=== PATIENT | male | born 1940 | race Caucasian/White ===

== ENCOUNTER 2018-07-20 23:03 | Inpatient (IN) | payer MEDICARE ==
[~2018-07-20] VITALS: Ht 182.9 cm; Wt 75.8 kg
[2018-07-20] MEDS ORDERED: MAG HYDROX/AL HYDROX/SIMETH 30 ML ORAL.SUSP PO PRN (23:15)
[2018-07-20] MEDS ORDERED: MAGNESIUM HYDROXIDE 2,400 MG/30 ML ORAL.SUSP. PO PRN (23:15)
[2018-07-20] MEDS ORDERED: ACETAMINOPHEN 325 MG TABLET PO PRN (23:15)
[2018-07-20] MEDS ORDERED: METHYL SALICYLATE/MENTHOL TOPICAL OINTMENT 29GM TUBE. TP PRN (23:15)
[2018-07-20 23:32] VITALS: BP 165/71
[2018-07-20] MEDS ORDERED: LACO50TA PO (23:50)
[2018-07-20] MEDS ORDERED: ASPI-630 PO (23:50)
[2018-07-20] MEDS ORDERED: SIMV80TA17 PO (23:50)
[2018-07-20] MEDS ORDERED: UBIQ75CA PO (23:51)
[2018-07-20] MEDS ORDERED: LISI10TA2 PO (23:51)
[2018-07-21 05:46] VITALS: BP 131/76
--- NOTE | 2018-07-21 06:02 | EKG ---
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
[2018-07-21 07:15] LABS: BASO # 0.1 x10^3/uL (0.0-0.2); BASO % 1 % (0-3); EOS # 0.1 x10^3/uL (0.0-0.7); EOS % 1 % (0-3); HEMOGLOBIN 11.5 g/dL (13.0-17.5); LYMPH # 1.2 x10^3/uL (1.0-4.8); LYMPH % 20 % (24-48); MEAN CORPUSCULAR HEMOGLOBIN 33 pg (25-35); MEAN CORPUSCULAR HGB CONC 35 g/dL (31-37); MEAN CORPUSCULAR VOLUME 96 fL (79-100); MONO # 0.7 x10^3/uL (0.0-1.1); MONO % 13 % (0-9); NEUT # 3.8 x10^3uL (1.8-7.7); NEUT % 65 % (31-73); PLATELET COUNT 411 x10^3/uL (140-400); RED BLOOD COUNT 3.46 x10^6/uL (4.30-5.70); RED CELL DISTRIBUTION WIDTH 13.8 % (11.5-14.5); WHITE BLOOD COUNT 5.8 x10^3/uL (4.0-11.0)
[2018-07-21 07:41] LABS: ALBUMIN 3.2 g/dL (3.4-5.0); CALCIUM 8.8 mg/dL (8.5-10.1); CREATININE 0.8 mg/dL (0.7-1.3); GFR 93.3; POTASSIUM 4.5 mmol/L (3.5-5.1); TOTAL BILIRUBIN 0.2 mg/dL (0.2-1.0); TOTAL PROTEIN 6.3 g/dL (6.4-8.2)
[2018-07-21] MEDS: ASPIRIN 81 MG TAB.CHEW PO SCH ×2 (08:03→20:12)
[2018-07-21] MEDS: LISINOPRIL 10 MG TABLET PO SCH (08:04)
[2018-07-21] MEDS: LACOSAMIDE 50 MG TABLET PO SCH ×2 (08:04→20:12)
[2018-07-21 10:24] LABS: THYROID STIM HORMONE (TSH) 4.514 uIU/mL (0.358-3.740)
[2018-07-21 15:09] LABS: THYROXINE 4.8 ug/dL (4.5-12.0)
[2018-07-21 15:39] VITALS: BP 149/83
[2018-07-21] MEDS ORDERED: PHEN100C PO (18:37)
[2018-07-21] MEDS: UBIDECARENONE 50 MG CAPSULE. PO SCH ×2 (19:00→20:16)
[2018-07-21] MEDS: traZODone 50 MG TABLET. PO SCH (20:15)
[2018-07-21] MEDS: PHENYTOIN SODIUM EXTENDED 100 MG CAPSULE PO SCH (20:16)
[2018-07-21] MEDS: SIMVASTATIN 40 MG TABLET. PO SCH (20:17)
[2018-07-21 22:14] LABS: HEMOGLOBIN A1C 5.1 % (4.8-5.6)
[2018-07-22] MEDS: traZODone 50 MG TABLET. PO PRN (00:16)
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
[2018-07-22 06:19] VITALS: BP 129/67
[2018-07-22] MEDS: ASPIRIN 81 MG TAB.CHEW PO SCH ×2 (07:34→20:42)
[2018-07-22] MEDS: LISINOPRIL 10 MG TABLET PO SCH (07:34)
[2018-07-22] MEDS: UBIDECARENONE 50 MG CAPSULE. PO SCH (07:36)
[2018-07-22] MEDS: LACOSAMIDE 50 MG TABLET PO SCH ×2 (07:37→20:42)
[2018-07-22 15:11] LABS: BACTERIA,URINE 0 /HPF (0-FEW); BILIRUBIN,URINE NEG (NEG); CLARITY,URINE CLEAR; COLOR,URINE YELLOW; GLUCOSE,URINE NEG (NEG); HYALINE CASTS, URINE FEW /HPF; NITRITE,URINE NEG (NEG); RBC,URINE 0 /HPF (0-2); SQUAMOUS EPITHELIAL CELL,UR OCC /LPF; UROBILINOGEN,URINE 0.2 mg/dL (0.2 mg/dL); WBC,URINE 0 /HPF (0-4)
[2018-07-22 15:16] VITALS: BP 104/64
--- NOTE | 2018-07-22 20:04 | PDOC ---
Exam Note: Quintin Note: Late entry for date of service July. Please also refer to the separate dictated note~for this date of service dictated separately.~Patient seen individually. Discussed the patient with Nursing staff reviewed the chart.~ Reviewed interim history and current functioning. Reviewed vital signs,~Labs/ Radiology~and current medications noted below. Continue current treatment with the changes noted in the dictated addendum note Assessment: Vital Signs: VS - Last 72 Hours, by Label Date Time Temp Pulse Resp B/P (MAP) Pulse Ox O2 Delivery O2 Flow Rate FiO2 07/22/18 15:16 97.8 86 20 104/64 (77) 99 07/22/18 07:34 79 129/67 07/22/18 06:19 97.6 79 16 129/67 (87) 97 07/21/18 15:39 98.0 89 18 149/83 (105) 96 07/21/18 08:04 83 131/76 07/21/18 05:46 98.5 83 16 131/76 (94) 96 07/20/18 23:32 98.3 86 18 165/71 (102) 100 Vital Signs Date Time Temp Pulse Resp B/P (MAP) Pulse Ox O2 Delivery O2 Flow Rate FiO2 07/22/18 15:16 97.8 86 20 104/64 (77) 99 I&O Intake and Output 07/22/18 06:59 Intake Total 958 ml Balance 958 ml Intake Oral 958 ml # Voids 1 Labs: Laboratory Tests Test 07/22/18 13:10 Urine Collection Type Unknown Urine Color Yellow Urine Clarity Clear Urine pH 5.5 Urine Specific [place] 1.010 Urine Protein 30 mg/dl (NEG-TRACE) Urine Glucose (UA) Neg mg/dL (NEG) Urine Ketones (Stick) Neg mg/dL (NEG) Urine Blood Neg (NEG) Urine Nitrite Neg (NEG) Urine Bilirubin Neg (NEG) Urine Urobilinogen Dipstick 0.2 mg/dL (0.2 mg/dL) Urine Leukocyte Esterase Neg (NEG) Urine RBC 0 /HPF (0-2) Urine WBC 0 /HPF (0-4) Urine Squamous Epithelial Cells Occ /LPF Urine Bacteria 0 /HPF (0-FEW) Urine Hyaline Casts Few /HPF Urine Mucus Slight /LPF Current Medications: Meds: Current Medications Acetaminophen (Tylenol) 650 mg PRN Q6HRS PRN PO PAIN / TEMP; Start 07/20/18 at 23:15 Multi-Ingredient Ointment (Analgesic [place]) 1 erik PRN QID PRN TP MUSCLE PAIN; Start 07/20/18 at 23:15 Al Hydroxide/Mg Hydroxide (Mylanta Plus Xs) 15 ml PRN AFTMEALHC PRN PO DYSPEPSIA; Start 07/20/18 at 23:15 Magnesium Hydroxide (Milk Of Magnesia) 2,400 mg PRN QHS PRN PO CONSTIPATION; Start 07/20/18 at 23:15 Lacosamide (Vimpat) 50 mg BID PO Last administered on 07/22/18at 07:37; Start 07/21/18 at 09:00 Lisinopril (Prinivil) 10 mg DAILY PO Last administered on 07/22/18at 07:34; Start 07/21/18 at 09:00 Aspirin (Children'S Aspirin) 81 mg BID PO Last administered on 07/22/18at 07:34 ; Start 07/21/18 at 09:00 Simvastatin (Zocor) 80 mg QHS PO Last administered on 07/21/18at 20:17; Start 07/21/18 at 21:00 Coenzyme Q10 (Coenzyme Q10) 200 mg DAILY PO Last administered on 07/22/18at 07: 36; Start 07/21/18 at 19:00 Phenytoin Sodium (Dilantin) 400 mg Q96H PO Last administered on 07/21/18at 20:16 ; Start 07/21/18 at 21:00 Phenytoin Sodium (Dilantin) 400 mg Q96H PO ; Start 07/22/18 at 21:00 Phenytoin Sodium (Dilantin) 400 mg Q96H PO ; Start 07/23/18 at 21:00 Phenytoin Sodium (Dilantin) 300 mg Q96H PO ; Start 07/24/18 at 21:00 Trazodone HCl (Desyrel) 50 mg QHS PO Last administered on 07/21/18at 20:15; Start 07/21/18 at 21:00 Trazodone HCl (Desyrel) 50 mg PRN QHS PRN PO insomnia Last administered on 07/22at 00:16; Start 07/21/18 at 20:00 Active Scripts Active Reported Dilantin (Phenytoin Sodium Extended) 100 Mg Capsule 400 Mg PO HS Ultra Coq10 (Ubiquinone) 75 Mg Capsule 200 Mg PO DAILY Lisinopril 10 Mg Tablet 10 Mg PO DAILY Vimpat (Lacosamide) 50 Mg Tablet 50 Mg PO BID Aspirin 81 Mg Tab.chew 81 Mg PO BID Simvastatin 80 Mg Tablet 80 Mg PO HS I have reviewed the current psychotropics carefully including drug interactions. Risk benefit ratio favors no change other than as noted in my dictated progress note. Diagnosis: Problems: (1) Anxiety disorder (2) Dementia in Alzheimer's disease with delusions (3) Dementia in Alzheimer's disease with depression (4) Dementia, vascular, with delusions (5) Dementia, vascular, with depression (6) Impulse control disorder LISHA KIRKPATRICK MD Jul 22, 2018 20:04
--- NOTE | 2018-07-22 20:04 | PDOC ---
Exam Note: Quintin Note: Please also refer to the separate dictated note~for this date of service dictated separately.~Patient seen individually. Discussed the patient with Nursing staff reviewed the chart.~Reviewed interim history and current functioning. Reviewed vital signs,~Labs/ Radiology~and current medications noted below. Continue current treatment with the changes noted in the dictated addendum note Assessment: Vital Signs: Vital Signs Date Time Temp Pulse Resp B/P (MAP) Pulse Ox O2 Delivery O2 Flow Rate FiO2 07/22/18 15:16 97.8 86 20 104/64 (77) 99 I&O Intake and Output 07/22/18 06:59 Intake Total 958 ml Balance 958 ml Intake Oral 958 ml # Voids 1 Labs: Laboratory Tests Test 07/22/18 13:10 Urine Collection Type Unknown Urine Color Yellow Urine Clarity Clear Urine pH 5.5 Urine Specific [place] 1.010 Urine Protein 30 mg/dl (NEG-TRACE) Urine Glucose (UA) Neg mg/dL (NEG) Urine Ketones (Stick) Neg mg/dL (NEG) Urine Blood Neg (NEG) Urine Nitrite Neg (NEG) Urine Bilirubin Neg (NEG) Urine Urobilinogen Dipstick 0.2 mg/dL (0.2 mg/dL) Urine Leukocyte Esterase Neg (NEG) Urine RBC 0 /HPF (0-2) Urine WBC 0 /HPF (0-4) Urine Squamous Epithelial Cells Occ /LPF Urine Bacteria 0 /HPF (0-FEW) Urine Hyaline Casts Few /HPF Urine Mucus Slight /LPF Current Medications: Meds: Current Medications Acetaminophen (Tylenol) 650 mg PRN Q6HRS PRN PO PAIN / TEMP; Start 07/20/18 at 23:15 Multi-Ingredient Ointment (Analgesic [place]) 1 erik PRN QID PRN TP MUSCLE PAIN; Start 07/20/18 at 23:15 Al Hydroxide/Mg Hydroxide (Mylanta Plus Xs) 15 ml PRN AFTMEALHC PRN PO DYSPEPSIA; Start 07/20/18 at 23:15 Magnesium Hydroxide (Milk Of Magnesia) 2,400 mg PRN QHS PRN PO CONSTIPATION; Start 07/20/18 at 23:15 Lacosamide (Vimpat) 50 mg BID PO Last administered on 07/22/18at 07:37; Start 07/21/18 at 09:00 Lisinopril (Prinivil) 10 mg DAILY PO Last administered on 07/22/18 07:34; Start 07/21/18 at 09:00 Aspirin (Children'S Aspirin) 81 mg BID PO Last administered on 07/22/18at 07:34 ; Start 07/21/18 at 09:00 Simvastatin (Zocor) 80 mg QHS PO Last administered on 07/21/18at 20:17; Start 07/21/18 at 21:00 Coenzyme Q10 (Coenzyme Q10) 200 mg DAILY PO Last administered on 07/22/18at 07: 36; Start 07/21/18 at 19:00 Phenytoin Sodium (Dilantin) 400 mg Q96H PO Last administered on 07/21/18 20:16 ; Start 07/21/18 at 21:00 Phenytoin Sodium (Dilantin) 400 mg Q96H PO ; Start 07/22/18 at 21:00 Phenytoin Sodium (Dilantin) 400 mg Q96H PO ; Start 07/23/18 at 21:00 Phenytoin Sodium (Dilantin) 300 mg Q96H PO ; Start 07/24/18 at 21:00 Trazodone HCl (Desyrel) 50 mg QHS PO Last administered on 07/21/18at 20:15; Start 07/21/18 at 21:00 Trazodone HCl (Desyrel) 50 mg PRN QHS PRN PO insomnia Last administered on 07/22at 00:16; Start 07/21/18 at 20:00 Active Scripts Active Reported Dilantin (Phenytoin Sodium Extended) 100 Mg Capsule 400 Mg PO HS Ultra Coq10 (Ubiquinone) 75 Mg Capsule 200 Mg PO DAILY Lisinopril 10 Mg Tablet 10 Mg PO DAILY Vimpat (Lacosamide) 50 Mg Tablet 50 Mg PO BID Aspirin 81 Mg Tab.chew 81 Mg PO BID Simvastatin 80 Mg Tablet 80 Mg PO HS I have reviewed the current psychotropics carefully including drug interactions. Risk benefit ratio favors no change other than as noted in my dictated progress note. Diagnosis: Problems: (1) Anxiety disorder (2) Dementia in Alzheimer's disease with delusions (3) Dementia in Alzheimer's disease with depression (4) Dementia, vascular, with delusions (5) Dementia, vascular, with depression (6) Impulse control disorder LISHA KIRKPATRICK MD Jul 22, 2018 20:04
[2018-07-22] MEDS: SIMVASTATIN 40 MG TABLET. PO SCH (20:42)
[2018-07-22] MEDS: traZODone 50 MG TABLET. PO SCH (20:42)
[2018-07-22] MEDS: PHENYTOIN SODIUM EXTENDED 100 MG CAPSULE PO SCH (20:43)
--- NOTE | 2018-07-23 02:02 | PN ---
DATE: 07/22/2018 This note covers elements not covered in my initial note of 07/22/2018. SUBJECTIVE: The patient slept just one hour previous evening, had a good day, medication compliant. REVIEW OF SYSTEMS: No CV, , pulmonary, eye, ENT system symptoms on review. Reliability poor. MENTAL STATUS EXAM: Oriented to himself. Insight, judgment, recent and remote memory, attention, concentration, fund of knowledge poor, consistent with his diagnosis. IMPRESSION: Major neurocognitive disorder, Alzheimer, vascular with delusion, depression, behavioral disturbance. Rest unchanged. PLAN: No change from initial note. MAN RubyHailee KIRKPATRICK MD DR: ODNATO/marya JOB#: [id number] / [id number]
[2018-07-23 05:42] VITALS: BP 128/80
[2018-07-23] MEDS: LISINOPRIL 10 MG TABLET PO SCH (09:57)
[2018-07-23] MEDS: ASPIRIN 81 MG TAB.CHEW PO SCH ×2 (09:58→19:56)
[2018-07-23] MEDS: UBIDECARENONE 50 MG CAPSULE. PO SCH (09:58)
[2018-07-23] MEDS: LACOSAMIDE 50 MG TABLET PO SCH ×2 (09:58→20:00)
[2018-07-23 15:42] VITALS: BP 118/71
[2018-07-23] MEDS: traZODone 50 MG TABLET. PO SCH (19:56)
[2018-07-23] MEDS: SIMVASTATIN 40 MG TABLET. PO SCH (19:56)
[2018-07-23] MEDS: PHENYTOIN SODIUM EXTENDED 100 MG CAPSULE PO SCH (20:00)
[2018-07-23] MEDS: MIRTAZAPINE 7.5 MG TABLET. PO SCH (20:00)
--- NOTE | 2018-07-23 20:46 | PDOC ---
Exam Note: Quintin Note: Please also refer to the separate dictated note~for this date of service dictated separately.~Patient seen individually. Discussed the patient with Nursing staff reviewed the chart.~Reviewed interim history and current functioning. Reviewed vital signs,~Labs/ Radiology~and current medications noted below. Continue current treatment with the changes noted in the dictated addendum note Assessment: Vital Signs: Vital Signs Date Time Temp Pulse Resp B/P (MAP) Pulse Ox O2 Delivery O2 Flow Rate FiO2 07/23/18 15:42 98.2 83 20 118/71 (87) 99 07/23/18 05:42 Room Air I&O Intake and Output 07/23/18 06:59 Intake Total 960 ml Balance 960 ml Intake Oral 960 ml Current Medications: Meds: Current Medications Acetaminophen (Tylenol) 650 mg PRN Q6HRS PRN PO PAIN / TEMP; Start 07/20/18 at 23:15 Multi-Ingredient Ointment (Analgesic [place]) 1 erik PRN QID PRN TP MUSCLE PAIN; Start 07/20/18 at 23:15 Al Hydroxide/Mg Hydroxide (Mylanta Plus Xs) 15 ml PRN AFTMEALHC PRN PO DYSPEPSIA; Start 07/20/18 at 23:15 Magnesium Hydroxide (Milk Of Magnesia) 2,400 mg PRN QHS PRN PO CONSTIPATION; Start 07/20/18 at 23:15 Lacosamide (Vimpat) 50 mg BID PO Last administered on 07/23/18at 20:00; Start 07/21/18 at 09:00 Lisinopril (Prinivil) 10 mg DAILY PO Last administered on 07/23/18at 09:57; Start 07/21/18 at 09:00 Aspirin (Children'S Aspirin) 81 mg BID PO Last administered on 07/23/18 19:56 ; Start 07/21/18 at 09:00 Simvastatin (Zocor) 80 mg QHS PO Last administered on 07/23/18 19:56; Start 07/21/18 at 21:00 Coenzyme Q10 (Coenzyme Q10) 200 mg DAILY PO Last administered on 07/23/18at 09: 58; Start 07/21/18 at 19:00 Phenytoin Sodium (Dilantin) 400 mg Q96H PO Last administered on 07/21/18at 20:16 ; Start 07/21/18 at 21:00 Phenytoin Sodium (Dilantin) 400 mg Q96H PO Last administered on 07/22/18at 20:43 ; Start 07/22/18 at 21:00 Phenytoin Sodium (Dilantin) 400 mg Q96H PO Last administered on 07/23/18at 20:00 ; Start 07/23/18 at 21:00 Phenytoin Sodium (Dilantin) 300 mg Q96H PO ; Start 07/24/18 at 21:00 Trazodone HCl (Desyrel) 50 mg QHS PO Last administered on 07/23/18at 19:56; Start 07/21/18 at 21:00 Trazodone HCl (Desyrel) 50 mg PRN QHS PRN PO insomnia Last administered on 07/22at 00:16; Start 07/21/18 at 20:00 Mirtazapine (Remeron) 7.5 mg QHS PO Last administered on 07/23/18at 20:00; Start 07/23/18 at 21:00 Active Scripts Active Reported Dilantin (Phenytoin Sodium Extended) 100 Mg Capsule 400 Mg PO HS Ultra Coq10 (Ubiquinone) 75 Mg Capsule 200 Mg PO DAILY Lisinopril 10 Mg Tablet 10 Mg PO DAILY Vimpat (Lacosamide) 50 Mg Tablet 50 Mg PO BID Aspirin 81 Mg Tab.chew 81 Mg PO BID Simvastatin 80 Mg Tablet 80 Mg PO HS I have reviewed the current psychotropics carefully including drug interactions. Risk benefit ratio favors no change other than as noted in my dictated progress note. Diagnosis: Problems: (1) Anxiety disorder (2) Dementia in Alzheimer's disease with delusions (3) Dementia in Alzheimer's disease with depression (4) Dementia, vascular, with delusions (5) Dementia, vascular, with depression (6) Impulse control disorder LISHA KIRKPATRICK MD Jul 23, 2018 20:46
[2018-07-24 05:53] VITALS: BP 147/85
[2018-07-24] MEDS: UBIDECARENONE 50 MG CAPSULE. PO SCH (07:55)
[2018-07-24] MEDS: ASPIRIN 81 MG TAB.CHEW PO SCH ×2 (07:55→19:26)
[2018-07-24] MEDS: LISINOPRIL 10 MG TABLET PO SCH (07:56)
[2018-07-24] MEDS: LACOSAMIDE 50 MG TABLET PO SCH ×2 (07:59→19:29)
[2018-07-24 16:33] VITALS: BP 110/61
[2018-07-24] MEDS: MIRTAZAPINE 7.5 MG TABLET. PO SCH (19:26)
[2018-07-24] MEDS: traZODone 50 MG TABLET. PO SCH (19:26)
[2018-07-24] MEDS: SIMVASTATIN 40 MG TABLET. PO SCH (19:27)
[2018-07-24] MEDS: PHENYTOIN SODIUM EXTENDED 100 MG CAPSULE PO SCH (19:29)
--- NOTE | 2018-07-24 21:00 | PDOC ---
Exam Note: Quintin Note: Please also refer to the separate dictated note~for this date of service dictated separately.~Patient seen individually. Discussed the patient with Nursing staff reviewed the chart.~Reviewed interim history and current functioning. Reviewed vital signs,~Labs/ Radiology~and current medications noted below. Continue current treatment with the changes noted in the dictated addendum note Assessment: Vital Signs: Vital Signs Date Time Temp Pulse Resp B/P (MAP) Pulse Ox O2 Delivery O2 Flow Rate FiO2 07/24/18 16:33 98.1 67 18 110/61 (77) 98 07/23/18 05:42 Room Air I&O Intake and Output 07/24/18 07:00 Intake Total 480 ml Balance 480 ml Intake Oral 480 ml # Voids 1 # Bowel Movements 1 Current Medications: Meds: Current Medications Acetaminophen (Tylenol) 650 mg PRN Q6HRS PRN PO PAIN / TEMP; Start 07/20/18 at 23:15 Multi-Ingredient Ointment (Analgesic [place]) 1 erik PRN QID PRN TP MUSCLE PAIN; Start 07/20/18 at 23:15 Al Hydroxide/Mg Hydroxide (Mylanta Plus Xs) 15 ml PRN AFTMEALHC PRN PO DYSPEPSIA; Start 07/20/18 at 23:15 Magnesium Hydroxide (Milk Of Magnesia) 2,400 mg PRN QHS PRN PO CONSTIPATION; Start 07/20/18 at 23:15 Lacosamide (Vimpat) 50 mg BID PO Last administered on 07/24/18at 19:29; Start 07/21/18 at 09:00 Lisinopril (Prinivil) 10 mg DAILY PO Last administered on 07/24/18at 07:56; Start 07/21/18 at 09:00 Aspirin (Children'S Aspirin) 81 mg BID PO Last administered on 07/24/18 19:26 ; Start 07/21/18 at 09:00 Simvastatin (Zocor) 80 mg QHS PO Last administered on 07/24/18at 19:27; Start 07/21/18 at 21:00 Coenzyme Q10 (Coenzyme Q10) 200 mg DAILY PO Last administered on 07/24/18at 07: 55; Start 07/21/18 at 19:00 Phenytoin Sodium (Dilantin) 400 mg Q96H PO Last administered on 07/21/18at 20:16 ; Start 07/21/18 at 21:00 Phenytoin Sodium (Dilantin) 400 mg Q96H PO Last administered on 07/22/18 20:43 ; Start 07/22/18 at 21:00 Phenytoin Sodium (Dilantin) 400 mg Q96H PO Last administered on 07/23/18 20:00 ; Start 07/23/18 at 21:00 Phenytoin Sodium (Dilantin) 300 mg Q96H PO Last administered on 07/24/18 19:29 ; Start 07/24/18 at 21:00 Trazodone HCl (Desyrel) 50 mg QHS PO Last administered on 07/24/18 19:26; Start 07/21/18 at 21:00 Trazodone HCl (Desyrel) 50 mg PRN QHS PRN PO insomnia Last administered on 07/22 00:16; Start 07/21/18 at 20:00 Mirtazapine (Remeron) 7.5 mg QHS PO Last administered on 07/24/18 19:26; Start 07/23/18 at 21:00 Sertraline HCl (Zoloft) 50 mg DAILY PO ; Start 07/25/18 at 09:00 Active Scripts Active Reported Dilantin (Phenytoin Sodium Extended) 100 Mg Capsule 400 Mg PO HS Ultra Coq10 (Ubiquinone) 75 Mg Capsule 200 Mg PO DAILY Lisinopril 10 Mg Tablet 10 Mg PO DAILY Vimpat (Lacosamide) 50 Mg Tablet 50 Mg PO BID Aspirin 81 Mg Tab.chew 81 Mg PO BID Simvastatin 80 Mg Tablet 80 Mg PO HS I have reviewed the current psychotropics carefully including drug interactions. Risk benefit ratio favors no change other than as noted in my dictated progress note. Diagnosis: Problems: (1) Anxiety disorder (2) Dementia in Alzheimer's disease with delusions (3) Dementia in Alzheimer's disease with depression (4) Dementia, vascular, with delusions (5) Dementia, vascular, with depression (6) Impulse control disorder LISHA KIRKPATRICK MD Jul 24, 2018 21:00
[2018-07-25 06:00] VITALS: BP 147/73
[2018-07-25] MEDS: UBIDECARENONE 50 MG CAPSULE. PO SCH (08:40)
[2018-07-25] MEDS: LISINOPRIL 10 MG TABLET PO SCH (08:40)
[2018-07-25] MEDS: ASPIRIN 81 MG TAB.CHEW PO SCH ×2 (08:40→19:39)
[2018-07-25] MEDS: LACOSAMIDE 50 MG TABLET PO SCH ×2 (08:42→19:43)
[2018-07-25] MEDS: SERTRALINE 50 MG TABLET. PO SCH (08:42)
[2018-07-25 16:09] VITALS: BP 118/69
[2018-07-25] MEDS: traZODone 50 MG TABLET. PO SCH (19:40)
[2018-07-25] MEDS: MIRTAZAPINE 7.5 MG TABLET. PO SCH (19:40)
[2018-07-25] MEDS: PHENYTOIN SODIUM EXTENDED 100 MG CAPSULE PO SCH (19:43)
[2018-07-25] MEDS: SIMVASTATIN 40 MG TABLET. PO SCH (19:44)
--- NOTE | 2018-07-25 20:51 | PDOC ---
Exam Note: Quintin Note: Please also refer to the separate dictated note~for this date of service dictated separately.~Patient seen individually. Discussed the patient with Nursing staff reviewed the chart.~Reviewed interim history and current functioning. Reviewed vital signs,~Labs/ Radiology~and current medications noted below. Continue current treatment with the changes noted in the dictated addendum note Assessment: Vital Signs: Vital Signs Date Time Temp Pulse Resp B/P (MAP) Pulse Ox O2 Delivery O2 Flow Rate FiO2 07/25/18 16:09 98.4 78 16 118/69 (85) 96 07/23/18 05:42 Room Air I&O Intake and Output 07/25/18 07:00 Intake Total 1080 ml Balance 1080 ml Intake Oral 1080 ml Current Medications: Meds: Current Medications Acetaminophen (Tylenol) 650 mg PRN Q6HRS PRN PO PAIN / TEMP; Start 07/20/18 at 23:15 Multi-Ingredient Ointment (Analgesic [place]) 1 erik PRN QID PRN TP MUSCLE PAIN; Start 07/20/18 at 23:15 Al Hydroxide/Mg Hydroxide (Mylanta Plus Xs) 15 ml PRN AFTMEALHC PRN PO DYSPEPSIA; Start 07/20/18 at 23:15 Magnesium Hydroxide (Milk Of Magnesia) 2,400 mg PRN QHS PRN PO CONSTIPATION; Start 07/20/18 at 23:15 Lacosamide (Vimpat) 50 mg BID PO Last administered on 07/25/18at 19:43; Start 07/21/18 at 09:00 Lisinopril (Prinivil) 10 mg DAILY PO Last administered on 07/25/18 08:40; Start 07/21/18 at 09:00 Aspirin (Children'S Aspirin) 81 mg BID PO Last administered on 07/25/18 19:39 ; Start 07/21/18 at 09:00 Simvastatin (Zocor) 80 mg QHS PO Last administered on 07/25/18 19:44; Start 07/21/18 at 21:00 Coenzyme Q10 (Coenzyme Q10) 200 mg DAILY PO Last administered on 07/25/18 08: 40; Start 07/21/18 at 19:00 Phenytoin Sodium (Dilantin) 400 mg Q96H PO Last administered on 07/25/18 19: 43; Start 07/21/18 at 21:00 Phenytoin Sodium (Dilantin) 400 mg Q96H PO Last administered on 07/22/18at 20:43 ; Start 07/22/18 at 21:00 Phenytoin Sodium (Dilantin) 400 mg Q96H PO Last administered on 07/23/18at 20:00 ; Start 07/23/18 at 21:00 Phenytoin Sodium (Dilantin) 300 mg Q96H PO Last administered on 07/24/18at 19:29 ; Start 07/24/18 at 21:00 Trazodone HCl (Desyrel) 50 mg QHS PO Last administered on 07/25/18 19:40; Start 07/21/18 at 21:00 Trazodone HCl (Desyrel) 50 mg PRN QHS PRN PO insomnia Last administered on 07/22at 00:16; Start 07/21/18 at 20:00 Mirtazapine (Remeron) 7.5 mg QHS PO Last administered on 07/25/18 19:40; Start 07/23/18 at 21:00 Sertraline HCl (Zoloft) 50 mg DAILY PO Last administered on 07/25/18 08:42; Start 07/25/18 at 09:00 Active Scripts Active Reported Dilantin (Phenytoin Sodium Extended) 100 Mg Capsule 400 Mg PO HS Ultra Coq10 (Ubiquinone) 75 Mg Capsule 200 Mg PO DAILY Lisinopril 10 Mg Tablet 10 Mg PO DAILY Vimpat (Lacosamide) 50 Mg Tablet 50 Mg PO BID Aspirin 81 Mg Tab.chew 81 Mg PO BID Simvastatin 80 Mg Tablet 80 Mg PO HS I have reviewed the current psychotropics carefully including drug interactions. Risk benefit ratio favors no change other than as noted in my dictated progress note. Diagnosis: Problems: (1) Anxiety disorder (2) Dementia in Alzheimer's disease with delusions (3) Dementia in Alzheimer's disease with depression (4) Dementia, vascular, with delusions (5) Dementia, vascular, with depression (6) Impulse control disorder LISHA KIRKPATRICK MD Jul 25, 2018 20:51
--- NOTE | 2018-07-25 23:57 | PN ---
DATE: 07/24/2018 PSYCHIATRIC PROGRESS NOTE This late entry 07/24/2018 covers elements not covered in my initial note. SUBJECTIVE: I met with the patient in the evening. The patient slept 4 hours previous evening. He remains confused, compliant with medications, cooperative. REVIEW OF SYSTEMS: No CV, , pulmonary, eye, ENT system symptoms on review. Reliability poor. Gait unsteady with walker. I met with him in his room. He was being isolative and then I walked with him to the day room where they were having activities and he was cooperative with this. MENTAL STATUS EXAM: Oriented to himself. Insight, judgment, recent and remote memory, attention, concentration, fund of knowledge poor, consistent with his diagnosis mentioned in my initial note. PLAN: No change from initial note and we will go ahead and start Zoloft 50 mg a day for his mood and anxiety symptoms. MAN Franklin KIRKPATRICK MD DR: DONATO/marya JOB#: [id number] / [id number]
[2018-07-26 06:03] VITALS: BP 116/71
[2018-07-26] MEDS: ASPIRIN 81 MG TAB.CHEW PO SCH ×2 (09:57→20:38)
[2018-07-26] MEDS: LISINOPRIL 10 MG TABLET PO SCH (09:57)
[2018-07-26] MEDS: UBIDECARENONE 50 MG CAPSULE. PO SCH (09:57)
[2018-07-26] MEDS: SERTRALINE 50 MG TABLET. PO SCH (09:58)
[2018-07-26] MEDS: LACOSAMIDE 50 MG TABLET PO SCH ×2 (09:59→20:38)
[2018-07-26 16:33] VITALS: BP 152/77
[2018-07-26] MEDS: traZODone 50 MG TABLET. PO SCH (20:38)
[2018-07-26] MEDS: SIMVASTATIN 40 MG TABLET. PO SCH (20:38)
--- NOTE | 2018-07-26 20:40 | PDOC ---
Exam Note: Quintin Note: Please also refer to the separate dictated note~for this date of service dictated separately.~Patient seen individually. Discussed the patient with Nursing staff reviewed the chart.~Reviewed interim history and current functioning. Reviewed vital signs,~Labs/ Radiology~and current medications noted below. Continue current treatment with the changes noted in the dictated addendum note Assessment: Vital Signs: Vital Signs Date Time Temp Pulse Resp B/P (MAP) Pulse Ox O2 Delivery O2 Flow Rate FiO2 07/26/18 16:33 98.0 74 18 152/77 (102) 97 Room Air I&O Intake and Output 07/26/18 07:00 Intake Total 840 ml Balance 840 ml Intake Oral 840 ml # Voids 1 Current Medications: Meds: Current Medications Acetaminophen (Tylenol) 650 mg PRN Q6HRS PRN PO PAIN / TEMP; Start 07/20/18 at 23:15 Multi-Ingredient Ointment (Analgesic [place]) 1 erik PRN QID PRN TP MUSCLE PAIN; Start 07/20/18 at 23:15 Al Hydroxide/Mg Hydroxide (Mylanta Plus Xs) 15 ml PRN AFTMEALHC PRN PO DYSPEPSIA; Start 07/20/18 at 23:15 Magnesium Hydroxide (Milk Of Magnesia) 2,400 mg PRN QHS PRN PO CONSTIPATION; Start 07/20/18 at 23:15 Lacosamide (Vimpat) 50 mg BID PO Last administered on 07/26/18at 09:59; Start 07/21/18 at 09:00 Lisinopril (Prinivil) 10 mg DAILY PO Last administered on 07/26/18at 09:57; Start 07/21/18 at 09:00 Aspirin (Children'S Aspirin) 81 mg BID PO Last administered on 07/26/18 09:57 ; Start 07/21/18 at 09:00 Simvastatin (Zocor) 80 mg QHS PO Last administered on 07/25/18at 19:44; Start 07/21/18 at 21:00 Coenzyme Q10 (Coenzyme Q10) 200 mg DAILY PO Last administered on 07/26/18at 09: 57; Start 07/21/18 at 19:00 Phenytoin Sodium (Dilantin) 400 mg Q96H PO Last administered on 07/25/18at 19: 43; Start 07/21/18 at 21:00 Phenytoin Sodium (Dilantin) 400 mg Q96H PO Last administered on 07/22/18at 20:43 ; Start 07/22/18 at 21:00 Phenytoin Sodium (Dilantin) 400 mg Q96H PO Last administered on 07/23/18at 20:00 ; Start 07/23/18 at 21:00 Phenytoin Sodium (Dilantin) 300 mg Q96H PO Last administered on 07/24/18at 19:29 ; Start 07/24/18 at 21:00 Trazodone HCl (Desyrel) 50 mg QHS PO Last administered on 07/25/18 19:40; Start 07/21/18 at 21:00 Trazodone HCl (Desyrel) 50 mg PRN QHS PRN PO insomnia Last administered on 07/22at 00:16; Start 07/21/18 at 20:00 Mirtazapine (Remeron) 7.5 mg QHS PO Last administered on 07/25/18 19:40; Start 07/23/18 at 21:00; Stop 07/26/18 at 12:42; Status DC Sertraline HCl (Zoloft) 50 mg DAILY PO Last administered on 07/26/18at 09:58; Start 07/25/18 at 09:00 Mirtazapine (Remeron) 15 mg QHS PO ; Start 07/26/18 at 21:00 Active Scripts Active Reported Dilantin (Phenytoin Sodium Extended) 100 Mg Capsule 400 Mg PO HS Ultra Coq10 (Ubiquinone) 75 Mg Capsule 200 Mg PO DAILY Lisinopril 10 Mg Tablet 10 Mg PO DAILY Vimpat (Lacosamide) 50 Mg Tablet 50 Mg PO BID Aspirin 81 Mg Tab.chew 81 Mg PO BID Simvastatin 80 Mg Tablet 80 Mg PO HS I have reviewed the current psychotropics carefully including drug interactions. Risk benefit ratio favors no change other than as noted in my dictated progress note. Diagnosis: Problems: (1) Anxiety disorder (2) Dementia in Alzheimer's disease with delusions (3) Dementia in Alzheimer's disease with depression (4) Dementia, vascular, with delusions (5) Dementia, vascular, with depression (6) Impulse control disorder LISHA KIRKPATRICK MD Jul 26, 2018 20:40
[2018-07-26] MEDS: MIRTAZAPINE 15 MG TABLET PO SCH (20:45)
[2018-07-26] MEDS: PHENYTOIN SODIUM EXTENDED 100 MG CAPSULE PO SCH (20:46)
[2018-07-27 06:02] VITALS: BP 150/66
[2018-07-27] MEDS: ASPIRIN 81 MG TAB.CHEW PO SCH ×2 (09:31→20:11)
[2018-07-27] MEDS: UBIDECARENONE 50 MG CAPSULE. PO SCH (09:32)
[2018-07-27] MEDS: LACOSAMIDE 50 MG TABLET PO SCH ×2 (09:32→20:11)
[2018-07-27] MEDS: SERTRALINE 50 MG TABLET. PO SCH (09:32)
[2018-07-27] MEDS: LISINOPRIL 10 MG TABLET PO SCH (09:32)
[2018-07-27 15:41] VITALS: BP 118/72
--- NOTE | 2018-07-27 19:32 | PN ---
DATE: 07/27/2018 PSYCHIATRIC PROGRESS NOTE This late entry 07/25/2018 covers elements not covered in my initial note. SUBJECTIVE: I met with the patient in the evening. The patient slept 4-1/4 hours previous night. He has been pleasant, alert. He takes things that do not sadly belong to him, fairly oblivious of this. He walks into other patient's rooms again consequent to his memory deficits and confusion, but is redirectable. He was found to have the jacket of yet another patient in his room that he brought in and I addressed this with him, but he is fairly oblivious to this. REVIEW OF SYSTEMS: Ambulation impaired with walker. No CV, , pulmonary, eye, ENT system symptoms on review. MENTAL STATUS EXAM: Oriented to himself. Insight, judgment, recent and remote memory, attention, concentration, fund of knowledge poor, consistent with his diagnosis. IMPRESSION: Major neurocognitive disorder, Alzheimer, vascular with delusion, depression, behavioral disturbance; anxiety disorder, unspecified; impulse control disorder, unspecified. Rest unchanged. PLAN: No change from a psychiatric standpoint. He remains on phenytoin for his seizures, Zoloft, Remeron along with trazodone, the latter for insomnia. LISHA KIRKPATRICK MD DR: DONATO/maray JOB#: [id number] / [id number]
[2018-07-27] MEDS: SIMVASTATIN 40 MG TABLET. PO SCH (20:11)
[2018-07-27] MEDS: MIRTAZAPINE 15 MG TABLET PO SCH (20:11)
[2018-07-27] MEDS: traZODone 50 MG TABLET. PO SCH (20:11)
[2018-07-27] MEDS: PHENYTOIN SODIUM EXTENDED 100 MG CAPSULE PO SCH (20:15)
--- NOTE | 2018-07-27 20:43 | PDOC ---
Exam Note: Quintin Note: Please also refer to the separate dictated note~for this date of service dictated separately.~Patient seen individually. Discussed the patient with Nursing staff reviewed the chart.~Reviewed interim history and current functioning. Reviewed vital signs,~Labs/ Radiology~and current medications noted below. Continue current treatment with the changes noted in the dictated addendum note Assessment: Vital Signs: Vital Signs Date Time Temp Pulse Resp B/P (MAP) Pulse Ox O2 Delivery O2 Flow Rate FiO2 07/27/18 15:41 98.0 70 17 118/72 (87) 100 Room Air I&O Intake and Output 07/27/18 07:00 Intake Total 1080 ml Balance 1080 ml Intake Oral 1080 ml Current Medications: Meds: Current Medications Acetaminophen (Tylenol) 650 mg PRN Q6HRS PRN PO PAIN / TEMP; Start 07/20/18 at 23:15 Multi-Ingredient Ointment (Analgesic [place]) 1 erik PRN QID PRN TP MUSCLE PAIN; Start 07/20/18 at 23:15 Al Hydroxide/Mg Hydroxide (Mylanta Plus Xs) 15 ml PRN AFTMEALHC PRN PO DYSPEPSIA; Start 07/20/18 at 23:15 Magnesium Hydroxide (Milk Of Magnesia) 2,400 mg PRN QHS PRN PO CONSTIPATION; Start 07/20/18 at 23:15 Lacosamide (Vimpat) 50 mg BID PO Last administered on 07/27/18at 20:11; Start 07/21/18 at 09:00 Lisinopril (Prinivil) 10 mg DAILY PO Last administered on 07/27/18at 09:32; Start 07/21/18 at 09:00 Aspirin (Children'S Aspirin) 81 mg BID PO Last administered on 07/27/18at 20:11 ; Start 07/21/18 at 09:00 Simvastatin (Zocor) 80 mg QHS PO Last administered on 07/27/18at 20:11; Start 07/21/18 at 21:00 Coenzyme Q10 (Coenzyme Q10) 200 mg DAILY PO Last administered on 07/27/18at 09: 32; Start 07/21/18 at 19:00 Phenytoin Sodium (Dilantin) 400 mg Q96H PO Last administered on 07/25/18at 19: 43; Start 07/21/18 at 21:00 Phenytoin Sodium (Dilantin) 400 mg Q96H PO Last administered on 07/26/18at 20: 46; Start 07/22/18 at 21:00 Phenytoin Sodium (Dilantin) 400 mg Q96H PO Last administered on 07/27/18at 20: 15; Start 07/23/18 at 21:00 Phenytoin Sodium (Dilantin) 300 mg Q96H PO Last administered on 07/24/18 19:29 ; Start 07/24/18 at 21:00 Trazodone HCl (Desyrel) 50 mg QHS PO Last administered on 07/27/18 20:11; Start 07/21/18 at 21:00 Trazodone HCl (Desyrel) 50 mg PRN QHS PRN PO insomnia Last administered on 07/22 00:16; Start 07/21/18 at 20:00 Mirtazapine (Remeron) 7.5 mg QHS PO Last administered on 07/25/18 19:40; Start 07/23/18 at 21:00; Stop 07/26/18 at 12:42; Status DC Sertraline HCl (Zoloft) 50 mg DAILY PO Last administered on 07/27/18 09:32; Start 07/25/18 at 09:00 Mirtazapine (Remeron) 15 mg QHS PO Last administered on 07/27/18 20:11; Start 07/26/18 at 21:00 Active Scripts Active Reported Dilantin (Phenytoin Sodium Extended) 100 Mg Capsule 400 Mg PO HS Ultra Coq10 (Ubiquinone) 75 Mg Capsule 200 Mg PO DAILY Lisinopril 10 Mg Tablet 10 Mg PO DAILY Vimpat (Lacosamide) 50 Mg Tablet 50 Mg PO BID Aspirin 81 Mg Tab.chew 81 Mg PO BID Simvastatin 80 Mg Tablet 80 Mg PO HS I have reviewed the current psychotropics carefully including drug interactions. Risk benefit ratio favors no change other than as noted in my dictated progress note. Diagnosis: Problems: (1) Anxiety disorder (2) Dementia in Alzheimer's disease with delusions (3) Dementia in Alzheimer's disease with depression (4) Dementia, vascular, with delusions (5) Dementia, vascular, with depression (6) Impulse control disorder LISHA KIRKPATRICK MD Jul 27, 2018 20:43
--- NOTE | 2018-07-27 22:04 | PN ---
DATE: 07/26/2018 PSYCHIATRIC PROGRESS NOTE This late entry 07/26/2018 covers elements not covered in my initial note. SUBJECTIVE: I met with the patient in the evening, staffed at a treatment team meeting with the entire team in the morning. Reviewed the patient's history of progressive memory deficits. His is meeting with the supervisor prepress to get the patient on Medicaid for placement. She drives the school bus and is limited in her time she can spend with him where he to come home. He has slept about 2 hours previous evening, wanders the unit, picks up things belonging to others, oblivious of what he is doing. REVIEW OF SYSTEMS: Ambulation impaired with walker. No CV, , pulmonary, eye, ENT system symptoms on review. Reliability poor. MENTAL STATUS EXAM: I met with him in his room. Insight, judgment, recent and remote memory, attention, concentration, fund of knowledge poor, consistent with his diagnosis mentioned in my initial note. PLAN: Increase Remeron to 15 mg at bedtime to help with insomnia and anxiety. Maintain Zoloft. Remains on Dilantin for his seizures, trazodone for insomnia. MAN Franklin KIRKPATRICK MD DR: DONATO/marya JOB#: [id number] / [id number]
[2018-07-28 05:32] VITALS: BP 133/64
[2018-07-28] MEDS: LISINOPRIL 10 MG TABLET PO SCH (09:00)
[2018-07-28] MEDS: UBIDECARENONE 50 MG CAPSULE. PO SCH (09:12)
[2018-07-28] MEDS: ASPIRIN 81 MG TAB.CHEW PO SCH ×2 (09:12→20:45)
[2018-07-28] MEDS: SERTRALINE 50 MG TABLET. PO SCH (09:15)
[2018-07-28] MEDS: LACOSAMIDE 50 MG TABLET PO SCH ×2 (09:15→20:45)
[2018-07-28 16:22] VITALS: BP 137/71
[2018-07-28] MEDS: traZODone 50 MG TABLET. PO SCH (20:45)
[2018-07-28] MEDS: SIMVASTATIN 40 MG TABLET. PO SCH (20:45)
[2018-07-28] MEDS: MIRTAZAPINE 15 MG TABLET PO SCH (20:45)
[2018-07-28] MEDS: PHENYTOIN SODIUM EXTENDED 100 MG CAPSULE PO SCH (20:46)
--- NOTE | 2018-07-28 22:37 | PDOC ---
Exam Note: Quintin Note: Please also refer to the separate dictated note~for this date of service dictated separately.~Patient seen individually. Discussed the patient with Nursing staff reviewed the chart.~Reviewed interim history and current functioning. Reviewed vital signs,~Labs/ Radiology~and current medications noted below. Continue current treatment with the changes noted in the dictated addendum note Assessment: Vital Signs: Vital Signs Date Time Temp Pulse Resp B/P (MAP) Pulse Ox O2 Delivery O2 Flow Rate FiO2 07/28/18 16:22 97.5 78 18 137/71 (93) 99 07/27/18 15:41 Room Air I&O Intake and Output 07/28/18 07:00 Intake Total 1080 ml Balance 1080 ml Intake Oral 1080 ml Current Medications: Meds: Current Medications Acetaminophen (Tylenol) 650 mg PRN Q6HRS PRN PO PAIN / TEMP; Start 07/20/18 at 23:15 Multi-Ingredient Ointment (Analgesic [place]) 1 erik PRN QID PRN TP MUSCLE PAIN; Start 07/20/18 at 23:15 Al Hydroxide/Mg Hydroxide (Mylanta Plus Xs) 15 ml PRN AFTMEALHC PRN PO DYSPEPSIA; Start 07/20/18 at 23:15 Magnesium Hydroxide (Milk Of Magnesia) 2,400 mg PRN QHS PRN PO CONSTIPATION; Start 07/20/18 at 23:15 Lacosamide (Vimpat) 50 mg BID PO Last administered on 07/28/18at 20:45; Start 07/21/18 at 09:00 Lisinopril (Prinivil) 10 mg DAILY PO Last administered on 07/27/18at 09:32; Start 07/21/18 at 09:00 Aspirin (Children'S Aspirin) 81 mg BID PO Last administered on 07/28/18at 20:45 ; Start 07/21/18 at 09:00 Simvastatin (Zocor) 80 mg QHS PO Last administered on 07/28/18 20:45; Start 07/21/18 at 21:00 Coenzyme Q10 (Coenzyme Q10) 200 mg DAILY PO Last administered on 07/28/18at 09: 12; Start 07/21/18 at 19:00 Phenytoin Sodium (Dilantin) 400 mg Q96H PO Last administered on 07/25/18at 19: 43; Start 07/21/18 at 21:00 Phenytoin Sodium (Dilantin) 400 mg Q96H PO Last administered on 07/26/18 20: 46; Start 07/22/18 at 21:00 Phenytoin Sodium (Dilantin) 400 mg Q96H PO Last administered on 07/27/18at 20: 15; Start 07/23/18 at 21:00 Phenytoin Sodium (Dilantin) 300 mg Q96H PO Last administered on 07/28/18 20: 46; Start 07/24/18 at 21:00 Trazodone HCl (Desyrel) 50 mg QHS PO Last administered on 07/28/18 20:45; Start 07/21/18 at 21:00 Trazodone HCl (Desyrel) 50 mg PRN QHS PRN PO insomnia Last administered on 07/22at 00:16; Start 07/21/18 at 20:00 Mirtazapine (Remeron) 7.5 mg QHS PO Last administered on 07/25/18 19:40; Start 07/23/18 at 21:00; Stop 07/26/18 at 12:42; Status DC Sertraline HCl (Zoloft) 50 mg DAILY PO Last administered on 07/28/18 09:15; Start 07/25/18 at 09:00 Mirtazapine (Remeron) 15 mg QHS PO Last administered on 07/28/18at 20:45; Start 07/26/18 at 21:00 Active Scripts Active Reported Dilantin (Phenytoin Sodium Extended) 100 Mg Capsule 400 Mg PO HS Ultra Coq10 (Ubiquinone) 75 Mg Capsule 200 Mg PO DAILY Lisinopril 10 Mg Tablet 10 Mg PO DAILY Vimpat (Lacosamide) 50 Mg Tablet 50 Mg PO BID Aspirin 81 Mg Tab.chew 81 Mg PO BID Simvastatin 80 Mg Tablet 80 Mg PO HS I have reviewed the current psychotropics carefully including drug interactions. Risk benefit ratio favors no change other than as noted in my dictated progress note. Diagnosis: Problems: (1) Anxiety disorder (2) Dementia in Alzheimer's disease with delusions (3) Dementia in Alzheimer's disease with depression (4) Dementia, vascular, with delusions (5) Dementia, vascular, with depression (6) Impulse control disorder LISHA KIRKPATRICK MD Jul 28, 2018 22:37
[2018-07-29 06:18] VITALS: BP 147/63
[2018-07-29] MEDS: ASPIRIN 81 MG TAB.CHEW PO SCH ×2 (07:46→19:48)
[2018-07-29] MEDS: LISINOPRIL 10 MG TABLET PO SCH (07:46)
[2018-07-29] MEDS: SERTRALINE 50 MG TABLET. PO SCH (07:46)
[2018-07-29] MEDS: UBIDECARENONE 50 MG CAPSULE. PO SCH (07:46)
[2018-07-29] MEDS: LACOSAMIDE 50 MG TABLET PO SCH ×2 (07:49→19:48)
[2018-07-29 08:35] LABS: BASO # 0.1 x10^3/uL (0.0-0.2); BASO % 2 % (0-3); EOS # 0.2 x10^3/uL (0.0-0.7); EOS % 4 % (0-3); HEMATOCRIT 31.8 % (39.0-53.0); LYMPH # 1.1 x10^3/uL (1.0-4.8); LYMPH % 26 % (24-48); MEAN CORPUSCULAR HEMOGLOBIN 33 pg (25-35); MEAN CORPUSCULAR HGB CONC 35 g/dL (31-37); MEAN CORPUSCULAR VOLUME 95 fL (79-100); MONO # 0.5 x10^3/uL (0.0-1.1); MONO % 12 % (0-9); NEUT # 2.5 x10^3uL (1.8-7.7); NEUT % 57 % (31-73); PLATELET COUNT 404 x10^3/uL (140-400); RED BLOOD COUNT 3.33 x10^6/uL (4.30-5.70); RED CELL DISTRIBUTION WIDTH 14.2 % (11.5-14.5); WHITE BLOOD COUNT 4.4 x10^3/uL (4.0-11.0)
[2018-07-29 08:37] LABS: ALBUMIN 3.3 g/dL (3.4-5.0); ALBUMIN/GLOBULIN RATIO 1.1 (1.0-1.7); CALCIUM 8.7 mg/dL (8.5-10.1); GFR 72.3; POTASSIUM 4.2 mmol/L (3.5-5.1); TOTAL BILIRUBIN 0.3 mg/dL (0.2-1.0); TOTAL PROTEIN 6.2 g/dL (6.4-8.2)
[2018-07-29 16:04] VITALS: BP 95/59
[2018-07-29] MEDS: SIMVASTATIN 40 MG TABLET. PO SCH (19:47)
[2018-07-29] MEDS: MIRTAZAPINE 15 MG TABLET PO SCH (19:48)
[2018-07-29] MEDS: traZODone 50 MG TABLET. PO SCH (19:48)
--- NOTE | 2018-07-29 20:44 | PDOC ---
Exam Note: Quintni Note: Please also refer to the separate dictated note~for this date of service dictated separately.~Patient seen individually. Discussed the patient with Nursing staff reviewed the chart.~Reviewed interim history and current functioning. Reviewed vital signs,~Labs/ Radiology~and current medications noted below. Continue current treatment with the changes noted in the dictated addendum note Assessment: Vital Signs: Vital Signs Date Time Temp Pulse Resp B/P (MAP) Pulse Ox O2 Delivery O2 Flow Rate FiO2 07/29/18 16:04 97.4 80 20 95/59 (71) 95 07/27/18 15:41 Room Air I&O Intake and Output 07/29/18 07:00 Intake Total 1678 ml Balance 1678 ml Intake Oral 1678 ml Labs: Laboratory Tests Test 07/29/18 07:54 White Blood Count 4.4 x10^3/uL (4.0-11.0) Red Blood Count 3.33 x10^6/uL (4.30-5.70) L Hemoglobin 11.0 g/dL (13.0-17.5) L Hematocrit 31.8 % (39.0-53.0) L Mean Corpuscular Volume 95 fL (79-100) Mean Corpuscular Hemoglobin 33 pg (25-35) Mean Corpuscular Hemoglobin Concent 35 g/dL (31-37) Red Cell Distribution Width 14.2 % (11.5-14.5) Platelet Count 404 x10^3/uL (140-400) H Neutrophils (%) (Auto) 57 % (31-73) Lymphocytes (%) (Auto) 26 % (24-48) Monocytes (%) (Auto) 12 % (0-9) H Eosinophils (%) (Auto) 4 % (0-3) H Basophils (%) (Auto) 2 % (0-3) Neutrophils # (Auto) 2.5 x10^3uL (1.8-7.7) Lymphocytes # (Auto) 1.1 x10^3/uL (1.0-4.8) Monocytes # (Auto) 0.5 x10^3/uL (0.0-1.1) Eosinophils # (Auto) 0.2 x10^3/uL (0.0-0.7) Basophils # (Auto) 0.1 x10^3/uL (0.0-0.2) Sodium Level 143 mmol/L (136-145) Potassium Level 4.2 mmol/L (3.5-5.1) Chloride Level 107 mmol/L (98-107) Carbon Dioxide Level 28 mmol/L (21-32) Anion Gap 8 (6-14) Blood Urea Nitrogen 22 mg/dL (8-26) Creatinine 1.0 mg/dL (0.7-1.3) Estimated GFR (Cockcroft-Gault) 72.3 BUN/Creatinine Ratio 22 (6-20) H Glucose Level 97 mg/dL (70-99) Calcium Level 8.7 mg/dL (8.5-10.1) Total Bilirubin 0.3 mg/dL (0.2-1.0) Aspartate Amino Transferase (AST) 17 U/L (15-37) Alanine Aminotransferase (ALT) 31 U/L (16-63) Alkaline Phosphatase 112 U/L (46-116) Total Protein 6.2 g/dL (6.4-8.2) L Albumin 3.3 g/dL (3.4-5.0) L Albumin/Globulin Ratio 1.1 (1.0-1.7) Current Medications: Meds: Current Medications Acetaminophen (Tylenol) 650 mg PRN Q6HRS PRN PO PAIN / TEMP; Start 07/20/18 at 23:15 Multi-Ingredient Ointment (Analgesic [place]) 1 erik PRN QID PRN TP MUSCLE PAIN; Start 07/20/18 at 23:15 Al Hydroxide/Mg Hydroxide (Mylanta Plus Xs) 15 ml PRN AFTMEALHC PRN PO DYSPEPSIA; Start 07/20/18 at 23:15 Magnesium Hydroxide (Milk Of Magnesia) 2,400 mg PRN QHS PRN PO CONSTIPATION; Start 07/20/18 at 23:15 Lacosamide (Vimpat) 50 mg BID PO Last administered on 07/29/18at 19:48; Start 07/21/18 at 09:00 Lisinopril (Prinivil) 10 mg DAILY PO Last administered on 07/29/18at 07:46; Start 07/21/18 at 09:00 Aspirin (Children'S Aspirin) 81 mg BID PO Last administered on 07/29/18at 19:48 ; Start 07/21/18 at 09:00 Simvastatin (Zocor) 80 mg QHS PO Last administered on 07/29/18 19:47; Start 07/21/18 at 21:00 Coenzyme Q10 (Coenzyme Q10) 200 mg DAILY PO Last administered on 07/29/18at 07: 46; Start 07/21/18 at 19:00 Phenytoin Sodium (Dilantin) 400 mg Q96H PO Last administered on 07/25/18 19: 43; Start 07/21/18 at 21:00 Phenytoin Sodium (Dilantin) 400 mg Q96H PO Last administered on 07/26/18 20: 46; Start 07/22/18 at 21:00 Phenytoin Sodium (Dilantin) 400 mg Q96H PO Last administered on 07/27/18 20: 15; Start 07/23/18 at 21:00 Phenytoin Sodium (Dilantin) 300 mg Q96H PO Last administered on 07/28/18 20: 46; Start 07/24/18 at 21:00 Trazodone HCl (Desyrel) 50 mg QHS PO Last administered on 07/29/18 19:48; Start 07/21/18 at 21:00 Trazodone HCl (Desyrel) 50 mg PRN QHS PRN PO insomnia Last administered on 07/22at 00:16; Start 07/21/18 at 20:00 Mirtazapine (Remeron) 7.5 mg QHS PO Last administered on 07/25/18 19:40; Start 07/23/18 at 21:00; Stop 07/26/18 at 12:42; Status DC Sertraline HCl (Zoloft) 50 mg DAILY PO Last administered on 07/29/18at 07:46; Start 07/25/18 at 09:00 Mirtazapine (Remeron) 15 mg QHS PO Last administered on 07/29/18 19:48; Start 07/26/18 at 21:00 Active Scripts Active Reported Dilantin (Phenytoin Sodium Extended) 100 Mg Capsule 400 Mg PO HS Ultra Coq10 (Ubiquinone) 75 Mg Capsule 200 Mg PO DAILY Lisinopril 10 Mg Tablet 10 Mg PO DAILY Vimpat (Lacosamide) 50 Mg Tablet 50 Mg PO BID Aspirin 81 Mg Tab.chew 81 Mg PO BID Simvastatin 80 Mg Tablet 80 Mg PO HS I have reviewed the current psychotropics carefully including drug interactions. Risk benefit ratio favors no change other than as noted in my dictated progress note. Diagnosis: Problems: (1) Anxiety disorder (2) Dementia in Alzheimer's disease with delusions (3) Dementia in Alzheimer's disease with depression (4) Dementia, vascular, with delusions (5) Dementia, vascular, with depression (6) Impulse control disorder LISHA KIRKPATRICK MD Jul 29, 2018 20:44
[2018-07-29] MEDS: PHENYTOIN SODIUM EXTENDED 100 MG CAPSULE PO SCH (21:14)
[2018-07-30 06:28] VITALS: BP 137/71
[2018-07-30] MEDS: ASPIRIN 81 MG TAB.CHEW PO SCH ×2 (07:38→20:07)
[2018-07-30] MEDS: SERTRALINE 50 MG TABLET. PO SCH (07:38)
[2018-07-30] MEDS: LISINOPRIL 10 MG TABLET PO SCH (07:39)
[2018-07-30] MEDS: UBIDECARENONE 50 MG CAPSULE. PO SCH (07:39)
[2018-07-30] MEDS: LACOSAMIDE 50 MG TABLET PO SCH ×2 (07:40→20:11)
[2018-07-30 16:11] VITALS: BP 148/79
[2018-07-30] MEDS: traZODone 50 MG TABLET. PO SCH (20:06)
[2018-07-30] MEDS: MIRTAZAPINE 15 MG TABLET PO SCH (20:07)
[2018-07-30] MEDS: SIMVASTATIN 40 MG TABLET. PO SCH (20:07)
[2018-07-30] MEDS: PHENYTOIN SODIUM EXTENDED 100 MG CAPSULE PO SCH (20:11)
--- NOTE | 2018-07-30 22:29 | PN ---
DATE: 07/29/2018 PSYCHIATRIC PROGRESS NOTE This late entry 07/29/2018 covers elements not covered in my initial note. SUBJECTIVE: I met with the patient in the evening. The patient slept 7 hours previous night. Remains confused; somewhat anxious; carries around a notebook, writing things, trying to remember them. Otherwise, pleasant, cooperative, met with him in his room. REVIEW OF SYSTEMS: Ambulation impaired with walker. No CV, , pulmonary, eye, ENT system symptoms on review. Reliability poor. MENTAL STATUS EXAM: Oriented to himself and situation. Speech has some latency, coherent. Abstraction fair, computation impaired, language function intact, attention span short. Mood and affect remain somewhat withdrawn. LABORATORY DATA: Reviewed. IMPRESSION: Unchanged from initial note. PLAN: No change from initial note. MAN Franklin KIRKPATRICK MD DR: DONATO/marya JOB#: [id number] / [id number]
--- NOTE | 2018-07-30 22:46 | PDOC ---
Exam Note: Quintin Note: Please also refer to the separate dictated note~for this date of service dictated separately.~Patient seen individually. Discussed the patient with Nursing staff reviewed the chart.~Reviewed interim history and current functioning. Reviewed vital signs,~Labs/ Radiology~and current medications noted below. Continue current treatment with the changes noted in the dictated addendum note Assessment: Vital Signs: Vital Signs Date Time Temp Pulse Resp B/P (MAP) Pulse Ox O2 Delivery O2 Flow Rate FiO2 07/30/18 16:11 98.4 69 20 148/79 (102) 99 07/27/18 15:41 Room Air I&O Intake and Output 07/30/18 07:00 Intake Total 1045 ml Balance 1045 ml Intake Oral 1045 ml Current Medications: Meds: Current Medications Acetaminophen (Tylenol) 650 mg PRN Q6HRS PRN PO PAIN / TEMP; Start 07/20/18 at 23:15 Multi-Ingredient Ointment (Analgesic [place]) 1 erik PRN QID PRN TP MUSCLE PAIN; Start 07/20/18 at 23:15 Al Hydroxide/Mg Hydroxide (Mylanta Plus Xs) 15 ml PRN AFTMEALHC PRN PO DYSPEPSIA; Start 07/20/18 at 23:15 Magnesium Hydroxide (Milk Of Magnesia) 2,400 mg PRN QHS PRN PO CONSTIPATION; Start 07/20/18 at 23:15 Lacosamide (Vimpat) 50 mg BID PO Last administered on 07/30/18at 20:11; Start 07/21/18 at 09:00 Lisinopril (Prinivil) 10 mg DAILY PO Last administered on 07/30/18at 07:39; Start 07/21/18 at 09:00 Aspirin (Children'S Aspirin) 81 mg BID PO Last administered on 07/30/18at 20:07 ; Start 07/21/18 at 09:00 Simvastatin (Zocor) 80 mg QHS PO Last administered on 07/30/18at 20:07; Start 07/21/18 at 21:00 Coenzyme Q10 (Coenzyme Q10) 200 mg DAILY PO Last administered on 07/30/18at 07: 39; Start 07/21/18 at 19:00 Phenytoin Sodium (Dilantin) 400 mg Q96H PO Last administered on 07/29/18at 21: 14; Start 07/21/18 at 21:00 Phenytoin Sodium (Dilantin) 400 mg Q96H PO Last administered on 07/30/18at 20: 11; Start 07/22/18 at 21:00 Phenytoin Sodium (Dilantin) 400 mg Q96H PO Last administered on 07/27/18at 20: 15; Start 07/23/18 at 21:00 Phenytoin Sodium (Dilantin) 300 mg Q96H PO Last administered on 07/28/18at 20: 46; Start 07/24/18 at 21:00 Trazodone HCl (Desyrel) 50 mg QHS PO Last administered on 07/30/18 20:06; Start 07/21/18 at 21:00 Trazodone HCl (Desyrel) 50 mg PRN QHS PRN PO insomnia Last administered on 07/22at 00:16; Start 07/21/18 at 20:00 Mirtazapine (Remeron) 7.5 mg QHS PO Last administered on 07/25/18at 19:40; Start 07/23/18 at 21:00; Stop 07/26/18 at 12:42; Status DC Sertraline HCl (Zoloft) 50 mg DAILY PO Last administered on 07/30/18 07:38; Start 07/25/18 at 09:00 Mirtazapine (Remeron) 15 mg QHS PO Last administered on 07/30/18 20:07; Start 07/26/18 at 21:00 Active Scripts Active Reported Dilantin (Phenytoin Sodium Extended) 100 Mg Capsule 400 Mg PO HS Ultra Coq10 (Ubiquinone) 75 Mg Capsule 200 Mg PO DAILY Lisinopril 10 Mg Tablet 10 Mg PO DAILY Vimpat (Lacosamide) 50 Mg Tablet 50 Mg PO BID Aspirin 81 Mg Tab.chew 81 Mg PO BID Simvastatin 80 Mg Tablet 80 Mg PO HS I have reviewed the current psychotropics carefully including drug interactions. Risk benefit ratio favors no change other than as noted in my dictated progress note. Diagnosis: Problems: (1) Anxiety disorder (2) Dementia in Alzheimer's disease with delusions (3) Dementia in Alzheimer's disease with depression (4) Dementia, vascular, with delusions (5) Dementia, vascular, with depression (6) Impulse control disorder LISHA KIRKPATRICK MD Jul 30, 2018 22:46
[2018-07-31 06:23] VITALS: BP 136/91
[2018-07-31] MEDS: LACOSAMIDE 50 MG TABLET PO SCH ×2 (07:39→19:54)
[2018-07-31] MEDS: ASPIRIN 81 MG TAB.CHEW PO SCH ×2 (07:39→19:54)
[2018-07-31] MEDS: UBIDECARENONE 50 MG CAPSULE. PO SCH (07:39)
[2018-07-31] MEDS: LISINOPRIL 10 MG TABLET PO SCH (07:40)
[2018-07-31] MEDS: SERTRALINE 50 MG TABLET. PO SCH (07:40)
[2018-07-31 16:24] VITALS: BP 117/74
[2018-07-31] MEDS: SIMVASTATIN 40 MG TABLET. PO SCH (19:53)
[2018-07-31] MEDS: MIRTAZAPINE 15 MG TABLET PO SCH (19:54)
[2018-07-31] MEDS: traZODone 50 MG TABLET. PO SCH (19:54)
[2018-07-31] MEDS: PHENYTOIN SODIUM EXTENDED 100 MG CAPSULE PO SCH (19:56)
--- NOTE | 2018-07-31 23:11 | PDOC ---
Exam Note: Quintin Note: Please also refer to the separate dictated note~for this date of service dictated separately.~Patient seen individually. Discussed the patient with Nursing staff reviewed the chart.~Reviewed interim history and current functioning. Reviewed vital signs,~Labs/ Radiology~and current medications noted below. Continue current treatment with the changes noted in the dictated addendum note Assessment: Vital Signs: Vital Signs Date Time Temp Pulse Resp B/P (MAP) Pulse Ox O2 Delivery O2 Flow Rate FiO2 07/31/18 16:24 98.3 70 17 117/74 (88) 98 07/27/18 15:41 Room Air I&O Intake and Output 07/31/18 07:00 Intake Total 1080 ml Balance 1080 ml Intake Oral 1080 ml Current Medications: Meds: Current Medications Acetaminophen (Tylenol) 650 mg PRN Q6HRS PRN PO PAIN / TEMP; Start 07/20/18 at 23:15 Multi-Ingredient Ointment (Analgesic [place]) 1 erik PRN QID PRN TP MUSCLE PAIN; Start 07/20/18 at 23:15 Al Hydroxide/Mg Hydroxide (Mylanta Plus Xs) 15 ml PRN AFTMEALHC PRN PO DYSPEPSIA; Start 07/20/18 at 23:15 Magnesium Hydroxide (Milk Of Magnesia) 2,400 mg PRN QHS PRN PO CONSTIPATION; Start 07/20/18 at 23:15 Lacosamide (Vimpat) 50 mg BID PO Last administered on 07/31/18at 19:54; Start 07/21/18 at 09:00 Lisinopril (Prinivil) 10 mg DAILY PO Last administered on 07/31/18at 07:40; Start 07/21/18 at 09:00 Aspirin (Children'S Aspirin) 81 mg BID PO Last administered on 07/31/18at 19:54 ; Start 07/21/18 at 09:00 Simvastatin (Zocor) 80 mg QHS PO Last administered on 07/31/18 19:53; Start 07/21/18 at 21:00 Coenzyme Q10 (Coenzyme Q10) 200 mg DAILY PO Last administered on 07/31/18at 07: 39; Start 07/21/18 at 19:00 Phenytoin Sodium (Dilantin) 400 mg Q96H PO Last administered on 07/29/18at 21: 14; Start 07/21/18 at 21:00 Phenytoin Sodium (Dilantin) 400 mg Q96H PO Last administered on 07/30/18at 20: 11; Start 07/22/18 at 21:00 Phenytoin Sodium (Dilantin) 400 mg Q96H PO Last administered on 07/31/18at 19: 56; Start 07/23/18 at 21:00 Phenytoin Sodium (Dilantin) 300 mg Q96H PO Last administered on 07/28/18at 20: 46; Start 07/24/18 at 21:00 Trazodone HCl (Desyrel) 50 mg QHS PO Last administered on 07/31/18 19:54; Start 07/21/18 at 21:00 Trazodone HCl (Desyrel) 50 mg PRN QHS PRN PO insomnia Last administered on 07/22at 00:16; Start 07/21/18 at 20:00 Mirtazapine (Remeron) 7.5 mg QHS PO Last administered on 07/25/18 19:40; Start 07/23/18 at 21:00; Stop 07/26/18 at 12:42; Status DC Sertraline HCl (Zoloft) 50 mg DAILY PO Last administered on 07/31/18 07:40; Start 07/25/18 at 09:00 Mirtazapine (Remeron) 15 mg QHS PO Last administered on 07/31/18 19:54; Start 07/26/18 at 21:00 Active Scripts Active Reported Dilantin (Phenytoin Sodium Extended) 100 Mg Capsule 400 Mg PO HS Ultra Coq10 (Ubiquinone) 75 Mg Capsule 200 Mg PO DAILY Lisinopril 10 Mg Tablet 10 Mg PO DAILY Vimpat (Lacosamide) 50 Mg Tablet 50 Mg PO BID Aspirin 81 Mg Tab.chew 81 Mg PO BID Simvastatin 80 Mg Tablet 80 Mg PO HS I have reviewed the current psychotropics carefully including drug interactions. Risk benefit ratio favors no change other than as noted in my dictated progress note. Diagnosis: Problems: (1) Anxiety disorder (2) Dementia in Alzheimer's disease with delusions (3) Dementia in Alzheimer's disease with depression (4) Dementia, vascular, with delusions (5) Dementia, vascular, with depression (6) Impulse control disorder LISHA KIRKPATRICK MD Jul 31, 2018 23:11
[2018-08-01 05:57] VITALS: BP 139/75
[2018-08-01] MEDS: LACOSAMIDE 50 MG TABLET PO SCH ×2 (08:40→19:55)
[2018-08-01] MEDS: ASPIRIN 81 MG TAB.CHEW PO SCH ×2 (08:40→19:46)
[2018-08-01] MEDS: SERTRALINE 50 MG TABLET. PO SCH (08:40)
[2018-08-01] MEDS: LISINOPRIL 10 MG TABLET PO SCH (08:40)
[2018-08-01] MEDS: UBIDECARENONE 50 MG CAPSULE. PO SCH (08:40)
[2018-08-01 16:24] VITALS: BP 121/73
[2018-08-01] MEDS: MIRTAZAPINE 15 MG TABLET PO SCH (19:46)
[2018-08-01] MEDS: SIMVASTATIN 40 MG TABLET. PO SCH (19:46)
[2018-08-01] MEDS: traZODone 50 MG TABLET. PO SCH (19:47)
[2018-08-01] MEDS: PHENYTOIN SODIUM EXTENDED 100 MG CAPSULE PO SCH (19:53)
--- NOTE | 2018-08-01 21:58 | PN ---
DATE: 07/31/2018 PSYCHIATRIC PROGRESS NOTE This late entry 07/31/2018 covers elements not covered in my initial note. SUBJECTIVE: I met with the patient in the evening. Per nursing report, the patient slept 7-1/2 hours previous evening. He is constantly wanting to make telephone calls to his family and forgets that he had made the previous telephone calls. Otherwise, compliant and redirects from this event intervene by nursing staff. I sat with him on the evening of 07/31/2018. He had a paper pad in his hand and was making notes about things he tried to remember for himself. He recognizes some of his memory deficits insightful in this respect. REVIEW OF SYSTEMS: No CV, , pulmonary, eye, ENT system symptoms on review. Alluded to by the patient. Reliability somewhat poor due to his memory deficits. MENTAL STATUS EXAM: Oriented to himself. Insight, judgment, recent and remote memory, attention, concentration, fund of knowledge poor, consistent with his diagnosis mentioned in my initial note. IMPRESSION: Unchanged from initial note. PLAN: No change from initial note. The patient is on Dilantin, level is subtherapeutic, then referred to Dr. Godoy. He remains on Remeron 15 mg at bedtime, Zoloft 50 mg a day, trazodone 50 mg at bedtime for insomnia. Social service staff are arranging for placement in [place]. We will transition as soon as arranged. LISHA KIRKPATRICK MD DR: DONATO/marya JOB#: [id number] / [id number]
--- NOTE | 2018-08-01 23:16 | PDOC ---
Exam Note: Quintin Note: Please also refer to the separate dictated note~for this date of service dictated separately.~Patient seen individually. Discussed the patient with Nursing staff reviewed the chart.~Reviewed interim history and current functioning. Reviewed vital signs,~Labs/ Radiology~and current medications noted below. Continue current treatment with the changes noted in the dictated addendum note Assessment: Vital Signs: Vital Signs Date Time Temp Pulse Resp B/P (MAP) Pulse Ox O2 Delivery O2 Flow Rate FiO2 08/01/18 16:24 98.2 69 18 121/73 (89) 97 07/27/18 15:41 Room Air I&O Intake and Output 08/01/18 07:00 Intake Total 1680 ml Balance 1680 ml Intake Oral 1680 ml Current Medications: Meds: Current Medications Acetaminophen (Tylenol) 650 mg PRN Q6HRS PRN PO PAIN / TEMP; Start 07/20/18 at 23:15 Multi-Ingredient Ointment (Analgesic [place]) 1 erik PRN QID PRN TP MUSCLE PAIN; Start 07/20/18 at 23:15 Al Hydroxide/Mg Hydroxide (Mylanta Plus Xs) 15 ml PRN AFTMEALHC PRN PO DYSPEPSIA; Start 07/20/18 at 23:15 Magnesium Hydroxide (Milk Of Magnesia) 2,400 mg PRN QHS PRN PO CONSTIPATION; Start 07/20/18 at 23:15 Lacosamide (Vimpat) 50 mg BID PO Last administered on 08/01/18at 19:55; Start 07/21/18 at 09:00 Lisinopril (Prinivil) 10 mg DAILY PO Last administered on 08/01/18at 08:40; Start 07/21/18 at 09:00 Aspirin (Children'S Aspirin) 81 mg BID PO Last administered on 08/01/18at 19:46 ; Start 07/21/18 at 09:00 Simvastatin (Zocor) 80 mg QHS PO Last administered on 08/01/18at 19:46; Start 07/21/18 at 21:00 Coenzyme Q10 (Coenzyme Q10) 200 mg DAILY PO Last administered on 08/01/18at 08: 40; Start 07/21/18 at 19:00 Phenytoin Sodium (Dilantin) 400 mg Q96H PO Last administered on 07/29/18at 21: 14; Start 07/21/18 at 21:00 Phenytoin Sodium (Dilantin) 400 mg Q96H PO Last administered on 07/30/18at 20: 11; Start 07/22/18 at 21:00 Phenytoin Sodium (Dilantin) 400 mg Q96H PO Last administered on 07/31/18at 19: 56; Start 07/23/18 at 21:00 Phenytoin Sodium (Dilantin) 300 mg Q96H PO Last administered on 08/01/18at 19: 53; Start 07/24/18 at 21:00 Trazodone HCl (Desyrel) 50 mg QHS PO Last administered on 08/01/18at 19:47; Start 07/21/18 at 21:00 Trazodone HCl (Desyrel) 50 mg PRN QHS PRN PO insomnia Last administered on 07/22at 00:16; Start 07/21/18 at 20:00 Mirtazapine (Remeron) 7.5 mg QHS PO Last administered on 07/25/18at 19:40; Start 07/23/18 at 21:00; Stop 07/26/18 at 12:42; Status DC Sertraline HCl (Zoloft) 50 mg DAILY PO Last administered on 08/01/18at 08:40; Start 07/25/18 at 09:00; Stop 08/01/18 at 18:07; Status DC Mirtazapine (Remeron) 15 mg QHS PO Last administered on 08/01/18at 19:46; Start 07/26/18 at 21:00 Sertraline HCl (Zoloft) 75 mg DAILY PO ; Start 08/02/18 at 09:00 Active Scripts Active Reported Dilantin (Phenytoin Sodium Extended) 100 Mg Capsule 400 Mg PO HS Ultra Coq10 (Ubiquinone) 75 Mg Capsule 200 Mg PO DAILY Lisinopril 10 Mg Tablet 10 Mg PO DAILY Vimpat (Lacosamide) 50 Mg Tablet 50 Mg PO BID Aspirin 81 Mg Tab.chew 81 Mg PO BID Simvastatin 80 Mg Tablet 80 Mg PO HS I have reviewed the current psychotropics carefully including drug interactions. Risk benefit ratio favors no change other than as noted in my dictated progress note. Diagnosis: Problems: (1) Anxiety disorder (2) Dementia in Alzheimer's disease with delusions (3) Dementia in Alzheimer's disease with depression (4) Dementia, vascular, with delusions (5) Dementia, vascular, with depression (6) Impulse control disorder LISHA KIRKPATRICK MD Aug 01, 2018 23:16
[2018-08-02 06:14] VITALS: BP 152/76
[2018-08-02 07:29] LABS: PHENY 13.4 mcg/mL (10.0-20.0)
[2018-08-02] MEDS: LACOSAMIDE 50 MG TABLET PO SCH ×2 (08:31→19:15)
[2018-08-02] MEDS: LISINOPRIL 10 MG TABLET PO SCH (08:31)
[2018-08-02] MEDS: ASPIRIN 81 MG TAB.CHEW PO SCH ×2 (08:31→19:15)
[2018-08-02] MEDS: UBIDECARENONE 50 MG CAPSULE. PO SCH (08:31)
[2018-08-02] MEDS: SERTRALINE 50 MG TABLET. PO SCH (08:33)
[2018-08-02 16:05] VITALS: BP 108/68
[2018-08-02] MEDS: QUEtiapine 25 MG TABLET. PO SCH (17:06)
[2018-08-02] MEDS: traZODone 50 MG TABLET. PO SCH (19:15)
[2018-08-02] MEDS: MIRTAZAPINE 15 MG TABLET PO SCH (19:15)
[2018-08-02] MEDS: PHENYTOIN SODIUM EXTENDED 100 MG CAPSULE PO SCH (19:17)
[2018-08-02] MEDS: SIMVASTATIN 40 MG TABLET. PO SCH (19:17)
--- NOTE | 2018-08-02 22:30 | PN ---
DATE: 08/01/2018 PSYCHIATRIC PROGRESS NOTE This late entry 08/01/2018 covers elements not covered in my initial note. SUBJECTIVE: I met with the patient in the evening. The patient slept 7-1/4 hours previous night. He has been extremely obsessive, anxious, repeatedly wanting the telephone to call his mother, so that he can leave. He gets angry regarding limitations on his telephone as per the family. Phenobarbital level was done, level is awaited. We will defer to Dr. Godoy. REVIEW OF SYSTEMS: No CV, , eye, ENT or pulmonary system symptoms on review. Reliability poor. MENTAL STATUS EXAM: Oriented to himself. Insight, judgment, recent and remote memory, attention, concentration, fund of knowledge poor, consistent with his diagnosis mentioned in my initial note. IMPRESSION: Major neurocognitive disorder, Alzheimer, vascular with delusion, depression, behavioral disturbance. PLAN: Increase Zoloft to 75 mg a day. Maintain rest of the psychotropics unchanged, trazodone, and Remeron. Consider adding Seroquel as a mood stabilizer. MAN Franklin KIRKPATRICK MD DR: DOANTO/marya JOB#: [id number] / [id number]
--- NOTE | 2018-08-02 23:34 | PDOC ---
Exam Note: Quintin Note: Please also refer to the separate dictated note~for this date of service dictated separately.~Patient seen individually. Discussed the patient with Nursing staff reviewed the chart.~Reviewed interim history and current functioning. Reviewed vital signs,~Labs/ Radiology~and current medications noted below. Continue current treatment with the changes noted in the dictated addendum note Assessment: Vital Signs: Vital Signs Date Time Temp Pulse Resp B/P (MAP) Pulse Ox O2 Delivery O2 Flow Rate FiO2 08/02/18 16:05 98.5 76 16 108/68 (81) 95 07/27/18 15:41 Room Air I&O Intake and Output 08/02/18 07:00 Intake Total 1080 ml Balance 1080 ml Intake Oral 1080 ml Labs: Laboratory Tests Test 08/02/18 06:16 Phenytoin (Dilantin) Level 13.4 mcg/mL (10.0-20.0) Phenytoin Last Dose Date 08/01/18 Phenytoin Last Dose Time 2100 Current Medications: Meds: Current Medications Acetaminophen (Tylenol) 650 mg PRN Q6HRS PRN PO PAIN / TEMP; Start 07/20/18 at 23:15 Multi-Ingredient Ointment (Analgesic [place]) 1 erik PRN QID PRN TP MUSCLE PAIN; Start 07/20/18 at 23:15 Al Hydroxide/Mg Hydroxide (Mylanta Plus Xs) 15 ml PRN AFTMEALHC PRN PO DYSPEPSIA; Start 07/20/18 at 23:15 Magnesium Hydroxide (Milk Of Magnesia) 2,400 mg PRN QHS PRN PO CONSTIPATION; Start 07/20/18 at 23:15 Lacosamide (Vimpat) 50 mg BID PO Last administered on 08/02/18at 19:15; Start 07/21/18 at 09:00 Lisinopril (Prinivil) 10 mg DAILY PO Last administered on 08/02/18at 08:31; Start 07/21/18 at 09:00 Aspirin (Children'S Aspirin) 81 mg BID PO Last administered on 08/02/18at 19:15 ; Start 07/21/18 at 09:00 Simvastatin (Zocor) 80 mg QHS PO Last administered on 08/02/18at 19:17; Start 07/21/18 at 21:00 Coenzyme Q10 (Coenzyme Q10) 200 mg DAILY PO Last administered on 08/02/18 08: 31; Start 07/21/18 at 19:00 Phenytoin Sodium (Dilantin) 400 mg Q96H PO Last administered on 08/02/18 19: 17; Start 07/21/18 at 21:00 Phenytoin Sodium (Dilantin) 400 mg Q96H PO Last administered on 07/30/18 20: 11; Start 07/22/18 at 21:00 Phenytoin Sodium (Dilantin) 400 mg Q96H PO Last administered on 07/31/18at 19: 56; Start 07/23/18 at 21:00 Phenytoin Sodium (Dilantin) 300 mg Q96H PO Last administered on 08/01/18 19: 53; Start 07/24/18 at 21:00 Trazodone HCl (Desyrel) 50 mg QHS PO Last administered on 08/02/18 19:15; Start 07/21/18 at 21:00 Trazodone HCl (Desyrel) 50 mg PRN QHS PRN PO insomnia Last administered on 07/22at 00:16; Start 07/21/18 at 20:00 Mirtazapine (Remeron) 7.5 mg QHS PO Last administered on 07/25/18 19:40; Start 07/23/18 at 21:00; Stop 07/26/18 at 12:42; Status DC Sertraline HCl (Zoloft) 50 mg DAILY PO Last administered on 08/01/18at 08:40; Start 07/25/18 at 09:00; Stop 08/01/18 at 18:07; Status DC Mirtazapine (Remeron) 15 mg QHS PO Last administered on 08/02/18 19:15; Start 07/26/18 at 21:00 Sertraline HCl (Zoloft) 75 mg DAILY PO Last administered on 08/02/18at 08:33; Start 08/02/18 at 09:00 Quetiapine Fumarate (SEROquel) 12.5 mg BIDWMEALS PO Last administered on at 17:06; Start 08/02/18 at 17:00 Active Scripts Active Reported Dilantin (Phenytoin Sodium Extended) 100 Mg Capsule 400 Mg PO HS Ultra Coq10 (Ubiquinone) 75 Mg Capsule 200 Mg PO DAILY Lisinopril 10 Mg Tablet 10 Mg PO DAILY Vimpat (Lacosamide) 50 Mg Tablet 50 Mg PO BID Aspirin 81 Mg Tab.chew 81 Mg PO BID Simvastatin 80 Mg Tablet 80 Mg PO HS I have reviewed the current psychotropics carefully including drug interactions. Risk benefit ratio favors no change other than as noted in my dictated progress note. Diagnosis: Problems: (1) Anxiety disorder (2) Dementia in Alzheimer's disease with delusions (3) Dementia in Alzheimer's disease with depression (4) Dementia, vascular, with delusions (5) Dementia, vascular, with depression (6) Impulse control disorder LISHA KIRKPATRICK MD Aug 02, 2018 23:34
[2018-08-03 06:16] VITALS: BP 142/75
[2018-08-03] MEDS: UBIDECARENONE 50 MG CAPSULE. PO SCH (08:38)
[2018-08-03] MEDS: LISINOPRIL 10 MG TABLET PO SCH (08:38)
[2018-08-03] MEDS: QUEtiapine 25 MG TABLET. PO SCH ×3 (08:39→17:29)
[2018-08-03] MEDS: ASPIRIN 81 MG TAB.CHEW PO SCH ×2 (08:39→19:19)
[2018-08-03] MEDS: SERTRALINE 50 MG TABLET. PO SCH (08:40)
[2018-08-03] MEDS: LACOSAMIDE 50 MG TABLET PO SCH ×2 (08:43→19:19)
[2018-08-03 15:51] VITALS: BP 129/71
[2018-08-03] MEDS: traZODone 50 MG TABLET. PO SCH (19:19)
[2018-08-03] MEDS: MIRTAZAPINE 15 MG TABLET PO SCH (19:19)
[2018-08-03] MEDS: SIMVASTATIN 40 MG TABLET. PO SCH (19:19)
[2018-08-03] MEDS: PHENYTOIN SODIUM EXTENDED 100 MG CAPSULE PO SCH (19:21)
--- NOTE | 2018-08-03 22:33 | PN ---
DATE: 08/02/2018 PSYCHIATRIC PROGRESS NOTE This late entry 08/02/2018 covers elements not covered in my initial note 08/02/2018. SUBJECTIVE: The patient was seen individually in the evening, staffed at a treatment team meeting with the entire team in the morning. The patient slept 5-3/4 hours previous night. He remains confused, anxious, restless, carries around a register with telephone numbers written on it and frequently at the nursing station wanting to make telephone calls. Phenobarbital level is 13.4. REVIEW OF SYSTEMS: No CV, , pulmonary, eye, ENT system symptoms on review. Reliability poor. MENTAL STATUS EXAM: Oriented to himself. Insight, judgment, recent and remote memory, attention, concentration, fund of knowledge poor consistent with his diagnosis mentioned in my initial note. PLAN: Continue psychotropics from initial note. Start Seroquel 12.5 mg 9 a.m., 5:00 p.m. to help with mood lability. Rest unchanged from initial note. MAN Franklin KIRKPATRICK MD DR: DONATO/marya JOB#: [id number] / [id number]
--- NOTE | 2018-08-03 23:15 | PDOC ---
Exam Note: Quintin Note: Please also refer to the separate dictated note~for this date of service dictated separately.~Patient seen individually. Discussed the patient with Nursing staff reviewed the chart.~Reviewed interim history and current functioning. Reviewed vital signs,~Labs/ Radiology~and current medications noted below. Continue current treatment with the changes noted in the dictated addendum note Assessment: Vital Signs: Vital Signs Date Time Temp Pulse Resp B/P (MAP) Pulse Ox O2 Delivery O2 Flow Rate FiO2 08/03/18 15:51 97.6 64 19 129/71 (90) 61 Room Air I&O Intake and Output 08/03/18 07:00 Intake Total 1080 ml Balance 1080 ml Intake Oral 1080 ml # Voids 1 Current Medications: Meds: Current Medications Acetaminophen (Tylenol) 650 mg PRN Q6HRS PRN PO PAIN / TEMP; Start 07/20/18 at 23:15 Multi-Ingredient Ointment (Analgesic [place]) 1 erik PRN QID PRN TP MUSCLE PAIN; Start 07/20/18 at 23:15 Al Hydroxide/Mg Hydroxide (Mylanta Plus Xs) 15 ml PRN AFTMEALHC PRN PO DYSPEPSIA; Start 07/20/18 at 23:15 Magnesium Hydroxide (Milk Of Magnesia) 2,400 mg PRN QHS PRN PO CONSTIPATION; Start 07/20/18 at 23:15 Lacosamide (Vimpat) 50 mg BID PO Last administered on 08/03/18at 19:19; Start 07/21/18 at 09:00 Lisinopril (Prinivil) 10 mg DAILY PO Last administered on 08/03/18at 08:38; Start 07/21/18 at 09:00 Aspirin (Children'S Aspirin) 81 mg BID PO Last administered on 08/03/18at 19:19 ; Start 07/21/18 at 09:00 Simvastatin (Zocor) 80 mg QHS PO Last administered on 08/03/18at 19:19; Start 07/21/18 at 21:00 Coenzyme Q10 (Coenzyme Q10) 200 mg DAILY PO Last administered on 08/03/18at 08: 38; Start 07/21/18 at 19:00 Phenytoin Sodium (Dilantin) 400 mg Q96H PO Last administered on 08/02/18at 19: 17; Start 07/21/18 at 21:00 Phenytoin Sodium (Dilantin) 400 mg Q96H PO Last administered on 08/03/18at 19: 21; Start 07/22/18 at 21:00 Phenytoin Sodium (Dilantin) 400 mg Q96H PO Last administered on 07/31/18at 19: 56; Start 07/23/18 at 21:00 Phenytoin Sodium (Dilantin) 300 mg Q96H PO Last administered on 08/01/18at 19: 53; Start 07/24/18 at 21:00 Trazodone HCl (Desyrel) 50 mg QHS PO Last administered on 08/03/18 19:19; Start 07/21/18 at 21:00 Trazodone HCl (Desyrel) 50 mg PRN QHS PRN PO insomnia Last administered on 07/22at 00:16; Start 07/21/18 at 20:00 Mirtazapine (Remeron) 7.5 mg QHS PO Last administered on 07/25/18at 19:40; Start 07/23/18 at 21:00; Stop 07/26/18 at 12:42; Status DC Sertraline HCl (Zoloft) 50 mg DAILY PO Last administered on 08/01/18at 08:40; Start 07/25/18 at 09:00; Stop 08/01/18 at 18:07; Status DC Mirtazapine (Remeron) 15 mg QHS PO Last administered on 08/03/18at 19:19; Start 07/26/18 at 21:00 Sertraline HCl (Zoloft) 75 mg DAILY PO Last administered on 08/03/18at 08:40; Start 08/02/18 at 09:00 Quetiapine Fumarate (SEROquel) 12.5 mg BIDWMEALS PO Last administered on at 08:39; Start 08/02/18 at 17:00; Stop 08/03/18 at 11:45; Status DC Quetiapine Fumarate (SEROquel) 12.5 mg TID@0900,1300,1700 PO Last administered on 08/03/18at 17:29; Start 08/03/18 at 13:00 Active Scripts Active Reported Dilantin (Phenytoin Sodium Extended) 100 Mg Capsule 400 Mg PO HS Ultra Coq10 (Ubiquinone) 75 Mg Capsule 200 Mg PO DAILY Lisinopril 10 Mg Tablet 10 Mg PO DAILY Vimpat (Lacosamide) 50 Mg Tablet 50 Mg PO BID Aspirin 81 Mg Tab.chew 81 Mg PO BID Simvastatin 80 Mg Tablet 80 Mg PO HS I have reviewed the current psychotropics carefully including drug interactions. Risk benefit ratio favors no change other than as noted in my dictated progress note. Diagnosis: Problems: (1) Anxiety disorder (2) Dementia in Alzheimer's disease with delusions (3) Dementia in Alzheimer's disease with depression (4) Dementia, vascular, with delusions (5) Dementia, vascular, with depression (6) Impulse control disorder LISHA KIRKPATRICK MD Aug 03, 2018 23:15
[2018-08-04 06:27] VITALS: BP 122/71
[2018-08-04] MEDS: ASPIRIN 81 MG TAB.CHEW PO SCH ×2 (08:00→19:21)
[2018-08-04] MEDS: UBIDECARENONE 50 MG CAPSULE. PO SCH (08:01)
[2018-08-04] MEDS: SERTRALINE 50 MG TABLET. PO SCH (08:02)
[2018-08-04] MEDS: LISINOPRIL 10 MG TABLET PO SCH (08:02)
[2018-08-04] MEDS: QUEtiapine 25 MG TABLET. PO SCH ×3 (08:04→17:00)
[2018-08-04] MEDS: LACOSAMIDE 50 MG TABLET PO SCH ×2 (08:06→19:26)
[2018-08-04 15:57] VITALS: BP 130/59
[2018-08-04] MEDS: traZODone 50 MG TABLET. PO SCH (19:21)
[2018-08-04] MEDS: MIRTAZAPINE 15 MG TABLET PO SCH (19:22)
[2018-08-04] MEDS: SIMVASTATIN 40 MG TABLET. PO SCH (19:22)
[2018-08-04] MEDS: PHENYTOIN SODIUM EXTENDED 100 MG CAPSULE PO SCH (19:26)
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
[2018-08-05 06:16] VITALS: BP 126/54
[2018-08-05] MEDS: UBIDECARENONE 50 MG CAPSULE. PO SCH (07:21)
[2018-08-05] MEDS: ASPIRIN 81 MG TAB.CHEW PO SCH ×2 (07:21→20:08)
[2018-08-05] MEDS: QUEtiapine 25 MG TABLET. PO SCH ×3 (07:22→16:49)
[2018-08-05] MEDS: SERTRALINE 50 MG TABLET. PO SCH (07:23)
[2018-08-05] MEDS: LISINOPRIL 10 MG TABLET PO SCH (07:24)
[2018-08-05] MEDS: LACOSAMIDE 50 MG TABLET PO SCH ×2 (07:25→20:08)
[2018-08-05 16:21] VITALS: BP 155/76
[2018-08-05] MEDS: traZODone 50 MG TABLET. PO SCH (20:08)
[2018-08-05] MEDS: MIRTAZAPINE 15 MG TABLET PO SCH (20:08)
[2018-08-05] MEDS: SIMVASTATIN 40 MG TABLET. PO SCH (20:08)
[2018-08-05] MEDS: PHENYTOIN SODIUM EXTENDED 100 MG CAPSULE PO SCH (20:10)
[2018-08-06 06:11] VITALS: BP 116/58
[2018-08-06] MEDS: UBIDECARENONE 50 MG CAPSULE. PO SCH (07:20)
[2018-08-06] MEDS: LISINOPRIL 10 MG TABLET PO SCH (07:20)
[2018-08-06] MEDS: ASPIRIN 81 MG TAB.CHEW PO SCH ×2 (07:21→19:56)
[2018-08-06] MEDS: QUEtiapine 25 MG TABLET. PO SCH ×3 (07:21→17:00)
[2018-08-06] MEDS: LACOSAMIDE 50 MG TABLET PO SCH ×2 (07:22→19:56)
[2018-08-06] MEDS: SERTRALINE 50 MG TABLET. PO SCH (07:22)
[2018-08-06 08:19] LABS: BASO # 0.1 x10^3/uL (0.0-0.2); BASO % 3 % (0-3); EOS # 0.6 x10^3/uL (0.0-0.7); EOS % 12 % (0-3); HEMATOCRIT 33.3 % (39.0-53.0); HEMOGLOBIN 11.7 g/dL (13.0-17.5); LYMPH # 1.3 x10^3/uL (1.0-4.8); LYMPH % 26 % (24-48); MEAN CORPUSCULAR HEMOGLOBIN 33 pg (25-35); MEAN CORPUSCULAR HGB CONC 35 g/dL (31-37); MEAN CORPUSCULAR VOLUME 95 fL (79-100); MONO # 0.5 x10^3/uL (0.0-1.1); MONO % 10 % (0-9); NEUT # 2.4 x10^3uL (1.8-7.7); NEUT % 49 % (31-73); PLATELET COUNT 326 x10^3/uL (140-400); RED CELL DISTRIBUTION WIDTH 14.1 % (11.5-14.5); WHITE BLOOD COUNT 4.8 x10^3/uL (4.0-11.0)
[2018-08-06 08:25] LABS: ALBUMIN 3.6 g/dL (3.4-5.0); ALBUMIN/GLOBULIN RATIO 1.2 (1.0-1.7); CALCIUM 8.8 mg/dL (8.5-10.1); GFR 72.3; POTASSIUM 4.6 mmol/L (3.5-5.1); TOTAL BILIRUBIN 0.3 mg/dL (0.2-1.0); TOTAL PROTEIN 6.7 g/dL (6.4-8.2)
[2018-08-06 16:24] VITALS: BP 137/70
[2018-08-06] MEDS: SIMVASTATIN 40 MG TABLET. PO SCH (19:56)
[2018-08-06] MEDS: traZODone 50 MG TABLET. PO SCH (19:56)
[2018-08-06] MEDS: MIRTAZAPINE 15 MG TABLET PO SCH (19:56)
[2018-08-06] MEDS: PHENYTOIN SODIUM EXTENDED 100 MG CAPSULE PO SCH (19:58)
--- NOTE | 2018-08-06 23:16 | PDOC ---
Exam Note: Quintin Note: Please also refer to the separate dictated note~for this date of service dictated separately.~Patient seen individually. Discussed the patient with Nursing staff reviewed the chart.~Reviewed interim history and current functioning. Reviewed vital signs,~Labs/ Radiology~and current medications noted below. Continue current treatment with the changes noted in the dictated addendum note Assessment: Vital Signs: Vital Signs Date Time Temp Pulse Resp B/P (MAP) Pulse Ox O2 Delivery O2 Flow Rate FiO2 08/06/18 16:24 98.0 68 18 137/70 (92) 100 Room Air I&O Intake and Output 08/06/18 07:00 Intake Total 1080 ml Balance 1080 ml Intake Oral 1080 ml # Voids 1 Labs: Laboratory Tests Test 08/06/18 07:50 White Blood Count 4.8 x10^3/uL (4.0-11.0) Red Blood Count 3.50 x10^6/uL (4.30-5.70) L Hemoglobin 11.7 g/dL (13.0-17.5) L Hematocrit 33.3 % (39.0-53.0) L Mean Corpuscular Volume 95 fL (79-100) Mean Corpuscular Hemoglobin 33 pg (25-35) Mean Corpuscular Hemoglobin Concent 35 g/dL (31-37) Red Cell Distribution Width 14.1 % (11.5-14.5) Platelet Count 326 x10^3/uL (140-400) Neutrophils (%) (Auto) 49 % (31-73) Lymphocytes (%) (Auto) 26 % (24-48) Monocytes (%) (Auto) 10 % (0-9) H Eosinophils (%) (Auto) 12 % (0-3) H Basophils (%) (Auto) 3 % (0-3) Neutrophils # (Auto) 2.4 x10^3uL (1.8-7.7) Lymphocytes # (Auto) 1.3 x10^3/uL (1.0-4.8) Monocytes # (Auto) 0.5 x10^3/uL (0.0-1.1) Eosinophils # (Auto) 0.6 x10^3/uL (0.0-0.7) Basophils # (Auto) 0.1 x10^3/uL (0.0-0.2) Sodium Level 139 mmol/L (136-145) Potassium Level 4.6 mmol/L (3.5-5.1) Chloride Level 107 mmol/L (98-107) Carbon Dioxide Level 28 mmol/L (21-32) Anion Gap 4 (6-14) L Blood Urea Nitrogen 19 mg/dL (8-26) Creatinine 1.0 mg/dL (0.7-1.3) Estimated GFR (Cockcroft-Gault) 72.3 BUN/Creatinine Ratio 19 (6-20) Glucose Level 97 mg/dL (70-99) Calcium Level 8.8 mg/dL (8.5-10.1) Total Bilirubin 0.3 mg/dL (0.2-1.0) Aspartate Amino Transferase (AST) 18 U/L (15-37) Alanine Aminotransferase (ALT) 31 U/L (16-63) Alkaline Phosphatase 118 U/L (46-116) H Total Protein 6.7 g/dL (6.4-8.2) Albumin 3.6 g/dL (3.4-5.0) Albumin/Globulin Ratio 1.2 (1.0-1.7) Current Medications: Meds: Current Medications Acetaminophen (Tylenol) 650 mg PRN Q6HRS PRN PO PAIN / TEMP; Start 07/20/18 at 23:15 Multi-Ingredient Ointment (Analgesic [place]) 1 erik PRN QID PRN TP MUSCLE PAIN; Start 07/20/18 at 23:15 Al Hydroxide/Mg Hydroxide (Mylanta Plus Xs) 15 ml PRN AFTMEALHC PRN PO DYSPEPSIA; Start 07/20/18 at 23:15 Magnesium Hydroxide (Milk Of Magnesia) 2,400 mg PRN QHS PRN PO CONSTIPATION; Start 07/20/18 at 23:15 Lacosamide (Vimpat) 50 mg BID PO Last administered on 08/06/18at 19:56; Start 07/21/18 at 09:00 Lisinopril (Prinivil) 10 mg DAILY PO Last administered on 08/06/18at 07:20; Start 07/21/18 at 09:00 Aspirin (Children'S Aspirin) 81 mg BID PO Last administered on 08/06/18at 19:56 ; Start 07/21/18 at 09:00 Simvastatin (Zocor) 80 mg QHS PO Last administered on 08/06/18 19:56; Start 07/21/18 at 21:00 Coenzyme Q10 (Coenzyme Q10) 200 mg DAILY PO Last administered on 08/06/18at 07: 20; Start 07/21/18 at 19:00 Phenytoin Sodium (Dilantin) 400 mg Q96H PO Last administered on 08/06/18at 19: 58; Start 07/21/18 at 21:00 Phenytoin Sodium (Dilantin) 400 mg Q96H PO Last administered on 08/03/18at 19: 21; Start 07/22/18 at 21:00 Phenytoin Sodium (Dilantin) 400 mg Q96H PO Last administered on 08/04/18 19: 26; Start 07/23/18 at 21:00 Phenytoin Sodium (Dilantin) 300 mg Q96H PO Last administered on 08/05/18at 20: 10; Start 07/24/18 at 21:00 Trazodone HCl (Desyrel) 50 mg QHS PO Last administered on 08/06/18 19:56; Start 07/21/18 at 21:00 Trazodone HCl (Desyrel) 50 mg PRN QHS PRN PO insomnia Last administered on 07/22at 00:16; Start 07/21/18 at 20:00 Mirtazapine (Remeron) 7.5 mg QHS PO Last administered on 07/25/18 19:40; Start 07/23/18 at 21:00; Stop 07/26/18 at 12:42; Status DC Sertraline HCl (Zoloft) 50 mg DAILY PO Last administered on 08/01/18at 08:40; Start 07/25/18 at 09:00; Stop 08/01/18 at 18:07; Status DC Mirtazapine (Remeron) 15 mg QHS PO Last administered on 08/06/18 19:56; Start 07/26/18 at 21:00 Sertraline HCl (Zoloft) 75 mg DAILY PO Last administered on 08/06/18 07:22; Start 08/02/18 at 09:00; Stop 08/06/18 at 17:52; Status DC Quetiapine Fumarate (SEROquel) 12.5 mg BIDWMEALS PO Last administered on at 08:39; Start 08/02/18 at 17:00; Stop 08/03/18 at 11:45; Status DC Quetiapine Fumarate (SEROquel) 12.5 mg TID@0900,1300,1700 PO Last administered on 08/06/18at 17:00; Start 08/03/18 at 13:00 Sertraline HCl (Zoloft) 100 mg DAILY PO ; Start 08/07/18 at 09:00 Active Scripts Active Reported Dilantin (Phenytoin Sodium Extended) 100 Mg Capsule 400 Mg PO HS Ultra Coq10 (Ubiquinone) 75 Mg Capsule 200 Mg PO DAILY Lisinopril 10 Mg Tablet 10 Mg PO DAILY Vimpat (Lacosamide) 50 Mg Tablet 50 Mg PO BID Aspirin 81 Mg Tab.chew 81 Mg PO BID Simvastatin 80 Mg Tablet 80 Mg PO HS I have reviewed the current psychotropics carefully including drug interactions. Risk benefit ratio favors no change other than as noted in my dictated progress note. Diagnosis: Problems: (1) Anxiety disorder (2) Dementia in Alzheimer's disease with delusions (3) Dementia in Alzheimer's disease with depression (4) Dementia, vascular, with delusions (5) Dementia, vascular, with depression (6) Impulse control disorder LISHA KIRKPATRICK MD Aug 06, 2018 23:16
[2018-08-07 05:32] VITALS: BP 131/73
[2018-08-07] MEDS: UBIDECARENONE 50 MG CAPSULE. PO SCH (08:04)
[2018-08-07] MEDS: ASPIRIN 81 MG TAB.CHEW PO SCH ×2 (08:04→19:21)
[2018-08-07] MEDS: LISINOPRIL 10 MG TABLET PO SCH (08:06)
[2018-08-07] MEDS: QUEtiapine 25 MG TABLET. PO SCH ×3 (08:07→17:29)
[2018-08-07] MEDS: LACOSAMIDE 50 MG TABLET PO SCH ×2 (08:07→19:21)
[2018-08-07] MEDS: SERTRALINE 100 MG TABLET. PO SCH (08:08)
--- NOTE | 2018-08-07 10:05 | RAD ---
CT of the head without contrast, 08/07/2018: HISTORY: Fall, head trauma There is moderate cerebral atrophy. There is encephalomalacia in the inferomedial right frontal lobe and in the right frontal parietal region compatible with old infarcts. The ventricles are mildly enlarged on a compensatory basis. There is no shift of the midline structures. There is no evidence of acute intracranial hemorrhage or mass effect. IMPRESSION: 1. Moderate cerebral atrophy. 2. 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 3. No acute intracranial abnormality is detected. PQRS Compliance Statement: One or more of the following individualized dose reduction techniques were utilized for this examination: 1. Automated exposure control 2. Adjustment of the mA and/or kV according to patient size 3. Use of iterative reconstruction technique Electronically signed by: Silvino Culp MD (08/07/2018 10:01 AM) [facility]
[2018-08-07 16:01] VITALS: BP 145/81
[2018-08-07] MEDS: MIRTAZAPINE 15 MG TABLET PO SCH (19:21)
[2018-08-07] MEDS: traZODone 50 MG TABLET. PO SCH (19:21)
[2018-08-07] MEDS: SIMVASTATIN 40 MG TABLET. PO SCH (19:22)
[2018-08-07] MEDS: PHENYTOIN SODIUM EXTENDED 100 MG CAPSULE PO SCH (19:23)
[2018-08-08 06:00] VITALS: BP 124/65
[2018-08-08] MEDS: ASPIRIN 81 MG TAB.CHEW PO SCH ×2 (07:26→20:04)
[2018-08-08] MEDS: UBIDECARENONE 50 MG CAPSULE. PO SCH (07:27)
[2018-08-08] MEDS: SERTRALINE 100 MG TABLET. PO SCH (07:28)
[2018-08-08] MEDS: LISINOPRIL 10 MG TABLET PO SCH (07:28)
[2018-08-08] MEDS: QUEtiapine 25 MG TABLET. PO SCH ×2 (07:29→11:57)
[2018-08-08] MEDS: LACOSAMIDE 50 MG TABLET PO SCH ×2 (07:31→20:06)
[2018-08-08 16:03] VITALS: BP 151/67
[2018-08-08] MEDS: traZODone 50 MG TABLET. PO SCH (20:04)
[2018-08-08] MEDS: SIMVASTATIN 40 MG TABLET. PO SCH (20:04)
[2018-08-08] MEDS: MIRTAZAPINE 15 MG TABLET PO SCH (20:05)
[2018-08-08] MEDS: PHENYTOIN SODIUM EXTENDED 100 MG CAPSULE PO SCH (20:06)
--- NOTE | 2018-08-08 21:07 | PDOC ---
Exam Note: Quintin Note: Late entry for DOS 08/07/2018.Please also refer to the separate dictated note~ for this date of service dictated separately.~Patient seen individually. Discussed the patient with Nursing staff reviewed the chart.~Reviewed interim history and current functioning. Reviewed vital signs,~Labs/ Radiology~and current medications noted below. Continue current treatment with the changes noted in the dictated addendum note Assessment: Vital Signs: VS - Last 72 Hours, by Label Date Time Temp Pulse Resp B/P (MAP) Pulse Ox O2 Delivery O2 Flow Rate FiO2 08/08/18 16:03 98.6 61 18 151/67 (95) 95 08/08/18 07:28 82 124/65 08/08/18 06:00 98.2 82 18 124/65 (84) 98 08/07/18 16:01 97.8 99 19 145/81 (102) 96 Room Air 08/07/18 08:06 68 131/73 08/07/18 05:32 100.1 68 20 131/73 (92) 97 08/06/18 16:24 98.0 68 18 137/70 (92) 100 Room Air 08/06/18 07:20 78 116/58 08/06/18 06:11 98.8 78 16 116/58 (77) 99 Room Air Vital Signs Date Time Temp Pulse Resp B/P (MAP) Pulse Ox O2 Delivery O2 Flow Rate FiO2 08/08/18 16:03 98.6 61 18 151/67 (95) 95 08/07/18 16:01 Room Air I&O Intake and Output 08/08/18 07:00 Intake Total 960 ml Balance 960 ml Intake Oral 960 ml Current Medications: Meds: Current Medications Acetaminophen (Tylenol) 650 mg PRN Q6HRS PRN PO PAIN / TEMP; Start 07/20/18 at 23:15 Multi-Ingredient Ointment (Analgesic [place]) 1 erik PRN QID PRN TP MUSCLE PAIN; Start 07/20/18 at 23:15 Al Hydroxide/Mg Hydroxide (Mylanta Plus Xs) 15 ml PRN AFTMEALHC PRN PO DYSPEPSIA; Start 07/20/18 at 23:15 Magnesium Hydroxide (Milk Of Magnesia) 2,400 mg PRN QHS PRN PO CONSTIPATION; Start 07/20/18 at 23:15 Lacosamide (Vimpat) 50 mg BID PO Last administered on 08/08/18 20:06; Start 07/21/18 at 09:00 Lisinopril (Prinivil) 10 mg DAILY PO Last administered on 08/08/18 07:28; Start 07/21/18 at 09:00 Aspirin (Children'S Aspirin) 81 mg BID PO Last administered on 08/08/18 20:04 ; Start 07/21/18 at 09:00 Simvastatin (Zocor) 80 mg QHS PO Last administered on 08/08/18 20:04; Start 07/21/18 at 21:00 Coenzyme Q10 (Coenzyme Q10) 200 mg DAILY PO Last administered on 08/08/18 07: 27; Start 07/21/18 at 19:00 Phenytoin Sodium (Dilantin) 400 mg Q96H PO Last administered on 08/06/18 19: 58; Start 07/21/18 at 21:00 Phenytoin Sodium (Dilantin) 400 mg Q96H PO Last administered on 08/07/18 19: 23; Start 07/22/18 at 21:00 Phenytoin Sodium (Dilantin) 400 mg Q96H PO Last administered on 08/08/18 20: 06; Start 07/23/18 at 21:00 Phenytoin Sodium (Dilantin) 300 mg Q96H PO Last administered on 08/05/18at 20: 10; Start 07/24/18 at 21:00 Trazodone HCl (Desyrel) 50 mg QHS PO Last administered on 08/08/18 20:04; Start 07/21/18 at 21:00 Trazodone HCl (Desyrel) 50 mg PRN QHS PRN PO insomnia Last administered on 07/22 00:16; Start 07/21/18 at 20:00 Mirtazapine (Remeron) 7.5 mg QHS PO Last administered on 07/25/18 19:40; Start 07/23/18 at 21:00; Stop 07/26/18 at 12:42; Status DC Sertraline HCl (Zoloft) 50 mg DAILY PO Last administered on 08/01/18 08:40; Start 07/25/18 at 09:00; Stop 10/17/18 at 18:07; Status DC Mirtazapine (Remeron) 15 mg QHS PO Last administered on 08/08/18at 20:05; Start 07/26/18 at 21:00 Sertraline HCl (Zoloft) 75 mg DAILY PO Last administered on 08/06/18at 07:22; Start 08/02/18 at 09:00; Stop 08/06/18 at 17:52; Status DC Quetiapine Fumarate (SEROquel) 12.5 mg BIDWMEALS PO Last administered on at 08:39; Start 08/02/18 at 17:00; Stop 08/03/18 at 11:45; Status DC Quetiapine Fumarate (SEROquel) 12.5 mg TID@0900,1300,1700 PO Last administered on 08/08/18at 11:57; Start 08/03/18 at 13:00; Stop 08/08/18 at 17:05; Status DC Sertraline HCl (Zoloft) 100 mg DAILY PO Last administered on 08/08/18at 07:28; Start 08/07/18 at 09:00 Quetiapine Fumarate (SEROquel) 12.5 mg BID@0900,1300 PO ; Start 08/09/18 at 09: 00 Quetiapine Fumarate (SEROquel) 25 mg 1700 PO ; Start 08/09/18 at 17:00 Active Scripts Active Reported Dilantin (Phenytoin Sodium Extended) 100 Mg Capsule 400 Mg PO HS Ultra Coq10 (Ubiquinone) 75 Mg Capsule 200 Mg PO DAILY Lisinopril 10 Mg Tablet 10 Mg PO DAILY Vimpat (Lacosamide) 50 Mg Tablet 50 Mg PO BID Aspirin 81 Mg Tab.chew 81 Mg PO BID Simvastatin 80 Mg Tablet 80 Mg PO HS I have reviewed the current psychotropics carefully including drug interactions. Risk benefit ratio favors no change other than as noted in my dictated progress note. Diagnosis: Problems: (1) Anxiety disorder (2) Dementia in Alzheimer's disease with delusions (3) Dementia in Alzheimer's disease with depression (4) Dementia, vascular, with delusions (5) Dementia, vascular, with depression (6) Impulse control disorder LISHA KIRKPATRICK MD Aug 08, 2018 21:07
--- NOTE | 2018-08-08 22:54 | PN ---
DATE: 08/07/2018 PSYCHIATRIC PROGRESS NOTE This late entry 08/07/2018 covers elements not covered in my initial note. SUBJECTIVE: I met with the patient in the evening. Overall, the patient slept 5-1/4 hours previous evening. He has been less obsessive about the phone. He does have short-term memory impairment. I met to them on rounds and about half an hour later he told the nursing staff. He had seen me and wanted to discuss discharge plans "tonight." He wanted to leave and oblivious of travel arrangements or other arrangements that were being made quite somewhat anxious, but this was late in the evening. Takes his medications whole. He did have a CT head, status post fall and having received a knot on his head. There is moderate cerebral atrophy, old right frontal lobe infarcts, no acute intracranial abnormality noted. REVIEW OF SYSTEMS: No CV, , pulmonary, eye, ENT system symptoms on review. Reliability poor. Gait unsteady with walker. MENTAL STATUS EXAM: Oriented to himself. Insight, judgment, recent and remote memory, attention, concentration, fund of knowledge poor, consistent with his diagnosis. IMPRESSION: Major neurocognitive disorder, Alzheimer, vascular with delusion, depression, behavioral disturbance; anxiety disorder, unspecified; impulse control disorder, unspecified. Rest unchanged. PLAN: No change from initial note. He remains on Dilantin for his seizures, trazodone, Remeron, Zoloft, and Seroquel. MAN Franklin KIRKPATRICK MD DR: DONATO/marya JOB#: [id number] / [id number]
--- NOTE | 2018-08-08 23:19 | PDOC ---
Exam Note: Quintin Note: Please also refer to the separate dictated note~for this date of service dictated separately.~Patient seen individually. Discussed the patient with Nursing staff reviewed the chart.~Reviewed interim history and current functioning. Reviewed vital signs,~Labs/ Radiology~and current medications noted below. Continue current treatment with the changes noted in the dictated addendum note Assessment: Vital Signs: Vital Signs Date Time Temp Pulse Resp B/P (MAP) Pulse Ox O2 Delivery O2 Flow Rate FiO2 08/08/18 16:03 98.6 61 18 151/67 (95) 95 08/07/18 16:01 Room Air I&O Intake and Output 08/08/18 07:00 Intake Total 960 ml Balance 960 ml Intake Oral 960 ml Current Medications: Meds: Current Medications Acetaminophen (Tylenol) 650 mg PRN Q6HRS PRN PO PAIN / TEMP; Start 07/20/18 at 23:15 Multi-Ingredient Ointment (Analgesic [place]) 1 erik PRN QID PRN TP MUSCLE PAIN; Start 07/20/18 at 23:15 Al Hydroxide/Mg Hydroxide (Mylanta Plus Xs) 15 ml PRN AFTMEALHC PRN PO DYSPEPSIA; Start 07/20/18 at 23:15 Magnesium Hydroxide (Milk Of Magnesia) 2,400 mg PRN QHS PRN PO CONSTIPATION; Start 07/20/18 at 23:15 Lacosamide (Vimpat) 50 mg BID PO Last administered on 08/08/18at 20:06; Start 07/21/18 at 09:00 Lisinopril (Prinivil) 10 mg DAILY PO Last administered on 08/08/18at 07:28; Start 07/21/18 at 09:00 Aspirin (Children'S Aspirin) 81 mg BID PO Last administered on 08/08/18at 20:04 ; Start 07/21/18 at 09:00 Simvastatin (Zocor) 80 mg QHS PO Last administered on 08/08/18at 20:04; Start 07/21/18 at 21:00 Coenzyme Q10 (Coenzyme Q10) 200 mg DAILY PO Last administered on 08/08/18at 07: 27; Start 07/21/18 at 19:00 Phenytoin Sodium (Dilantin) 400 mg Q96H PO Last administered on 08/06/18at 19: 58; Start 07/21/18 at 21:00 Phenytoin Sodium (Dilantin) 400 mg Q96H PO Last administered on 08/07/18at 19: 23; Start 07/22/18 at 21:00 Phenytoin Sodium (Dilantin) 400 mg Q96H PO Last administered on 08/08/18at 20: 06; Start 07/23/18 at 21:00 Phenytoin Sodium (Dilantin) 300 mg Q96H PO Last administered on 08/05/18at 20: 10; Start 07/24/18 at 21:00 Trazodone HCl (Desyrel) 50 mg QHS PO Last administered on 08/08/18at 20:04; Start 07/21/18 at 21:00 Trazodone HCl (Desyrel) 50 mg PRN QHS PRN PO insomnia Last administered on 07/22at 00:16; Start 07/21/18 at 20:00 Mirtazapine (Remeron) 7.5 mg QHS PO Last administered on 07/25/18at 19:40; Start 07/23/18 at 21:00; Stop 07/26/18 at 12:42; Status DC Sertraline HCl (Zoloft) 50 mg DAILY PO Last administered on 08/01/18at 08:40; Start 07/25/18 at 09:00; Stop 08/01/18 at 18:07; Status DC Mirtazapine (Remeron) 15 mg QHS PO Last administered on 08/08/18at 20:05; Start 07/26/18 at 21:00 Sertraline HCl (Zoloft) 75 mg DAILY PO Last administered on 08/06/18at 07:22; Start 08/02/18 at 09:00; Stop 08/06/18 at 17:52; Status DC Quetiapine Fumarate (SEROquel) 12.5 mg BIDWMEALS PO Last administered on at 08:39; Start 08/02/18 at 17:00; Stop 08/03/18 at 11:45; Status DC Quetiapine Fumarate (SEROquel) 12.5 mg TID@0900,1300,1700 PO Last administered on 08/08/18at 11:57; Start 08/03/18 at 13:00; Stop 08/08/18 at 17:05; Status DC Sertraline HCl (Zoloft) 100 mg DAILY PO Last administered on 08/08/18at 07:28; Start 08/07/18 at 09:00 Quetiapine Fumarate (SEROquel) 12.5 mg BID@0900,1300 PO ; Start 08/09/18 at 09: 00 Quetiapine Fumarate (SEROquel) 25 mg 1700 PO ; Start 08/09/18 at 17:00 Active Scripts Active Reported Dilantin (Phenytoin Sodium Extended) 100 Mg Capsule 400 Mg PO HS Ultra Coq10 (Ubiquinone) 75 Mg Capsule 200 Mg PO DAILY Lisinopril 10 Mg Tablet 10 Mg PO DAILY Vimpat (Lacosamide) 50 Mg Tablet 50 Mg PO BID Aspirin 81 Mg Tab.chew 81 Mg PO BID Simvastatin 80 Mg Tablet 80 Mg PO HS I have reviewed the current psychotropics carefully including drug interactions. Risk benefit ratio favors no change other than as noted in my dictated progress note. Diagnosis: Problems: (1) Anxiety disorder (2) Dementia in Alzheimer's disease with delusions (3) Dementia in Alzheimer's disease with depression (4) Dementia, vascular, with delusions (5) Dementia, vascular, with depression (6) Impulse control disorder LISHA KIRKPATRICK MD Aug 08, 2018 23:19
[2018-08-09 06:09] VITALS: BP 120/68
[2018-08-09] MEDS: LISINOPRIL 10 MG TABLET PO SCH (08:04)
[2018-08-09] MEDS: UBIDECARENONE 50 MG CAPSULE. PO SCH (08:05)
[2018-08-09] MEDS: SERTRALINE 100 MG TABLET. PO SCH (08:05)
[2018-08-09] MEDS: ASPIRIN 81 MG TAB.CHEW PO SCH ×2 (08:05→19:27)
[2018-08-09] MEDS: LACOSAMIDE 50 MG TABLET PO SCH ×2 (08:05→19:29)
[2018-08-09] MEDS: QUEtiapine 25 MG TABLET. PO SCH ×3 (08:06→17:10)
[2018-08-09 16:08] VITALS: BP 148/68
[2018-08-09] MEDS: PHENYTOIN SODIUM EXTENDED 100 MG CAPSULE PO SCH (19:28)
[2018-08-09] MEDS: traZODone 50 MG TABLET. PO SCH (19:28)
[2018-08-09] MEDS: MIRTAZAPINE 15 MG TABLET PO SCH (19:29)
[2018-08-09] MEDS: SIMVASTATIN 40 MG TABLET. PO SCH (19:29)
--- NOTE | 2018-08-09 23:16 | PDOC ---
Exam Note: Quintin Note: Please also refer to the separate dictated note~for this date of service dictated separately.~Patient seen individually. Discussed the patient with Nursing staff reviewed the chart.~Reviewed interim history and current functioning. Reviewed vital signs,~Labs/ Radiology~and current medications noted below. Continue current treatment with the changes noted in the dictated addendum note Assessment: Vital Signs: Vital Signs Date Time Temp Pulse Resp B/P (MAP) Pulse Ox O2 Delivery O2 Flow Rate FiO2 08/09/18 16:08 97.9 68 16 148/68 (94) 98 Room Air I&O Intake and Output 08/09/18 07:00 Intake Total 1200 ml Balance 1200 ml Intake Oral 1200 ml Current Medications: Meds: Current Medications Acetaminophen (Tylenol) 650 mg PRN Q6HRS PRN PO PAIN / TEMP; Start 07/20/18 at 23:15 Multi-Ingredient Ointment (Analgesic [place]) 1 erik PRN QID PRN TP MUSCLE PAIN; Start 07/20/18 at 23:15 Al Hydroxide/Mg Hydroxide (Mylanta Plus Xs) 15 ml PRN AFTMEALHC PRN PO DYSPEPSIA; Start 07/20/18 at 23:15 Magnesium Hydroxide (Milk Of Magnesia) 2,400 mg PRN QHS PRN PO CONSTIPATION; Start 07/20/18 at 23:15 Lacosamide (Vimpat) 50 mg BID PO Last administered on 08/09/18at 19:29; Start 07/21/18 at 09:00 Lisinopril (Prinivil) 10 mg DAILY PO Last administered on 08/09/18at 08:04; Start 07/21/18 at 09:00 Aspirin (Children'S Aspirin) 81 mg BID PO Last administered on 08/09/18at 19:27 ; Start 07/21/18 at 09:00 Simvastatin (Zocor) 80 mg QHS PO Last administered on 08/09/18 19:29; Start 07/21/18 at 21:00 Coenzyme Q10 (Coenzyme Q10) 200 mg DAILY PO Last administered on 08/09/18at 08: 05; Start 07/21/18 at 19:00 Phenytoin Sodium (Dilantin) 400 mg Q96H PO Last administered on 08/06/18at 19: 58; Start 07/21/18 at 21:00 Phenytoin Sodium (Dilantin) 400 mg Q96H PO Last administered on 08/07/18 19: 23; Start 07/22/18 at 21:00 Phenytoin Sodium (Dilantin) 400 mg Q96H PO Last administered on 08/08/18at 20: 06; Start 07/23/18 at 21:00 Phenytoin Sodium (Dilantin) 300 mg Q96H PO Last administered on 08/09/18 19: 28; Start 07/24/18 at 21:00 Trazodone HCl (Desyrel) 50 mg QHS PO Last administered on 08/09/18 19:28; Start 07/21/18 at 21:00 Trazodone HCl (Desyrel) 50 mg PRN QHS PRN PO insomnia Last administered on 07/22at 00:16; Start 07/21/18 at 20:00 Mirtazapine (Remeron) 7.5 mg QHS PO Last administered on 07/25/18at 19:40; Start 07/23/18 at 21:00; Stop 07/26/18 at 12:42; Status DC Sertraline HCl (Zoloft) 50 mg DAILY PO Last administered on 08/01/18at 08:40; Start 07/25/18 at 09:00; Stop 08/01/18 at 18:07; Status DC Mirtazapine (Remeron) 15 mg QHS PO Last administered on 08/09/18at 19:29; Start 07/26/18 at 21:00 Sertraline HCl (Zoloft) 75 mg DAILY PO Last administered on 08/06/18at 07:22; Start 08/02/18 at 09:00; Stop 08/06/18 at 17:52; Status DC Quetiapine Fumarate (SEROquel) 12.5 mg BIDWMEALS PO Last administered on at 08:39; Start 08/02/18 at 17:00; Stop 08/03/18 at 11:45; Status DC Quetiapine Fumarate (SEROquel) 12.5 mg TID@0900,1300,1700 PO Last administered on 08/08/18at 11:57; Start 08/03/18 at 13:00; Stop 08/08/18 at 17:05; Status DC Sertraline HCl (Zoloft) 100 mg DAILY PO Last administered on 08/09/18at 08:05; Start 08/07/18 at 09:00; Stop 08/09/18 at 11:22; Status DC Quetiapine Fumarate (SEROquel) 12.5 mg BID@0900,1300 PO Last administered on at 13:19; Start 08/09/18 at 09:00 Quetiapine Fumarate (SEROquel) 25 mg 1700 PO Last administered on 08/09/18at 17 :10; Start 08/09/18 at 17:00 Sertraline HCl (Zoloft) 125 mg DAILY PO ; Start 08/10/18 at 09:00 Active Scripts Active Reported Dilantin (Phenytoin Sodium Extended) 100 Mg Capsule 400 Mg PO HS Ultra Coq10 (Ubiquinone) 75 Mg Capsule 200 Mg PO DAILY Lisinopril 10 Mg Tablet 10 Mg PO DAILY Vimpat (Lacosamide) 50 Mg Tablet 50 Mg PO BID Aspirin 81 Mg Tab.chew 81 Mg PO BID Simvastatin 80 Mg Tablet 80 Mg PO HS I have reviewed the current psychotropics carefully including drug interactions. Risk benefit ratio favors no change other than as noted in my dictated progress note. Diagnosis: Problems: (1) Anxiety disorder (2) Dementia in Alzheimer's disease with delusions (3) Dementia in Alzheimer's disease with depression (4) Dementia, vascular, with delusions (5) Dementia, vascular, with depression (6) Impulse control disorder LISHA KIRKPATRICK MD Aug 09, 2018 23:16
[2018-08-10 05:41] VITALS: BP 130/65
[2018-08-10] MEDS: LISINOPRIL 10 MG TABLET PO SCH (08:07)
[2018-08-10] MEDS: UBIDECARENONE 50 MG CAPSULE. PO SCH (08:07)
[2018-08-10] MEDS: QUEtiapine 25 MG TABLET. PO SCH ×3 (08:08→16:37)
[2018-08-10] MEDS: ASPIRIN 81 MG TAB.CHEW PO SCH ×2 (08:08→19:44)
[2018-08-10] MEDS: LACOSAMIDE 50 MG TABLET PO SCH ×2 (08:09→19:45)
[2018-08-10] MEDS ORDERED: SERTRALINE 100 MG TABLET. PO SCH (09:00)
--- NOTE | 2018-08-10 11:28 | PN ---
DATE: 08/08/2018 This late entry of 08/08/2018 covers elements not covered in my initial note. SUBJECTIVE: I met with the patient in the evening. The patient slept 5-3/4 hours previous night. He is compliant with medications. No overt hallucinations noted. Short-term memory is impaired. He is somewhat obsessive, anxious, repeatedly wanting to call his . REVIEW OF SYSTEMS: No CV, , pulmonary, eye, ENT system symptoms on review. Reliability poor. MENTAL STATUS EXAMINATION: Oriented to himself, but he was able to tell me he was at [facility], but as the conversation progressed, he felt this was a hotel. He knew it was 08/08/2018, able to do two steps with serial 7's. Some of this is quite an improvement for him. No active suicidal or homicidal ideation. IMPRESSION: Major neurocognitive disorder, Alzheimer, vascular with delusion, depression, behavioral disturbance, anxiety disorder, unspecified. PLAN: Increase the Seroquel at 1700 from 12.5 mg to 25 mg, maintain the 0900, 1300 Seroquel at 12.5 mg. Maintain Zoloft, Remeron, trazodone, phenytoin at current dosage. Consider Luvox for the obsessive anxiety symptoms if he does not respond adequately to Zoloft, which was just increased to 100 mg a day. MAN Franklin KIRKPATRICK MD DR: DONATO/marya JOB#: [id number] / [id number]
[2018-08-10 15:46] VITALS: BP 132/70
[2018-08-10] MEDS: MIRTAZAPINE 15 MG TABLET PO SCH (19:45)
[2018-08-10] MEDS: traZODone 50 MG TABLET. PO SCH (20:14)
[2018-08-10] MEDS: PHENYTOIN SODIUM EXTENDED 100 MG CAPSULE PO SCH (20:16)
[2018-08-10] MEDS: SIMVASTATIN 40 MG TABLET. PO SCH (20:16)
--- NOTE | 2018-08-10 23:35 | PDOC ---
Exam Note: Quintin Note: Please also refer to the separate dictated note~for this date of service dictated separately.~Patient seen individually. Discussed the patient with Nursing staff reviewed the chart.~Reviewed interim history and current functioning. Reviewed vital signs,~Labs/ Radiology~and current medications noted below. Continue current treatment with the changes noted in the dictated addendum note Assessment: Vital Signs: Vital Signs Date Time Temp Pulse Resp B/P (MAP) Pulse Ox O2 Delivery O2 Flow Rate FiO2 08/10/18 15:46 97.5 77 16 132/70 (90) 98 Room Air I&O Intake and Output 08/10/18 07:00 Intake Total 1200 ml Balance 1200 ml Intake Oral 1200 ml # Voids 1 Current Medications: Meds: Current Medications Acetaminophen (Tylenol) 650 mg PRN Q6HRS PRN PO PAIN / TEMP; Start 07/20/18 at 23:15 Multi-Ingredient Ointment (Analgesic [place]) 1 erik PRN QID PRN TP MUSCLE PAIN; Start 07/20/18 at 23:15 Al Hydroxide/Mg Hydroxide (Mylanta Plus Xs) 15 ml PRN AFTMEALHC PRN PO DYSPEPSIA; Start 07/20/18 at 23:15 Magnesium Hydroxide (Milk Of Magnesia) 2,400 mg PRN QHS PRN PO CONSTIPATION; Start 07/20/18 at 23:15 Lacosamide (Vimpat) 50 mg BID PO Last administered on 08/10/18at 19:45; Start 07/21/18 at 09:00 Lisinopril (Prinivil) 10 mg DAILY PO Last administered on 08/10/18at 08:07; Start 07/21/18 at 09:00 Aspirin (Children'S Aspirin) 81 mg BID PO Last administered on 08/10/18at 19:44 ; Start 07/21/18 at 09:00 Simvastatin (Zocor) 80 mg QHS PO Last administered on 08/10/18at 20:16; Start 07/21/18 at 21:00 Coenzyme Q10 (Coenzyme Q10) 200 mg DAILY PO Last administered on 08/10/18at 08: 07; Start 07/21/18 at 19:00 Phenytoin Sodium (Dilantin) 400 mg Q96H PO Last administered on 08/10/18at 20: 16; Start 07/21/18 at 21:00 Phenytoin Sodium (Dilantin) 400 mg Q96H PO Last administered on 08/07/18at 19: 23; Start 07/22/18 at 21:00 Phenytoin Sodium (Dilantin) 400 mg Q96H PO Last administered on 08/08/18at 20: 06; Start 07/23/18 at 21:00 Phenytoin Sodium (Dilantin) 300 mg Q96H PO Last administered on 08/09/18at 19: 28; Start 07/24/18 at 21:00 Trazodone HCl (Desyrel) 50 mg QHS PO Last administered on 08/10/18at 20:14; Start 07/21/18 at 21:00 Trazodone HCl (Desyrel) 50 mg PRN QHS PRN PO insomnia Last administered on 07/22at 00:16; Start 07/21/18 at 20:00 Mirtazapine (Remeron) 7.5 mg QHS PO Last administered on 07/25/18at 19:40; Start 07/23/18 at 21:00; Stop 07/26/18 at 12:42; Status DC Sertraline HCl (Zoloft) 50 mg DAILY PO Last administered on 08/01/18at 08:40; Start 07/25/18 at 09:00; Stop 08/01/18 at 18:07; Status DC Mirtazapine (Remeron) 15 mg QHS PO Last administered on 08/10/18at 19:45; Start 07/26/18 at 21:00 Sertraline HCl (Zoloft) 75 mg DAILY PO Last administered on 08/06/18at 07:22; Start 08/02/18 at 09:00; Stop 08/06/18 at 17:52; Status DC Quetiapine Fumarate (SEROquel) 12.5 mg BIDWMEALS PO Last administered on at 08:39; Start 08/02/18 at 17:00; Stop 08/03/18 at 11:45; Status DC Quetiapine Fumarate (SEROquel) 12.5 mg TID@0900,1300,1700 PO Last administered on 08/08/18at 11:57; Start 08/03/18 at 13:00; Stop 08/08/18 at 17:05; Status DC Sertraline HCl (Zoloft) 100 mg DAILY PO Last administered on 08/09/18at 08:05; Start 08/07/18 at 09:00; Stop 08/09/18 at 11:22; Status DC Quetiapine Fumarate (SEROquel) 12.5 mg BID@0900,1300 PO Last administered on at 14:00; Start 08/09/18 at 09:00 Quetiapine Fumarate (SEROquel) 25 mg 1700 PO Last administered on 08/10/18at 16 :37; Start 08/09/18 at 17:00 Sertraline HCl (Zoloft) 125 mg DAILY PO Last administered on 08/10/18at 08:10; Start 08/10/18 at 09:00; Stop 08/10/18 at 17:23; Status DC Fluvoxamine Maleate (Luvox) 25 mg HS PO Last administered on 08/10/18at 20:14; Start 08/10/18 at 21:00; Stop 08/12/18 at 22:00 Fluvoxamine Maleate (Luvox) 50 mg HS PO ; Start 08/13/18 at 21:00 Active Scripts Active Reported Dilantin (Phenytoin Sodium Extended) 100 Mg Capsule 400 Mg PO HS Ultra Coq10 (Ubiquinone) 75 Mg Capsule 200 Mg PO DAILY Lisinopril 10 Mg Tablet 10 Mg PO DAILY Vimpat (Lacosamide) 50 Mg Tablet 50 Mg PO BID Aspirin 81 Mg Tab.chew 81 Mg PO BID Simvastatin 80 Mg Tablet 80 Mg PO HS I have reviewed the current psychotropics carefully including drug interactions. Risk benefit ratio favors no change other than as noted in my dictated progress note. Diagnosis: Problems: (1) Anxiety disorder (2) Dementia in Alzheimer's disease with delusions (3) Dementia in Alzheimer's disease with depression (4) Dementia, vascular, with delusions (5) Dementia, vascular, with depression (6) Impulse control disorder LISHA KIRKPATRICK MD Aug 10, 2018 23:35
[2018-08-11 06:04] VITALS: BP 120/51
[2018-08-11] MEDS: ASPIRIN 81 MG TAB.CHEW PO SCH ×2 (08:16→20:01)
[2018-08-11] MEDS: UBIDECARENONE 50 MG CAPSULE. PO SCH (08:16)
[2018-08-11] MEDS: QUEtiapine 25 MG TABLET. PO SCH ×3 (08:17→17:26)
[2018-08-11 08:18] VITALS: BP 126/52
[2018-08-11] MEDS: LISINOPRIL 10 MG TABLET PO SCH (09:00)
[2018-08-11 09:44] LABS: BASO # 0.1 x10^3/uL (0.0-0.2); BASO % 2 % (0-3); EOS # 0.5 x10^3/uL (0.0-0.7); EOS % 9 % (0-3); HEMATOCRIT 32.9 % (39.0-53.0); HEMOGLOBIN 11.5 g/dL (13.0-17.5); LYMPH # 1.6 x10^3/uL (1.0-4.8); LYMPH % 31 % (24-48); MEAN CORPUSCULAR HEMOGLOBIN 34 pg (25-35); MEAN CORPUSCULAR HGB CONC 35 g/dL (31-37); MEAN CORPUSCULAR VOLUME 96 fL (79-100); MONO # 0.5 x10^3/uL (0.0-1.1); MONO % 10 % (0-9); NEUT # 2.5 x10^3uL (1.8-7.7); NEUT % 49 % (31-73); PLATELET COUNT 312 x10^3/uL (140-400); RED BLOOD COUNT 3.44 x10^6/uL (4.30-5.70); RED CELL DISTRIBUTION WIDTH 14.2 % (11.5-14.5); WHITE BLOOD COUNT 5.2 x10^3/uL (4.0-11.0)
[2018-08-11 10:04] LABS: ALBUMIN 3.7 g/dL (3.4-5.0); ALBUMIN/GLOBULIN RATIO 1.2 (1.0-1.7); CALCIUM 8.8 mg/dL (8.5-10.1); CREATININE 1.1 mg/dL (0.7-1.3); GFR 64.7; POTASSIUM 4.1 mmol/L (3.5-5.1); TOTAL BILIRUBIN 0.2 mg/dL (0.2-1.0); TOTAL PROTEIN 6.7 g/dL (6.4-8.2)
[2018-08-11] MEDS: LACOSAMIDE 50 MG TABLET PO SCH ×2 (10:15→20:01)
--- NOTE | 2018-08-11 11:37 | PN ---
DATE: 08/09/2018 PSYCHIATRIC PROGRESS NOTE This late entry 08/09/2018 covers elements not covered in my initial note. SUBJECTIVE: The patient was staffed at a treatment team meeting with the entire team in the morning and his , Lizeth, attended the conference. Reviewed his history at length including progressive memory deficits, obsessiveness, anxiety, repetitive thinking. This worsens his confusion in the evening and he picks up a bag, puts his belongings in it, ready to go, leave, wanting his car keys, very obsessive about calling his on the telephone. Sleeping an average of 5-1/2 hours to 6-1/2 hours. Appetite 100%. Met with him individually in the evening. REVIEW OF SYSTEMS: No CV, , pulmonary, eye, ENT system symptoms on review. Reliability poor. MENTAL STATUS EXAM: Oriented to himself. Insight, judgment, recent and remote memory, attention, concentration, fund of knowledge is poor, consistent with his diagnoses. He is much more oriented during the day. LABORATORY DATA: Reviewed. IMPRESSION: Major neurocognitive disorder, Alzheimer, vascular with delusion, depression, behavioral disturbance. Rest unchanged. PLAN: Continue psychotropics per initial note. After he has been on Zoloft 100 a day for 3 days, we will change to 125 mg a day or may consider changing the Zoloft to Luvox if OCD, obsessive rumination is prominent. MAN Franklin KIRKPATRICK MD DR: DONATO/marya JOB#: [id number] / [id number]
[2018-08-11 16:31] VITALS: BP 132/72
[2018-08-11] MEDS: MIRTAZAPINE 15 MG TABLET PO SCH (20:01)
[2018-08-11] MEDS: traZODone 50 MG TABLET. PO SCH (20:01)
[2018-08-11] MEDS: SIMVASTATIN 40 MG TABLET. PO SCH (20:01)
[2018-08-11] MEDS: PHENYTOIN SODIUM EXTENDED 100 MG CAPSULE PO SCH (20:02)
--- NOTE | 2018-08-11 22:55 | PDOC ---
Exam Note: Quintin Note: Please also refer to the separate dictated note~for this date of service dictated separately.~Patient seen individually. Discussed the patient with Nursing staff reviewed the chart.~Reviewed interim history and current functioning. Reviewed vital signs,~Labs/ Radiology~and current medications noted below. Continue current treatment with the changes noted in the dictated addendum note Assessment: Vital Signs: Vital Signs Date Time Temp Pulse Resp B/P (MAP) Pulse Ox O2 Delivery O2 Flow Rate FiO2 08/11/18 16:31 98.7 70 20 132/72 (92) 100 Room Air I&O Intake and Output 08/11/18 07:00 Intake Total 1260 ml Balance 1260 ml Intake Oral 1260 ml # Voids 1 Labs: Laboratory Tests Test 08/11/18 09:22 White Blood Count 5.2 x10^3/uL (4.0-11.0) Red Blood Count 3.44 x10^6/uL (4.30-5.70) L Hemoglobin 11.5 g/dL (13.0-17.5) L Hematocrit 32.9 % (39.0-53.0) L Mean Corpuscular Volume 96 fL (79-100) Mean Corpuscular Hemoglobin 34 pg (25-35) Mean Corpuscular Hemoglobin Concent 35 g/dL (31-37) Red Cell Distribution Width 14.2 % (11.5-14.5) Platelet Count 312 x10^3/uL (140-400) Neutrophils (%) (Auto) 49 % (31-73) Lymphocytes (%) (Auto) 31 % (24-48) Monocytes (%) (Auto) 10 % (0-9) H Eosinophils (%) (Auto) 9 % (0-3) H Basophils (%) (Auto) 2 % (0-3) Neutrophils # (Auto) 2.5 x10^3uL (1.8-7.7) Lymphocytes # (Auto) 1.6 x10^3/uL (1.0-4.8) Monocytes # (Auto) 0.5 x10^3/uL (0.0-1.1) Eosinophils # (Auto) 0.5 x10^3/uL (0.0-0.7) Basophils # (Auto) 0.1 x10^3/uL (0.0-0.2) Sodium Level 139 mmol/L (136-145) Potassium Level 4.1 mmol/L (3.5-5.1) Chloride Level 105 mmol/L (98-107) Carbon Dioxide Level 28 mmol/L (21-32) Anion Gap 6 (6-14) Blood Urea Nitrogen 25 mg/dL (8-26) Creatinine 1.1 mg/dL (0.7-1.3) Estimated GFR (Cockcroft-Gault) 64.7 BUN/Creatinine Ratio 23 (6-20) H Glucose Level 100 mg/dL (70-99) H Calcium Level 8.8 mg/dL (8.5-10.1) Total Bilirubin 0.2 mg/dL (0.2-1.0) Aspartate Amino Transferase (AST) 18 U/L (15-37) Alanine Aminotransferase (ALT) 30 U/L (16-63) Alkaline Phosphatase 114 U/L (46-116) Total Protein 6.7 g/dL (6.4-8.2) Albumin 3.7 g/dL (3.4-5.0) Albumin/Globulin Ratio 1.2 (1.0-1.7) Current Medications: Meds: Current Medications Acetaminophen (Tylenol) 650 mg PRN Q6HRS PRN PO PAIN / TEMP; Start 07/20/18 at 23:15 Multi-Ingredient Ointment (Analgesic [place]) 1 erik PRN QID PRN TP MUSCLE PAIN; Start 07/20/18 at 23:15 Al Hydroxide/Mg Hydroxide (Mylanta Plus Xs) 15 ml PRN AFTMEALHC PRN PO DYSPEPSIA; Start 07/20/18 at 23:15 Magnesium Hydroxide (Milk Of Magnesia) 2,400 mg PRN QHS PRN PO CONSTIPATION; Start 07/20/18 at 23:15 Lacosamide (Vimpat) 50 mg BID PO Last administered on 08/11/18at 20:01; Start 07/21/18 at 09:00 Lisinopril (Prinivil) 10 mg DAILY PO Last administered on 08/10/18at 08:07; Start 07/21/18 at 09:00 Aspirin (Children'S Aspirin) 81 mg BID PO Last administered on 08/11/18at 20:01 ; Start 07/21/18 at 09:00 Simvastatin (Zocor) 80 mg QHS PO Last administered on 08/11/18 20:01; Start 07/21/18 at 21:00 Coenzyme Q10 (Coenzyme Q10) 200 mg DAILY PO Last administered on 08/11/18 08: 16; Start 07/21/18 at 19:00 Phenytoin Sodium (Dilantin) 400 mg Q96H PO Last administered on 08/10/18 20: 16; Start 07/21/18 at 21:00 Phenytoin Sodium (Dilantin) 400 mg Q96H PO Last administered on 08/11/18 20: 02; Start 07/22/18 at 21:00 Phenytoin Sodium (Dilantin) 400 mg Q96H PO Last administered on 08/08/18 20: 06; Start 07/23/18 at 21:00 Phenytoin Sodium (Dilantin) 300 mg Q96H PO Last administered on 08/09/18 19: 28; Start 07/24/18 at 21:00 Trazodone HCl (Desyrel) 50 mg QHS PO Last administered on 08/11/18 20:01; Start 07/21/18 at 21:00 Trazodone HCl (Desyrel) 50 mg PRN QHS PRN PO insomnia Last administered on 07/22at 00:16; Start 07/21/18 at 20:00 Mirtazapine (Remeron) 7.5 mg QHS PO Last administered on 07/25/18 19:40; Start 07/23/18 at 21:00; Stop 07/26/18 at 12:42; Status DC Sertraline HCl (Zoloft) 50 mg DAILY PO Last administered on 08/01/18at 08:40; Start 07/25/18 at 09:00; Stop 08/01/18 at 18:07; Status DC Mirtazapine (Remeron) 15 mg QHS PO Last administered on 08/11/18 20:01; Start 07/26/18 at 21:00 Sertraline HCl (Zoloft) 75 mg DAILY PO Last administered on 08/06/18at 07:22; Start 08/02/18 at 09:00; Stop 08/06/18 at 17:52; Status DC Quetiapine Fumarate (SEROquel) 12.5 mg BIDWMEALS PO Last administered on at 08:39; Start 08/02/18 at 17:00; Stop 08/03/18 at 11:45; Status DC Quetiapine Fumarate (SEROquel) 12.5 mg TID@0900,1300,1700 PO Last administered on 08/08/18at 11:57; Start 08/03/18 at 13:00; Stop 08/08/18 at 17:05; Status DC Sertraline HCl (Zoloft) 100 mg DAILY PO Last administered on 08/09/18at 08:05; Start 08/07/18 at 09:00; Stop 08/09/18 at 11:22; Status DC Quetiapine Fumarate (SEROquel) 12.5 mg BID@0900,1300 PO Last administered on at 13:08; Start 08/09/18 at 09:00 Quetiapine Fumarate (SEROquel) 25 mg 1700 PO Last administered on 08/11/18at 17 :26; Start 08/09/18 at 17:00 Sertraline HCl (Zoloft) 125 mg DAILY PO Last administered on 08/10/18at 08:10; Start 08/10/18 at 09:00; Stop 08/10/18 at 17:23; Status DC Fluvoxamine Maleate (Luvox) 25 mg HS PO Last administered on 08/11/18at 20:01; Start 08/10/18 at 21:00; Stop 08/12/18 at 22:00 Fluvoxamine Maleate (Luvox) 50 mg HS PO ; Start 08/13/18 at 21:00 Active Scripts Active Reported Dilantin (Phenytoin Sodium Extended) 100 Mg Capsule 400 Mg PO HS Ultra Coq10 (Ubiquinone) 75 Mg Capsule 200 Mg PO DAILY Lisinopril 10 Mg Tablet 10 Mg PO DAILY Vimpat (Lacosamide) 50 Mg Tablet 50 Mg PO BID Aspirin 81 Mg Tab.chew 81 Mg PO BID Simvastatin 80 Mg Tablet 80 Mg PO HS I have reviewed the current psychotropics carefully including drug interactions. Risk benefit ratio favors no change other than as noted in my dictated progress note. Diagnosis: Problems: (1) Anxiety disorder (2) Dementia in Alzheimer's disease with delusions (3) Dementia in Alzheimer's disease with depression (4) Dementia, vascular, with delusions (5) Dementia, vascular, with depression (6) Impulse control disorder LISHA KIRKPATRICK MD Aug 11, 2018 22:55
--- NOTE | 2018-08-11 23:32 | PN ---
DATE: 08/10/2018 This is a late entry for date of service 08/10/2018 and covers elements not covered in my initial note. SUBJECTIVE: I met with the patient in the evening. The patient slept 7 hours previous evening. He is constantly repeating things over and over about wanting to call his . He packs his belongings in a brown bag and ready to leave, wants his car keys, looking for his van. Remains quite obsessive. REVIEW OF SYSTEMS: No CV, , pulmonary, eye, ENT system symptoms on review. Reliability poor. MENTAL STATUS EXAM: Oriented to himself. Insight, judgment, recent and remote memory, attention, concentration, fund of knowledge poor, consistent with his diagnosis as mentioned in my initial note. PLAN: Start Luvox 25 mg p.o. at bedtime for his marked obsessiveness and after 3 days, increase to 50 mg a day. Continue rest unchanged. This is in place of Zoloft. LISHA KIRKPATRICK MD DR: DONATO/marya JOB#: [id number] / [id number]
[2018-08-12 05:58] VITALS: BP 116/66
[2018-08-12] MEDS: ASPIRIN 81 MG TAB.CHEW PO SCH ×2 (08:14→19:40)
[2018-08-12] MEDS: UBIDECARENONE 50 MG CAPSULE. PO SCH (08:14)
[2018-08-12] MEDS: QUEtiapine 25 MG TABLET. PO SCH ×3 (08:15→17:10)
[2018-08-12] MEDS: LACOSAMIDE 50 MG TABLET PO SCH ×2 (08:17→19:40)
[2018-08-12] MEDS: LISINOPRIL 10 MG TABLET PO SCH (09:00)
--- NOTE | 2018-08-12 12:34 | PN ---
DATE: 08/11/2018 PSYCHIATRIC PROGRESS NOTE This is a late entry 08/11/2018 covers elements not covered in my initial note. SUBJECTIVE: I met with the patient in the evening. The patient has been slightly less anxious, but gets more confused and delusional in the evening hours. He slept 6-1/2 hours previous night. REVIEW OF SYSTEMS: No CV, , pulmonary, eye, ENT system symptoms on review, as I met with him. He does not have his bags packed as he usually does in the evening. MENTAL STATUS EXAM: Oriented to himself. Insight, judgment, recent and remote memory, attention, concentration, fund of knowledge poor, consistent with his diagnosis. IMPRESSION: Major neurocognitive disorder, Alzheimer, vascular with delusion, depression, behavioral disturbance; anxiety disorder, unspecified; impulse control disorder, unspecified. Rest unchanged. PLAN: No change from initial note, may need to increase Seroquel further in due course and also Luvox. MAN Franklin KIRKPATRICK MD DR: DONATO/marya JOB#: [id number] / [id number]
[2018-08-12 16:26] VITALS: BP 109/65
[2018-08-12] MEDS: traZODone 50 MG TABLET. PO SCH (19:40)
[2018-08-12] MEDS: SIMVASTATIN 40 MG TABLET. PO SCH (19:40)
[2018-08-12] MEDS: MIRTAZAPINE 15 MG TABLET PO SCH (19:40)
[2018-08-12] MEDS: PHENYTOIN SODIUM EXTENDED 100 MG CAPSULE PO SCH (19:41)
--- NOTE | 2018-08-12 23:03 | PDOC ---
Exam Note: Quintin Note: Please also refer to the separate dictated note~for this date of service dictated separately.~Patient seen individually. Discussed the patient with Nursing staff reviewed the chart.~Reviewed interim history and current functioning. Reviewed vital signs,~Labs/ Radiology~and current medications noted below. Continue current treatment with the changes noted in the dictated addendum note Assessment: Vital Signs: Vital Signs Date Time Temp Pulse Resp B/P (MAP) Pulse Ox O2 Delivery O2 Flow Rate FiO2 08/12/18 16:26 98.8 84 20 109/65 (80) 98 Room Air I&O Intake and Output 08/12/18 07:00 Intake Total 1800 ml Balance 1800 ml Intake Oral 1800 ml Current Medications: Meds: Current Medications Acetaminophen (Tylenol) 650 mg PRN Q6HRS PRN PO PAIN / TEMP; Start 07/20/18 at 23:15 Multi-Ingredient Ointment (Analgesic [place]) 1 erik PRN QID PRN TP MUSCLE PAIN; Start 07/20/18 at 23:15 Al Hydroxide/Mg Hydroxide (Mylanta Plus Xs) 15 ml PRN AFTMEALHC PRN PO DYSPEPSIA; Start 07/20/18 at 23:15 Magnesium Hydroxide (Milk Of Magnesia) 2,400 mg PRN QHS PRN PO CONSTIPATION; Start 07/20/18 at 23:15 Lacosamide (Vimpat) 50 mg BID PO Last administered on 08/12/18at 19:40; Start 07/21/18 at 09:00 Lisinopril (Prinivil) 10 mg DAILY PO Last administered on 08/10/18at 08:07; Start 07/21/18 at 09:00 Aspirin (Children'S Aspirin) 81 mg BID PO Last administered on 08/12/18at 19:40 ; Start 07/21/18 at 09:00 Simvastatin (Zocor) 80 mg QHS PO Last administered on 08/12/18at 19:40; Start 07/21/18 at 21:00 Coenzyme Q10 (Coenzyme Q10) 200 mg DAILY PO Last administered on 08/12/18at 08: 14; Start 07/21/18 at 19:00 Phenytoin Sodium (Dilantin) 400 mg Q96H PO Last administered on 08/10/18at 20: 16; Start 07/21/18 at 21:00 Phenytoin Sodium (Dilantin) 400 mg Q96H PO Last administered on 08/11/18 20: 02; Start 07/22/18 at 21:00 Phenytoin Sodium (Dilantin) 400 mg Q96H PO Last administered on 08/12/18 19: 41; Start 07/23/18 at 21:00 Phenytoin Sodium (Dilantin) 300 mg Q96H PO Last administered on 08/09/18 19: 28; Start 07/24/18 at 21:00 Trazodone HCl (Desyrel) 50 mg QHS PO Last administered on 08/12/18 19:40; Start 07/21/18 at 21:00 Trazodone HCl (Desyrel) 50 mg PRN QHS PRN PO insomnia Last administered on 07/22at 00:16; Start 07/21/18 at 20:00 Mirtazapine (Remeron) 7.5 mg QHS PO Last administered on 07/25/18 19:40; Start 07/23/18 at 21:00; Stop 07/26/18 at 12:42; Status DC Sertraline HCl (Zoloft) 50 mg DAILY PO Last administered on 08/01/18at 08:40; Start 07/25/18 at 09:00; Stop 08/01/18 at 18:07; Status DC Mirtazapine (Remeron) 15 mg QHS PO Last administered on 08/12/18at 19:40; Start 07/26/18 at 21:00 Sertraline HCl (Zoloft) 75 mg DAILY PO Last administered on 08/06/18at 07:22; Start 08/02/18 at 09:00; Stop 08/06/18 at 17:52; Status DC Quetiapine Fumarate (SEROquel) 12.5 mg BIDWMEALS PO Last administered on at 08:39; Start 08/02/18 at 17:00; Stop 08/03/18 at 11:45; Status DC Quetiapine Fumarate (SEROquel) 12.5 mg TID@0900,1300,1700 PO Last administered on 08/08/18at 11:57; Start 08/03/18 at 13:00; Stop 08/08/18 at 17:05; Status DC Sertraline HCl (Zoloft) 100 mg DAILY PO Last administered on 08/09/18at 08:05; Start 08/07/18 at 09:00; Stop 08/09/18 at 11:22; Status DC Quetiapine Fumarate (SEROquel) 12.5 mg BID@0900,1300 PO Last administered on at 12:15; Start 08/09/18 at 09:00 Quetiapine Fumarate (SEROquel) 25 mg 1700 PO Last administered on 08/12/18at 17 :10; Start 08/09/18 at 17:00 Sertraline HCl (Zoloft) 125 mg DAILY PO Last administered on 08/10/18at 08:10; Start 08/10/18 at 09:00; Stop 08/10/18 at 17:23; Status DC Fluvoxamine Maleate (Luvox) 25 mg HS PO Last administered on 08/12/18at 19:40; Start 08/10/18 at 21:00; Stop 08/12/18 at 22:00; Status DC Fluvoxamine Maleate (Luvox) 50 mg HS PO ; Start 08/13/18 at 21:00 Active Scripts Active Reported Dilantin (Phenytoin Sodium Extended) 100 Mg Capsule 400 Mg PO HS Ultra Coq10 (Ubiquinone) 75 Mg Capsule 200 Mg PO DAILY Lisinopril 10 Mg Tablet 10 Mg PO DAILY Vimpat (Lacosamide) 50 Mg Tablet 50 Mg PO BID Aspirin 81 Mg Tab.chew 81 Mg PO BID Simvastatin 80 Mg Tablet 80 Mg PO HS I have reviewed the current psychotropics carefully including drug interactions. Risk benefit ratio favors no change other than as noted in my dictated progress note. Diagnosis: Problems: (1) Anxiety disorder (2) Dementia in Alzheimer's disease with delusions (3) Dementia in Alzheimer's disease with depression (4) Dementia, vascular, with delusions (5) Dementia, vascular, with depression (6) Impulse control disorder LISHA KIRKPATRICK MD Aug 12, 2018 23:03
[2018-08-13 06:02] VITALS: BP 132/75
[2018-08-13] MEDS: ASPIRIN 81 MG TAB.CHEW PO SCH ×2 (08:04→19:53)
[2018-08-13] MEDS: UBIDECARENONE 50 MG CAPSULE. PO SCH (08:06)
[2018-08-13] MEDS: QUEtiapine 25 MG TABLET. PO SCH ×3 (08:07→17:10)
[2018-08-13] MEDS: LISINOPRIL 10 MG TABLET PO SCH (08:07)
[2018-08-13] MEDS: LACOSAMIDE 50 MG TABLET PO SCH ×2 (08:08→19:54)
--- NOTE | 2018-08-13 13:11 | PN ---
DATE: 08/06/2018 PSYCHIATRIC PROGRESS NOTE This late entry 08/06/2018 covers elements not covered in my initial note. SUBJECTIVE: I met with the patient in the evening. Per nursing report, he had gone outside for a group activity and fell and hit the back of his head. Dr. Godoy was consulted. There is a small knot on the back of his head, but neurological signs are unremarkable. He slept 6 hours previous evening. He is less obsessed regarding making telephone calls, but anxious. Remains confused. REVIEW OF SYSTEMS: No CV, , pulmonary, eye, ENT system symptoms on review. Reliability poor. MENTAL STATUS EXAMINATION: Oriented to himself. Insight, judgment, recent and remote memory, attention, concentration, fund of knowledge poor, consistent with his diagnosis mentioned in my initial note. IMPRESSION: Major neurocognitive disorder, Alzheimer, vascular with delusion. Depression, behavioral disturbance. Anxiety disorder, unspecified. Impulse control disorder, unspecified. Rest unchanged from initial note including seizure disorder. PLAN: Increase Zoloft from 75 mg a day to 100 mg a day. Rest unchanged from initial note. Seroquel 12.5 t.i.d., Dilantin with a therapeutic level. Trazodone 50 mg at bedtime, Remeron 15 mg at bedtime. Make further adjustments as clinically indicated. MAN Franklin KIRKPATRICK MD DR: DONATO/marya JOB#: [id number] / [id number]
--- NOTE | 2018-08-13 13:19 | PN ---
DATE: 08/03/2018 This is a late entry for 08/03/2018 covers elements not covered in my initial note. SUBJECTIVE: I met with the patient in the evening. The patient slept 6-1/2 hours previous night, remains confused, less anxious, less obsessive about making telephone calls, not carrying his notebook around like he has done for several days previously since he started Seroquel at bedtime. REVIEW OF SYSTEMS: No CV, , pulmonary, eye, ENT system symptoms on review. Reliability poor. MENTAL STATUS EXAM: Oriented to himself. Insight, judgment, recent and remote memory, attention, concentration, fund of knowledge poor, consistent with his diagnosis mentioned in my initial note. PLAN: Increase Seroquel from 12.5 mg at 0900, 1700 to 12.5 mg 09:00 a.m., 01:00 p.m., 05:00 p.m. Continue Dilantin, trazodone, Remeron, Zoloft at current dosage. MAN Franklin KIRKPATRICK MD DR: DONATO/marya JOB#: [id number] / [id number]
--- NOTE | 2018-08-13 13:22 | PN ---
DATE: 07/30/2018 This late entry for 07/30/2018 covers elements not covered in my initial note. SUBJECTIVE: I met with the patient in the evening. The patient slept 8 hours previous night. remains confused, but otherwise pleasant, redirectable. REVIEW OF SYSTEMS: No CV, , pulmonary, eye, ENT system symptoms on review. Reliability poor due to his dementia. MENTAL STATUS EXAM: Oriented to himself. Insight, judgment, recent and remote memory, attention, concentration, fund of knowledge poor, consistent with his diagnosis mentioned in my initial note. PLAN: No change from initial note. Maintain Dilantin. Check a level since one has not been done in some time. Continue trazodone, Remeron and Zoloft. MAN Franklin KIRKPATRICK MD DR: DONATO/marya JOB#: [id number] / [id number]
--- NOTE | 2018-08-13 13:25 | PN ---
DATE: 07/28/2018 This is a late entry for 07/28/2018 covers elements not covered in my initial note. SUBJECTIVE: I met with the patient in the evening. The patient slept 6 hours previous night, but he has been confused, looking for his , not aggressive. REVIEW OF SYSTEMS: Ambulation impaired with walker. No CV, , pulmonary, eye, ENT system symptoms on review. MENTAL STATUS EXAM: Oriented to himself. Insight, judgment, recent and remote memory, attention, concentration, fund of knowledge poor, consistent with his diagnosis mentioned in my initial note. PLAN: No change from initial note. MAN Franklin KIRKPATRICK MD DR: DONATO/marya JOB#: [id number] / [id number]
--- NOTE | 2018-08-13 13:27 | PN ---
DATE: 07/27/2018 PSYCHIATRIC PROGRESS NOTE This late entry 07/27/2018 covers elements not covered in my initial note. SUBJECTIVE: I met with the patient in the evening. The patient slept 5-1/2 hours previous evening. He is oriented to the date and year, and knew that he was in [place]. He, however, thinks he is at his job. He is compliant with his medications. I met with him in his room, slept 5-1/2 hours previous evening. REVIEW OF SYSTEMS: No CV, , pulmonary, eye system symptoms on review. Gait unsteady with walker. Reliability poor at times. MENTAL STATUS EXAM: Oriented as above. Speech coherent, pleasant, verbal. Abstraction fair. Computation, able to do no steps on serial 7's, remembered 1/3 objects at 3 minutes. No suicidal or homicidal ideation. Mood is improved, less anxious. LABORATORY DATA: Reviewed. IMPRESSION: Unchanged from initial note. PLAN: No change from initial note. MAN Franklin KIRKPATRICK MD DR: DONATO/marya JOB#: [id number] / [id number]
--- NOTE | 2018-08-13 13:29 | PN ---
DATE: 07/23/2018 This is a late entry, 07/23/2018, covers the elements not covered in my initial note. SUBJECTIVE: I met with the patient in the evening. The patient slept 3-3/4 hours the previous night. He has been drowsy in the morning, was at the breakfast table face down on the table, probably get sedated because he did not sleep well at night and we will add Remeron 7.5 mg p.o. at bedtime. REVIEW OF SYSTEMS: Ambulation impaired with walker. No CV, , pulmonary, eye, ENT system symptoms on review. Reliability poor. MENTAL STATUS EXAM: Oriented to himself. Insight, judgment, recent and remote memory, attention, concentration, fund of knowledge poor, consistent with his diagnosis as mentioned in my initial note. IMPRESSION: Major neurocognitive disorder, Alzheimer, vascular with depression, delusion, behavioral disturbance. Rest unchanged. PLAN: Add Remeron 7.5 mg at bedtime. Continue phenytoin for a seizure disorder. Trazodone at bedtime. Consider adding a selective serotonin reuptake inhibitor agent for his mood and anxiety symptoms or Wellbutrin, which should be more activating for him as well. MAN Franklin KIRKPATRICK MD DR: DONATO/marya JOB#: [id number] / [id number]
[2018-08-13 15:37] VITALS: BP 152/69
[2018-08-13] MEDS: MIRTAZAPINE 15 MG TABLET PO SCH (19:54)
[2018-08-13] MEDS: traZODone 50 MG TABLET. PO SCH (19:54)
[2018-08-13] MEDS: SIMVASTATIN 40 MG TABLET. PO SCH (19:54)
[2018-08-13] MEDS: PHENYTOIN SODIUM EXTENDED 100 MG CAPSULE PO SCH ×2 (19:56)
--- NOTE | 2018-08-13 20:36 | PN ---
DATE: 08/12/2018 PSYCHIATRIC PROGRESS NOTE This late entry 08/12/2018 covers elements not covered in my initial note. SUBJECTIVE: I met with the patient in the evening. The patient slept 6 hours previous night. He remains confused, gets more so in the evening, somewhat anxious, obsessive, wanting to return home, oblivious of his circumstances, but better in the daytime. REVIEW OF SYSTEMS: No CV, , pulmonary, eye, ENT system symptoms on review. MENTAL STATUS EXAM: Oriented to himself. Insight, judgment, recent and remote memory, attention, concentration, fund of knowledge poor, consistent with his diagnosis mentioned in my initial note. IMPRESSION: Major neurocognitive disorder, Alzheimer, vascular with delusion, depression, behavioral disturbance. Rest unchanged. PLAN: No change from initial note. Continue to adjust the Luvox for his obsessiveness. MAN Franklin KIRKPATRICK MD DR: DONATO/marya JOB#: [id number] / [id number]
--- NOTE | 2018-08-13 23:06 | PDOC ---
Exam Note: Quintin Note: Please also refer to the separate dictated note~for this date of service dictated separately.~Patient seen individually. Discussed the patient with Nursing staff reviewed the chart.~Reviewed interim history and current functioning. Reviewed vital signs,~Labs/ Radiology~and current medications noted below. Continue current treatment with the changes noted in the dictated addendum note Assessment: Vital Signs: Vital Signs Date Time Temp Pulse Resp B/P (MAP) Pulse Ox O2 Delivery O2 Flow Rate FiO2 08/13/18 15:37 98.0 75 18 152/69 (96) 97 Room Air I&O Intake and Output 08/13/18 07:00 Intake Total 1560 ml Balance 1560 ml Intake Oral 1560 ml Current Medications: Meds: Current Medications Acetaminophen (Tylenol) 650 mg PRN Q6HRS PRN PO PAIN / TEMP; Start 07/20/18 at 23:15 Multi-Ingredient Ointment (Analgesic [place]) 1 erik PRN QID PRN TP MUSCLE PAIN; Start 07/20/18 at 23:15 Al Hydroxide/Mg Hydroxide (Mylanta Plus Xs) 15 ml PRN AFTMEALHC PRN PO DYSPEPSIA; Start 07/20/18 at 23:15 Magnesium Hydroxide (Milk Of Magnesia) 2,400 mg PRN QHS PRN PO CONSTIPATION; Start 07/20/18 at 23:15 Lacosamide (Vimpat) 50 mg BID PO Last administered on 08/13/18at 19:54; Start 07/21/18 at 09:00 Lisinopril (Prinivil) 10 mg DAILY PO Last administered on 08/13/18at 08:07; Start 07/21/18 at 09:00 Aspirin (Children'S Aspirin) 81 mg BID PO Last administered on 08/13/18 19:53 ; Start 07/21/18 at 09:00 Simvastatin (Zocor) 80 mg QHS PO Last administered on 08/13/18 19:54; Start 07/21/18 at 21:00 Coenzyme Q10 (Coenzyme Q10) 200 mg DAILY PO Last administered on 08/13/18at 08: 06; Start 07/21/18 at 19:00 Phenytoin Sodium (Dilantin) 400 mg Q96H PO Last administered on 08/13/18at 19: 56; Start 07/21/18 at 21:00 Phenytoin Sodium (Dilantin) 400 mg Q96H PO Last administered on 08/11/18at 20: 02; Start 07/22/18 at 21:00 Phenytoin Sodium (Dilantin) 400 mg Q96H PO Last administered on 08/12/18at 19: 41; Start 07/23/18 at 21:00 Phenytoin Sodium (Dilantin) 300 mg Q96H PO Last administered on 08/09/18 19: 28; Start 07/24/18 at 21:00 Trazodone HCl (Desyrel) 50 mg QHS PO Last administered on 08/13/18 19:54; Start 07/21/18 at 21:00 Trazodone HCl (Desyrel) 50 mg PRN QHS PRN PO insomnia Last administered on 07/22at 00:16; Start 07/21/18 at 20:00 Mirtazapine (Remeron) 7.5 mg QHS PO Last administered on 07/25/18at 19:40; Start 07/23/18 at 21:00; Stop 07/26/18 at 12:42; Status DC Sertraline HCl (Zoloft) 50 mg DAILY PO Last administered on 08/01/18at 08:40; Start 07/25/18 at 09:00; Stop 08/01/18 at 18:07; Status DC Mirtazapine (Remeron) 15 mg QHS PO Last administered on 08/13/18at 19:54; Start 07/26/18 at 21:00 Sertraline HCl (Zoloft) 75 mg DAILY PO Last administered on 08/06/18at 07:22; Start 08/02/18 at 09:00; Stop 08/06/18 at 17:52; Status DC Quetiapine Fumarate (SEROquel) 12.5 mg BIDWMEALS PO Last administered on at 08:39; Start 08/02/18 at 17:00; Stop 08/03/18 at 11:45; Status DC Quetiapine Fumarate (SEROquel) 12.5 mg TID@0900,1300,1700 PO Last administered on 08/08/18at 11:57; Start 08/03/18 at 13:00; Stop 08/08/18 at 17:05; Status DC Sertraline HCl (Zoloft) 100 mg DAILY PO Last administered on 08/09/18at 08:05; Start 08/07/18 at 09:00; Stop 08/09/18 at 11:22; Status DC Quetiapine Fumarate (SEROquel) 12.5 mg BID@0900,1300 PO Last administered on at 12:55; Start 08/09/18 at 09:00 Quetiapine Fumarate (SEROquel) 25 mg 1700 PO Last administered on 08/13/18at 17 :10; Start 08/09/18 at 17:00 Sertraline HCl (Zoloft) 125 mg DAILY PO Last administered on 08/10/18at 08:10; Start 08/10/18 at 09:00; Stop 08/10/18 at 17:23; Status DC Fluvoxamine Maleate (Luvox) 25 mg HS PO Last administered on 08/12/18at 19:40; Start 08/10/18 at 21:00; Stop 08/12/18 at 22:00; Status DC Fluvoxamine Maleate (Luvox) 50 mg HS PO Last administered on 08/13/18at 19:54; Start 08/13/18 at 21:00; Stop 08/15/18 at 23:00 Fluvoxamine Maleate (Luvox) 75 mg HS PO ; Start 08/16/18 at 21:00 Active Scripts Active Reported Dilantin (Phenytoin Sodium Extended) 100 Mg Capsule 400 Mg PO HS Ultra Coq10 (Ubiquinone) 75 Mg Capsule 200 Mg PO DAILY Lisinopril 10 Mg Tablet 10 Mg PO DAILY Vimpat (Lacosamide) 50 Mg Tablet 50 Mg PO BID Aspirin 81 Mg Tab.chew 81 Mg PO BID Simvastatin 80 Mg Tablet 80 Mg PO HS I have reviewed the current psychotropics carefully including drug interactions. Risk benefit ratio favors no change other than as noted in my dictated progress note. Diagnosis: Problems: (1) Anxiety disorder (2) Dementia in Alzheimer's disease with delusions (3) Dementia in Alzheimer's disease with depression (4) Dementia, vascular, with delusions (5) Dementia, vascular, with depression (6) Impulse control disorder LISHA KIRKPATRICK MD Aug 13, 2018 23:06
[2018-08-14 06:28] VITALS: BP 137/74
[2018-08-14] MEDS: UBIDECARENONE 50 MG CAPSULE. PO SCH (07:51)
[2018-08-14] MEDS: ASPIRIN 81 MG TAB.CHEW PO SCH ×2 (07:51→20:23)
[2018-08-14] MEDS: LACOSAMIDE 50 MG TABLET PO SCH ×2 (07:52→20:27)
[2018-08-14] MEDS: LISINOPRIL 10 MG TABLET PO SCH (07:52)
[2018-08-14] MEDS: QUEtiapine 25 MG TABLET. PO SCH ×3 (07:53→17:55)
[2018-08-14 16:02] VITALS: BP 133/67
[2018-08-14] MEDS: SIMVASTATIN 40 MG TABLET. PO SCH (20:23)
[2018-08-14] MEDS: MIRTAZAPINE 15 MG TABLET PO SCH (20:23)
[2018-08-14] MEDS: traZODone 50 MG TABLET. PO SCH (20:23)
[2018-08-14] MEDS: PHENYTOIN SODIUM EXTENDED 100 MG CAPSULE PO SCH (20:27)
--- NOTE | 2018-08-14 20:27 | PN ---
DATE: 08/13/2018 PSYCHIATRIC PROGRESS NOTE This late entry 08/13/2018 covers elements not covered in my initial note. SUBJECTIVE: I met with the patient in the evening. The patient slept 7-1/4 hours previous night. He did reasonably well the previous night, but remains somewhat anxious, gets obsessive, more so in the evening. REVIEW OF SYSTEMS: No CV, , pulmonary, eye, ENT system symptoms on review. Reliability poor. MENTAL STATUS EXAM: Oriented to himself. Insight, judgment, recent and remote memory, attention, concentration, fund of knowledge poor, consistent with his diagnosis. IMPRESSION: Major neurocognitive disorder, Alzheimer, vascular with delusion, depression, behavioral disturbance; anxiety disorder, unspecified; impulse control disorder, unspecified. PLAN: Go ahead and increase the Luvox to 75 mg at bedtime after he has been on 50 for 3 days. Continue Remeron and trazodone. Remains on Dilantin, Seroquel. Make further adjustments as clinically indicated. MAN Franklin KIRKPATRICK MD DR: DONATO/marya JOB#: [id number] / [id number]
--- NOTE | 2018-08-14 23:06 | PDOC ---
Exam Note: Quintin Note: Please also refer to the separate dictated note~for this date of service dictated separately.~Patient seen individually. Discussed the patient with Nursing staff reviewed the chart.~Reviewed interim history and current functioning. Reviewed vital signs,~Labs/ Radiology~and current medications noted below. Continue current treatment with the changes noted in the dictated addendum note Assessment: Vital Signs: Vital Signs Date Time Temp Pulse Resp B/P (MAP) Pulse Ox O2 Delivery O2 Flow Rate FiO2 08/14/18 16:02 98.6 74 18 133/67 (89) 100 Room Air I&O Intake and Output 08/14/18 07:00 Intake Total 2100 ml Balance 2100 ml Intake Oral 2100 ml # Voids 1 Current Medications: Meds: Current Medications Acetaminophen (Tylenol) 650 mg PRN Q6HRS PRN PO PAIN / TEMP; Start 07/20/18 at 23:15 Multi-Ingredient Ointment (Analgesic [place]) 1 erik PRN QID PRN TP MUSCLE PAIN; Start 07/20/18 at 23:15 Al Hydroxide/Mg Hydroxide (Mylanta Plus Xs) 15 ml PRN AFTMEALHC PRN PO DYSPEPSIA; Start 07/20/18 at 23:15 Magnesium Hydroxide (Milk Of Magnesia) 2,400 mg PRN QHS PRN PO CONSTIPATION; Start 07/20/18 at 23:15 Lacosamide (Vimpat) 50 mg BID PO Last administered on 08/14/18at 20:27; Start 07/21/18 at 09:00 Lisinopril (Prinivil) 10 mg DAILY PO Last administered on 08/14/18 07:52; Start 07/21/18 at 09:00 Aspirin (Children'S Aspirin) 81 mg BID PO Last administered on 08/14/18 20:23 ; Start 07/21/18 at 09:00 Simvastatin (Zocor) 80 mg QHS PO Last administered on 08/14/18 20:23; Start 07/21/18 at 21:00 Coenzyme Q10 (Coenzyme Q10) 200 mg DAILY PO Last administered on 08/14/18at 07: 51; Start 07/21/18 at 19:00 Phenytoin Sodium (Dilantin) 400 mg Q96H PO Last administered on 08/14/18at 20: 27; Start 07/21/18 at 21:00 Phenytoin Sodium (Dilantin) 400 mg Q96H PO Last administered on 08/11/18at 20: 02; Start 07/22/18 at 21:00 Phenytoin Sodium (Dilantin) 400 mg Q96H PO Last administered on 08/12/18at 19: 41; Start 07/23/18 at 21:00 Phenytoin Sodium (Dilantin) 300 mg Q96H PO Last administered on 08/09/18 19: 28; Start 07/24/18 at 21:00 Trazodone HCl (Desyrel) 50 mg QHS PO Last administered on 08/14/18 20:23; Start 07/21/18 at 21:00 Trazodone HCl (Desyrel) 50 mg PRN QHS PRN PO insomnia Last administered on 07/22at 00:16; Start 07/21/18 at 20:00 Mirtazapine (Remeron) 7.5 mg QHS PO Last administered on 07/25/18at 19:40; Start 07/23/18 at 21:00; Stop 07/26/18 at 12:42; Status DC Sertraline HCl (Zoloft) 50 mg DAILY PO Last administered on 08/01/18at 08:40; Start 07/25/18 at 09:00; Stop 08/01/18 at 18:07; Status DC Mirtazapine (Remeron) 15 mg QHS PO Last administered on 08/14/18at 20:23; Start 07/26/18 at 21:00 Sertraline HCl (Zoloft) 75 mg DAILY PO Last administered on 08/06/18at 07:22; Start 08/02/18 at 09:00; Stop 08/06/18 at 17:52; Status DC Quetiapine Fumarate (SEROquel) 12.5 mg BIDWMEALS PO Last administered on at 08:39; Start 08/02/18 at 17:00; Stop 08/03/18 at 11:45; Status DC Quetiapine Fumarate (SEROquel) 12.5 mg TID@0900,1300,1700 PO Last administered on 08/08/18at 11:57; Start 08/03/18 at 13:00; Stop 08/08/18 at 17:05; Status DC Sertraline HCl (Zoloft) 100 mg DAILY PO Last administered on 08/09/18at 08:05; Start 08/07/18 at 09:00; Stop 08/09/18 at 11:22; Status DC Quetiapine Fumarate (SEROquel) 12.5 mg BID@0900,1300 PO Last administered on at 13:40; Start 08/09/18 at 09:00 Quetiapine Fumarate (SEROquel) 25 mg 1700 PO Last administered on 08/14/18at 17 :55; Start 08/09/18 at 17:00 Sertraline HCl (Zoloft) 125 mg DAILY PO Last administered on 08/10/18at 08:10; Start 08/10/18 at 09:00; Stop 08/10/18 at 17:23; Status DC Fluvoxamine Maleate (Luvox) 25 mg HS PO Last administered on 08/12/18at 19:40; Start 08/10/18 at 21:00; Stop 08/12/18 at 22:00; Status DC Fluvoxamine Maleate (Luvox) 50 mg HS PO Last administered on 08/14/18at 20:23; Start 08/13/18 at 21:00; Stop 08/15/18 at 23:00 Fluvoxamine Maleate (Luvox) 75 mg HS PO ; Start 08/16/18 at 21:00 Active Scripts Active Reported Dilantin (Phenytoin Sodium Extended) 100 Mg Capsule 400 Mg PO HS Ultra Coq10 (Ubiquinone) 75 Mg Capsule 200 Mg PO DAILY Lisinopril 10 Mg Tablet 10 Mg PO DAILY Vimpat (Lacosamide) 50 Mg Tablet 50 Mg PO BID Aspirin 81 Mg Tab.chew 81 Mg PO BID Simvastatin 80 Mg Tablet 80 Mg PO HS I have reviewed the current psychotropics carefully including drug interactions. Risk benefit ratio favors no change other than as noted in my dictated progress note. Diagnosis: Problems: (1) Anxiety disorder (2) Dementia in Alzheimer's disease with delusions (3) Dementia in Alzheimer's disease with depression (4) Dementia, vascular, with delusions (5) Dementia, vascular, with depression (6) Impulse control disorder LISHA KIRKPATRICK MD Aug 14, 2018 23:06
[2018-08-15 05:44] VITALS: BP 139/78
[2018-08-15] MEDS: QUEtiapine 25 MG TABLET. PO SCH ×3 (09:03→17:57)
[2018-08-15] MEDS: LACOSAMIDE 50 MG TABLET PO SCH ×2 (09:04→20:11)
[2018-08-15] MEDS: LISINOPRIL 10 MG TABLET PO SCH (09:04)
[2018-08-15] MEDS: UBIDECARENONE 50 MG CAPSULE. PO SCH (09:04)
[2018-08-15] MEDS: ASPIRIN 81 MG TAB.CHEW PO SCH ×2 (09:04→20:11)
[2018-08-15 16:33] VITALS: BP 162/70
[2018-08-15] MEDS: traZODone 50 MG TABLET. PO SCH (20:10)
[2018-08-15] MEDS: MIRTAZAPINE 15 MG TABLET PO SCH (20:11)
[2018-08-15] MEDS: SIMVASTATIN 40 MG TABLET. PO SCH (20:15)
[2018-08-15] MEDS: PHENYTOIN SODIUM EXTENDED 100 MG CAPSULE PO SCH (20:16)
--- NOTE | 2018-08-15 21:46 | PN ---
DATE: 08/14/2018 PSYCHIATRIC PROGRESS NOTE This late entry 08/14/2018 covers elements not covered in my initial note. SUBJECTIVE: I met with the patient in the evening. The patient slept 6-1/4 hours previous night. Overall, he remains confused, worsening confusion in the evening with some sundowning and worsening obsessiveness, wanting his car keys, wanting to drive, go find his . This is, however, better over the last couple of days, less obsessive with the Luvox. REVIEW OF SYSTEMS: No CV, , pulmonary, eye, ENT system symptoms on review. Reliability poor. MENTAL STATUS EXAM: Oriented to himself. Insight, judgment, recent and remote memory, attention, concentration, fund of knowledge poor, consistent with his diagnosis mentioned in my initial note. IMPRESSION: Major neurocognitive disorder, Alzheimer, vascular with delusion, depression, behavioral disturbance. Rest unchanged. PLAN: No change from initial note. MAN Franklin KIRKPATRICK MD DR: DONATO/marya JOB#: [id number] / [id number]
--- NOTE | 2018-08-15 23:16 | PDOC ---
Exam Note: Quintin Note: Please also refer to the separate dictated note~for this date of service dictated separately.~Patient seen individually. Discussed the patient with Nursing staff reviewed the chart.~Reviewed interim history and current functioning. Reviewed vital signs,~Labs/ Radiology~and current medications noted below. Continue current treatment with the changes noted in the dictated addendum note Assessment: Vital Signs: Vital Signs Date Time Temp Pulse Resp B/P (MAP) Pulse Ox O2 Delivery O2 Flow Rate FiO2 08/15/18 16:33 96.2 77 16 162/70 (100) 97 08/14/18 16:02 Room Air I&O Intake and Output 08/15/18 07:00 Intake Total 1440 ml Balance 1440 ml Intake Oral 1440 ml Current Medications: Meds: Current Medications Acetaminophen (Tylenol) 650 mg PRN Q6HRS PRN PO PAIN / TEMP; Start 07/20/18 at 23:15 Multi-Ingredient Ointment (Analgesic [place]) 1 erik PRN QID PRN TP MUSCLE PAIN; Start 07/20/18 at 23:15 Al Hydroxide/Mg Hydroxide (Mylanta Plus Xs) 15 ml PRN AFTMEALHC PRN PO DYSPEPSIA; Start 07/20/18 at 23:15 Magnesium Hydroxide (Milk Of Magnesia) 2,400 mg PRN QHS PRN PO CONSTIPATION; Start 07/20/18 at 23:15 Lacosamide (Vimpat) 50 mg BID PO Last administered on 08/15/18at 20:11; Start 07/21/18 at 09:00 Lisinopril (Prinivil) 10 mg DAILY PO Last administered on 08/15/18at 09:04; Start 07/21/18 at 09:00 Aspirin (Children'S Aspirin) 81 mg BID PO Last administered on 08/15/18at 20:11 ; Start 07/21/18 at 09:00 Simvastatin (Zocor) 80 mg QHS PO Last administered on 08/15/18at 20:15; Start 07/21/18 at 21:00 Coenzyme Q10 (Coenzyme Q10) 200 mg DAILY PO Last administered on 08/15/18at 09: 04; Start 07/21/18 at 19:00 Phenytoin Sodium (Dilantin) 400 mg Q96H PO Last administered on 08/14/18at 20: 27; Start 07/21/18 at 21:00 Phenytoin Sodium (Dilantin) 400 mg Q96H PO Last administered on 08/15/18 20: 16; Start 07/22/18 at 21:00 Phenytoin Sodium (Dilantin) 400 mg Q96H PO Last administered on 08/12/18at 19: 41; Start 07/23/18 at 21:00 Phenytoin Sodium (Dilantin) 300 mg Q96H PO Last administered on 08/09/18 19: 28; Start 07/24/18 at 21:00 Trazodone HCl (Desyrel) 50 mg QHS PO Last administered on 08/15/18 20:10; Start 07/21/18 at 21:00 Trazodone HCl (Desyrel) 50 mg PRN QHS PRN PO insomnia Last administered on 07/22at 00:16; Start 07/21/18 at 20:00 Mirtazapine (Remeron) 7.5 mg QHS PO Last administered on 07/25/18at 19:40; Start 07/23/18 at 21:00; Stop 07/26/18 at 12:42; Status DC Sertraline HCl (Zoloft) 50 mg DAILY PO Last administered on 08/01/18at 08:40; Start 07/25/18 at 09:00; Stop 08/01/18 at 18:07; Status DC Mirtazapine (Remeron) 15 mg QHS PO Last administered on 08/15/18at 20:11; Start 07/26/18 at 21:00 Sertraline HCl (Zoloft) 75 mg DAILY PO Last administered on 08/06/18at 07:22; Start 08/02/18 at 09:00; Stop 08/06/18 at 17:52; Status DC Quetiapine Fumarate (SEROquel) 12.5 mg BIDWMEALS PO Last administered on at 08:39; Start 08/02/18 at 17:00; Stop 08/03/18 at 11:45; Status DC Quetiapine Fumarate (SEROquel) 12.5 mg TID@0900,1300,1700 PO Last administered on 08/08/18at 11:57; Start 08/03/18 at 13:00; Stop 08/08/18 at 17:05; Status DC Sertraline HCl (Zoloft) 100 mg DAILY PO Last administered on 08/09/18at 08:05; Start 08/07/18 at 09:00; Stop 08/09/18 at 11:22; Status DC Quetiapine Fumarate (SEROquel) 12.5 mg BID@0900,1300 PO Last administered on at 13:30; Start 08/09/18 at 09:00 Quetiapine Fumarate (SEROquel) 25 mg 1700 PO Last administered on 08/15/18at 17 :57; Start 08/09/18 at 17:00 Sertraline HCl (Zoloft) 125 mg DAILY PO Last administered on 08/10/18at 08:10; Start 08/10/18 at 09:00; Stop 08/10/18 at 17:23; Status DC Fluvoxamine Maleate (Luvox) 25 mg HS PO Last administered on 08/12/18at 19:40; Start 08/10/18 at 21:00; Stop 08/12/18 at 22:00; Status DC Fluvoxamine Maleate (Luvox) 50 mg HS PO Last administered on 08/15/18at 20:10; Start 08/13/18 at 21:00; Stop 08/15/18 at 23:00; Status DC Fluvoxamine Maleate (Luvox) 75 mg HS PO ; Start 08/16/18 at 21:00 Active Scripts Active Reported Dilantin (Phenytoin Sodium Extended) 100 Mg Capsule 400 Mg PO HS Ultra Coq10 (Ubiquinone) 75 Mg Capsule 200 Mg PO DAILY Lisinopril 10 Mg Tablet 10 Mg PO DAILY Vimpat (Lacosamide) 50 Mg Tablet 50 Mg PO BID Aspirin 81 Mg Tab.chew 81 Mg PO BID Simvastatin 80 Mg Tablet 80 Mg PO HS I have reviewed the current psychotropics carefully including drug interactions. Risk benefit ratio favors no change other than as noted in my dictated progress note. Diagnosis: Problems: (1) Anxiety disorder (2) Dementia in Alzheimer's disease with delusions (3) Dementia in Alzheimer's disease with depression (4) Dementia, vascular, with delusions (5) Dementia, vascular, with depression (6) Impulse control disorder LISHA KIRKPATRICK MD Aug 15, 2018 23:16
[2018-08-16 05:31] VITALS: BP 142/78
[2018-08-16] MEDS: LACOSAMIDE 50 MG TABLET PO SCH ×2 (07:39→20:39)
[2018-08-16] MEDS: UBIDECARENONE 50 MG CAPSULE. PO SCH (07:39)
[2018-08-16] MEDS: ASPIRIN 81 MG TAB.CHEW PO SCH ×2 (07:39→20:39)
[2018-08-16] MEDS: LISINOPRIL 10 MG TABLET PO SCH (07:39)
[2018-08-16] MEDS: QUEtiapine 25 MG TABLET. PO SCH ×3 (07:40→17:18)
[2018-08-16 16:06] VITALS: BP 145/67
--- NOTE | 2018-08-16 20:04 | PN ---
DATE: 08/15/2018 PSYCHIATRIC PROGRESS NOTE This late entry 08/15/2018 covers elements in my initial note. Those elements from my initial note that are not covered, I added in this note. The patient slept 6 hours previous evening. He has been much less anxious, obsessive, repetitive about wanting to drive, get back home, and wanting to be discharged in the evening. He has been encouraging others to take the medications. REVIEW OF SYSTEMS: No CV, , pulmonary, eye, ENT system symptoms on review. Reliability poor. MENTAL STATUS EXAM: Oriented to himself. Insight, judgment, recent and remote memory, attention, concentration, fund of knowledge poor, consistent with his diagnosis mentioned in my initial note. IMPRESSION: Major neurocognitive disorder, Alzheimer, vascular with delusion, depression, behavioral disturbance; anxiety disorder, unspecified; impulse control disorder, unspecified. PLAN: Continue current psychotropics from initial note including Luvox, which was initiated and is currently at 50 mg at bedtime. Rest unchanged from initial note. MAN Franklin KIRKPATRICK MD DR: DONATO/marya JOB#: [id number] / [id number]
[2018-08-16] MEDS: traZODone 50 MG TABLET. PO SCH (20:39)
[2018-08-16] MEDS: MIRTAZAPINE 15 MG TABLET PO SCH (20:39)
[2018-08-16] MEDS: SIMVASTATIN 40 MG TABLET. PO SCH (20:39)
[2018-08-16] MEDS: PHENYTOIN SODIUM EXTENDED 100 MG CAPSULE PO SCH (20:42)
[2018-08-16] MEDS: MELATONIN 3 MG TABLET PO SCH (21:01)
--- NOTE | 2018-08-16 23:06 | PDOC ---
Exam Note: Quintin Note: Please also refer to the separate dictated note~for this date of service dictated separately.~Patient seen individually. Discussed the patient with Nursing staff reviewed the chart.~Reviewed interim history and current functioning. Reviewed vital signs,~Labs/ Radiology~and current medications noted below. Continue current treatment with the changes noted in the dictated addendum note Assessment: Vital Signs: Vital Signs Date Time Temp Pulse Resp B/P (MAP) Pulse Ox O2 Delivery O2 Flow Rate FiO2 08/16/18 16:06 97.3 94 18 145/67 (93) 100 Room Air I&O Intake and Output 08/16/18 07:00 Intake Total 1560 ml Balance 1560 ml Intake Oral 1560 ml Current Medications: Meds: Current Medications Acetaminophen (Tylenol) 650 mg PRN Q6HRS PRN PO PAIN / TEMP; Start 07/20/18 at 23:15 Multi-Ingredient Ointment (Analgesic [place]) 1 erik PRN QID PRN TP MUSCLE PAIN; Start 07/20/18 at 23:15 Al Hydroxide/Mg Hydroxide (Mylanta Plus Xs) 15 ml PRN AFTMEALHC PRN PO DYSPEPSIA; Start 07/20/18 at 23:15 Magnesium Hydroxide (Milk Of Magnesia) 2,400 mg PRN QHS PRN PO CONSTIPATION; Start 07/20/18 at 23:15 Lacosamide (Vimpat) 50 mg BID PO Last administered on 08/16/18at 20:39; Start 07/21/18 at 09:00 Lisinopril (Prinivil) 10 mg DAILY PO Last administered on 08/16/18at 07:39; Start 07/21/18 at 09:00 Aspirin (Children'S Aspirin) 81 mg BID PO Last administered on 08/16/18 20:39 ; Start 07/21/18 at 09:00 Simvastatin (Zocor) 80 mg QHS PO Last administered on 08/16/18 20:39; Start 07/21/18 at 21:00 Coenzyme Q10 (Coenzyme Q10) 200 mg DAILY PO Last administered on 08/16/18at 07: 39; Start 07/21/18 at 19:00 Phenytoin Sodium (Dilantin) 400 mg Q96H PO Last administered on 08/14/18at 20: 27; Start 07/21/18 at 21:00 Phenytoin Sodium (Dilantin) 400 mg Q96H PO Last administered on 08/15/18at 20: 16; Start 07/22/18 at 21:00 Phenytoin Sodium (Dilantin) 400 mg Q96H PO Last administered on 08/16/18at 20:42 ; Start 07/23/18 at 21:00 Phenytoin Sodium (Dilantin) 300 mg Q96H PO Last administered on 08/09/18at 19: 28; Start 07/24/18 at 21:00 Trazodone HCl (Desyrel) 50 mg QHS PO Last administered on 08/16/18at 20:39; Start 07/21/18 at 21:00 Trazodone HCl (Desyrel) 50 mg PRN QHS PRN PO insomnia Last administered on 07/22at 00:16; Start 07/21/18 at 20:00 Mirtazapine (Remeron) 7.5 mg QHS PO Last administered on 07/25/18at 19:40; Start 07/23/18 at 21:00; Stop 07/26/18 at 12:42; Status DC Sertraline HCl (Zoloft) 50 mg DAILY PO Last administered on 08/01/18at 08:40; Start 07/25/18 at 09:00; Stop 08/01/18 at 18:07; Status DC Mirtazapine (Remeron) 15 mg QHS PO Last administered on 08/16/18at 20:39; Start 07/26/18 at 21:00 Sertraline HCl (Zoloft) 75 mg DAILY PO Last administered on 08/06/18at 07:22; Start 08/02/18 at 09:00; Stop 08/06/18 at 17:52; Status DC Quetiapine Fumarate (SEROquel) 12.5 mg BIDWMEALS PO Last administered on at 08:39; Start 08/02/18 at 17:00; Stop 08/03/18 at 11:45; Status DC Quetiapine Fumarate (SEROquel) 12.5 mg TID@0900,1300,1700 PO Last administered on 08/08/18at 11:57; Start 08/03/18 at 13:00; Stop 08/08/18 at 17:05; Status DC Sertraline HCl (Zoloft) 100 mg DAILY PO Last administered on 08/09/18at 08:05; Start 08/07/18 at 09:00; Stop 08/09/18 at 11:22; Status DC Quetiapine Fumarate (SEROquel) 12.5 mg BID@0900,1300 PO Last administered on at 07:40; Start 08/09/18 at 09:00 Quetiapine Fumarate (SEROquel) 25 mg 1700 PO Last administered on 08/16/18at 17: 18; Start 08/09/18 at 17:00 Sertraline HCl (Zoloft) 125 mg DAILY PO Last administered on 08/10/18at 08:10; Start 08/10/18 at 09:00; Stop 08/10/18 at 17:23; Status DC Fluvoxamine Maleate (Luvox) 25 mg HS PO Last administered on 08/12/18at 19:40; Start 08/10/18 at 21:00; Stop 08/12/18 at 22:00; Status DC Fluvoxamine Maleate (Luvox) 50 mg HS PO Last administered on 08/15/18at 20:10; Start 08/13/18 at 21:00; Stop 08/15/18 at 23:00; Status DC Fluvoxamine Maleate (Luvox) 75 mg HS PO Last administered on 08/16/18at 20:43; Start 08/16/18 at 21:00 Melatonin 3 mg HS PO Last administered on 08/16/18at 21:01; Start 08/16/18 at 21 :00 Active Scripts Active Reported Dilantin (Phenytoin Sodium Extended) 100 Mg Capsule 400 Mg PO HS Ultra Coq10 (Ubiquinone) 75 Mg Capsule 200 Mg PO DAILY Lisinopril 10 Mg Tablet 10 Mg PO DAILY Vimpat (Lacosamide) 50 Mg Tablet 50 Mg PO BID Aspirin 81 Mg Tab.chew 81 Mg PO BID Simvastatin 80 Mg Tablet 80 Mg PO HS I have reviewed the current psychotropics carefully including drug interactions. Risk benefit ratio favors no change other than as noted in my dictated progress note. Diagnosis: Problems: (1) Anxiety disorder (2) Dementia in Alzheimer's disease with delusions (3) Dementia in Alzheimer's disease with depression (4) Dementia, vascular, with delusions (5) Dementia, vascular, with depression (6) Impulse control disorder LISHA KIRKPATRICK MD Aug 16, 2018 23:06
[2018-08-17 06:15] VITALS: BP 121/66
[2018-08-17] MEDS: QUEtiapine 25 MG TABLET. PO SCH ×3 (08:08→16:22)
[2018-08-17] MEDS: ASPIRIN 81 MG TAB.CHEW PO SCH ×2 (08:08→19:39)
[2018-08-17] MEDS: LISINOPRIL 10 MG TABLET PO SCH (08:09)
[2018-08-17] MEDS: UBIDECARENONE 50 MG CAPSULE. PO SCH (08:09)
[2018-08-17] MEDS: LACOSAMIDE 50 MG TABLET PO SCH ×2 (08:12→19:39)
[2018-08-17 15:46] VITALS: BP 133/59
[2018-08-17] MEDS: traZODone 50 MG TABLET. PO SCH (19:39)
[2018-08-17] MEDS: MIRTAZAPINE 15 MG TABLET PO SCH (19:39)
[2018-08-17] MEDS: SIMVASTATIN 40 MG TABLET. PO SCH (19:39)
[2018-08-17] MEDS: MELATONIN 3 MG TABLET PO SCH (19:40)
[2018-08-17] MEDS: PHENYTOIN SODIUM EXTENDED 100 MG CAPSULE PO SCH (19:41)
--- NOTE | 2018-08-17 20:58 | PN ---
DATE: 08/16/2018 PSYCHIATRIC PROGRESS NOTE This late entry 08/16/2018 covers elements not covered in my initial note. SUBJECTIVE: I met with the patient in the evening. The patient slept 4-1/2 hours previous night. He was staffed at a treatment team meeting with the entire team in the morning and the patient's , Lizeth, attended the conference. I had a lengthy discussion about the patient's diagnosis, progress. He is less obsessive, repetitive regarding discharge, wanting his keys so that he can drive home, much of which comes on more so in the evening. REVIEW OF SYSTEMS: No CV, , pulmonary, eye, ENT system symptoms on review. Reliability poor. MENTAL STATUS EXAM: Oriented to himself. Insight, judgment, recent and remote memory, attention, concentration, fund of knowledge poor, consistent with his diagnosis mentioned in my initial note. IMPRESSION: Major neurocognitive disorder, Alzheimer, vascular with delusion, depression, behavioral disturbance. Rest unchanged. PLAN: Start melatonin 3 mg p.o. at bedtime. Continue rest unchanged from initial note, may need to increase Luvox further. MAN Franklin KIRKPATRICK MD DR: DONATO/marya JOB#: [id number] / [id number]
--- NOTE | 2018-08-17 23:02 | PDOC ---
Exam Note: Quintin Note: Please also refer to the separate dictated note~for this date of service dictated separately.~Patient seen individually. Discussed the patient with Nursing staff reviewed the chart.~Reviewed interim history and current functioning. Reviewed vital signs,~Labs/ Radiology~and current medications noted below. Continue current treatment with the changes noted in the dictated addendum note Assessment: Vital Signs: Vital Signs Date Time Temp Pulse Resp B/P (MAP) Pulse Ox O2 Delivery O2 Flow Rate FiO2 08/17/18 15:46 98.9 75 20 133/59 (83) 99 Room Air I&O Intake and Output 08/17/18 07:00 Intake Total 1800 ml Balance 1800 ml Intake Oral 1800 ml # Voids 1 Current Medications: Meds: Current Medications Acetaminophen (Tylenol) 650 mg PRN Q6HRS PRN PO PAIN / TEMP; Start 07/20/18 at 23:15 Multi-Ingredient Ointment (Analgesic [place]) 1 erik PRN QID PRN TP MUSCLE PAIN; Start 07/20/18 at 23:15 Al Hydroxide/Mg Hydroxide (Mylanta Plus Xs) 15 ml PRN AFTMEALHC PRN PO DYSPEPSIA; Start 07/20/18 at 23:15 Magnesium Hydroxide (Milk Of Magnesia) 2,400 mg PRN QHS PRN PO CONSTIPATION; Start 07/20/18 at 23:15 Lacosamide (Vimpat) 50 mg BID PO Last administered on 08/17/18at 19:39; Start 07/21/18 at 09:00 Lisinopril (Prinivil) 10 mg DAILY PO Last administered on 08/17/18 08:09; Start 07/21/18 at 09:00 Aspirin (Children'S Aspirin) 81 mg BID PO Last administered on 08/17/18 19:39 ; Start 07/21/18 at 09:00 Simvastatin (Zocor) 80 mg QHS PO Last administered on 08/17/18 19:39; Start 07/21/18 at 21:00 Coenzyme Q10 (Coenzyme Q10) 200 mg DAILY PO Last administered on 08/17/18 08: 09; Start 07/21/18 at 19:00 Phenytoin Sodium (Dilantin) 400 mg Q96H PO Last administered on 08/14/18at 20: 27; Start 07/21/18 at 21:00 Phenytoin Sodium (Dilantin) 400 mg Q96H PO Last administered on 08/15/18at 20: 16; Start 07/22/18 at 21:00 Phenytoin Sodium (Dilantin) 400 mg Q96H PO Last administered on 08/16/18at 20:42 ; Start 07/23/18 at 21:00 Phenytoin Sodium (Dilantin) 300 mg Q96H PO Last administered on 08/17/18at 19:41 ; Start 07/24/18 at 21:00 Trazodone HCl (Desyrel) 50 mg QHS PO Last administered on 08/17/18 19:39; Start 07/21/18 at 21:00 Trazodone HCl (Desyrel) 50 mg PRN QHS PRN PO insomnia Last administered on 07/22at 00:16; Start 07/21/18 at 20:00 Mirtazapine (Remeron) 7.5 mg QHS PO Last administered on 07/25/18at 19:40; Start 07/23/18 at 21:00; Stop 07/26/18 at 12:42; Status DC Sertraline HCl (Zoloft) 50 mg DAILY PO Last administered on 08/01/18at 08:40; Start 07/25/18 at 09:00; Stop 08/01/18 at 18:07; Status DC Mirtazapine (Remeron) 15 mg QHS PO Last administered on 08/17/18at 19:39; Start 07/26/18 at 21:00 Sertraline HCl (Zoloft) 75 mg DAILY PO Last administered on 08/06/18at 07:22; Start 08/02/18 at 09:00; Stop 08/06/18 at 17:52; Status DC Quetiapine Fumarate (SEROquel) 12.5 mg BIDWMEALS PO Last administered on at 08:39; Start 08/02/18 at 17:00; Stop 08/03/18 at 11:45; Status DC Quetiapine Fumarate (SEROquel) 12.5 mg TID@0900,1300,1700 PO Last administered on 08/08/18at 11:57; Start 08/03/18 at 13:00; Stop 08/08/18 at 17:05; Status DC Sertraline HCl (Zoloft) 100 mg DAILY PO Last administered on 08/09/18at 08:05; Start 08/07/18 at 09:00; Stop 08/09/18 at 11:22; Status DC Quetiapine Fumarate (SEROquel) 12.5 mg BID@0900,1300 PO Last administered on at 13:20; Start 08/09/18 at 09:00 Quetiapine Fumarate (SEROquel) 25 mg 1700 PO Last administered on 08/17/18at 16: 22; Start 08/09/18 at 17:00 Sertraline HCl (Zoloft) 125 mg DAILY PO Last administered on 08/10/18at 08:10; Start 08/10/18 at 09:00; Stop 08/10/18 at 17:23; Status DC Fluvoxamine Maleate (Luvox) 25 mg HS PO Last administered on 08/12/18at 19:40; Start 08/10/18 at 21:00; Stop 08/12/18 at 22:00; Status DC Fluvoxamine Maleate (Luvox) 50 mg HS PO Last administered on 08/15/18at 20:10; Start 08/13/18 at 21:00; Stop 08/15/18 at 23:00; Status DC Fluvoxamine Maleate (Luvox) 75 mg HS PO Last administered on 08/17/18at 19:39; Start 08/16/18 at 21:00; Stop 08/18/18 at 23:00 Melatonin 3 mg HS PO Last administered on 08/17/18at 19:40; Start 08/16/18 at 21 :00 Fluvoxamine Maleate (Luvox) 100 mg QHS PO ; Start 08/19/18 at 21:00 Active Scripts Active Reported Dilantin (Phenytoin Sodium Extended) 100 Mg Capsule 400 Mg PO HS Ultra Coq10 (Ubiquinone) 75 Mg Capsule 200 Mg PO DAILY Lisinopril 10 Mg Tablet 10 Mg PO DAILY Vimpat (Lacosamide) 50 Mg Tablet 50 Mg PO BID Aspirin 81 Mg Tab.chew 81 Mg PO BID Simvastatin 80 Mg Tablet 80 Mg PO HS I have reviewed the current psychotropics carefully including drug interactions. Risk benefit ratio favors no change other than as noted in my dictated progress note. Diagnosis: Problems: (1) Anxiety disorder (2) Dementia in Alzheimer's disease with delusions (3) Dementia in Alzheimer's disease with depression (4) Dementia, vascular, with delusions (5) Dementia, vascular, with depression (6) Impulse control disorder LISHA KIRKPATRICK MD Aug 17, 2018 23:02
[2018-08-18 06:00] VITALS: BP 133/77
[2018-08-18] MEDS: ASPIRIN 81 MG TAB.CHEW PO SCH ×2 (08:25→19:51)
[2018-08-18] MEDS: UBIDECARENONE 50 MG CAPSULE. PO SCH (08:25)
[2018-08-18] MEDS: QUEtiapine 25 MG TABLET. PO SCH ×3 (08:28→16:01)
[2018-08-18] MEDS: LACOSAMIDE 50 MG TABLET PO SCH ×2 (08:29→19:51)
[2018-08-18] MEDS: LISINOPRIL 10 MG TABLET PO SCH (08:38)
[2018-08-18 09:22] LABS: BASO % 0 % (0-3); EOS # 0.3 x10^3/uL (0.0-0.7); EOS % 7 % (0-3); HEMATOCRIT 33.8 % (39.0-53.0); HEMOGLOBIN 11.3 g/dL (13.0-17.5); LYMPH # 1.2 x10^3/uL (1.0-4.8); LYMPH % 26 % (24-48); MEAN CORPUSCULAR HEMOGLOBIN 33 pg (25-35); MEAN CORPUSCULAR HGB CONC 34 g/dL (31-37); MEAN CORPUSCULAR VOLUME 97 fL (79-100); MONO # 0.5 x10^3/uL (0.0-1.1); MONO % 10 % (0-9); NEUT # 2.6 x10^3uL (1.8-7.7); NEUT % 57 % (31-73); PLATELET COUNT 317 x10^3/uL (140-400); RED BLOOD COUNT 3.47 x10^6/uL (4.30-5.70); RED CELL DISTRIBUTION WIDTH 14.5 % (11.5-14.5); WHITE BLOOD COUNT 4.5 x10^3/uL (4.0-11.0)
[2018-08-18 09:42] LABS: ALBUMIN 3.6 g/dL (3.4-5.0); ALBUMIN/GLOBULIN RATIO 1.2 (1.0-1.7); CALCIUM 8.7 mg/dL (8.5-10.1); CREATININE 1.1 mg/dL (0.7-1.3); GFR 64.7; POTASSIUM 4.4 mmol/L (3.5-5.1); TOTAL BILIRUBIN 0.2 mg/dL (0.2-1.0); TOTAL PROTEIN 6.6 g/dL (6.4-8.2)
[2018-08-18 16:05] VITALS: BP 141/66
[2018-08-18] MEDS: MIRTAZAPINE 15 MG TABLET PO SCH (19:51)
[2018-08-18] MEDS: traZODone 50 MG TABLET. PO SCH (19:51)
[2018-08-18] MEDS: MELATONIN 3 MG TABLET PO SCH (19:51)
[2018-08-18] MEDS: PHENYTOIN SODIUM EXTENDED 100 MG CAPSULE PO SCH (19:52)
[2018-08-18] MEDS: SIMVASTATIN 40 MG TABLET. PO SCH (19:52)
--- NOTE | 2018-08-18 23:04 | PDOC ---
Exam Note: Quintin Note: Please also refer to the separate dictated note~for this date of service dictated separately.~Patient seen individually. Discussed the patient with Nursing staff reviewed the chart.~Reviewed interim history and current functioning. Reviewed vital signs,~Labs/ Radiology~and current medications noted below. Continue current treatment with the changes noted in the dictated addendum note Assessment: Vital Signs: Vital Signs Date Time Temp Pulse Resp B/P (MAP) Pulse Ox O2 Delivery O2 Flow Rate FiO2 08/18/18 16:05 98.0 78 20 141/66 (91) 99 Room Air I&O Intake and Output 08/18/18 07:00 Intake Total 1540 ml Balance 1540 ml Intake Oral 1540 ml # Voids 3 Labs: Laboratory Tests Test 08/18/18 09:05 White Blood Count 4.5 x10^3/uL (4.0-11.0) Red Blood Count 3.47 x10^6/uL (4.30-5.70) L Hemoglobin 11.3 g/dL (13.0-17.5) L Hematocrit 33.8 % (39.0-53.0) L Mean Corpuscular Volume 97 fL (79-100) Mean Corpuscular Hemoglobin 33 pg (25-35) Mean Corpuscular Hemoglobin Concent 34 g/dL (31-37) Red Cell Distribution Width 14.5 % (11.5-14.5) Platelet Count 317 x10^3/uL (140-400) Neutrophils (%) (Auto) 57 % (31-73) Lymphocytes (%) (Auto) 26 % (24-48) Monocytes (%) (Auto) 10 % (0-9) H Eosinophils (%) (Auto) 7 % (0-3) H Basophils (%) (Auto) 0 % (0-3) Neutrophils # (Auto) 2.6 x10^3uL (1.8-7.7) Lymphocytes # (Auto) 1.2 x10^3/uL (1.0-4.8) Monocytes # (Auto) 0.5 x10^3/uL (0.0-1.1) Eosinophils # (Auto) 0.3 x10^3/uL (0.0-0.7) Basophils # (Auto) 0.0 x10^3/uL (0.0-0.2) Sodium Level 139 mmol/L (136-145) Potassium Level 4.4 mmol/L (3.5-5.1) Chloride Level 104 mmol/L (98-107) Carbon Dioxide Level 26 mmol/L (21-32) Anion Gap 9 (6-14) Blood Urea Nitrogen 28 mg/dL (8-26) H Creatinine 1.1 mg/dL (0.7-1.3) Estimated GFR (Cockcroft-Gault) 64.7 BUN/Creatinine Ratio 25 (6-20) H Glucose Level 110 mg/dL (70-99) H Calcium Level 8.7 mg/dL (8.5-10.1) Total Bilirubin 0.2 mg/dL (0.2-1.0) Aspartate Amino Transferase (AST) 17 U/L (15-37) Alanine Aminotransferase (ALT) 29 U/L (16-63) Alkaline Phosphatase 116 U/L (46-116) Total Protein 6.6 g/dL (6.4-8.2) Albumin 3.6 g/dL (3.4-5.0) Albumin/Globulin Ratio 1.2 (1.0-1.7) Current Medications: Meds: Current Medications Acetaminophen (Tylenol) 650 mg PRN Q6HRS PRN PO PAIN / TEMP; Start 07/20/18 at 23:15 Multi-Ingredient Ointment (Analgesic [place]) 1 erik PRN QID PRN TP MUSCLE PAIN; Start 07/20/18 at 23:15 Al Hydroxide/Mg Hydroxide (Mylanta Plus Xs) 15 ml PRN AFTMEALHC PRN PO DYSPEPSIA; Start 07/20/18 at 23:15 Magnesium Hydroxide (Milk Of Magnesia) 2,400 mg PRN QHS PRN PO CONSTIPATION; Start 07/20/18 at 23:15 Lacosamide (Vimpat) 50 mg BID PO Last administered on 08/18/18at 19:51; Start 07/21/18 at 09:00 Lisinopril (Prinivil) 10 mg DAILY PO Last administered on 08/18/18at 08:38; Start 07/21/18 at 09:00 Aspirin (Children'S Aspirin) 81 mg BID PO Last administered on 08/18/18at 19:51 ; Start 07/21/18 at 09:00 Simvastatin (Zocor) 80 mg QHS PO Last administered on 08/18/18 19:52; Start 07/21/18 at 21:00 Coenzyme Q10 (Coenzyme Q10) 200 mg DAILY PO Last administered on 08/18/18 08: 25; Start 07/21/18 at 19:00 Phenytoin Sodium (Dilantin) 400 mg Q96H PO Last administered on 08/18/18 19:52 ; Start 07/21/18 at 21:00 Phenytoin Sodium (Dilantin) 400 mg Q96H PO Last administered on 08/15/18 20: 16; Start 07/22/18 at 21:00 Phenytoin Sodium (Dilantin) 400 mg Q96H PO Last administered on 08/16/18 20:42 ; Start 07/23/18 at 21:00 Phenytoin Sodium (Dilantin) 300 mg Q96H PO Last administered on 08/17/18 19:41 ; Start 07/24/18 at 21:00 Trazodone HCl (Desyrel) 50 mg QHS PO Last administered on 08/18/18 19:51; Start 07/21/18 at 21:00 Trazodone HCl (Desyrel) 50 mg PRN QHS PRN PO insomnia Last administered on 07/22 00:16; Start 07/21/18 at 20:00 Mirtazapine (Remeron) 7.5 mg QHS PO Last administered on 07/25/18 19:40; Start 07/23/18 at 21:00; Stop 07/26/18 at 12:42; Status DC Sertraline HCl (Zoloft) 50 mg DAILY PO Last administered on 08/01/18at 08:40; Start 07/25/18 at 09:00; Stop 08/01/18 at 18:07; Status DC Mirtazapine (Remeron) 15 mg QHS PO Last administered on 08/18/18 19:51; Start 07/26/18 at 21:00 Sertraline HCl (Zoloft) 75 mg DAILY PO Last administered on 08/06/18 07:22; Start 08/02/18 at 09:00; Stop 08/06/18 at 17:52; Status DC Quetiapine Fumarate (SEROquel) 12.5 mg BIDWMEALS PO Last administered on at 08:39; Start 08/02/18 at 17:00; Stop 08/03/18 at 11:45; Status DC Quetiapine Fumarate (SEROquel) 12.5 mg TID@0900,1300,1700 PO Last administered on 08/08/18at 11:57; Start 08/03/18 at 13:00; Stop 08/08/18 at 17:05; Status DC Sertraline HCl (Zoloft) 100 mg DAILY PO Last administered on 08/09/18at 08:05; Start 08/07/18 at 09:00; Stop 08/09/18 at 11:22; Status DC Quetiapine Fumarate (SEROquel) 12.5 mg BID@0900,1300 PO Last administered on at 12:16; Start 08/09/18 at 09:00 Quetiapine Fumarate (SEROquel) 25 mg 1700 PO Last administered on 08/18/18at 16: 01; Start 08/09/18 at 17:00 Sertraline HCl (Zoloft) 125 mg DAILY PO Last administered on 08/10/18at 08:10; Start 08/10/18 at 09:00; Stop 08/10/18 at 17:23; Status DC Fluvoxamine Maleate (Luvox) 25 mg HS PO Last administered on 08/12/18at 19:40; Start 08/10/18 at 21:00; Stop 08/12/18 at 22:00; Status DC Fluvoxamine Maleate (Luvox) 50 mg HS PO Last administered on 08/15/18at 20:10; Start 08/13/18 at 21:00; Stop 08/15/18 at 23:00; Status DC Fluvoxamine Maleate (Luvox) 75 mg HS PO Last administered on 08/18/18at 19:52; Start 08/16/18 at 21:00; Stop 08/18/18 at 23:00; Status DC Melatonin 3 mg HS PO Last administered on 08/18/18at 19:51; Start 08/16/18 at 21 :00 Fluvoxamine Maleate (Luvox) 100 mg QHS PO ; Start 08/19/18 at 21:00 Active Scripts Active Reported Dilantin (Phenytoin Sodium Extended) 100 Mg Capsule 400 Mg PO HS Ultra Coq10 (Ubiquinone) 75 Mg Capsule 200 Mg PO DAILY Lisinopril 10 Mg Tablet 10 Mg PO DAILY Vimpat (Lacosamide) 50 Mg Tablet 50 Mg PO BID Aspirin 81 Mg Tab.chew 81 Mg PO BID Simvastatin 80 Mg Tablet 80 Mg PO HS I have reviewed the current psychotropics carefully including drug interactions. Risk benefit ratio favors no change other than as noted in my dictated progress note. Diagnosis: Problems: (1) Anxiety disorder (2) Dementia in Alzheimer's disease with delusions (3) Dementia in Alzheimer's disease with depression (4) Dementia, vascular, with delusions (5) Dementia, vascular, with depression (6) Impulse control disorder LISHA KIRKPATRICK MD Aug 18, 2018 23:04
[2018-08-19] MEDS: traZODone 50 MG TABLET. PO PRN (01:49)
[2018-08-19 06:02] VITALS: BP 159/73
[2018-08-19] MEDS: UBIDECARENONE 50 MG CAPSULE. PO SCH (07:45)
[2018-08-19] MEDS: ASPIRIN 81 MG TAB.CHEW PO SCH ×2 (07:45→19:23)
[2018-08-19] MEDS: LISINOPRIL 10 MG TABLET PO SCH (07:51)
[2018-08-19] MEDS: QUEtiapine 25 MG TABLET. PO SCH ×3 (07:51→16:58)
[2018-08-19] MEDS: LACOSAMIDE 50 MG TABLET PO SCH ×2 (07:51→19:23)
[2018-08-19 15:39] VITALS: BP 119/68
--- NOTE | 2018-08-19 16:09 | PN ---
DATE: 08/17/2018 This late entry 08/17/2018 covers elements not covered in my initial note. SUBJECTIVE: I met with the patient in the evening. The patient slept 5 hours previous night. He has attended groups, quite forgetful and more confused, anxious, suspicious, obsessive in the evening, than during the day. Compliant with his medications. Spending time in the day room. REVIEW OF SYSTEMS: No CV, , pulmonary, eye, ENT system symptoms on review. Reliability poor. MENTAL STATUS EXAM: Oriented to himself. Insight, judgment, recent and remote memory, attention, concentration, fund of knowledge poor, consistent with his diagnosis mentioned in my initial note. IMPRESSION: Unchanged from initial note. PLAN: Increase Luvox from 50 mg at bedtime to 75 after he has been on 50 for 3 days. Rest unchanged. MAN Franklin KIRKPATRICK MD DR: DONATO/marya JOB#: [id number] / [id number]
[2018-08-19] MEDS: MELATONIN 3 MG TABLET PO SCH (19:22)
[2018-08-19] MEDS: MIRTAZAPINE 15 MG TABLET PO SCH (19:22)
[2018-08-19] MEDS: traZODone 50 MG TABLET. PO SCH (19:23)
[2018-08-19] MEDS: SIMVASTATIN 40 MG TABLET. PO SCH (19:23)
[2018-08-19] MEDS: PHENYTOIN SODIUM EXTENDED 100 MG CAPSULE PO SCH (19:56)
--- NOTE | 2018-08-19 21:49 | PN ---
DATE: 08/18/2018 This late entry, 08/18/2018, covers elements not covered in my initial note. SUBJECTIVE: I met with the patient in the evening. The patient slept 4 hours previous night. He remains somewhat confused, more so in the evening. REVIEW OF SYSTEMS: No CV, , pulmonary, eye, ENT system symptoms on review. Reliability poor. MENTAL STATUS EXAM: Oriented to self. Insight, judgment, recent and remote memory, attention, concentration, fund of knowledge poor consistent with his diagnosis. IMPRESSION: Major neurocognitive disorder, Alzheimer, vascular with delusion, depression, behavioral disturbance. Rest unchanged. PLAN: No change from initial note. MAN Franklin KIRKPATRICK MD DR: DONATO/marya JOB#: [id number] / [id number]
--- NOTE | 2018-08-19 22:55 | PDOC ---
Exam Note: Quintin Note: Please also refer to the separate dictated note~for this date of service dictated separately.~Patient seen individually. Discussed the patient with Nursing staff reviewed the chart.~Reviewed interim history and current functioning. Reviewed vital signs,~Labs/ Radiology~and current medications noted below. Continue current treatment with the changes noted in the dictated addendum note Assessment: Vital Signs: Vital Signs Date Time Temp Pulse Resp B/P (MAP) Pulse Ox O2 Delivery O2 Flow Rate FiO2 08/19/18 15:39 98.8 76 20 119/68 (85) 95 Room Air I&O Intake and Output 08/19/18 07:00 Intake Total 1080 ml Balance 1080 ml Intake Oral 1080 ml # Voids 3 Current Medications: Meds: Current Medications Acetaminophen (Tylenol) 650 mg PRN Q6HRS PRN PO PAIN / TEMP; Start 07/20/18 at 23:15 Multi-Ingredient Ointment (Analgesic [place]) 1 erik PRN QID PRN TP MUSCLE PAIN; Start 07/20/18 at 23:15 Al Hydroxide/Mg Hydroxide (Mylanta Plus Xs) 15 ml PRN AFTMEALHC PRN PO DYSPEPSIA; Start 07/20/18 at 23:15 Magnesium Hydroxide (Milk Of Magnesia) 2,400 mg PRN QHS PRN PO CONSTIPATION; Start 07/20/18 at 23:15 Lacosamide (Vimpat) 50 mg BID PO Last administered on 08/19/18at 19:23; Start 07/21/18 at 09:00 Lisinopril (Prinivil) 10 mg DAILY PO Last administered on 08/19/18 07:51; Start 07/21/18 at 09:00 Aspirin (Children'S Aspirin) 81 mg BID PO Last administered on 08/19/18 19:23 ; Start 07/21/18 at 09:00 Simvastatin (Zocor) 80 mg QHS PO Last administered on 08/19/18 19:23; Start 07/21/18 at 21:00 Coenzyme Q10 (Coenzyme Q10) 200 mg DAILY PO Last administered on 08/19/18at 07: 45; Start 07/21/18 at 19:00 Phenytoin Sodium (Dilantin) 400 mg Q96H PO Last administered on 08/18/18 19:52 ; Start 07/21/18 at 21:00 Phenytoin Sodium (Dilantin) 400 mg Q96H PO Last administered on 08/19/18at 19:56 ; Start 07/22/18 at 21:00 Phenytoin Sodium (Dilantin) 400 mg Q96H PO Last administered on 08/16/18at 20:42 ; Start 07/23/18 at 21:00 Phenytoin Sodium (Dilantin) 300 mg Q96H PO Last administered on 08/17/18at 19:41 ; Start 07/24/18 at 21:00 Trazodone HCl (Desyrel) 50 mg QHS PO Last administered on 08/19/18 19:23; Start 07/21/18 at 21:00 Trazodone HCl (Desyrel) 50 mg PRN QHS PRN PO insomnia Last administered on 08/19at 01:49; Start 07/21/18 at 20:00; Stop 08/19/18 at 20:08; Status DC Mirtazapine (Remeron) 7.5 mg QHS PO Last administered on 07/25/18at 19:40; Start 07/23/18 at 21:00; Stop 07/26/18 at 12:42; Status DC Sertraline HCl (Zoloft) 50 mg DAILY PO Last administered on 08/01/18at 08:40; Start 07/25/18 at 09:00; Stop 08/01/18 at 18:07; Status DC Mirtazapine (Remeron) 15 mg QHS PO Last administered on 08/19/18at 19:22; Start 07/26/18 at 21:00 Sertraline HCl (Zoloft) 75 mg DAILY PO Last administered on 08/06/18at 07:22; Start 08/02/18 at 09:00; Stop 08/06/18 at 17:52; Status DC Quetiapine Fumarate (SEROquel) 12.5 mg BIDWMEALS PO Last administered on at 08:39; Start 08/02/18 at 17:00; Stop 08/03/18 at 11:45; Status DC Quetiapine Fumarate (SEROquel) 12.5 mg TID@0900,1300,1700 PO Last administered on 08/08/18at 11:57; Start 08/03/18 at 13:00; Stop 08/08/18 at 17:05; Status DC Sertraline HCl (Zoloft) 100 mg DAILY PO Last administered on 08/09/18at 08:05; Start 08/07/18 at 09:00; Stop 08/09/18 at 11:22; Status DC Quetiapine Fumarate (SEROquel) 12.5 mg BID@0900,1300 PO Last administered on at 13:14; Start 08/09/18 at 09:00 Quetiapine Fumarate (SEROquel) 25 mg 1700 PO Last administered on 08/19/18at 16: 58; Start 08/09/18 at 17:00 Sertraline HCl (Zoloft) 125 mg DAILY PO Last administered on 08/10/18at 08:10; Start 08/10/18 at 09:00; Stop 08/10/18 at 17:23; Status DC Fluvoxamine Maleate (Luvox) 25 mg HS PO Last administered on 08/12/18at 19:40; Start 08/10/18 at 21:00; Stop 08/12/18 at 22:00; Status DC Fluvoxamine Maleate (Luvox) 50 mg HS PO Last administered on 08/15/18at 20:10; Start 08/13/18 at 21:00; Stop 08/15/18 at 23:00; Status DC Fluvoxamine Maleate (Luvox) 75 mg HS PO Last administered on 08/18/18at 19:52; Start 08/16/18 at 21:00; Stop 08/18/18 at 23:00; Status DC Melatonin 3 mg HS PO Last administered on 08/19/18at 19:22; Start 08/16/18 at 21 :00 Fluvoxamine Maleate (Luvox) 100 mg QHS PO Last administered on 08/19/18at 19:56 ; Start 08/19/18 at 21:00 Trazodone HCl (Desyrel) 100 mg PRN QHS PRN PO insomnia; Start 08/19/18 at 20:15 Active Scripts Active Reported Dilantin (Phenytoin Sodium Extended) 100 Mg Capsule 400 Mg PO HS Ultra Coq10 (Ubiquinone) 75 Mg Capsule 200 Mg PO DAILY Lisinopril 10 Mg Tablet 10 Mg PO DAILY Vimpat (Lacosamide) 50 Mg Tablet 50 Mg PO BID Aspirin 81 Mg Tab.chew 81 Mg PO BID Simvastatin 80 Mg Tablet 80 Mg PO HS I have reviewed the current psychotropics carefully including drug interactions. Risk benefit ratio favors no change other than as noted in my dictated progress note. Diagnosis: Problems: (1) Anxiety disorder (2) Dementia in Alzheimer's disease with delusions (3) Dementia in Alzheimer's disease with depression (4) Dementia, vascular, with delusions (5) Dementia, vascular, with depression (6) Impulse control disorder LISHA KIRKPATRICK MD Aug 19, 2018 22:55
[2018-08-20 06:00] VITALS: BP 151/70
[2018-08-20] MEDS: UBIDECARENONE 50 MG CAPSULE. PO SCH (07:46)
[2018-08-20] MEDS: ASPIRIN 81 MG TAB.CHEW PO SCH ×2 (07:46→19:20)
[2018-08-20] MEDS: QUEtiapine 25 MG TABLET. PO SCH ×3 (07:47→16:05)
[2018-08-20] MEDS: LISINOPRIL 10 MG TABLET PO SCH (07:47)
[2018-08-20] MEDS: LACOSAMIDE 50 MG TABLET PO SCH ×2 (07:48→19:19)
[2018-08-20 14:57] VITALS: BP 136/69
[2018-08-20] MEDS: MELATONIN 3 MG TABLET PO SCH (19:19)
[2018-08-20] MEDS: MIRTAZAPINE 15 MG TABLET PO SCH (19:20)
[2018-08-20] MEDS: traZODone 50 MG TABLET. PO SCH (19:20)
[2018-08-20] MEDS: PHENYTOIN SODIUM EXTENDED 100 MG CAPSULE PO SCH (19:25)
[2018-08-20] MEDS: SIMVASTATIN 40 MG TABLET. PO SCH (19:25)
--- NOTE | 2018-08-20 20:11 | PN ---
DATE: 08/19/2018 This is a late entry, 08/19/2018, covers the elements not covered in my initial note. SUBJECTIVE: I met with the patient in the evening. The patient slept 7 hours the previous evening. He gets more agitated towards sundowning in the evening time. Rest of the day is better, less obsessive. REVIEW OF SYSTEMS: No CV, , pulmonary, eye, ENT system symptoms on review. Reliability poor. MENTAL STATUS EXAM: Oriented to himself. Insight, judgment, recent and remote memory, attention, concentration, fund of knowledge poor, consistent with his diagnosis. IMPRESSION: Major neurocognitive disorder, Alzheimer, vascular with delusion, depression, behavioral disturbance; anxiety disorder, unspecified; impulse control disorder, unspecified. Rest unchanged. PLAN: Continue current psychotropics and we will gradually increase the Luvox to 100 mg a day from his current 75 mg a day. Rest unchanged including Seroquel, Dilantin, and may need to increase trazodone from 50 mg at bedtime to 100 mg at bedtime. Maintain melatonin 3 mg at bedtime. MAN Franklin KIRKPATRICK MD DR: DONATO/marya JOB#: [id number] / [id number]
--- NOTE | 2018-08-20 23:00 | PDOC ---
Exam Note: Quintin Note: Please also refer to the separate dictated note~for this date of service dictated separately.~Patient seen individually. Discussed the patient with Nursing staff reviewed the chart.~Reviewed interim history and current functioning. Reviewed vital signs,~Labs/ Radiology~and current medications noted below. Continue current treatment with the changes noted in the dictated addendum note Assessment: Vital Signs: Vital Signs Date Time Temp Pulse Resp B/P (MAP) Pulse Ox O2 Delivery O2 Flow Rate FiO2 08/20/18 14:57 98.5 74 18 136/69 (91) 98 Room Air I&O Intake and Output 08/20/18 07:00 Intake Total 1200 ml Balance 1200 ml Intake Oral 1200 ml # Voids 1 Current Medications: Meds: Current Medications Acetaminophen (Tylenol) 650 mg PRN Q6HRS PRN PO PAIN / TEMP; Start 07/20/18 at 23:15 Multi-Ingredient Ointment (Analgesic [place]) 1 erik PRN QID PRN TP MUSCLE PAIN; Start 07/20/18 at 23:15 Al Hydroxide/Mg Hydroxide (Mylanta Plus Xs) 15 ml PRN AFTMEALHC PRN PO DYSPEPSIA; Start 07/20/18 at 23:15 Magnesium Hydroxide (Milk Of Magnesia) 2,400 mg PRN QHS PRN PO CONSTIPATION; Start 07/20/18 at 23:15 Lacosamide (Vimpat) 50 mg BID PO Last administered on 08/20/18at 19:19; Start 07/21/18 at 09:00 Lisinopril (Prinivil) 10 mg DAILY PO Last administered on 08/20/18at 07:47; Start 07/21/18 at 09:00 Aspirin (Children'S Aspirin) 81 mg BID PO Last administered on 08/20/18 19:20 ; Start 07/21/18 at 09:00 Simvastatin (Zocor) 80 mg QHS PO Last administered on 08/20/18 19:25; Start 07/21/18 at 21:00 Coenzyme Q10 (Coenzyme Q10) 200 mg DAILY PO Last administered on 08/20/18at 07: 46; Start 07/21/18 at 19:00 Phenytoin Sodium (Dilantin) 400 mg Q96H PO Last administered on 08/18/18 19:52 ; Start 07/21/18 at 21:00 Phenytoin Sodium (Dilantin) 400 mg Q96H PO Last administered on 08/19/18at 19:56 ; Start 07/22/18 at 21:00 Phenytoin Sodium (Dilantin) 400 mg Q96H PO Last administered on 08/20/18 19:25 ; Start 07/23/18 at 21:00 Phenytoin Sodium (Dilantin) 300 mg Q96H PO Last administered on 08/17/18 19:41 ; Start 07/24/18 at 21:00 Trazodone HCl (Desyrel) 50 mg QHS PO Last administered on 08/20/18 19:20; Start 07/21/18 at 21:00 Trazodone HCl (Desyrel) 50 mg PRN QHS PRN PO insomnia Last administered on 08/19at 01:49; Start 07/21/18 at 20:00; Stop 08/19/18 at 20:08; Status DC Mirtazapine (Remeron) 7.5 mg QHS PO Last administered on 07/25/18at 19:40; Start 07/23/18 at 21:00; Stop 07/26/18 at 12:42; Status DC Sertraline HCl (Zoloft) 50 mg DAILY PO Last administered on 08/01/18at 08:40; Start 07/25/18 at 09:00; Stop 08/01/18 at 18:07; Status DC Mirtazapine (Remeron) 15 mg QHS PO Last administered on 08/20/18at 19:20; Start 07/26/18 at 21:00 Sertraline HCl (Zoloft) 75 mg DAILY PO Last administered on 08/06/18at 07:22; Start 08/02/18 at 09:00; Stop 08/06/18 at 17:52; Status DC Quetiapine Fumarate (SEROquel) 12.5 mg BIDWMEALS PO Last administered on at 08:39; Start 08/02/18 at 17:00; Stop 08/03/18 at 11:45; Status DC Quetiapine Fumarate (SEROquel) 12.5 mg TID@0900,1300,1700 PO Last administered on 08/08/18at 11:57; Start 08/03/18 at 13:00; Stop 08/08/18 at 17:05; Status DC Sertraline HCl (Zoloft) 100 mg DAILY PO Last administered on 08/09/18at 08:05; Start 08/07/18 at 09:00; Stop 08/09/18 at 11:22; Status DC Quetiapine Fumarate (SEROquel) 12.5 mg BID@0900,1300 PO Last administered on at 12:37; Start 08/09/18 at 09:00 Quetiapine Fumarate (SEROquel) 25 mg 1700 PO Last administered on 08/20/18at 16: 05; Start 08/09/18 at 17:00 Sertraline HCl (Zoloft) 125 mg DAILY PO Last administered on 08/10/18at 08:10; Start 08/10/18 at 09:00; Stop 08/10/18 at 17:23; Status DC Fluvoxamine Maleate (Luvox) 25 mg HS PO Last administered on 08/12/18at 19:40; Start 08/10/18 at 21:00; Stop 08/12/18 at 22:00; Status DC Fluvoxamine Maleate (Luvox) 50 mg HS PO Last administered on 08/15/18at 20:10; Start 08/13/18 at 21:00; Stop 08/15/18 at 23:00; Status DC Fluvoxamine Maleate (Luvox) 75 mg HS PO Last administered on 08/18/18at 19:52; Start 08/16/18 at 21:00; Stop 08/18/18 at 23:00; Status DC Melatonin 3 mg HS PO Last administered on 08/20/18at 19:19; Start 08/16/18 at 21 :00 Fluvoxamine Maleate (Luvox) 100 mg QHS PO Last administered on 08/20/18at 19:19 ; Start 08/19/18 at 21:00 Trazodone HCl (Desyrel) 100 mg PRN QHS PRN PO insomnia; Start 08/19/18 at 20:15 Olanzapine (ZyPREXA ZYDIS) 2.5 mg PRN Q2HR PRN PO PSYCHOSIS; Start 08/20/18 at 16:45 Active Scripts Active Reported Dilantin (Phenytoin Sodium Extended) 100 Mg Capsule 400 Mg PO HS Ultra Coq10 (Ubiquinone) 75 Mg Capsule 200 Mg PO DAILY Lisinopril 10 Mg Tablet 10 Mg PO DAILY Vimpat (Lacosamide) 50 Mg Tablet 50 Mg PO BID Aspirin 81 Mg Tab.chew 81 Mg PO BID Simvastatin 80 Mg Tablet 80 Mg PO HS I have reviewed the current psychotropics carefully including drug interactions. Risk benefit ratio favors no change other than as noted in my dictated progress note. Diagnosis: Problems: (1) Anxiety disorder (2) Dementia in Alzheimer's disease with delusions (3) Dementia in Alzheimer's disease with depression (4) Dementia, vascular, with delusions (5) Dementia, vascular, with depression (6) Impulse control disorder LISHA KIRKPATRICK MD Aug 20, 2018 23:00
[2018-08-21 05:59] VITALS: BP 112/65
[2018-08-21] MEDS: ASPIRIN 81 MG TAB.CHEW PO SCH ×2 (08:15→19:32)
[2018-08-21] MEDS: UBIDECARENONE 50 MG CAPSULE. PO SCH (08:15)
[2018-08-21] MEDS: LISINOPRIL 10 MG TABLET PO SCH (08:16)
[2018-08-21] MEDS: QUEtiapine 25 MG TABLET. PO SCH ×3 (08:17→17:16)
[2018-08-21] MEDS: LACOSAMIDE 50 MG TABLET PO SCH ×2 (08:17→19:31)
--- NOTE | 2018-08-21 12:59 | PN ---
DATE: 08/20/2018 PSYCHIATRIC PROGRESS NOTE This is a late entry 08/20/2018, covers elements not covered in my initial note. SUBJECTIVE: I met with the patient in the evening. The patient slept 7-1/4 hours previous night. Previous night, he was quite exit-seeking, anxious, obsessive about leaving because he had to "pay my bills." It was difficult to redirect. We will add Zyprexa 2.5 mg q.2 hours p.r.n. psychosis, agitation, max 7.5 mg in 24 hours. He has been better during the day on 08/20/2018. REVIEW OF SYSTEMS: No CV, , pulmonary, eye, ENT system symptoms on review. Reliability poor. MENTAL STATUS EXAM: Oriented to himself. Insight, judgment, recent and remote memory, attention, concentration, fund of knowledge poor, consistent with his diagnosis mentioned in my initial note. PLAN: No change from initial note. Continue current psychotropics. Add the Zyprexa as noted. MAN Franklin KIRKPATRICK MD DR: DONATO/marya JOB#: [id number] / [id number]
[2018-08-21 16:07] VITALS: BP 132/71
[2018-08-21] MEDS: SIMVASTATIN 40 MG TABLET. PO SCH (19:31)
[2018-08-21] MEDS: MIRTAZAPINE 15 MG TABLET PO SCH (19:31)
[2018-08-21] MEDS: traZODone 50 MG TABLET. PO SCH (19:31)
[2018-08-21] MEDS: PHENYTOIN SODIUM EXTENDED 100 MG CAPSULE PO SCH (19:35)
[2018-08-21] MEDS: MELATONIN 3 MG TABLET PO SCH (19:35)
[2018-08-22 05:42] VITALS: BP 139/72
[2018-08-22] MEDS: ASPIRIN 81 MG TAB.CHEW PO SCH ×2 (07:54→19:33)
[2018-08-22] MEDS: LISINOPRIL 10 MG TABLET PO SCH (07:54)
[2018-08-22] MEDS: UBIDECARENONE 50 MG CAPSULE. PO SCH (07:54)
[2018-08-22] MEDS: LACOSAMIDE 50 MG TABLET PO SCH ×2 (07:55→19:40)
[2018-08-22] MEDS: QUEtiapine 25 MG TABLET. PO SCH ×3 (07:55→17:02)
[2018-08-22 16:29] VITALS: BP 126/65
--- NOTE | 2018-08-22 18:55 | PN ---
DATE: 08/21/2018 PSYCHIATRIC PROGRESS NOTE This late entry 08/21/2018 covers elements not covered in my initial note. SUBJECTIVE: The patient was seen individually in the evening. He remains confused, slept 3-1/2 hours previous night. REVIEW OF SYSTEMS: No behaviors noted. He seems to sundown, which worsens his presentation and appears more paranoid. No CV, , pulmonary, eye, ENT system symptoms on review. Reliability poor. MENTAL STATUS EXAM: Oriented to himself. Insight, judgment, recent and remote memory, attention, concentration, fund of knowledge poor, consistent with his diagnosis mentioned in my initial note. IMPRESSION: Major neurocognitive disorder, Alzheimer, vascular with delusion, depression, behavioral disturbance. Rest unchanged. PLAN: Continue psychotropics from initial note. Increase melatonin to 6 mg at bedtime for his insomnia. Rest unchanged from initial note. MAN Franklin KIRKPATRICK MD DR: DONATO/marya JOB#: [id number] / [id number]
[2018-08-22] MEDS: MELATONIN 3 MG TABLET PO SCH (19:32)
[2018-08-22] MEDS: MIRTAZAPINE 15 MG TABLET PO SCH (19:33)
[2018-08-22] MEDS: traZODone 50 MG TABLET. PO SCH (19:33)
[2018-08-22] MEDS: SIMVASTATIN 40 MG TABLET. PO SCH (19:33)
[2018-08-22] MEDS: PHENYTOIN SODIUM EXTENDED 100 MG CAPSULE PO SCH (19:40)
--- NOTE | 2018-08-22 22:33 | PDOC ---
Exam Note: Quintin Note: Late entry for DOS 08/21/2018. Please also refer to the separate dictated note~ for this date of service dictated separately.~Patient seen individually. Discussed the patient with Nursing staff reviewed the chart.~Reviewed interim history and current functioning. Reviewed vital signs,~Labs/ Radiology~and current medications noted below. Continue current treatment with the changes noted in the dictated addendum note Assessment: Vital Signs: VS - Last 72 Hours, by Label Date Time Temp Pulse Resp B/P (MAP) Pulse Ox O2 Delivery O2 Flow Rate FiO2 08/22/18 16:29 98.3 85 20 126/65 (85) 97 08/22/18 07:54 78 139/72 08/22/18 05:42 98.8 78 20 139/72 (94) 97 08/21/18 16:07 97.6 75 20 132/71 (91) 97 Room Air 08/21/18 08:16 77 112/65 08/21/18 05:59 98.0 77 18 112/65 (81) 98 Room Air 08/20/18 21:00 08/20/18 14:57 98.5 74 18 136/69 (91) 98 Room Air 08/20/18 07:47 65 151/70 08/20/18 06:00 97.0 65 20 151/70 (97) 99 Room Air Vital Signs Date Time Temp Pulse Resp B/P (MAP) Pulse Ox O2 Delivery O2 Flow Rate FiO2 08/22/18 16:29 98.3 85 20 126/65 (85) 97 08/21/18 16:07 Room Air I&O Intake and Output 08/22/18 07:00 Intake Total 1440 ml Balance 1440 ml Intake Oral 1440 ml Current Medications: Meds: Current Medications Acetaminophen (Tylenol) 650 mg PRN Q6HRS PRN PO PAIN / TEMP; Start 07/20/18 at 23:15 Multi-Ingredient Ointment (Analgesic [place]) 1 erik PRN QID PRN TP MUSCLE PAIN; Start 07/20/18 at 23:15 Al Hydroxide/Mg Hydroxide (Mylanta Plus Xs) 15 ml PRN AFTMEALHC PRN PO DYSPEPSIA; Start 07/20/18 at 23:15 Magnesium Hydroxide (Milk Of Magnesia) 2,400 mg PRN QHS PRN PO CONSTIPATION; Start 07/20/18 at 23:15 Lacosamide (Vimpat) 50 mg BID PO Last administered on 08/22/18 19:40; Start 07/21/18 at 09:00 Lisinopril (Prinivil) 10 mg DAILY PO Last administered on 08/22/18 07:54; Start 07/21/18 at 09:00 Aspirin (Children'S Aspirin) 81 mg BID PO Last administered on 08/22/18 19:33 ; Start 07/21/18 at 09:00 Simvastatin (Zocor) 80 mg QHS PO Last administered on 08/22/18 19:33; Start 07/21/18 at 21:00 Coenzyme Q10 (Coenzyme Q10) 200 mg DAILY PO Last administered on 08/22/18 07: 54; Start 07/21/18 at 19:00 Phenytoin Sodium (Dilantin) 400 mg Q96H PO Last administered on 08/22/18 19:40 ; Start 07/21/18 at 21:00 Phenytoin Sodium (Dilantin) 400 mg Q96H PO Last administered on 08/19/18 19:56 ; Start 07/22/18 at 21:00 Phenytoin Sodium (Dilantin) 400 mg Q96H PO Last administered on 08/20/18 19:25 ; Start 07/23/18 at 21:00 Phenytoin Sodium (Dilantin) 300 mg Q96H PO Last administered on 08/21/18 19:35 ; Start 07/24/18 at 21:00 Trazodone HCl (Desyrel) 50 mg QHS PO Last administered on 08/22/18 19:33; Start 07/21/18 at 21:00 Trazodone HCl (Desyrel) 50 mg PRN QHS PRN PO insomnia Last administered on 08/19 01:49; Start 07/21/18 at 20:00; Stop 08/19/18 at 20:08; Status DC Mirtazapine (Remeron) 7.5 mg QHS PO Last administered on 07/25/18 19:40; Start 07/23/18 at 21:00; Stop 07/26/18 at 12:42; Status DC Sertraline HCl (Zoloft) 50 mg DAILY PO Last administered on 10/17/18at 08:40; Start 07/25/18 at 09:00; Stop 08/01/18 at 18:07; Status DC Mirtazapine (Remeron) 15 mg QHS PO Last administered on 08/22/18at 19:33; Start 07/26/18 at 21:00 Sertraline HCl (Zoloft) 75 mg DAILY PO Last administered on 08/06/18at 07:22; Start 08/02/18 at 09:00; Stop 08/06/18 at 17:52; Status DC Quetiapine Fumarate (SEROquel) 12.5 mg BIDWMEALS PO Last administered on at 08:39; Start 08/02/18 at 17:00; Stop 08/03/18 at 11:45; Status DC Quetiapine Fumarate (SEROquel) 12.5 mg TID@0900,1300,1700 PO Last administered on 08/08/18at 11:57; Start 08/03/18 at 13:00; Stop 08/08/18 at 17:05; Status DC Sertraline HCl (Zoloft) 100 mg DAILY PO Last administered on 08/09/18at 08:05; Start 08/07/18 at 09:00; Stop 08/09/18 at 11:22; Status DC Quetiapine Fumarate (SEROquel) 12.5 mg BID@0900,1300 PO Last administered on at 13:27; Start 08/09/18 at 09:00 Quetiapine Fumarate (SEROquel) 25 mg 1700 PO Last administered on 08/22/18at 17: 02; Start 08/09/18 at 17:00 Sertraline HCl (Zoloft) 125 mg DAILY PO Last administered on 08/10/18at 08:10; Start 08/10/18 at 09:00; Stop 08/10/18 at 17:23; Status DC Fluvoxamine Maleate (Luvox) 25 mg HS PO Last administered on 08/12/18at 19:40; Start 08/10/18 at 21:00; Stop 08/12/18 at 22:00; Status DC Fluvoxamine Maleate (Luvox) 50 mg HS PO Last administered on 08/15/18at 20:10; Start 08/13/18 at 21:00; Stop 08/15/18 at 23:00; Status DC Fluvoxamine Maleate (Luvox) 75 mg HS PO Last administered on 08/18/18at 19:52; Start 08/16/18 at 21:00; Stop 08/18/18 at 23:00; Status DC Melatonin 3 mg HS PO Last administered on 08/20/18at 19:19; Start 08/16/18 at 21 :00; Stop 08/21/18 at 16:59; Status DC Fluvoxamine Maleate (Luvox) 100 mg QHS PO Last administered on 08/22/18 19:33 ; Start 08/19/18 at 21:00 Trazodone HCl (Desyrel) 100 mg PRN QHS PRN PO insomnia; Start 08/19/18 at 20:15 Olanzapine (ZyPREXA ZYDIS) 2.5 mg PRN Q2HR PRN PO PSYCHOSIS; Start 08/20/18 at 16:45 Melatonin 6 mg HS PO Last administered on 08/22/18at 19:32; Start 08/21/18 at 21 :00 Active Scripts Active Reported Dilantin (Phenytoin Sodium Extended) 100 Mg Capsule 400 Mg PO HS Ultra Coq10 (Ubiquinone) 75 Mg Capsule 200 Mg PO DAILY Lisinopril 10 Mg Tablet 10 Mg PO DAILY Vimpat (Lacosamide) 50 Mg Tablet 50 Mg PO BID Aspirin 81 Mg Tab.chew 81 Mg PO BID Simvastatin 80 Mg Tablet 80 Mg PO HS I have reviewed the current psychotropics carefully including drug interactions. Risk benefit ratio favors no change other than as noted in my dictated progress note. Diagnosis: Problems: (1) Anxiety disorder (2) Dementia in Alzheimer's disease with delusions (3) Dementia in Alzheimer's disease with depression (4) Dementia, vascular, with delusions (5) Dementia, vascular, with depression (6) Impulse control disorder LISHA KIRKPATRICK MD Aug 22, 2018 22:33
--- NOTE | 2018-08-22 23:08 | PDOC ---
Exam Note: Quintin Note: Please also refer to the separate dictated note~for this date of service dictated separately.~Patient seen individually. Discussed the patient with Nursing staff reviewed the chart.~Reviewed interim history and current functioning. Reviewed vital signs,~Labs/ Radiology~and current medications noted below. Continue current treatment with the changes noted in the dictated addendum note Assessment: Vital Signs: Vital Signs Date Time Temp Pulse Resp B/P (MAP) Pulse Ox O2 Delivery O2 Flow Rate FiO2 08/22/18 16:29 98.3 85 20 126/65 (85) 97 08/21/18 16:07 Room Air I&O Intake and Output 08/22/18 07:00 Intake Total 1440 ml Balance 1440 ml Intake Oral 1440 ml Current Medications: Meds: Current Medications Acetaminophen (Tylenol) 650 mg PRN Q6HRS PRN PO PAIN / TEMP; Start 07/20/18 at 23:15 Multi-Ingredient Ointment (Analgesic [place]) 1 erik PRN QID PRN TP MUSCLE PAIN; Start 07/20/18 at 23:15 Al Hydroxide/Mg Hydroxide (Mylanta Plus Xs) 15 ml PRN AFTMEALHC PRN PO DYSPEPSIA; Start 07/20/18 at 23:15 Magnesium Hydroxide (Milk Of Magnesia) 2,400 mg PRN QHS PRN PO CONSTIPATION; Start 07/20/18 at 23:15 Lacosamide (Vimpat) 50 mg BID PO Last administered on 08/22/18at 19:40; Start 07/21/18 at 09:00 Lisinopril (Prinivil) 10 mg DAILY PO Last administered on 08/22/18at 07:54; Start 07/21/18 at 09:00 Aspirin (Children'S Aspirin) 81 mg BID PO Last administered on 08/22/18 19:33 ; Start 07/21/18 at 09:00 Simvastatin (Zocor) 80 mg QHS PO Last administered on 08/22/18 19:33; Start 07/21/18 at 21:00 Coenzyme Q10 (Coenzyme Q10) 200 mg DAILY PO Last administered on 08/22/18 07: 54; Start 07/21/18 at 19:00 Phenytoin Sodium (Dilantin) 400 mg Q96H PO Last administered on 08/22/18 19:40 ; Start 07/21/18 at 21:00 Phenytoin Sodium (Dilantin) 400 mg Q96H PO Last administered on 08/19/18 19:56 ; Start 07/22/18 at 21:00 Phenytoin Sodium (Dilantin) 400 mg Q96H PO Last administered on 08/20/18 19:25 ; Start 07/23/18 at 21:00 Phenytoin Sodium (Dilantin) 300 mg Q96H PO Last administered on 08/21/18 19:35 ; Start 07/24/18 at 21:00 Trazodone HCl (Desyrel) 50 mg QHS PO Last administered on 08/22/18 19:33; Start 07/21/18 at 21:00 Trazodone HCl (Desyrel) 50 mg PRN QHS PRN PO insomnia Last administered on 08/19at 01:49; Start 07/21/18 at 20:00; Stop 08/19/18 at 20:08; Status DC Mirtazapine (Remeron) 7.5 mg QHS PO Last administered on 07/25/18 19:40; Start 07/23/18 at 21:00; Stop 07/26/18 at 12:42; Status DC Sertraline HCl (Zoloft) 50 mg DAILY PO Last administered on 08/01/18at 08:40; Start 07/25/18 at 09:00; Stop 08/01/18 at 18:07; Status DC Mirtazapine (Remeron) 15 mg QHS PO Last administered on 08/22/18 19:33; Start 07/26/18 at 21:00 Sertraline HCl (Zoloft) 75 mg DAILY PO Last administered on 08/06/18at 07:22; Start 08/02/18 at 09:00; Stop 08/06/18 at 17:52; Status DC Quetiapine Fumarate (SEROquel) 12.5 mg BIDWMEALS PO Last administered on at 08:39; Start 08/02/18 at 17:00; Stop 08/03/18 at 11:45; Status DC Quetiapine Fumarate (SEROquel) 12.5 mg TID@0900,1300,1700 PO Last administered on 08/08/18at 11:57; Start 08/03/18 at 13:00; Stop 08/08/18 at 17:05; Status DC Sertraline HCl (Zoloft) 100 mg DAILY PO Last administered on 08/09/18at 08:05; Start 08/07/18 at 09:00; Stop 08/09/18 at 11:22; Status DC Quetiapine Fumarate (SEROquel) 12.5 mg BID@0900,1300 PO Last administered on at 13:27; Start 08/09/18 at 09:00 Quetiapine Fumarate (SEROquel) 25 mg 1700 PO Last administered on 08/22/18at 17: 02; Start 08/09/18 at 17:00 Sertraline HCl (Zoloft) 125 mg DAILY PO Last administered on 08/10/18at 08:10; Start 08/10/18 at 09:00; Stop 08/10/18 at 17:23; Status DC Fluvoxamine Maleate (Luvox) 25 mg HS PO Last administered on 08/12/18at 19:40; Start 08/10/18 at 21:00; Stop 08/12/18 at 22:00; Status DC Fluvoxamine Maleate (Luvox) 50 mg HS PO Last administered on 08/15/18at 20:10; Start 08/13/18 at 21:00; Stop 08/15/18 at 23:00; Status DC Fluvoxamine Maleate (Luvox) 75 mg HS PO Last administered on 08/18/18at 19:52; Start 08/16/18 at 21:00; Stop 08/18/18 at 23:00; Status DC Melatonin 3 mg HS PO Last administered on 08/20/18at 19:19; Start 08/16/18 at 21 :00; Stop 08/21/18 at 16:59; Status DC Fluvoxamine Maleate (Luvox) 100 mg QHS PO Last administered on 08/22/18at 19:33 ; Start 08/19/18 at 21:00 Trazodone HCl (Desyrel) 100 mg PRN QHS PRN PO insomnia; Start 08/19/18 at 20:15 Olanzapine (ZyPREXA ZYDIS) 2.5 mg PRN Q2HR PRN PO PSYCHOSIS; Start 08/20/18 at 16:45 Melatonin 6 mg HS PO Last administered on 08/22/18at 19:32; Start 08/21/18 at 21 :00 Active Scripts Active Reported Dilantin (Phenytoin Sodium Extended) 100 Mg Capsule 400 Mg PO HS Ultra Coq10 (Ubiquinone) 75 Mg Capsule 200 Mg PO DAILY Lisinopril 10 Mg Tablet 10 Mg PO DAILY Vimpat (Lacosamide) 50 Mg Tablet 50 Mg PO BID Aspirin 81 Mg Tab.chew 81 Mg PO BID Simvastatin 80 Mg Tablet 80 Mg PO HS I have reviewed the current psychotropics carefully including drug interactions. Risk benefit ratio favors no change other than as noted in my dictated progress note. Diagnosis: Problems: (1) Anxiety disorder (2) Dementia in Alzheimer's disease with delusions (3) Dementia in Alzheimer's disease with depression (4) Dementia, vascular, with delusions (5) Dementia, vascular, with depression (6) Impulse control disorder LISHA KIRKPATRICK MD Aug 22, 2018 23:08
[2018-08-23 05:48] VITALS: BP 101/50
[2018-08-23] MEDS: LACOSAMIDE 50 MG TABLET PO SCH ×2 (07:46→19:35)
[2018-08-23] MEDS: QUEtiapine 25 MG TABLET. PO SCH ×3 (07:48→17:18)
[2018-08-23] MEDS: UBIDECARENONE 50 MG CAPSULE. PO SCH (07:48)
[2018-08-23] MEDS: ASPIRIN 81 MG TAB.CHEW PO SCH ×2 (07:48→19:32)
[2018-08-23] MEDS: LISINOPRIL 10 MG TABLET PO SCH (07:52)
[2018-08-23 15:53] VITALS: BP 121/71
[2018-08-23] MEDS: MELATONIN 3 MG TABLET PO SCH (19:31)
[2018-08-23] MEDS: MIRTAZAPINE 15 MG TABLET PO SCH (19:31)
[2018-08-23] MEDS: PHENYTOIN SODIUM EXTENDED 100 MG CAPSULE PO SCH (19:36)
[2018-08-23] MEDS: traZODone 50 MG TABLET. PO SCH (19:36)
[2018-08-23] MEDS: SIMVASTATIN 40 MG TABLET. PO SCH (19:36)
[2018-08-24 06:07] VITALS: BP 131/73
[2018-08-24] MEDS: LACOSAMIDE 50 MG TABLET PO SCH ×2 (07:56→20:32)
[2018-08-24] MEDS: UBIDECARENONE 50 MG CAPSULE. PO SCH (07:56)
[2018-08-24] MEDS: ASPIRIN 81 MG TAB.CHEW PO SCH ×2 (07:57→20:33)
[2018-08-24] MEDS: LISINOPRIL 10 MG TABLET PO SCH (07:57)
[2018-08-24] MEDS: QUEtiapine 25 MG TABLET. PO SCH ×3 (07:57→17:05)
[2018-08-24 15:53] VITALS: BP 108/66
--- NOTE | 2018-08-24 18:19 | PN ---
DATE: 08/22/2018 PSYCHIATRIC PROGRESS NOTE This late entry 08/22/2018 covers elements not covered in my initial note. SUBJECTIVE: The patient was seen on rounds in the evening of 08/22/2018. Per nursing report, the patient slept 5 hours previous night. He did well during the day, but by the evening, he was quite anxious, obsessive, gets confused with sundowning, wanting to leave. REVIEW OF SYSTEMS: No CV, , pulmonary, eye, ENT system symptoms on review. Reliability poor. MENTAL STATUS EXAMINATION: Oriented to himself. Insight, judgment, recent and remote memory, attention, concentration, fund of knowledge poor, consistent with his diagnosis mentioned in my initial note. IMPRESSION: Major neurocognitive disorder, Alzheimer, vascular with delusion, depression, behavioral disturbance. Rest unchanged. PLAN: Continue psychotropics from initial note. Seroquel, Remeron, trazodone along with Luvox, which has been increased to 100 mg p.o. at bedtime on 08/19/2018. He remains on Dilantin for his seizures. LISHA KIRKPATRICK MD DR: DONATO/marya JOB#: [id number] / [id number]
--- NOTE | 2018-08-24 19:29 | PDOC ---
Exam Note: Quintin Note: Late entry for date of service August 23, 2018. Please also refer to the separate dictated note~for this date of service dictated separately.~Patient seen individually. Discussed the patient with Nursing staff reviewed the chart.~ Reviewed interim history and current functioning. Reviewed vital signs,~Labs/ Radiology~and current medications noted below. Continue current treatment with the changes noted in the dictated addendum note Assessment: Vital Signs: VS - Last 72 Hours, by Label Date Time Temp Pulse Resp B/P (MAP) Pulse Ox O2 Delivery O2 Flow Rate FiO2 08/24/18 15:53 99.0 88 19 108/66 (80) 98 Room Air 08/24/18 07:57 75 131/73 08/24/18 06:07 98.0 75 16 131/73 (92) 99 Room Air 08/23/18 15:53 97.8 77 20 121/71 (88) 97 Room Air 08/23/18 07:52 75 101/50 08/23/18 05:48 97.4 75 20 101/50 (67) 96 08/22/18 16:29 98.3 85 20 126/65 (85) 97 08/22/18 07:54 78 139/72 08/22/18 05:42 98.8 78 20 139/72 (94) 97 Vital Signs Date Time Temp Pulse Resp B/P (MAP) Pulse Ox O2 Delivery O2 Flow Rate FiO2 08/24/18 15:53 99.0 88 19 108/66 (80) 98 Room Air I&O Intake and Output 08/24/18 07:00 Intake Total 960 ml Balance 960 ml Intake Oral 960 ml Current Medications: Meds: Current Medications Acetaminophen (Tylenol) 650 mg PRN Q6HRS PRN PO PAIN / TEMP; Start 07/20/18 at 23:15 Multi-Ingredient Ointment (Analgesic [place]) 1 erik PRN QID PRN TP MUSCLE PAIN; Start 07/20/18 at 23:15 Al Hydroxide/Mg Hydroxide (Mylanta Plus Xs) 15 ml PRN AFTMEALHC PRN PO DYSPEPSIA; Start 07/20/18 at 23:15 Magnesium Hydroxide (Milk Of Magnesia) 2,400 mg PRN QHS PRN PO CONSTIPATION; Start 07/20/18 at 23:15 Lacosamide (Vimpat) 50 mg BID PO Last administered on 08/24/18 07:56; Start 07/21/18 at 09:00 Lisinopril (Prinivil) 10 mg DAILY PO Last administered on 08/24/18 07:57; Start 07/21/18 at 09:00 Aspirin (Children'S Aspirin) 81 mg BID PO Last administered on 08/24/18 07:57 ; Start 07/21/18 at 09:00 Simvastatin (Zocor) 80 mg QHS PO Last administered on 08/23/18 19:36; Start 07/21/18 at 21:00 Coenzyme Q10 (Coenzyme Q10) 200 mg DAILY PO Last administered on 08/24/18 07: 56; Start 07/21/18 at 19:00 Phenytoin Sodium (Dilantin) 400 mg Q96H PO Last administered on 08/22/18 19:40 ; Start 07/21/18 at 21:00 Phenytoin Sodium (Dilantin) 400 mg Q96H PO Last administered on 08/23/18 19:36 ; Start 07/22/18 at 21:00 Phenytoin Sodium (Dilantin) 400 mg Q96H PO Last administered on 08/20/18 19:25 ; Start 07/23/18 at 21:00 Phenytoin Sodium (Dilantin) 300 mg Q96H PO Last administered on 08/21/18 19:35 ; Start 07/24/18 at 21:00 Trazodone HCl (Desyrel) 50 mg QHS PO Last administered on 08/23/18 19:36; Start 07/21/18 at 21:00 Trazodone HCl (Desyrel) 50 mg PRN QHS PRN PO insomnia Last administered on 08/19at 01:49; Start 07/21/18 at 20:00; Stop 08/19/18 at 20:08; Status DC Mirtazapine (Remeron) 7.5 mg QHS PO Last administered on 07/25/18 19:40; Start 07/23/18 at 21:00; Stop 07/26/18 at 12:42; Status DC Sertraline HCl (Zoloft) 50 mg DAILY PO Last administered on 08/01/18at 08:40; Start 07/25/18 at 09:00; Stop 08/01/18 at 18:07; Status DC Mirtazapine (Remeron) 15 mg QHS PO Last administered on 08/23/18at 19:31; Start 07/26/18 at 21:00 Sertraline HCl (Zoloft) 75 mg DAILY PO Last administered on 08/06/18at 07:22; Start 08/02/18 at 09:00; Stop 08/06/18 at 17:52; Status DC Quetiapine Fumarate (SEROquel) 12.5 mg BIDWMEALS PO Last administered on at 08:39; Start 08/02/18 at 17:00; Stop 08/03/18 at 11:45; Status DC Quetiapine Fumarate (SEROquel) 12.5 mg TID@0900,1300,1700 PO Last administered on 08/08/18at 11:57; Start 08/03/18 at 13:00; Stop 08/08/18 at 17:05; Status DC Sertraline HCl (Zoloft) 100 mg DAILY PO Last administered on 08/09/18at 08:05; Start 08/07/18 at 09:00; Stop 08/09/18 at 11:22; Status DC Quetiapine Fumarate (SEROquel) 12.5 mg BID@0900,1300 PO Last administered on at 13:25; Start 08/09/18 at 09:00 Quetiapine Fumarate (SEROquel) 25 mg 1700 PO Last administered on 08/24/18at 17: 05; Start 08/09/18 at 17:00 Sertraline HCl (Zoloft) 125 mg DAILY PO Last administered on 08/10/18at 08:10; Start 08/10/18 at 09:00; Stop 08/10/18 at 17:23; Status DC Fluvoxamine Maleate (Luvox) 25 mg HS PO Last administered on 08/12/18at 19:40; Start 08/10/18 at 21:00; Stop 08/12/18 at 22:00; Status DC Fluvoxamine Maleate (Luvox) 50 mg HS PO Last administered on 08/15/18at 20:10; Start 08/13/18 at 21:00; Stop 08/15/18 at 23:00; Status DC Fluvoxamine Maleate (Luvox) 75 mg HS PO Last administered on 08/18/18at 19:52; Start 08/16/18 at 21:00; Stop 08/18/18 at 23:00; Status DC Melatonin 3 mg HS PO Last administered on 08/20/18at 19:19; Start 08/16/18 at 21 :00; Stop 08/21/18 at 16:59; Status DC Fluvoxamine Maleate (Luvox) 100 mg QHS PO Last administered on 08/23/18at 19:31 ; Start 08/19/18 at 21:00 Trazodone HCl (Desyrel) 100 mg PRN QHS PRN PO insomnia; Start 08/19/18 at 20:15 Olanzapine (ZyPREXA ZYDIS) 2.5 mg PRN Q2HR PRN PO PSYCHOSIS; Start 08/20/18 at 16:45 Melatonin 6 mg HS PO Last administered on 08/23/18 19:31; Start 08/21/18 at 21 :00 Active Scripts Active Reported Dilantin (Phenytoin Sodium Extended) 100 Mg Capsule 400 Mg PO HS Ultra Coq10 (Ubiquinone) 75 Mg Capsule 200 Mg PO DAILY Lisinopril 10 Mg Tablet 10 Mg PO DAILY Vimpat (Lacosamide) 50 Mg Tablet 50 Mg PO BID Aspirin 81 Mg Tab.chew 81 Mg PO BID Simvastatin 80 Mg Tablet 80 Mg PO HS I have reviewed the current psychotropics carefully including drug interactions. Risk benefit ratio favors no change other than as noted in my dictated progress note. Diagnosis: Problems: (1) Anxiety disorder (2) Dementia in Alzheimer's disease with delusions (3) Dementia in Alzheimer's disease with depression (4) Dementia, vascular, with delusions (5) Dementia, vascular, with depression (6) Impulse control disorder LISHA KIRKPATRICK MD Aug 24, 2018 19:29
[2018-08-24] MEDS: MELATONIN 3 MG TABLET PO SCH (20:32)
[2018-08-24] MEDS: MIRTAZAPINE 15 MG TABLET PO SCH (20:32)
[2018-08-24] MEDS: SIMVASTATIN 40 MG TABLET. PO SCH (20:33)
[2018-08-24] MEDS: PHENYTOIN SODIUM EXTENDED 100 MG CAPSULE PO SCH (20:37)
[2018-08-24] MEDS: traZODone 50 MG TABLET. PO SCH (20:37)
--- NOTE | 2018-08-24 22:45 | PDOC ---
Exam Note: Quintin Note: Please also refer to the separate dictated note~for this date of service dictated separately.~Patient seen individually. Discussed the patient with Nursing staff reviewed the chart.~Reviewed interim history and current functioning. Reviewed vital signs,~Labs/ Radiology~and current medications noted below. Continue current treatment with the changes noted in the dictated addendum note Assessment: Vital Signs: Vital Signs Date Time Temp Pulse Resp B/P (MAP) Pulse Ox O2 Delivery O2 Flow Rate FiO2 08/24/18 15:53 99.0 88 19 108/66 (80) 98 Room Air I&O Intake and Output 08/24/18 07:00 Intake Total 960 ml Balance 960 ml Intake Oral 960 ml Current Medications: Meds: Current Medications Acetaminophen (Tylenol) 650 mg PRN Q6HRS PRN PO PAIN / TEMP; Start 07/20/18 at 23:15 Multi-Ingredient Ointment (Analgesic [place]) 1 erik PRN QID PRN TP MUSCLE PAIN; Start 07/20/18 at 23:15 Al Hydroxide/Mg Hydroxide (Mylanta Plus Xs) 15 ml PRN AFTMEALHC PRN PO DYSPEPSIA; Start 07/20/18 at 23:15 Magnesium Hydroxide (Milk Of Magnesia) 2,400 mg PRN QHS PRN PO CONSTIPATION; Start 07/20/18 at 23:15 Lacosamide (Vimpat) 50 mg BID PO Last administered on 08/24/18at 20:32; Start 07/21/18 at 09:00 Lisinopril (Prinivil) 10 mg DAILY PO Last administered on 08/24/18at 07:57; Start 07/21/18 at 09:00 Aspirin (Children'S Aspirin) 81 mg BID PO Last administered on 08/24/18at 20:33 ; Start 07/21/18 at 09:00 Simvastatin (Zocor) 80 mg QHS PO Last administered on 08/24/18 20:33; Start 07/21/18 at 21:00 Coenzyme Q10 (Coenzyme Q10) 200 mg DAILY PO Last administered on 08/24/18at 07: 56; Start 07/21/18 at 19:00 Phenytoin Sodium (Dilantin) 400 mg Q96H PO Last administered on 08/22/18at 19:40 ; Start 07/21/18 at 21:00 Phenytoin Sodium (Dilantin) 400 mg Q96H PO Last administered on 08/23/18at 19:36 ; Start 07/22/18 at 21:00 Phenytoin Sodium (Dilantin) 400 mg Q96H PO Last administered on 08/24/18at 20:37 ; Start 07/23/18 at 21:00 Phenytoin Sodium (Dilantin) 300 mg Q96H PO Last administered on 08/21/18 19:35 ; Start 07/24/18 at 21:00 Trazodone HCl (Desyrel) 50 mg QHS PO Last administered on 08/24/18 20:37; Start 07/21/18 at 21:00 Trazodone HCl (Desyrel) 50 mg PRN QHS PRN PO insomnia Last administered on 08/19at 01:49; Start 07/21/18 at 20:00; Stop 08/19/18 at 20:08; Status DC Mirtazapine (Remeron) 7.5 mg QHS PO Last administered on 07/25/18at 19:40; Start 07/23/18 at 21:00; Stop 07/26/18 at 12:42; Status DC Sertraline HCl (Zoloft) 50 mg DAILY PO Last administered on 08/01/18at 08:40; Start 07/25/18 at 09:00; Stop 08/01/18 at 18:07; Status DC Mirtazapine (Remeron) 15 mg QHS PO Last administered on 08/24/18at 20:32; Start 07/26/18 at 21:00 Sertraline HCl (Zoloft) 75 mg DAILY PO Last administered on 08/06/18at 07:22; Start 08/02/18 at 09:00; Stop 08/06/18 at 17:52; Status DC Quetiapine Fumarate (SEROquel) 12.5 mg BIDWMEALS PO Last administered on at 08:39; Start 08/02/18 at 17:00; Stop 08/03/18 at 11:45; Status DC Quetiapine Fumarate (SEROquel) 12.5 mg TID@0900,1300,1700 PO Last administered on 08/08/18at 11:57; Start 08/03/18 at 13:00; Stop 08/08/18 at 17:05; Status DC Sertraline HCl (Zoloft) 100 mg DAILY PO Last administered on 08/09/18at 08:05; Start 08/07/18 at 09:00; Stop 08/09/18 at 11:22; Status DC Quetiapine Fumarate (SEROquel) 12.5 mg BID@0900,1300 PO Last administered on at 13:25; Start 08/09/18 at 09:00 Quetiapine Fumarate (SEROquel) 25 mg 1700 PO Last administered on 08/24/18at 17: 05; Start 08/09/18 at 17:00 Sertraline HCl (Zoloft) 125 mg DAILY PO Last administered on 08/10/18at 08:10; Start 08/10/18 at 09:00; Stop 08/10/18 at 17:23; Status DC Fluvoxamine Maleate (Luvox) 25 mg HS PO Last administered on 08/12/18at 19:40; Start 08/10/18 at 21:00; Stop 08/12/18 at 22:00; Status DC Fluvoxamine Maleate (Luvox) 50 mg HS PO Last administered on 08/15/18at 20:10; Start 08/13/18 at 21:00; Stop 08/15/18 at 23:00; Status DC Fluvoxamine Maleate (Luvox) 75 mg HS PO Last administered on 08/18/18at 19:52; Start 08/16/18 at 21:00; Stop 08/18/18 at 23:00; Status DC Melatonin 3 mg HS PO Last administered on 08/20/18at 19:19; Start 08/16/18 at 21 :00; Stop 08/21/18 at 16:59; Status DC Fluvoxamine Maleate (Luvox) 100 mg QHS PO Last administered on 08/24/18at 20:32 ; Start 08/19/18 at 21:00 Trazodone HCl (Desyrel) 100 mg PRN QHS PRN PO insomnia; Start 08/19/18 at 20:15 Olanzapine (ZyPREXA ZYDIS) 2.5 mg PRN Q2HR PRN PO PSYCHOSIS; Start 08/20/18 at 16:45 Melatonin 6 mg HS PO Last administered on 08/24/18at 20:32; Start 08/21/18 at 21 :00 Active Scripts Active Reported Dilantin (Phenytoin Sodium Extended) 100 Mg Capsule 400 Mg PO HS Ultra Coq10 (Ubiquinone) 75 Mg Capsule 200 Mg PO DAILY Lisinopril 10 Mg Tablet 10 Mg PO DAILY Vimpat (Lacosamide) 50 Mg Tablet 50 Mg PO BID Aspirin 81 Mg Tab.chew 81 Mg PO BID Simvastatin 80 Mg Tablet 80 Mg PO HS I have reviewed the current psychotropics carefully including drug interactions. Risk benefit ratio favors no change other than as noted in my dictated progress note. Diagnosis: Problems: (1) Anxiety disorder (2) Dementia in Alzheimer's disease with delusions (3) Dementia in Alzheimer's disease with depression (4) Dementia, vascular, with delusions (5) Dementia, vascular, with depression (6) Impulse control disorder LISHA KIRKPATRICK MD Aug 24, 2018 22:45
[2018-08-25 05:42] VITALS: BP 116/55
[2018-08-25] MEDS: UBIDECARENONE 50 MG CAPSULE. PO SCH (08:02)
[2018-08-25] MEDS: ASPIRIN 81 MG TAB.CHEW PO SCH ×2 (08:02→20:04)
[2018-08-25] MEDS: QUEtiapine 25 MG TABLET. PO SCH ×3 (08:03→17:16)
[2018-08-25] MEDS: LISINOPRIL 10 MG TABLET PO SCH (08:03)
[2018-08-25] MEDS: LACOSAMIDE 50 MG TABLET PO SCH ×2 (08:09→20:04)
[2018-08-25 10:02] LABS: BASO # 0.1 x10^3/uL (0.0-0.2); BASO % 1 % (0-3); EOS # 0.2 x10^3/uL (0.0-0.7); EOS % 4 % (0-3); HEMATOCRIT 34.3 % (39.0-53.0); HEMOGLOBIN 11.5 g/dL (13.0-17.5); LYMPH # 0.9 x10^3/uL (1.0-4.8); LYMPH % 18 % (24-48); MEAN CORPUSCULAR HEMOGLOBIN 32 pg (25-35); MEAN CORPUSCULAR HGB CONC 34 g/dL (31-37); MEAN CORPUSCULAR VOLUME 96 fL (79-100); MONO # 0.5 x10^3/uL (0.0-1.1); MONO % 10 % (0-9); NEUT # 3.4 x10^3uL (1.8-7.7); NEUT % 67 % (31-73); PLATELET COUNT 333 x10^3/uL (140-400); RED BLOOD COUNT 3.56 x10^6/uL (4.30-5.70); RED CELL DISTRIBUTION WIDTH 14.4 % (11.5-14.5); WHITE BLOOD COUNT 5.1 x10^3/uL (4.0-11.0)
[2018-08-25 10:20] LABS: ALBUMIN 3.7 g/dL (3.4-5.0); ALBUMIN/GLOBULIN RATIO 1.1 (1.0-1.7); CALCIUM 8.8 mg/dL (8.5-10.1); CREATININE 1.2 mg/dL (0.7-1.3); GFR 58.4; POTASSIUM 4.5 mmol/L (3.5-5.1); TOTAL BILIRUBIN 0.2 mg/dL (0.2-1.0)
--- NOTE | 2018-08-25 11:43 | PN ---
DATE: 08/23/2018 PSYCHIATRIC PROGRESS NOTE This is a late entry 08/23/2018 covers elements not covered in my initial note. SUBJECTIVE: I met with the patient in the evening. The patient was staffed at a treatment team meeting with the entire team in the morning. The patient slept 7-1/4 hours. He remains confused and this is somewhat worsened in the evening with when he becomes more obsessive, wanting to leave, looking for his car, wanting the keys amongst other things. REVIEW OF SYSTEMS: No CV, , pulmonary, eye, ENT system symptoms on review. Reliability poor. MENTAL STATUS EXAM: Oriented to himself. Insight, judgment, recent and remote memory, attention, concentration, fund of knowledge poor, consistent with his diagnosis mentioned in my initial note. IMPRESSION: Major neurocognitive disorder, Alzheimer, vascular with delusion, depression, behavioral disturbance. Rest unchanged. PLAN: No change from initial note. MAN Franklin KIRKPATRICK MD DR: DONATO/marya JOB#: [id number] / [id number]
[2018-08-25 15:38] VITALS: BP 147/78
[2018-08-25] MEDS: MELATONIN 3 MG TABLET PO SCH (20:04)
[2018-08-25] MEDS: traZODone 50 MG TABLET. PO SCH (20:04)
[2018-08-25] MEDS: MIRTAZAPINE 15 MG TABLET PO SCH (20:04)
[2018-08-25] MEDS: SIMVASTATIN 40 MG TABLET. PO SCH (20:05)
[2018-08-25] MEDS: PHENYTOIN SODIUM EXTENDED 100 MG CAPSULE PO SCH (20:05)
--- NOTE | 2018-08-25 22:46 | PDOC ---
Exam Note: Quintin Note: Please also refer to the separate dictated note~for this date of service dictated separately.~Patient seen individually. Discussed the patient with Nursing staff reviewed the chart.~Reviewed interim history and current functioning. Reviewed vital signs,~Labs/ Radiology~and current medications noted below. Continue current treatment with the changes noted in the dictated addendum note Assessment: Vital Signs: Vital Signs Date Time Temp Pulse Resp B/P (MAP) Pulse Ox O2 Delivery O2 Flow Rate FiO2 08/25/18 15:38 97.9 66 18 147/78 (101) 99 Room Air I&O Intake and Output 08/25/18 07:00 Intake Total 1300 ml Balance 1300 ml Intake Oral 1300 ml Labs: Laboratory Tests Test 08/25/18 09:38 White Blood Count 5.1 x10^3/uL (4.0-11.0) Red Blood Count 3.56 x10^6/uL (4.30-5.70) L Hemoglobin 11.5 g/dL (13.0-17.5) L Hematocrit 34.3 % (39.0-53.0) L Mean Corpuscular Volume 96 fL (79-100) Mean Corpuscular Hemoglobin 32 pg (25-35) Mean Corpuscular Hemoglobin Concent 34 g/dL (31-37) Red Cell Distribution Width 14.4 % (11.5-14.5) Platelet Count 333 x10^3/uL (140-400) Neutrophils (%) (Auto) 67 % (31-73) Lymphocytes (%) (Auto) 18 % (24-48) L Monocytes (%) (Auto) 10 % (0-9) H Eosinophils (%) (Auto) 4 % (0-3) H Basophils (%) (Auto) 1 % (0-3) Neutrophils # (Auto) 3.4 x10^3uL (1.8-7.7) Lymphocytes # (Auto) 0.9 x10^3/uL (1.0-4.8) L Monocytes # (Auto) 0.5 x10^3/uL (0.0-1.1) Eosinophils # (Auto) 0.2 x10^3/uL (0.0-0.7) Basophils # (Auto) 0.1 x10^3/uL (0.0-0.2) Sodium Level 139 mmol/L (136-145) Potassium Level 4.5 mmol/L (3.5-5.1) Chloride Level 106 mmol/L (98-107) Carbon Dioxide Level 26 mmol/L (21-32) Anion Gap 7 (6-14) Blood Urea Nitrogen 46 mg/dL (8-26) H Creatinine 1.2 mg/dL (0.7-1.3) Estimated GFR (Cockcroft-Gault) 58.4 BUN/Creatinine Ratio 38 (6-20) H Glucose Level 82 mg/dL (70-99) Calcium Level 8.8 mg/dL (8.5-10.1) Total Bilirubin 0.2 mg/dL (0.2-1.0) Aspartate Amino Transferase (AST) 19 U/L (15-37) Alanine Aminotransferase (ALT) 30 U/L (16-63) Alkaline Phosphatase 124 U/L (46-116) H Total Protein 7.0 g/dL (6.4-8.2) Albumin 3.7 g/dL (3.4-5.0) Albumin/Globulin Ratio 1.1 (1.0-1.7) Current Medications: Meds: Current Medications Acetaminophen (Tylenol) 650 mg PRN Q6HRS PRN PO PAIN / TEMP; Start 07/20/18 at 23:15 Multi-Ingredient Ointment (Analgesic [place]) 1 erik PRN QID PRN TP MUSCLE PAIN; Start 07/20/18 at 23:15 Al Hydroxide/Mg Hydroxide (Mylanta Plus Xs) 15 ml PRN AFTMEALHC PRN PO DYSPEPSIA; Start 07/20/18 at 23:15 Magnesium Hydroxide (Milk Of Magnesia) 2,400 mg PRN QHS PRN PO CONSTIPATION; Start 07/20/18 at 23:15 Lacosamide (Vimpat) 50 mg BID PO Last administered on 08/25/18at 20:04; Start 07/21/18 at 09:00 Lisinopril (Prinivil) 10 mg DAILY PO Last administered on 08/25/18at 08:03; Start 07/21/18 at 09:00 Aspirin (Children'S Aspirin) 81 mg BID PO Last administered on 08/25/18at 20:04 ; Start 07/21/18 at 09:00 Simvastatin (Zocor) 80 mg QHS PO Last administered on 08/25/18 20:05; Start 07/21/18 at 21:00 Coenzyme Q10 (Coenzyme Q10) 200 mg DAILY PO Last administered on 08/25/18at 08: 02; Start 07/21/18 at 19:00 Phenytoin Sodium (Dilantin) 400 mg Q96H PO Last administered on 08/22/18at 19:40 ; Start 07/21/18 at 21:00 Phenytoin Sodium (Dilantin) 400 mg Q96H PO Last administered on 08/23/18 19:36 ; Start 07/22/18 at 21:00 Phenytoin Sodium (Dilantin) 400 mg Q96H PO Last administered on 08/24/18 20:37 ; Start 07/23/18 at 21:00 Phenytoin Sodium (Dilantin) 300 mg Q96H PO Last administered on 08/25/18 20: 05; Start 07/24/18 at 21:00 Trazodone HCl (Desyrel) 50 mg QHS PO Last administered on 08/25/18at 20:04; Start 07/21/18 at 21:00 Trazodone HCl (Desyrel) 50 mg PRN QHS PRN PO insomnia Last administered on 08/19at 01:49; Start 07/21/18 at 20:00; Stop 08/19/18 at 20:08; Status DC Mirtazapine (Remeron) 7.5 mg QHS PO Last administered on 07/25/18at 19:40; Start 07/23/18 at 21:00; Stop 07/26/18 at 12:42; Status DC Sertraline HCl (Zoloft) 50 mg DAILY PO Last administered on 08/01/18at 08:40; Start 07/25/18 at 09:00; Stop 08/01/18 at 18:07; Status DC Mirtazapine (Remeron) 15 mg QHS PO Last administered on 08/25/18at 20:04; Start 07/26/18 at 21:00 Sertraline HCl (Zoloft) 75 mg DAILY PO Last administered on 08/06/18at 07:22; Start 08/02/18 at 09:00; Stop 08/06/18 at 17:52; Status DC Quetiapine Fumarate (SEROquel) 12.5 mg BIDWMEALS PO Last administered on at 08:39; Start 08/02/18 at 17:00; Stop 08/03/18 at 11:45; Status DC Quetiapine Fumarate (SEROquel) 12.5 mg TID@0900,1300,1700 PO Last administered on 08/08/18at 11:57; Start 08/03/18 at 13:00; Stop 08/08/18 at 17:05; Status DC Sertraline HCl (Zoloft) 100 mg DAILY PO Last administered on 08/09/18at 08:05; Start 08/07/18 at 09:00; Stop 08/09/18 at 11:22; Status DC Quetiapine Fumarate (SEROquel) 12.5 mg BID@0900,1300 PO Last administered on at 13:34; Start 08/09/18 at 09:00 Quetiapine Fumarate (SEROquel) 25 mg 1700 PO Last administered on 08/25/18at 17 :16; Start 08/09/18 at 17:00 Sertraline HCl (Zoloft) 125 mg DAILY PO Last administered on 08/10/18at 08:10; Start 08/10/18 at 09:00; Stop 08/10/18 at 17:23; Status DC Fluvoxamine Maleate (Luvox) 25 mg HS PO Last administered on 08/12/18at 19:40; Start 08/10/18 at 21:00; Stop 08/12/18 at 22:00; Status DC Fluvoxamine Maleate (Luvox) 50 mg HS PO Last administered on 08/15/18at 20:10; Start 08/13/18 at 21:00; Stop 08/15/18 at 23:00; Status DC Fluvoxamine Maleate (Luvox) 75 mg HS PO Last administered on 08/18/18at 19:52; Start 08/16/18 at 21:00; Stop 08/18/18 at 23:00; Status DC Melatonin 3 mg HS PO Last administered on 08/20/18at 19:19; Start 08/16/18 at 21 :00; Stop 08/21/18 at 16:59; Status DC Fluvoxamine Maleate (Luvox) 100 mg QHS PO Last administered on 08/25/18at 20:04 ; Start 08/19/18 at 21:00 Trazodone HCl (Desyrel) 100 mg PRN QHS PRN PO insomnia; Start 08/19/18 at 20:15 Olanzapine (ZyPREXA ZYDIS) 2.5 mg PRN Q2HR PRN PO PSYCHOSIS Last administered on 08/25/18 20:04; Start 08/20/18 at 16:45 Melatonin 6 mg HS PO Last administered on 08/25/18at 20:04; Start 08/21/18 at 21:00 Active Scripts Active Reported Dilantin (Phenytoin Sodium Extended) 100 Mg Capsule 400 Mg PO HS Ultra Coq10 (Ubiquinone) 75 Mg Capsule 200 Mg PO DAILY Lisinopril 10 Mg Tablet 10 Mg PO DAILY Vimpat (Lacosamide) 50 Mg Tablet 50 Mg PO BID Aspirin 81 Mg Tab.chew 81 Mg PO BID Simvastatin 80 Mg Tablet 80 Mg PO HS I have reviewed the current psychotropics carefully including drug interactions. Risk benefit ratio favors no change other than as noted in my dictated progress note. Diagnosis: Problems: (1) Anxiety disorder (2) Dementia in Alzheimer's disease with delusions (3) Dementia in Alzheimer's disease with depression (4) Dementia, vascular, with delusions (5) Dementia, vascular, with depression (6) Impulse control disorder LISHA KIRKPATRICK MD Aug 25, 2018 22:46
[2018-08-26 06:52] VITALS: BP 143/78
[2018-08-26] MEDS: LACOSAMIDE 50 MG TABLET PO SCH ×2 (07:59→20:01)
[2018-08-26] MEDS: ASPIRIN 81 MG TAB.CHEW PO SCH ×2 (07:59→20:01)
[2018-08-26] MEDS: UBIDECARENONE 50 MG CAPSULE. PO SCH (07:59)
[2018-08-26] MEDS: QUEtiapine 25 MG TABLET. PO SCH ×3 (08:00→17:11)
[2018-08-26] MEDS: LISINOPRIL 10 MG TABLET PO SCH (08:01)
--- NOTE | 2018-08-26 11:36 | PN ---
DATE: 08/24/2018 This is a late entry for date of service 08/24/2018 and covers elements not covered in my initial note. SUBJECTIVE: I met with the patient in the evening. The patient slept 5-3/4 hours previous evening. He remains confused with short-term memory deficits, worsening confusion in the evenings. REVIEW OF SYSTEMS: No CV, , pulmonary, eye, ENT system symptoms on review. Reliability poor. MENTAL STATUS EXAM: Oriented to himself. Insight, judgment, recent and remote memory, attention, concentration, fund of knowledge poor, consistent with his diagnosis. IMPRESSION: Unchanged. PLAN: No change from initial note. We may need to adjust the Luvox further, but for now we will maintain at 100 mg at bedtime. MAN Franklin KIRKPATRICK MD DR: DONATO/marya JOB#: [id number] / [id number]
[2018-08-26 15:48] VITALS: BP 119/65
--- NOTE | 2018-08-26 16:51 | PN ---
DATE: 08/25/2018 PSYCHIATRIC PROGRESS NOTE This late entry 08/25/2018 covers elements not covered in my initial note. SUBJECTIVE: I met with the patient in the evening. The patient slept 6-1/4 hours previous night. He remains somewhat anxious, more so in the evening, obsesses about leaving, wanting the keys of his car, wanting to go visit his . I processed this with him. REVIEW OF SYSTEMS: No CV, , pulmonary, eye, ENT system symptoms on review. Reliability poor. MENTAL STATUS EXAM: Oriented to himself. Insight, judgment, recent and remote memory, attention, concentration, fund of knowledge poor, consistent with his diagnosis mentioned in my initial note. PLAN: No change from initial note. MAN Franklin KIRKPATRICK MD DR: DONATO/marya JOB#: [id number] / [id number]
[2018-08-26] MEDS: MIRTAZAPINE 15 MG TABLET PO SCH (20:01)
[2018-08-26] MEDS: traZODone 50 MG TABLET. PO SCH (20:01)
[2018-08-26] MEDS: MELATONIN 3 MG TABLET PO SCH (20:02)
[2018-08-26] MEDS: SIMVASTATIN 40 MG TABLET. PO SCH (20:02)
[2018-08-26] MEDS: PHENYTOIN SODIUM EXTENDED 100 MG CAPSULE PO SCH (20:02)
--- NOTE | 2018-08-26 22:48 | PDOC ---
Exam Note: Quintin Note: Please also refer to the separate dictated note~for this date of service dictated separately.~Patient seen individually. Discussed the patient with Nursing staff reviewed the chart.~Reviewed interim history and current functioning. Reviewed vital signs,~Labs/ Radiology~and current medications noted below. Continue current treatment with the changes noted in the dictated addendum note Assessment: Vital Signs: Vital Signs Date Time Temp Pulse Resp B/P (MAP) Pulse Ox O2 Delivery O2 Flow Rate FiO2 08/26/18 15:48 98.4 85 20 119/65 (83) 90 Room Air I&O Intake and Output 08/26/18 07:00 Intake Total 1380 ml Balance 1380 ml Intake Oral 1380 ml Current Medications: Meds: Current Medications Acetaminophen (Tylenol) 650 mg PRN Q6HRS PRN PO PAIN / TEMP; Start 07/20/18 at 23:15 Multi-Ingredient Ointment (Analgesic [place]) 1 erik PRN QID PRN TP MUSCLE PAIN; Start 07/20/18 at 23:15 Al Hydroxide/Mg Hydroxide (Mylanta Plus Xs) 15 ml PRN AFTMEALHC PRN PO DYSPEPSIA; Start 07/20/18 at 23:15 Magnesium Hydroxide (Milk Of Magnesia) 2,400 mg PRN QHS PRN PO CONSTIPATION; Start 07/20/18 at 23:15 Lacosamide (Vimpat) 50 mg BID PO Last administered on 08/26/18at 20:01; Start 07/21/18 at 09:00 Lisinopril (Prinivil) 10 mg DAILY PO Last administered on 08/26/18at 08:01; Start 07/21/18 at 09:00 Aspirin (Children'S Aspirin) 81 mg BID PO Last administered on 08/26/18at 20:01 ; Start 07/21/18 at 09:00 Simvastatin (Zocor) 80 mg QHS PO Last administered on 08/26/18at 20:02; Start 07/21/18 at 21:00 Coenzyme Q10 (Coenzyme Q10) 200 mg DAILY PO Last administered on 08/26/18at 07: 59; Start 07/21/18 at 19:00 Phenytoin Sodium (Dilantin) 400 mg Q96H PO Last administered on 08/26/18at 20: 02; Start 07/21/18 at 21:00 Phenytoin Sodium (Dilantin) 400 mg Q96H PO Last administered on 08/23/18at 19:36 ; Start 07/22/18 at 21:00 Phenytoin Sodium (Dilantin) 400 mg Q96H PO Last administered on 08/24/18at 20:37 ; Start 07/23/18 at 21:00 Phenytoin Sodium (Dilantin) 300 mg Q96H PO Last administered on 08/25/18at 20: 05; Start 07/24/18 at 21:00 Trazodone HCl (Desyrel) 50 mg QHS PO Last administered on 08/26/18at 20:01; Start 07/21/18 at 21:00 Trazodone HCl (Desyrel) 50 mg PRN QHS PRN PO insomnia Last administered on 08/19at 01:49; Start 07/21/18 at 20:00; Stop 08/19/18 at 20:08; Status DC Mirtazapine (Remeron) 7.5 mg QHS PO Last administered on 07/25/18at 19:40; Start 07/23/18 at 21:00; Stop 07/26/18 at 12:42; Status DC Sertraline HCl (Zoloft) 50 mg DAILY PO Last administered on 08/01/18at 08:40; Start 07/25/18 at 09:00; Stop 08/01/18 at 18:07; Status DC Mirtazapine (Remeron) 15 mg QHS PO Last administered on 08/26/18at 20:01; Start 07/26/18 at 21:00 Sertraline HCl (Zoloft) 75 mg DAILY PO Last administered on 08/06/18at 07:22; Start 08/02/18 at 09:00; Stop 08/06/18 at 17:52; Status DC Quetiapine Fumarate (SEROquel) 12.5 mg BIDWMEALS PO Last administered on at 08:39; Start 08/02/18 at 17:00; Stop 08/03/18 at 11:45; Status DC Quetiapine Fumarate (SEROquel) 12.5 mg TID@0900,1300,1700 PO Last administered on 08/08/18at 11:57; Start 08/03/18 at 13:00; Stop 08/08/18 at 17:05; Status DC Sertraline HCl (Zoloft) 100 mg DAILY PO Last administered on 08/09/18at 08:05; Start 08/07/18 at 09:00; Stop 08/09/18 at 11:22; Status DC Quetiapine Fumarate (SEROquel) 12.5 mg BID@0900,1300 PO Last administered on at 12:06; Start 08/09/18 at 09:00; Stop 08/26/18 at 18:03; Status DC Quetiapine Fumarate (SEROquel) 25 mg 1700 PO Last administered on 08/26/18at 17 :11; Start 08/09/18 at 17:00; Stop 08/26/18 at 18:03; Status DC Sertraline HCl (Zoloft) 125 mg DAILY PO Last administered on 08/10/18at 08:10; Start 08/10/18 at 09:00; Stop 08/10/18 at 17:23; Status DC Fluvoxamine Maleate (Luvox) 25 mg HS PO Last administered on 08/12/18at 19:40; Start 08/10/18 at 21:00; Stop 08/12/18 at 22:00; Status DC Fluvoxamine Maleate (Luvox) 50 mg HS PO Last administered on 08/15/18at 20:10; Start 08/13/18 at 21:00; Stop 08/15/18 at 23:00; Status DC Fluvoxamine Maleate (Luvox) 75 mg HS PO Last administered on 08/18/18at 19:52; Start 08/16/18 at 21:00; Stop 08/18/18 at 23:00; Status DC Melatonin 3 mg HS PO Last administered on 08/20/18at 19:19; Start 08/16/18 at 21 :00; Stop 08/21/18 at 16:59; Status DC Fluvoxamine Maleate (Luvox) 100 mg QHS PO Last administered on 08/26/18at 20:01 ; Start 08/19/18 at 21:00 Trazodone HCl (Desyrel) 100 mg PRN QHS PRN PO insomnia; Start 08/19/18 at 20:15 Olanzapine (ZyPREXA ZYDIS) 2.5 mg PRN Q2HR PRN PO PSYCHOSIS Last administered on 08/26/18at 20:02; Start 08/20/18 at 16:45 Melatonin 6 mg HS PO Last administered on 08/26/18at 20:02; Start 08/21/18 at 21:00 Quetiapine Fumarate (SEROquel) 12.5 mg DAILY PO ; Start 08/27/18 at 09:00 Quetiapine Fumarate (SEROquel) 25 mg BID@1300,1700 PO ; Start 08/27/18 at 13:00 Active Scripts Active Reported Dilantin (Phenytoin Sodium Extended) 100 Mg Capsule 400 Mg PO HS Ultra Coq10 (Ubiquinone) 75 Mg Capsule 200 Mg PO DAILY Lisinopril 10 Mg Tablet 10 Mg PO DAILY Vimpat (Lacosamide) 50 Mg Tablet 50 Mg PO BID Aspirin 81 Mg Tab.chew 81 Mg PO BID Simvastatin 80 Mg Tablet 80 Mg PO HS I have reviewed the current psychotropics carefully including drug interactions. Risk benefit ratio favors no change other than as noted in my dictated progress note. Diagnosis: Problems: (1) Anxiety disorder (2) Dementia in Alzheimer's disease with delusions (3) Dementia in Alzheimer's disease with depression (4) Dementia, vascular, with delusions (5) Dementia, vascular, with depression (6) Impulse control disorder LISHA KIRKPATRICK MD Aug 26, 2018 22:48
[2018-08-27] MEDS: traZODone 50 MG TABLET. PO PRN (00:16)
[2018-08-27 06:46] VITALS: BP 100/58
[2018-08-27] MEDS: LACOSAMIDE 50 MG TABLET PO SCH ×2 (07:49→19:34)
[2018-08-27] MEDS: UBIDECARENONE 50 MG CAPSULE. PO SCH (07:49)
[2018-08-27] MEDS: ASPIRIN 81 MG TAB.CHEW PO SCH ×2 (07:50→19:34)
[2018-08-27] MEDS: QUEtiapine 25 MG TABLET. PO SCH ×3 (07:51→17:19)
[2018-08-27] MEDS: LISINOPRIL 10 MG TABLET PO SCH (09:00)
--- NOTE | 2018-08-27 12:18 | PN ---
DATE: 08/26/2018 PSYCHIATRIC PROGRESS NOTE This late entry 08/26/2018 covers elements not covered in my initial note. SUBJECTIVE: I met with the patient in the evening. The patient slept 6 hours previous night. He remains confused towards the evening. He gets somewhat obsessive, anxious, wanting to leave, wanting the keys of his car, wanting to go meet his , but rest of the day is better and redirectable. REVIEW OF SYSTEMS: No CV, , pulmonary, eye, ENT system symptoms on review. Reliability poor. MENTAL STATUS EXAM: Oriented to himself. Insight, judgment, recent and remote memory, attention, concentration, fund of knowledge poor, consistent with his diagnosis mentioned in my initial note. PLAN: No change from initial note, but we will go ahead and increase the 1:00 p.m. Seroquel from 12.5 mg to 25 mg, continue 12.5 mg at 0900 hours and 1700 hours; Luvox 100 mg at bedtime; melatonin 6 mg at bedtime and he is on Dilantin, trazodone 50 at bedtime, Remeron 15 mg at bedtime. MAN Franklin KIRKPATRICK MD DR: DONATO/marya JOB#: [id number] / [id number]
[2018-08-27 15:59] VITALS: BP 123/72
[2018-08-27] MEDS: traZODone 50 MG TABLET. PO SCH (19:34)
[2018-08-27] MEDS: MELATONIN 3 MG TABLET PO SCH (19:34)
[2018-08-27] MEDS: MIRTAZAPINE 15 MG TABLET PO SCH (19:34)
[2018-08-27] MEDS: PHENYTOIN SODIUM EXTENDED 100 MG CAPSULE PO SCH (19:35)
[2018-08-27] MEDS: SIMVASTATIN 40 MG TABLET. PO SCH (19:35)
--- NOTE | 2018-08-27 22:59 | PDOC ---
Exam Note: Quintin Note: Please also refer to the separate dictated note~for this date of service dictated separately.~Patient seen individually. Discussed the patient with Nursing staff reviewed the chart.~Reviewed interim history and current functioning. Reviewed vital signs,~Labs/ Radiology~and current medications noted below. Continue current treatment with the changes noted in the dictated addendum note Assessment: Vital Signs: Vital Signs Date Time Temp Pulse Resp B/P (MAP) Pulse Ox O2 Delivery O2 Flow Rate FiO2 08/27/18 15:59 97.4 84 20 123/72 (89) 98 08/27/18 06:46 Room Air I&O Intake and Output 08/27/18 07:00 Intake Total 1560 ml Balance 1560 ml Intake Oral 1560 ml Current Medications: Meds: Current Medications Acetaminophen (Tylenol) 650 mg PRN Q6HRS PRN PO PAIN / TEMP; Start 07/20/18 at 23:15 Multi-Ingredient Ointment (Analgesic [place]) 1 erik PRN QID PRN TP MUSCLE PAIN; Start 07/20/18 at 23:15 Al Hydroxide/Mg Hydroxide (Mylanta Plus Xs) 15 ml PRN AFTMEALHC PRN PO DYSPEPSIA; Start 07/20/18 at 23:15 Magnesium Hydroxide (Milk Of Magnesia) 2,400 mg PRN QHS PRN PO CONSTIPATION; Start 07/20/18 at 23:15 Lacosamide (Vimpat) 50 mg BID PO Last administered on 08/27/18at 19:34; Start 07/21/18 at 09:00 Lisinopril (Prinivil) 10 mg DAILY PO Last administered on 08/26/18at 08:01; Start 07/21/18 at 09:00; Stop 08/27/18 at 11:07; Status DC Aspirin (Children'S Aspirin) 81 mg BID PO Last administered on 08/27/18at 19:34 ; Start 07/21/18 at 09:00 Simvastatin (Zocor) 80 mg QHS PO Last administered on 08/27/18at 19:35; Start 07/21/18 at 21:00 Coenzyme Q10 (Coenzyme Q10) 200 mg DAILY PO Last administered on 08/27/18at 07: 49; Start 07/21/18 at 19:00 Phenytoin Sodium (Dilantin) 400 mg Q96H PO Last administered on 08/26/18at 20: 02; Start 07/21/18 at 21:00 Phenytoin Sodium (Dilantin) 400 mg Q96H PO Last administered on 08/27/18at 19: 35; Start 07/22/18 at 21:00 Phenytoin Sodium (Dilantin) 400 mg Q96H PO Last administered on 08/24/18at 20:37 ; Start 07/23/18 at 21:00 Phenytoin Sodium (Dilantin) 300 mg Q96H PO Last administered on 08/25/18at 20: 05; Start 07/24/18 at 21:00 Trazodone HCl (Desyrel) 50 mg QHS PO Last administered on 08/27/18at 19:34; Start 07/21/18 at 21:00 Trazodone HCl (Desyrel) 50 mg PRN QHS PRN PO insomnia Last administered on 08/19at 01:49; Start 07/21/18 at 20:00; Stop 08/19/18 at 20:08; Status DC Mirtazapine (Remeron) 7.5 mg QHS PO Last administered on 07/25/18at 19:40; Start 07/23/18 at 21:00; Stop 07/26/18 at 12:42; Status DC Sertraline HCl (Zoloft) 50 mg DAILY PO Last administered on 08/01/18at 08:40; Start 07/25/18 at 09:00; Stop 08/01/18 at 18:07; Status DC Mirtazapine (Remeron) 15 mg QHS PO Last administered on 08/27/18at 19:34; Start 07/26/18 at 21:00 Sertraline HCl (Zoloft) 75 mg DAILY PO Last administered on 08/06/18at 07:22; Start 08/02/18 at 09:00; Stop 08/06/18 at 17:52; Status DC Quetiapine Fumarate (SEROquel) 12.5 mg BIDWMEALS PO Last administered on at 08:39; Start 08/02/18 at 17:00; Stop 08/03/18 at 11:45; Status DC Quetiapine Fumarate (SEROquel) 12.5 mg TID@0900,1300,1700 PO Last administered on 08/08/18at 11:57; Start 08/03/18 at 13:00; Stop 08/08/18 at 17:05; Status DC Sertraline HCl (Zoloft) 100 mg DAILY PO Last administered on 08/09/18at 08:05; Start 08/07/18 at 09:00; Stop 08/09/18 at 11:22; Status DC Quetiapine Fumarate (SEROquel) 12.5 mg BID@0900,1300 PO Last administered on at 12:06; Start 08/09/18 at 09:00; Stop 08/26/18 at 18:03; Status DC Quetiapine Fumarate (SEROquel) 25 mg 1700 PO Last administered on 08/26/18at 17 :11; Start 08/09/18 at 17:00; Stop 08/26/18 at 18:03; Status DC Sertraline HCl (Zoloft) 125 mg DAILY PO Last administered on 08/10/18at 08:10; Start 08/10/18 at 09:00; Stop 08/10/18 at 17:23; Status DC Fluvoxamine Maleate (Luvox) 25 mg HS PO Last administered on 08/12/18at 19:40; Start 08/10/18 at 21:00; Stop 08/12/18 at 22:00; Status DC Fluvoxamine Maleate (Luvox) 50 mg HS PO Last administered on 08/15/18at 20:10; Start 08/13/18 at 21:00; Stop 08/15/18 at 23:00; Status DC Fluvoxamine Maleate (Luvox) 75 mg HS PO Last administered on 08/18/18at 19:52; Start 08/16/18 at 21:00; Stop 08/18/18 at 23:00; Status DC Melatonin 3 mg HS PO Last administered on 08/20/18at 19:19; Start 08/16/18 at 21 :00; Stop 08/21/18 at 16:59; Status DC Fluvoxamine Maleate (Luvox) 100 mg QHS PO Last administered on 08/27/18at 19:34 ; Start 08/19/18 at 21:00 Trazodone HCl (Desyrel) 100 mg PRN QHS PRN PO insomnia Last administered on 10/02at 00:16; Start 08/19/18 at 20:15 Olanzapine (ZyPREXA ZYDIS) 2.5 mg PRN Q2HR PRN PO PSYCHOSIS Last administered on 08/27/18at 19:36; Start 08/20/18 at 16:45 Melatonin 6 mg HS PO Last administered on 08/27/18at 19:34; Start 08/21/18 at 21:00 Quetiapine Fumarate (SEROquel) 12.5 mg DAILY PO Last administered on at 07:51; Start 08/27/18 at 09:00 Quetiapine Fumarate (SEROquel) 25 mg BID@1300,1700 PO Last administered on 17:19; Start 08/27/18 at 13:00 Active Scripts Active Reported Dilantin (Phenytoin Sodium Extended) 100 Mg Capsule 400 Mg PO HS Ultra Coq10 (Ubiquinone) 75 Mg Capsule 200 Mg PO DAILY Lisinopril 10 Mg Tablet 10 Mg PO DAILY Vimpat (Lacosamide) 50 Mg Tablet 50 Mg PO BID Aspirin 81 Mg Tab.chew 81 Mg PO BID Simvastatin 80 Mg Tablet 80 Mg PO HS I have reviewed the current psychotropics carefully including drug interactions. Risk benefit ratio favors no change other than as noted in my dictated progress note. Diagnosis: Problems: (1) Anxiety disorder (2) Dementia in Alzheimer's disease with delusions (3) Dementia in Alzheimer's disease with depression (4) Dementia, vascular, with delusions (5) Dementia, vascular, with depression (6) Impulse control disorder LISHA KIRKPATRICK MD Aug 27, 2018 22:59
[2018-08-28] MEDS: ASPIRIN 81 MG TAB.CHEW PO SCH ×2 (08:07→19:31)
[2018-08-28] MEDS: QUEtiapine 25 MG TABLET. PO SCH ×3 (08:08→16:46)
[2018-08-28] MEDS: UBIDECARENONE 50 MG CAPSULE. PO SCH (08:08)
[2018-08-28] MEDS: LACOSAMIDE 50 MG TABLET PO SCH ×2 (08:09→19:33)
[2018-08-28 15:22] VITALS: BP 120/72
[2018-08-28] MEDS: LORazepam 2 MG/ML VIAL IM SCH (19:29)
[2018-08-28] MEDS: MIRTAZAPINE 15 MG TABLET PO SCH (19:30)
[2018-08-28] MEDS: HALOPERIDOL LACT 5 MG/ML VIAL. IM SCH (19:30)
[2018-08-28] MEDS: SIMVASTATIN 40 MG TABLET. PO SCH (19:30)
[2018-08-28] MEDS: MELATONIN 3 MG TABLET PO SCH (19:30)
[2018-08-28] MEDS: traZODone 50 MG TABLET. PO SCH (19:30)
[2018-08-28] MEDS: PHENYTOIN SODIUM EXTENDED 100 MG CAPSULE PO SCH (19:33)
--- NOTE | 2018-08-28 19:58 | PN ---
DATE: 08/27/2018 PSYCHIATRIC PROGRESS NOTE This late entry 08/27/2018 covers elements not covered in my initial note. SUBJECTIVE: I met with the patient in the early afternoon. The patient slept 5-1/2 hours previous night. He is somewhat dehydrated. BUN 46. I will defer to Dr. Godoy. Fluids are being pushed. We will be repeating labs morning of 08/28/2018. 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 Rest of the day, slightly better, less obsessive. REVIEW OF SYSTEMS: No CV, , pulmonary, eye, ENT system symptoms on review. Reliability poor. MENTAL STATUS EXAM: Oriented to himself. Insight, judgment, recent and remote memory, attention, concentration, fund of knowledge poor, consistent with his diagnosis. IMPRESSION: Major neurocognitive disorder, Alzheimer, vascular with delusion, depression, behavioral disturbance; anxiety disorder, unspecified; impulse control disorder, unspecified. PLAN: No change from a psychiatric standpoint. Defer medical management/dehydration management to Dr. Godoy/Dr. Puente. MAN Franklin KIRKPATRICK MD DR: DONATO/marya JOB#: [id number] / [id number]
[2018-08-28 22:24] LABS: BILIRUBIN,URINE NEG (NEG); CLARITY,URINE CLEAR; COLOR,URINE YELLOW; GLUCOSE,URINE NEG (NEG); NITRITE,URINE NEG (NEG); RBC,URINE RARE /HPF (0-2); UROBILINOGEN,URINE 0.2 mg/dL (0.2 mg/dL); WBC,URINE RARE /HPF (0-4)
[2018-08-28 22:25] LABS: BACTERIA,URINE 0 /HPF (0-FEW); HYALINE CASTS, URINE OCC /HPF; SQUAMOUS EPITHELIAL CELL,UR OCC /LPF
--- NOTE | 2018-08-28 22:39 | PDOC ---
Exam Note: Quintin Note: Please also refer to the separate dictated note~for this date of service dictated separately.~Patient seen individually. Discussed the patient with Nursing staff reviewed the chart.~Reviewed interim history and current functioning. Reviewed vital signs,~Labs/ Radiology~and current medications noted below. Continue current treatment with the changes noted in the dictated addendum note Assessment: Vital Signs: Vital Signs Date Time Temp Pulse Resp B/P (MAP) Pulse Ox O2 Delivery O2 Flow Rate FiO2 08/28/18 15:22 98.6 91 18 120/72 (88) 100 Room Air I&O Intake and Output 08/28/18 07:00 Intake Total 960 ml Balance 960 ml Intake Oral 960 ml # Voids 1 Labs: Laboratory Tests Test 08/28/18 22:00 Urine Collection Type Unknown Urine Color Yellow Urine Clarity Clear Urine pH 6.5 Urine Specific [place] 1.020 Urine Protein Trace (NEG-TRACE) Urine Glucose (UA) Neg mg/dL (NEG) Urine Ketones (Stick) Neg mg/dL (NEG) Urine Blood Neg (NEG) Urine Nitrite Neg (NEG) Urine Bilirubin Neg (NEG) Urine Urobilinogen Dipstick 0.2 mg/dL (0.2 mg/dL) Urine Leukocyte Esterase Neg (NEG) Urine RBC Rare /HPF (0-2) Urine WBC Rare /HPF (0-4) Urine Squamous Epithelial Cells Occ /LPF Urine Bacteria 0 /HPF (0-FEW) Urine Hyaline Casts Occ /HPF Current Medications: Meds: Current Medications Acetaminophen (Tylenol) 650 mg PRN Q6HRS PRN PO PAIN / TEMP; Start 07/20/18 at 23:15 Multi-Ingredient Ointment (Analgesic [place]) 1 erik PRN QID PRN TP MUSCLE PAIN; Start 07/20/18 at 23:15 Al Hydroxide/Mg Hydroxide (Mylanta Plus Xs) 15 ml PRN AFTMEALHC PRN PO DYSPEPSIA; Start 07/20/18 at 23:15 Magnesium Hydroxide (Milk Of Magnesia) 2,400 mg PRN QHS PRN PO CONSTIPATION; Start 07/20/18 at 23:15 Lacosamide (Vimpat) 50 mg BID PO Last administered on 08/28/18at 19:33; Start 07/21/18 at 09:00 Lisinopril (Prinivil) 10 mg DAILY PO Last administered on 08/26/18 08:01; Start 07/21/18 at 09:00; Stop 08/27/18 at 11:07; Status DC Aspirin (Children'S Aspirin) 81 mg BID PO Last administered on 08/28/18 19:31 ; Start 07/21/18 at 09:00 Simvastatin (Zocor) 80 mg QHS PO Last administered on 08/28/18 19:30; Start 07/21/18 at 21:00 Coenzyme Q10 (Coenzyme Q10) 200 mg DAILY PO Last administered on 08/28/18 08: 08; Start 07/21/18 at 19:00 Phenytoin Sodium (Dilantin) 400 mg Q96H PO Last administered on 08/26/18 20: 02; Start 07/21/18 at 21:00 Phenytoin Sodium (Dilantin) 400 mg Q96H PO Last administered on 08/27/18 19: 35; Start 07/22/18 at 21:00 Phenytoin Sodium (Dilantin) 400 mg Q96H PO Last administered on 08/28/18 19: 33; Start 07/23/18 at 21:00 Phenytoin Sodium (Dilantin) 300 mg Q96H PO Last administered on 08/25/18at 20: 05; Start 07/24/18 at 21:00 Trazodone HCl (Desyrel) 50 mg QHS PO Last administered on 08/28/18 19:30; Start 07/21/18 at 21:00 Trazodone HCl (Desyrel) 50 mg PRN QHS PRN PO insomnia Last administered on 08/19at 01:49; Start 07/21/18 at 20:00; Stop 08/19/18 at 20:08; Status DC Mirtazapine (Remeron) 7.5 mg QHS PO Last administered on 07/25/18 19:40; Start 07/23/18 at 21:00; Stop 07/26/18 at 12:42; Status DC Sertraline HCl (Zoloft) 50 mg DAILY PO Last administered on 08/01/18at 08:40; Start 07/25/18 at 09:00; Stop 08/01/18 at 18:07; Status DC Mirtazapine (Remeron) 15 mg QHS PO Last administered on 08/28/18at 19:30; Start 07/26/18 at 21:00 Sertraline HCl (Zoloft) 75 mg DAILY PO Last administered on 08/06/18at 07:22; Start 08/02/18 at 09:00; Stop 08/06/18 at 17:52; Status DC Quetiapine Fumarate (SEROquel) 12.5 mg BIDWMEALS PO Last administered on at 08:39; Start 08/02/18 at 17:00; Stop 08/03/18 at 11:45; Status DC Quetiapine Fumarate (SEROquel) 12.5 mg TID@0900,1300,1700 PO Last administered on 08/08/18at 11:57; Start 08/03/18 at 13:00; Stop 08/08/18 at 17:05; Status DC Sertraline HCl (Zoloft) 100 mg DAILY PO Last administered on 08/09/18at 08:05; Start 08/07/18 at 09:00; Stop 08/09/18 at 11:22; Status DC Quetiapine Fumarate (SEROquel) 12.5 mg BID@0900,1300 PO Last administered on at 12:06; Start 08/09/18 at 09:00; Stop 08/26/18 at 18:03; Status DC Quetiapine Fumarate (SEROquel) 25 mg 1700 PO Last administered on 08/26/18at 17 :11; Start 08/09/18 at 17:00; Stop 08/26/18 at 18:03; Status DC Sertraline HCl (Zoloft) 125 mg DAILY PO Last administered on 08/10/18at 08:10; Start 08/10/18 at 09:00; Stop 08/10/18 at 17:23; Status DC Fluvoxamine Maleate (Luvox) 25 mg HS PO Last administered on 08/12/18at 19:40; Start 08/10/18 at 21:00; Stop 08/12/18 at 22:00; Status DC Fluvoxamine Maleate (Luvox) 50 mg HS PO Last administered on 08/15/18at 20:10; Start 08/13/18 at 21:00; Stop 08/15/18 at 23:00; Status DC Fluvoxamine Maleate (Luvox) 75 mg HS PO Last administered on 08/18/18 19:52; Start 08/16/18 at 21:00; Stop 08/18/18 at 23:00; Status DC Melatonin 3 mg HS PO Last administered on 08/20/18 19:19; Start 08/16/18 at 21 :00; Stop 08/21/18 at 16:59; Status DC Fluvoxamine Maleate (Luvox) 100 mg QHS PO Last administered on 08/28/18 19:31 ; Start 08/19/18 at 21:00 Trazodone HCl (Desyrel) 100 mg PRN QHS PRN PO insomnia Last administered on 00:16; Start 08/19/18 at 20:15 Olanzapine (ZyPREXA ZYDIS) 2.5 mg PRN Q2HR PRN PO PSYCHOSIS Last administered on 08/28/18 15:32; Start 08/20/18 at 16:45 Melatonin 6 mg HS PO Last administered on 08/28/18 19:30; Start 08/21/18 at 21:00 Quetiapine Fumarate (SEROquel) 12.5 mg DAILY PO Last administered on 08:08; Start 08/27/18 at 09:00 Quetiapine Fumarate (SEROquel) 25 mg BID@1300,1700 PO Last administered on 17:19; Start 08/27/18 at 13:00 Haloperidol Lactate (Haldol) 5 mg DAILY IM Last administered on 08/28/18 19: 30; Start 08/28/18 at 17:30 Lorazepam (Ativan) 0.5 mg DAILY IM Last administered on 08/28/18 19:29; Start 08/28/18 at 17:30 Active Scripts Active Reported Dilantin (Phenytoin Sodium Extended) 100 Mg Capsule 400 Mg PO HS Ultra Coq10 (Ubiquinone) 75 Mg Capsule 200 Mg PO DAILY Lisinopril 10 Mg Tablet 10 Mg PO DAILY Vimpat (Lacosamide) 50 Mg Tablet 50 Mg PO BID Aspirin 81 Mg Tab.chew 81 Mg PO BID Simvastatin 80 Mg Tablet 80 Mg PO HS I have reviewed the current psychotropics carefully including drug interactions. Risk benefit ratio favors no change other than as noted in my dictated progress note. Diagnosis: Problems: (1) Anxiety disorder (2) Dementia in Alzheimer's disease with delusions (3) Dementia in Alzheimer's disease with depression (4) Dementia, vascular, with delusions (5) Dementia, vascular, with depression (6) Impulse control disorder LISHA KIRKPATRICK MD Aug 28, 2018 22:39
[2018-08-29 07:01] VITALS: BP 131/70
[2018-08-29] MEDS: LACOSAMIDE 50 MG TABLET PO SCH ×2 (08:14→19:21)
[2018-08-29] MEDS: ASPIRIN 81 MG TAB.CHEW PO SCH ×2 (08:15→19:17)
[2018-08-29] MEDS: QUEtiapine 25 MG TABLET. PO SCH ×4 (08:15→17:13)
[2018-08-29] MEDS: UBIDECARENONE 50 MG CAPSULE. PO SCH (08:15)
[2018-08-29] MEDS: HALOPERIDOL LACT 5 MG/ML VIAL. IM SCH (13:05)
[2018-08-29] MEDS: LORazepam 2 MG/ML VIAL IM SCH (13:06)
[2018-08-29 16:39] VITALS: BP 120/65
[2018-08-29] MEDS: MIRTAZAPINE 15 MG TABLET PO SCH (19:16)
[2018-08-29] MEDS: traZODone 50 MG TABLET. PO SCH (19:16)
[2018-08-29] MEDS: MELATONIN 3 MG TABLET PO SCH (19:16)
[2018-08-29] MEDS: SIMVASTATIN 40 MG TABLET. PO SCH (19:17)
[2018-08-29] MEDS: PHENYTOIN SODIUM EXTENDED 100 MG CAPSULE PO SCH (19:20)
--- NOTE | 2018-08-29 19:57 | PN ---
DATE: 08/28/2018 This is a late entry 08/28/2018 covers elements not covered in my initial note. PSYCHIATRIC PROGRESS NOTE This late entry 08/28/2018 covers elements not covered in my initial note. SUBJECTIVE: I met with the patient in the evening. The patient has had a very difficult day on 08/28/2018. He slept 4-1/2 hours previous night and has been increasingly agitated, received Zyprexa twice. At one point, he charged at the nursing staff, punched the door and bloodied his hand. Nursing staff called me as a stat emergency. He was refusing his psychotropics. Behaviors were deemed dangerous and would be considered initiating scheduled Haldol 5 mg IM and Ativan 0.5 mg daily. Nevertheless with some behavioral interventions, this was not necessary. He has refused his labs. We will check a UA to make sure UTI is not worsening his agitation. REVIEW OF SYSTEMS: No CV, , pulmonary, eye, ENT system symptoms on review. Reliability poor. MENTAL STATUS EXAM: Oriented to himself. Insight, judgment, recent and remote memory, attention, concentration, fund of knowledge poor, consistent with his diagnosis mentioned in my initial note. IMPRESSION: Major neurocognitive disorder, Alzheimer, vascular with delusion, depression, behavioral disturbance; anxiety disorder, unspecified; impulse control disorder, unspecified. PLAN: Continue current psychotropics with changes noted above. Check a UA. MAN Franklin KIRKPATRICK MD DR: DONATO/marya JOB#: [id number] / [id number]
--- NOTE | 2018-08-29 22:37 | PDOC ---
Exam Note: Quintin Note: Please also refer to the separate dictated note~for this date of service dictated separately.~Patient seen individually. Discussed the patient with Nursing staff reviewed the chart.~Reviewed interim history and current functioning. Reviewed vital signs,~Labs/ Radiology~and current medications noted below. Continue current treatment with the changes noted in the dictated addendum note Assessment: Vital Signs: Vital Signs Date Time Temp Pulse Resp B/P (MAP) Pulse Ox O2 Delivery O2 Flow Rate FiO2 08/29/18 16:39 98.7 87 18 120/65 (83) 97 Room Air I&O Intake and Output 08/29/18 07:00 Intake Total 480 ml Balance 480 ml Intake Oral 480 ml Current Medications: Meds: Current Medications Acetaminophen (Tylenol) 650 mg PRN Q6HRS PRN PO PAIN / TEMP; Start 07/20/18 at 23:15 Multi-Ingredient Ointment (Analgesic [place]) 1 erik PRN QID PRN TP MUSCLE PAIN; Start 07/20/18 at 23:15 Al Hydroxide/Mg Hydroxide (Mylanta Plus Xs) 15 ml PRN AFTMEALHC PRN PO DYSPEPSIA; Start 07/20/18 at 23:15 Magnesium Hydroxide (Milk Of Magnesia) 2,400 mg PRN QHS PRN PO CONSTIPATION; Start 07/20/18 at 23:15 Lacosamide (Vimpat) 50 mg BID PO Last administered on 08/29/18at 19:21; Start 07/21/18 at 09:00 Lisinopril (Prinivil) 10 mg DAILY PO Last administered on 08/26/18at 08:01; Start 07/21/18 at 09:00; Stop 08/27/18 at 11:07; Status DC Aspirin (Children'S Aspirin) 81 mg BID PO Last administered on 08/29/18 19:17 ; Start 07/21/18 at 09:00 Simvastatin (Zocor) 80 mg QHS PO Last administered on 08/29/18at 19:17; Start 07/21/18 at 21:00 Coenzyme Q10 (Coenzyme Q10) 200 mg DAILY PO Last administered on 08/29/18at 08: 15; Start 07/21/18 at 19:00 Phenytoin Sodium (Dilantin) 400 mg Q96H PO Last administered on 08/26/18at 20: 02; Start 07/21/18 at 21:00 Phenytoin Sodium (Dilantin) 400 mg Q96H PO Last administered on 08/27/18 19: 35; Start 07/22/18 at 21:00 Phenytoin Sodium (Dilantin) 400 mg Q96H PO Last administered on 08/28/18at 19: 33; Start 07/23/18 at 21:00 Phenytoin Sodium (Dilantin) 300 mg Q96H PO Last administered on 08/29/18 19: 20; Start 07/24/18 at 21:00 Trazodone HCl (Desyrel) 50 mg QHS PO Last administered on 08/29/18 19:16; Start 07/21/18 at 21:00 Trazodone HCl (Desyrel) 50 mg PRN QHS PRN PO insomnia Last administered on 08/19at 01:49; Start 07/21/18 at 20:00; Stop 08/19/18 at 20:08; Status DC Mirtazapine (Remeron) 7.5 mg QHS PO Last administered on 07/25/18at 19:40; Start 07/23/18 at 21:00; Stop 07/26/18 at 12:42; Status DC Sertraline HCl (Zoloft) 50 mg DAILY PO Last administered on 08/01/18at 08:40; Start 07/25/18 at 09:00; Stop 08/01/18 at 18:07; Status DC Mirtazapine (Remeron) 15 mg QHS PO Last administered on 08/29/18at 19:16; Start 07/26/18 at 21:00 Sertraline HCl (Zoloft) 75 mg DAILY PO Last administered on 08/06/18at 07:22; Start 08/02/18 at 09:00; Stop 08/06/18 at 17:52; Status DC Quetiapine Fumarate (SEROquel) 12.5 mg BIDWMEALS PO Last administered on at 08:39; Start 08/02/18 at 17:00; Stop 08/03/18 at 11:45; Status DC Quetiapine Fumarate (SEROquel) 12.5 mg TID@0900,1300,1700 PO Last administered on 08/08/18at 11:57; Start 08/03/18 at 13:00; Stop 08/08/18 at 17:05; Status DC Sertraline HCl (Zoloft) 100 mg DAILY PO Last administered on 08/09/18at 08:05; Start 08/07/18 at 09:00; Stop 08/09/18 at 11:22; Status DC Quetiapine Fumarate (SEROquel) 12.5 mg BID@0900,1300 PO Last administered on at 12:06; Start 08/09/18 at 09:00; Stop 08/26/18 at 18:03; Status DC Quetiapine Fumarate (SEROquel) 25 mg 1700 PO Last administered on 08/26/18at 17 :11; Start 08/09/18 at 17:00; Stop 08/26/18 at 18:03; Status DC Sertraline HCl (Zoloft) 125 mg DAILY PO Last administered on 08/10/18at 08:10; Start 08/10/18 at 09:00; Stop 08/10/18 at 17:23; Status DC Fluvoxamine Maleate (Luvox) 25 mg HS PO Last administered on 08/12/18at 19:40; Start 08/10/18 at 21:00; Stop 08/12/18 at 22:00; Status DC Fluvoxamine Maleate (Luvox) 50 mg HS PO Last administered on 08/15/18at 20:10; Start 08/13/18 at 21:00; Stop 08/15/18 at 23:00; Status DC Fluvoxamine Maleate (Luvox) 75 mg HS PO Last administered on 08/18/18at 19:52; Start 08/16/18 at 21:00; Stop 08/18/18 at 23:00; Status DC Melatonin 3 mg HS PO Last administered on 08/20/18at 19:19; Start 08/16/18 at 21 :00; Stop 08/21/18 at 16:59; Status DC Fluvoxamine Maleate (Luvox) 100 mg QHS PO Last administered on 08/29/18at 19:16 ; Start 08/19/18 at 21:00 Trazodone HCl (Desyrel) 100 mg PRN QHS PRN PO insomnia Last administered on 10/02at 00:16; Start 08/19/18 at 20:15 Olanzapine (ZyPREXA ZYDIS) 2.5 mg PRN Q2HR PRN PO PSYCHOSIS Last administered on 08/28/18at 15:32; Start 08/20/18 at 16:45 Melatonin 6 mg HS PO Last administered on 08/29/18 19:16; Start 08/21/18 at 21:00 Quetiapine Fumarate (SEROquel) 12.5 mg DAILY PO Last administered on at 08:15; Start 08/27/18 at 09:00; Stop 08/29/18 at 17:07; Status DC Quetiapine Fumarate (SEROquel) 25 mg BID@1300,1700 PO Last administered on 17:13; Start 08/27/18 at 13:00 Haloperidol Lactate (Haldol) 5 mg DAILY IM Last administered on 08/29/18at 13: 05; Start 08/28/18 at 17:30 Lorazepam (Ativan) 0.5 mg DAILY IM Last administered on 08/29/18at 13:06; Start 08/28/18 at 17:30 Quetiapine Fumarate (SEROquel) 25 mg DAILY PO ; Start 08/30/18 at 09:00 Active Scripts Active Reported Dilantin (Phenytoin Sodium Extended) 100 Mg Capsule 400 Mg PO HS Ultra Coq10 (Ubiquinone) 75 Mg Capsule 200 Mg PO DAILY Lisinopril 10 Mg Tablet 10 Mg PO DAILY Vimpat (Lacosamide) 50 Mg Tablet 50 Mg PO BID Aspirin 81 Mg Tab.chew 81 Mg PO BID Simvastatin 80 Mg Tablet 80 Mg PO HS I have reviewed the current psychotropics carefully including drug interactions. Risk benefit ratio favors no change other than as noted in my dictated progress note. Diagnosis: Problems: (1) Anxiety disorder (2) Dementia in Alzheimer's disease with delusions (3) Dementia in Alzheimer's disease with depression (4) Dementia, vascular, with delusions (5) Dementia, vascular, with depression (6) Impulse control disorder LISHA KIRKPATRICK MD Aug 29, 2018 22:37
[2018-08-30 05:56] VITALS: BP 126/85
[2018-08-30] MEDS: HALOPERIDOL LACT 5 MG/ML VIAL. IM SCH (07:33)
[2018-08-30] MEDS: LORazepam 2 MG/ML VIAL IM SCH (07:33)
[2018-08-30] MEDS: UBIDECARENONE 50 MG CAPSULE. PO SCH ×2 (09:00→10:38)
[2018-08-30] MEDS: ASPIRIN 81 MG TAB.CHEW PO SCH ×2 (10:38→19:21)
[2018-08-30] MEDS: LACOSAMIDE 50 MG TABLET PO SCH ×2 (10:38→19:20)
[2018-08-30] MEDS: QUEtiapine 25 MG TABLET. PO SCH ×3 (10:42→17:15)
[2018-08-30 15:52] VITALS: BP 124/71
[2018-08-30] MEDS: MIRTAZAPINE 15 MG TABLET PO SCH (19:20)
[2018-08-30] MEDS: traZODone 50 MG TABLET. PO SCH (19:20)
[2018-08-30] MEDS: MELATONIN 3 MG TABLET PO SCH (19:21)
[2018-08-30] MEDS: SIMVASTATIN 40 MG TABLET. PO SCH (19:23)
[2018-08-30] MEDS: PHENYTOIN SODIUM EXTENDED 100 MG CAPSULE PO SCH (19:24)
--- NOTE | 2018-08-30 22:52 | PDOC ---
Exam Note: Quintin Note: Please also refer to the separate dictated note~for this date of service dictated separately.~Patient seen individually. Discussed the patient with Nursing staff reviewed the chart.~Reviewed interim history and current functioning. Reviewed vital signs,~Labs/ Radiology~and current medications noted below. Continue current treatment with the changes noted in the dictated addendum note Assessment: Vital Signs: Vital Signs Date Time Temp Pulse Resp B/P (MAP) Pulse Ox O2 Delivery O2 Flow Rate FiO2 08/30/18 15:52 99.2 91 18 124/71 (88) 98 Room Air I&O Intake and Output 08/30/18 07:00 Intake Total 720 ml Balance 720 ml Intake Oral 720 ml Current Medications: Meds: Current Medications Acetaminophen (Tylenol) 650 mg PRN Q6HRS PRN PO PAIN / TEMP; Start 07/20/18 at 23:15 Multi-Ingredient Ointment (Analgesic [place]) 1 erik PRN QID PRN TP MUSCLE PAIN; Start 07/20/18 at 23:15 Al Hydroxide/Mg Hydroxide (Mylanta Plus Xs) 15 ml PRN AFTMEALHC PRN PO DYSPEPSIA; Start 07/20/18 at 23:15 Magnesium Hydroxide (Milk Of Magnesia) 2,400 mg PRN QHS PRN PO CONSTIPATION; Start 07/20/18 at 23:15 Lacosamide (Vimpat) 50 mg BID PO Last administered on 08/30/18at 19:20; Start 07/21/18 at 09:00 Lisinopril (Prinivil) 10 mg DAILY PO Last administered on 08/26/18at 08:01; Start 07/21/18 at 09:00; Stop 08/27/18 at 11:07; Status DC Aspirin (Children'S Aspirin) 81 mg BID PO Last administered on 08/30/18 19:21 ; Start 07/21/18 at 09:00 Simvastatin (Zocor) 80 mg QHS PO Last administered on 08/30/18at 19:23; Start 07/21/18 at 21:00 Coenzyme Q10 (Coenzyme Q10) 200 mg DAILY PO Last administered on 08/29/18at 08: 15; Start 07/21/18 at 19:00 Phenytoin Sodium (Dilantin) 400 mg Q96H PO Last administered on 08/30/18at 19: 24; Start 07/21/18 at 21:00 Phenytoin Sodium (Dilantin) 400 mg Q96H PO Last administered on 08/27/18 19: 35; Start 07/22/18 at 21:00 Phenytoin Sodium (Dilantin) 400 mg Q96H PO Last administered on 08/28/18at 19: 33; Start 07/23/18 at 21:00 Phenytoin Sodium (Dilantin) 300 mg Q96H PO Last administered on 08/29/18 19: 20; Start 07/24/18 at 21:00 Trazodone HCl (Desyrel) 50 mg QHS PO Last administered on 08/30/18 19:20; Start 07/21/18 at 21:00 Trazodone HCl (Desyrel) 50 mg PRN QHS PRN PO insomnia Last administered on 08/19at 01:49; Start 07/21/18 at 20:00; Stop 08/19/18 at 20:08; Status DC Mirtazapine (Remeron) 7.5 mg QHS PO Last administered on 07/25/18at 19:40; Start 07/23/18 at 21:00; Stop 07/26/18 at 12:42; Status DC Sertraline HCl (Zoloft) 50 mg DAILY PO Last administered on 08/01/18at 08:40; Start 07/25/18 at 09:00; Stop 08/01/18 at 18:07; Status DC Mirtazapine (Remeron) 15 mg QHS PO Last administered on 08/30/18at 19:20; Start 07/26/18 at 21:00 Sertraline HCl (Zoloft) 75 mg DAILY PO Last administered on 08/06/18at 07:22; Start 08/02/18 at 09:00; Stop 08/06/18 at 17:52; Status DC Quetiapine Fumarate (SEROquel) 12.5 mg BIDWMEALS PO Last administered on at 08:39; Start 08/02/18 at 17:00; Stop 08/03/18 at 11:45; Status DC Quetiapine Fumarate (SEROquel) 12.5 mg TID@0900,1300,1700 PO Last administered on 08/08/18at 11:57; Start 08/03/18 at 13:00; Stop 08/08/18 at 17:05; Status DC Sertraline HCl (Zoloft) 100 mg DAILY PO Last administered on 08/09/18at 08:05; Start 08/07/18 at 09:00; Stop 08/09/18 at 11:22; Status DC Quetiapine Fumarate (SEROquel) 12.5 mg BID@0900,1300 PO Last administered on at 12:06; Start 08/09/18 at 09:00; Stop 08/26/18 at 18:03; Status DC Quetiapine Fumarate (SEROquel) 25 mg 1700 PO Last administered on 08/26/18at 17 :11; Start 08/09/18 at 17:00; Stop 08/26/18 at 18:03; Status DC Sertraline HCl (Zoloft) 125 mg DAILY PO Last administered on 08/10/18at 08:10; Start 08/10/18 at 09:00; Stop 08/10/18 at 17:23; Status DC Fluvoxamine Maleate (Luvox) 25 mg HS PO Last administered on 08/12/18at 19:40; Start 08/10/18 at 21:00; Stop 08/12/18 at 22:00; Status DC Fluvoxamine Maleate (Luvox) 50 mg HS PO Last administered on 08/15/18at 20:10; Start 08/13/18 at 21:00; Stop 08/15/18 at 23:00; Status DC Fluvoxamine Maleate (Luvox) 75 mg HS PO Last administered on 08/18/18at 19:52; Start 08/16/18 at 21:00; Stop 08/18/18 at 23:00; Status DC Melatonin 3 mg HS PO Last administered on 08/20/18at 19:19; Start 08/16/18 at 21 :00; Stop 08/21/18 at 16:59; Status DC Fluvoxamine Maleate (Luvox) 100 mg QHS PO Last administered on 08/30/18at 19:20 ; Start 08/19/18 at 21:00 Trazodone HCl (Desyrel) 100 mg PRN QHS PRN PO insomnia Last administered on 00:16; Start 08/19/18 at 20:15 Olanzapine (ZyPREXA ZYDIS) 2.5 mg PRN Q2HR PRN PO PSYCHOSIS Last administered on 08/30/18 04:28; Start 08/20/18 at 16:45 Melatonin 6 mg HS PO Last administered on 08/30/18 19:21; Start 08/21/18 at 21:00 Quetiapine Fumarate (SEROquel) 12.5 mg DAILY PO Last administered on at 08:15; Start 08/27/18 at 09:00; Stop 08/29/18 at 17:07; Status DC Quetiapine Fumarate (SEROquel) 25 mg BID@1300,1700 PO Last administered on 17:15; Start 08/27/18 at 13:00 Haloperidol Lactate (Haldol) 5 mg DAILY IM Last administered on 08/30/18 07: 33; Start 08/28/18 at 17:30 Lorazepam (Ativan) 0.5 mg DAILY IM Last administered on 08/30/18 07:33; Start 08/28/18 at 17:30 Quetiapine Fumarate (SEROquel) 25 mg DAILY PO Last administered on 08/30/18at 10:42; Start 08/30/18 at 09:00 Active Scripts Active Reported Dilantin (Phenytoin Sodium Extended) 100 Mg Capsule 400 Mg PO HS Ultra Coq10 (Ubiquinone) 75 Mg Capsule 200 Mg PO DAILY Lisinopril 10 Mg Tablet 10 Mg PO DAILY Vimpat (Lacosamide) 50 Mg Tablet 50 Mg PO BID Aspirin 81 Mg Tab.chew 81 Mg PO BID Simvastatin 80 Mg Tablet 80 Mg PO HS I have reviewed the current psychotropics carefully including drug interactions. Risk benefit ratio favors no change other than as noted in my dictated progress note. Diagnosis: Problems: (1) Anxiety disorder (2) Dementia in Alzheimer's disease with delusions (3) Dementia in Alzheimer's disease with depression (4) Dementia, vascular, with delusions (5) Dementia, vascular, with depression (6) Impulse control disorder LISHA KIRKPATRICK MD Aug 30, 2018 22:52
[2018-08-31] MEDS: traZODone 50 MG TABLET. PO PRN (01:50)
[2018-08-31 05:47] VITALS: BP 157/80
--- NOTE | 2018-08-31 07:04 | PN ---
DATE: 08/29/2018 PSYCHIATRIC PROGRESS NOTE This is a late entry 08/29/2018 covers elements not covered in my initial note. SUBJECTIVE: I met with the patient in the evening. The patient slept 5-1/4 hours previous night. He has been agitated all day, anxious, restless, worse in the evening, received Zyprexa around 3:00 p.m. 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 I attempted to process this with him at some length individually with limited response due to his dementia. REVIEW OF SYSTEMS: No CV, , pulmonary, eye, ENT system symptoms on review. Reliability poor. MENTAL STATUS EXAM: Oriented to himself. Insight, judgment, recent and remote memory, attention, concentration, fund of knowledge poor, consistent with his diagnosis mentioned in my initial note. PLAN: No change from initial note, but we will go ahead and increase the Seroquel from 12.5 mg b.i.d. and 25 mg at bedtime to 25 mg 3 times a day. Rest unchanged. MAN RubyHailee KIRKPATRICK MD DR: DONATO/marya JOB#: [id number] / [id number]
--- NOTE | 2018-08-31 07:20 | PN ---
DATE: 08/30/2018 Psychiatric Progress Note This late entry 08/30/2018 covers elements not covered in my initial note. SUBJECTIVE: The patient was staffed with the entire treatment team morning of 08/30/2018. The patient's , Lizeth attended this conference. He was seen individually in the evening. The patient slept 4-3/4 hours previous night. 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 raised a question whether the patient might have had another TIA, accounting for the worsening of his above symptoms as he has had one in the past. We will consult Dr. Sandhu, Neurology, for clarification. We will also check a UA to make sure recurrent UTIs is not worsening his confusion, agitation, and psychosis. REVIEW OF SYSTEMS: No CV, , pulmonary, eye, ENT system symptoms on review. Reliability poor. MENTAL STATUS EXAMINATION: Oriented to himself. Insight, judgment, recent and remote memory, attention, concentration, fund of knowledge poor, consistent with his diagnosis mentioned in my initial note. PLAN: Changes to initial note are Neurology consult, Dr. Sandhu for rule out TIA, check UA for UTI. Rest unchanged from initial note. MAN Franklin KIRKPATRICK MD DR: DONATO/marya JOB#: [id number] / [id number]
[2018-08-31] MEDS: QUEtiapine 25 MG TABLET. PO SCH ×3 (10:05→17:16)
[2018-08-31] MEDS: UBIDECARENONE 50 MG CAPSULE. PO SCH (10:05)
[2018-08-31] MEDS: LACOSAMIDE 50 MG TABLET PO SCH ×2 (10:05→19:36)
[2018-08-31] MEDS: ASPIRIN 81 MG TAB.CHEW PO SCH ×2 (10:05→19:37)
[2018-08-31] MEDS: LORazepam 2 MG/ML VIAL IM SCH (11:30)
[2018-08-31] MEDS: HALOPERIDOL LACT 5 MG/ML VIAL. IM SCH (11:30)
[2018-08-31 12:07] LABS: BACTERIA,URINE 0 /HPF (0-FEW); BILIRUBIN,URINE NEG (NEG); CLARITY,URINE CLEAR; COLOR,URINE YELLOW; GLUCOSE,URINE NEG (NEG); NITRITE,URINE NEG (NEG); RBC,URINE 0 /HPF (0-2); SQUAMOUS EPITHELIAL CELL,UR OCC /LPF; UROBILINOGEN,URINE 0.2 mg/dL (0.2 mg/dL)
[2018-08-31 15:50] VITALS: BP 143/63
[2018-08-31] MEDS: MELATONIN 3 MG TABLET PO SCH (19:34)
[2018-08-31] MEDS: MIRTAZAPINE 15 MG TABLET PO SCH (19:34)
[2018-08-31] MEDS: traZODone 50 MG TABLET. PO SCH (19:34)
[2018-08-31] MEDS: SIMVASTATIN 40 MG TABLET. PO SCH (19:35)
[2018-08-31] MEDS: PHENYTOIN SODIUM EXTENDED 100 MG CAPSULE PO SCH (19:38)
--- NOTE | 2018-09-01 00:14 | PN ---
DATE: 08/31/2018 SUBJECTIVE: The patient was seen today and also covering for Dr. Vasquez. Staff reports that recently received Haldol IM because of increased agitation, wandering, unable to take care of his needs and also paranoia including accusing his of poisoning him and having an affair. OBSERVATION: VITAL SIGNS: Temperature 98.5, blood pressure 157/80, pulse 86, respirations 20, O2 sat 98%. GENERAL: The patient slept about 6 hours last night. His appetite is fair. MEDICATIONS: Reviewed, currently on Seroquel 25 mg daily, lorazepam 0.5 mg daily, IM Haldol 5 mg daily, IM Seroquel 25 mg b.i.d. p.o., melatonin 6 mg at night, olanzapine 2.5 mg q. 2 hours p.r.n., fluvoxamine 100 mg at night, trazodone 100 mg at night p.r.n., mirtazapine 15 mg at night, Dilantin 200 mg at night, phenytoin sodium 400 mg at night and phenytoin sodium 400 mg q. ____ p.o., trazodone 50 mg at night. LABORATORY DATA: The patient's lab reviewed, which were all within normal range. The patient's phenytoin level was 13.4 on 08/01/2018. The patient's participation is minimal. ASSESSMENT: 1. Major neurocognitive disorder, Alzheimer's, vascular with delusion, depression and behavioral disturbances. 2. Anxiety disorder, unspecified. 3. Impulse control disorder, unspecified, also history of seizure disorder. PLAN: To continue with the treatment. The patient will be encouraged to attend all the activities. RAMIN SHAH MD DR: TATUM/marya JOB#: [id number] / [id number]
[2018-09-01 05:00] VITALS: BP 134/77
[2018-09-01] MEDS: UBIDECARENONE 50 MG CAPSULE. PO SCH (07:48)
[2018-09-01] MEDS: LACOSAMIDE 50 MG TABLET PO SCH ×2 (07:49→19:53)
[2018-09-01] MEDS: ASPIRIN 81 MG TAB.CHEW PO SCH ×2 (07:49→19:53)
[2018-09-01] MEDS: QUEtiapine 25 MG TABLET. PO SCH ×3 (07:49→16:56)
[2018-09-01] MEDS: HALOPERIDOL LACT 5 MG/ML VIAL. IM SCH (09:27)
[2018-09-01] MEDS: LORazepam 2 MG/ML VIAL IM SCH (09:27)
[2018-09-01 10:53] LABS: BASO % 1 % (0-3); EOS # 0.1 x10^3/uL (0.0-0.7); EOS % 3 % (0-3); HEMATOCRIT 30.7 % (39.0-53.0); HEMOGLOBIN 10.3 g/dL (13.0-17.5); LYMPH # 0.9 x10^3/uL (1.0-4.8); LYMPH % 20 % (24-48); MEAN CORPUSCULAR HEMOGLOBIN 33 pg (25-35); MEAN CORPUSCULAR HGB CONC 34 g/dL (31-37); MEAN CORPUSCULAR VOLUME 97 fL (79-100); MONO # 0.5 x10^3/uL (0.0-1.1); MONO % 12 % (0-9); NEUT % 65 % (31-73); PLATELET COUNT 295 x10^3/uL (140-400); RED BLOOD COUNT 3.17 x10^6/uL (4.30-5.70); RED CELL DISTRIBUTION WIDTH 14.2 % (11.5-14.5); WHITE BLOOD COUNT 4.6 x10^3/uL (4.0-11.0)
[2018-09-01 11:05] LABS: ALBUMIN 3.2 g/dL (3.4-5.0); ALBUMIN/GLOBULIN RATIO 0.9 (1.0-1.7); CALCIUM 8.6 mg/dL (8.5-10.1); CREATININE 1.1 mg/dL (0.7-1.3); GFR 64.6; POTASSIUM 4.7 mmol/L (3.5-5.1); TOTAL BILIRUBIN 0.2 mg/dL (0.2-1.0); TOTAL PROTEIN 6.8 g/dL (6.4-8.2)
[2018-09-01 15:25] VITALS: BP 136/79
[2018-09-01] MEDS: MELATONIN 3 MG TABLET PO SCH (19:52)
[2018-09-01] MEDS: MIRTAZAPINE 15 MG TABLET PO SCH (19:52)
[2018-09-01] MEDS: SIMVASTATIN 40 MG TABLET. PO SCH (19:52)
[2018-09-01] MEDS: PHENYTOIN SODIUM EXTENDED 100 MG CAPSULE PO SCH (19:52)
[2018-09-01] MEDS: traZODone 50 MG TABLET. PO SCH ×2 (19:53→21:38)
[2018-09-01] MEDS: traZODone 50 MG TABLET. PO PRN (21:38)
--- NOTE | 2018-09-02 02:35 | PN ---
DATE: 09/01/2018 SUBJECTIVE: The patient was seen today, met with the staff, chart reviewed. Staff reports no major events. He is still showing increased agitation, restlessness, wandering, inability to take care of his needs and also paranoia. OBSERVATION: VITAL SIGNS: Temperature 97.8, blood pressure 134/77, pulse 74, respirations 16, and O2 sat 98%. The patient slept about 6 hours last night. The patient's appetite is fair. MEDICATIONS: The patient's medications and labs reviewed. The patient currently not presenting with any major side effects. The patient is apparently getting Haldol 5 mg daily IM and also lorazepam 0.5 mg daily IM. The patient has been refusing to take his oral medications. We will consider switching to Seroquel single dose at night or higher dose or is allowed to take at any time as long as he can take it by mouth, so that to avoid the IM injections. The patient is also on trazodone 100 mg at night p.r.n., but usually does not take them and also mirtazapine 15 mg at night. The patient is also on Dilantin ____ at night. The patient's Dilantin level was 13.4. ASSESSMENT: 1. Major neurocognitive disorder, Alzheimer's, vascular with delusions, depression, and behavioral disturbances. 2. Anxiety disorder, unspecified. 3. Impulse control disorder, unspecified. PLAN: To continue with the current treatment. RAMIN SHAH MD DR: TATUM/marya JOB#: [id number] / [id number]
[2018-09-02 05:13] VITALS: BP 149/76
[2018-09-02] MEDS: ASPIRIN 81 MG TAB.CHEW PO SCH ×2 (07:52→19:10)
[2018-09-02] MEDS: QUEtiapine 25 MG TABLET. PO SCH ×3 (07:52→16:40)
[2018-09-02] MEDS: LACOSAMIDE 50 MG TABLET PO SCH ×2 (07:52→19:10)
[2018-09-02] MEDS: LORazepam 2 MG/ML VIAL IM SCH (07:53)
[2018-09-02] MEDS: HALOPERIDOL LACT 5 MG/ML VIAL. IM SCH (07:54)
[2018-09-02] MEDS: UBIDECARENONE 50 MG CAPSULE. PO SCH (09:00)
[2018-09-02 16:56] VITALS: BP 159/89
[2018-09-02] MEDS: SIMVASTATIN 40 MG TABLET. PO SCH (19:10)
[2018-09-02] MEDS: MIRTAZAPINE 15 MG TABLET PO SCH (19:10)
[2018-09-02] MEDS: MELATONIN 3 MG TABLET PO SCH (19:10)
[2018-09-02] MEDS: traZODone 50 MG TABLET. PO SCH (19:12)
[2018-09-02] MEDS: PHENYTOIN SODIUM EXTENDED 100 MG CAPSULE PO SCH (19:14)
--- NOTE | 2018-09-02 19:23 | PN ---
DATE: 09/02/2018 SUBJECTIVE: The patient was seen today, met with the staff, chart reviewed. The patient's behavior remains the same, still periods of agitation, restlessness, needing assistance with ADLs. OBSERVATION: VITAL SIGNS: Temperature 98.9, blood pressure 149/76, pulse 85, respirations 20, and O2 sat is 96%. Slept about 3 hours last night. CURRENT MEDICATIONS: The patient's medications reviewed. The patient is not having any side effects to the medications, not presenting with any major medical issues. The patient continues to be on IM Haldol 5 mg and lorazepam 0.5 mg IM daily. The patient has been refusing to take the medications, resistive to care. The patient will be considered for Seroquel if the behavior continues to worsen. The patient is also on trazodone, on mirtazapine and Dilantin. ASSESSMENT: 1. Major neurocognitive disorder, Alzheimer's, vascular with delusions, depression, and behavioral disturbances. 2. Anxiety disorder, unspecified. 3. Impulse control disorder, unspecified. RAMIN SHAH MD DR: TATUM/marya JOB#: [id number] / [id number]
[2018-09-02] MEDS: traZODone 50 MG TABLET. PO PRN (20:32)
[2018-09-03 06:19] VITALS: BP 118/55
[2018-09-03] MEDS: QUEtiapine 25 MG TABLET. PO SCH ×3 (08:56→16:55)
[2018-09-03] MEDS: ASPIRIN 81 MG TAB.CHEW PO SCH ×2 (08:56→20:22)
[2018-09-03] MEDS: UBIDECARENONE 50 MG CAPSULE. PO SCH (08:56)
[2018-09-03] MEDS: HALOPERIDOL LACT 5 MG/ML VIAL. IM SCH (08:57)
[2018-09-03] MEDS: LACOSAMIDE 50 MG TABLET PO SCH ×2 (08:58→20:22)
[2018-09-03] MEDS: LORazepam 2 MG/ML VIAL IM SCH (08:59)
[2018-09-03 15:59] VITALS: BP 124/86
[2018-09-03] MEDS: traZODone 50 MG TABLET. PO SCH (20:22)
[2018-09-03] MEDS: MIRTAZAPINE 15 MG TABLET PO SCH (20:22)
[2018-09-03] MEDS: SIMVASTATIN 40 MG TABLET. PO SCH (20:23)
[2018-09-03] MEDS: MELATONIN 3 MG TABLET PO SCH (20:23)
[2018-09-03] MEDS: PHENYTOIN SODIUM EXTENDED 100 MG CAPSULE PO SCH (20:26)
--- NOTE | 2018-09-03 23:38 | PN ---
DATE: 09/03/2018 SUBJECTIVE: The patient was seen today, met with the staff, chart reviewed. The patient continues to exhibit behavior problems. Apparently become angry, upset this afternoon. Also, restless, pacing constantly, needing assistance with ADLs. OBSERVATION: VITAL SIGNS: Temperature 98.57, blood pressure 118/55, pulse 87, respiration 18, and O2 sat 93%. Slept about 7 hours last night. CURRENT MEDICATIONS: The patient's medications reviewed. LABORATOR?Y DATA: The patient's lab reviewed. The patient is not having any major side effects from the medications. Still noncompliant with the treatment. ASSESSMENT: 1. Major neurocognitive disorder, Alzheimer's, vascular with delusions, depression and behavioral disturbances. 2. Anxiety disorder, unspecified. 3. Impulse control disorder, unspecified. PLAN: To continue with the treatment. The patient's behavior fluctuates. RAMIN SHAH MD DR: TATUM/marya JOB#: [id number] / [id number]
[2018-09-04 05:04] VITALS: BP 124/77
[2018-09-04] MEDS: QUEtiapine 25 MG TABLET. PO SCH ×3 (07:31→17:02)
[2018-09-04] MEDS: ASPIRIN 81 MG TAB.CHEW PO SCH ×2 (07:31→19:28)
[2018-09-04] MEDS: UBIDECARENONE 50 MG CAPSULE. PO SCH (07:31)
[2018-09-04] MEDS: LACOSAMIDE 50 MG TABLET PO SCH ×2 (07:31→19:28)
[2018-09-04] MEDS: HALOPERIDOL LACT 5 MG/ML VIAL. IM SCH (07:32)
[2018-09-04] MEDS: LORazepam 2 MG/ML VIAL IM SCH (10:52)
[2018-09-04 15:53] VITALS: BP 135/72
[2018-09-04] MEDS: traZODone 50 MG TABLET. PO SCH (19:28)
[2018-09-04] MEDS: MIRTAZAPINE 15 MG TABLET PO SCH (19:28)
[2018-09-04] MEDS: MELATONIN 3 MG TABLET PO SCH (19:28)
[2018-09-04] MEDS: SIMVASTATIN 40 MG TABLET. PO SCH (19:28)
[2018-09-04] MEDS: PHENYTOIN SODIUM EXTENDED 100 MG CAPSULE PO SCH (19:30)
--- NOTE | 2018-09-04 23:43 | PN ---
DATE: 09/04/2018 SUBJECTIVE: The patient was seen today, met with the staff, chart reviewed. The patient apparently has not shown any major behavior problems. OBSERVATION: VITAL SIGNS: Temperature 98.7, blood pressure 124/77, pulse 83, respirations 20, O2 sat 98%. GENERAL: Slept about 5 hours last night. The patient continues to have mood swings, irritability, angry outburst, but lately has been sleeping more often. MEDICATIONS: The patient's current medications include Seroquel 25 mg daily, lorazepam 0.5 mg daily, IM Haldol 5 mg daily, IM Seroquel 25 mg b.i.d. p.o., melatonin 6 mg at night, olanzapine 2.5 mg p.r.n. q. 2 hours, trazodone 100 mg p.r.n. at night, mirtazapine 15 mg at night. The patient is also on phenytoin sodium. The patient apparently has been refusing his medications most of the time and has been given the daily injections. The patient apparently is sleeping more than usual. ASSESSMENT: 1. Major neurocognitive disorder, Alzheimer's, vascular with delusions, depression and behavioral disturbances. 2. Anxiety disorder, unspecified. 3. Impulse control disorder, unspecified. PLANS: The patient will continue on the Haldol increased to 10 mg p.o. and daily. If the patient refuses, he will be given 5 mg of Haldol IM. The patient will be taken off IM Ativan and will continue all other medications. Plan is to continue with the treatment. RAMIN SHAH MD DR: TATUM/marya JOB#: [id number] / [id number]
[2018-09-05 05:23] VITALS: BP 119/72
[2018-09-05] MEDS ORDERED: HALOPERIDOL LACT 5 MG/ML VIAL. IM PRN (08:00)
[2018-09-05] MEDS: UBIDECARENONE 50 MG CAPSULE. PO SCH (08:24)
[2018-09-05] MEDS: LACOSAMIDE 50 MG TABLET PO SCH ×2 (08:24→19:51)
[2018-09-05] MEDS: QUEtiapine 25 MG TABLET. PO SCH ×3 (08:24→17:16)
[2018-09-05] MEDS: ASPIRIN 81 MG TAB.CHEW PO SCH ×2 (08:24→19:50)
[2018-09-05] MEDS: HALOPERIDOL 5 MG TABLET PO SCH (08:25)
[2018-09-05 16:03] VITALS: BP 119/64
[2018-09-05] MEDS: MIRTAZAPINE 15 MG TABLET PO SCH (19:50)
[2018-09-05] MEDS: traZODone 50 MG TABLET. PO SCH (19:50)
[2018-09-05] MEDS: MELATONIN 3 MG TABLET PO SCH (19:51)
[2018-09-05] MEDS: PHENYTOIN SODIUM EXTENDED 100 MG CAPSULE PO SCH (19:51)
[2018-09-05] MEDS: SIMVASTATIN 40 MG TABLET. PO SCH (19:51)
--- NOTE | 2018-09-05 20:58 | PN ---
DATE: 09/05/2018 SUBJECTIVE: The patient was seen today, met with the staff, chart reviewed. The patient's behavior remains the same. Apparently, he has been alert, awake, not exhibiting any major mood swings today. OBSERVATION: VITAL SIGNS: Temperature 97.8, blood pressure 119/72, pulse 67, respirations 18, O2 sat 96%. Slept only about 1 hour last night, but he sleeps most of the day during the daytime. MEDICATIONS: Reviewed. The patient's appetite has improved. The patient is not having any side effects to the medications. The patient is still noncompliant with the treatment, refusing the medication at times. ASSESSMENT: 1. Major neurocognitive disorder, Alzheimer's, vascular with delusions, depression and behavioral disturbances. 2. Anxiety disorder, unspecified. 3. Impulse control disorder, unspecified. PLAN: To continue with the treatment. RAMIN SHAH MD DR: TATUM/marya JOB#: [id number] / [id number]
[2018-09-06 05:44] VITALS: BP 128/72
[2018-09-06] MEDS: HALOPERIDOL 5 MG TABLET PO SCH (07:27)
[2018-09-06] MEDS: UBIDECARENONE 50 MG CAPSULE. PO SCH (07:27)
[2018-09-06] MEDS: LACOSAMIDE 50 MG TABLET PO SCH ×2 (07:28→19:50)
[2018-09-06] MEDS: QUEtiapine 25 MG TABLET. PO SCH ×3 (07:28→17:17)
[2018-09-06] MEDS: ASPIRIN 81 MG TAB.CHEW PO SCH ×2 (07:28→19:46)
[2018-09-06 15:46] VITALS: BP 113/71
--- NOTE | 2018-09-06 17:31 | PN ---
DATE: 09/06/2018 SUBJECTIVE: The patient was seen today, met with the staff, and chart reviewed. The patient apparently being lying down on the sofa in the patient's santos and able to make eye contact. States he has been feeling tired, want to rest, but no major behavior problems. Staff reports no major behavior problems. OBJECTIVE VITAL SIGNS: Temperature 98.3, blood pressure 113/71, pulse 83, respirations 21, and O2 sat 98%. MEDICATIONS: Reviewed and is not having any major side effects. The patient's lab reviewed. The patient is not presenting with any other major medical issues at that time. ASSESSMENT: 1. Major neurocognitive disorder, Alzheimer's, vascular with delusions, depression and behavioral disturbances. 2. Anxiety disorder, unspecified. 3. Impulse control disorder, unspecified. PLAN: To continue with the treatment. RAMIN SHAH MD DR: TATUM/marya JOB#: [id number] / [id number]
[2018-09-06] MEDS: MIRTAZAPINE 15 MG TABLET PO SCH (19:45)
[2018-09-06] MEDS: MELATONIN 3 MG TABLET PO SCH (19:46)
[2018-09-06] MEDS: SIMVASTATIN 40 MG TABLET. PO SCH (19:46)
[2018-09-06] MEDS: traZODone 50 MG TABLET. PO SCH (19:50)
[2018-09-06] MEDS: PHENYTOIN SODIUM EXTENDED 100 MG CAPSULE PO SCH (19:51)
[2018-09-07 05:30] VITALS: BP 127/70
[2018-09-07] MEDS: UBIDECARENONE 50 MG CAPSULE. PO SCH (07:42)
[2018-09-07] MEDS: LACOSAMIDE 50 MG TABLET PO SCH ×2 (07:42→19:33)
[2018-09-07] MEDS: ASPIRIN 81 MG TAB.CHEW PO SCH ×2 (07:42→19:35)
[2018-09-07] MEDS: HALOPERIDOL 5 MG TABLET PO SCH (07:43)
[2018-09-07] MEDS: QUEtiapine 25 MG TABLET. PO SCH ×3 (07:43→18:23)
[2018-09-07 15:17] VITALS: BP 136/81
--- NOTE | 2018-09-07 17:31 | PN ---
DATE: 09/07/2018 SUBJECTIVE: The patient was seen today, met with the staff, chart reviewed. Staff reports no major problems. The patient has been up, not staying in bed, still withdrawn. Occasional outbursts of paranoia and to wander at times. OBSERVATION: VITAL SIGNS: Temperature 97.9, blood pressure 127/70, pulse 78, respirations 20, O2 sat 100%. Slept about 6 hours last night. The patient is not having any side effects to the medications. The patient still tend to refuse treatments including his medication at times. ASSESSMENT: 1. Major neurocognitive disorder, Alzheimer's, vascular with delusions, depression and behavioral disturbances. 2. Anxiety disorder, unspecified. 3. Impulse control disorder, unspecified. PLAN: To continue with the treatment. RAMIN SHAH MD DR: TATUM/marya JOB#: [id number] / [id number]
[2018-09-07] MEDS: SIMVASTATIN 40 MG TABLET. PO SCH (19:33)
[2018-09-07] MEDS: MIRTAZAPINE 15 MG TABLET PO SCH (19:33)
[2018-09-07] MEDS: MELATONIN 3 MG TABLET PO SCH (19:33)
[2018-09-07] MEDS: PHENYTOIN SODIUM EXTENDED 100 MG CAPSULE PO SCH (19:34)
[2018-09-07] MEDS: traZODone 50 MG TABLET. PO SCH (19:35)
[2018-09-08 05:42] VITALS: BP 151/67
[2018-09-08] MEDS: HALOPERIDOL 5 MG TABLET PO SCH (07:39)
[2018-09-08] MEDS: UBIDECARENONE 50 MG CAPSULE. PO SCH (07:40)
[2018-09-08] MEDS: ASPIRIN 81 MG TAB.CHEW PO SCH ×2 (07:40→19:21)
[2018-09-08] MEDS: QUEtiapine 25 MG TABLET. PO SCH ×3 (07:40→17:00)
[2018-09-08] MEDS: LACOSAMIDE 50 MG TABLET PO SCH ×2 (07:42→19:21)
[2018-09-08 08:31] LABS: BASO # 0.1 x10^3/uL (0.0-0.2); BASO % 1 % (0-3); EOS # 0.1 x10^3/uL (0.0-0.7); EOS % 1 % (0-3); HEMATOCRIT 32.7 % (39.0-53.0); HEMOGLOBIN 11.1 g/dL (13.0-17.5); LYMPH # 1.4 x10^3/uL (1.0-4.8); LYMPH % 26 % (24-48); MEAN CORPUSCULAR HEMOGLOBIN 32 pg (25-35); MEAN CORPUSCULAR HGB CONC 34 g/dL (31-37); MEAN CORPUSCULAR VOLUME 94 fL (79-100); MONO # 0.6 x10^3/uL (0.0-1.1); MONO % 12 % (0-9); NEUT # 3.2 x10^3uL (1.8-7.7); NEUT % 60 % (31-73); PLATELET COUNT 397 x10^3/uL (140-400); RED BLOOD COUNT 3.47 x10^6/uL (4.30-5.70); RED CELL DISTRIBUTION WIDTH 13.9 % (11.5-14.5); WHITE BLOOD COUNT 5.2 x10^3/uL (4.0-11.0)
[2018-09-08 08:41] LABS: ALBUMIN 3.5 g/dL (3.4-5.0); CALCIUM 8.9 mg/dL (8.5-10.1); CREATININE 1.2 mg/dL (0.7-1.3); GFR 58.4; POTASSIUM 5.1 mmol/L (3.5-5.1); TOTAL BILIRUBIN 0.2 mg/dL (0.2-1.0); TOTAL PROTEIN 6.9 g/dL (6.4-8.2)
[2018-09-08 16:00] VITALS: BP 112/66
[2018-09-08] MEDS: SIMVASTATIN 40 MG TABLET. PO SCH (19:21)
[2018-09-08] MEDS: MELATONIN 3 MG TABLET PO SCH (19:21)
[2018-09-08] MEDS: PHENYTOIN SODIUM EXTENDED 100 MG CAPSULE PO SCH (19:21)
[2018-09-08] MEDS: MIRTAZAPINE 15 MG TABLET PO SCH (19:21)
[2018-09-08] MEDS: traZODone 50 MG TABLET. PO SCH (19:22)
[2018-09-09 05:34] VITALS: BP 123/73
[2018-09-09] MEDS: UBIDECARENONE 50 MG CAPSULE. PO SCH (07:23)
[2018-09-09] MEDS: HALOPERIDOL 5 MG TABLET PO SCH (07:23)
[2018-09-09] MEDS: QUEtiapine 25 MG TABLET. PO SCH ×3 (07:23→17:07)
[2018-09-09] MEDS: ASPIRIN 81 MG TAB.CHEW PO SCH ×2 (07:23→17:07)
[2018-09-09] MEDS: LACOSAMIDE 50 MG TABLET PO SCH ×2 (07:24→17:08)
--- NOTE | 2018-09-09 11:42 | PN ---
DATE: 09/09/2018 SUBJECTIVE: The patient was seen today, met with the staff, chart reviewed. The patient is still feeling tired, still has some involuntary movements, has some gait impairment. No falls. The patient is still confused. The patient has been trying to spend more time in bed. OBSERVATION: VITAL SIGNS: Temperature 97.5, blood pressure 123/73, pulse 74, respirations 20, O2 sat 96%. Slept about 7 hours last night. CURRENT MEDICATIONS: The patient's medications reviewed, not having any side effects. ASSESSMENT: 1. Major neurocognitive disorder, Alzheimer's, vascular with delusions, depression and behavioral disturbances. 2. Anxiety disorder, unspecified. 3. Impulse control disorder, unspecified. PLAN: To continue with the treatment. RAMIN SHAH MD DR: TATUM/marya JOB#: [id number] / [id number]
[2018-09-09 16:06] VITALS: BP 135/78
[2018-09-09] MEDS: SIMVASTATIN 40 MG TABLET. PO SCH (17:07)
[2018-09-09] MEDS: traZODone 50 MG TABLET. PO SCH (17:08)
[2018-09-09] MEDS: MIRTAZAPINE 15 MG TABLET PO SCH (17:08)
[2018-09-09] MEDS: MELATONIN 3 MG TABLET PO SCH (17:08)
[2018-09-09] MEDS: PHENYTOIN SODIUM EXTENDED 100 MG CAPSULE PO SCH (17:10)
[2018-09-10 05:42] VITALS: BP 146/75
[2018-09-10] MEDS: ASPIRIN 81 MG TAB.CHEW PO SCH ×2 (07:37→19:44)
[2018-09-10] MEDS: QUEtiapine 25 MG TABLET. PO SCH ×3 (07:37→17:31)
[2018-09-10] MEDS: HALOPERIDOL 5 MG TABLET PO SCH (07:38)
[2018-09-10] MEDS: UBIDECARENONE 50 MG CAPSULE. PO SCH (07:38)
[2018-09-10] MEDS: LACOSAMIDE 50 MG TABLET PO SCH ×2 (07:38→19:45)
[2018-09-10 16:02] VITALS: BP 122/67
--- NOTE | 2018-09-10 18:53 | PDOC ---
Exam Note: Quintin Note: Please also refer to the separate dictated note~for this date of service dictated separately.~Patient seen individually. Discussed the patient with Nursing staff reviewed the chart.~Reviewed interim history and current functioning. Reviewed vital signs,~Labs/ Radiology~and current medications noted below. Continue current treatment with the changes noted in the dictated addendum note Assessment: Vital Signs: Vital Signs Date Time Temp Pulse Resp B/P (MAP) Pulse Ox O2 Delivery O2 Flow Rate FiO2 09/10/18 16:02 98.5 81 20 122/67 (85) 97 09/09/18 05:34 Room Air I&O Intake and Output 09/10/18 07:00 Intake Total 1080 ml Balance 1080 ml Intake Oral 1080 ml Current Medications: Meds: Current Medications Acetaminophen (Tylenol) 650 mg PRN Q6HRS PRN PO PAIN / TEMP; Start 07/20/18 at 23:15 Multi-Ingredient Ointment (Analgesic [place]) 1 erik PRN QID PRN TP MUSCLE PAIN; Start 07/20/18 at 23:15 Al Hydroxide/Mg Hydroxide (Mylanta Plus Xs) 15 ml PRN AFTMEALHC PRN PO DYSPEPSIA; Start 07/20/18 at 23:15 Magnesium Hydroxide (Milk Of Magnesia) 2,400 mg PRN QHS PRN PO CONSTIPATION Last administered on 09/04/18at 15:56; Start 07/20/18 at 23:15 Lacosamide (Vimpat) 50 mg BID PO Last administered on 09/10/18at 07:38; Start 07/21/18 at 09:00 Lisinopril (Prinivil) 10 mg DAILY PO Last administered on 08/26/18at 08:01; Start 07/21/18 at 09:00; Stop 08/27/18 at 11:07; Status DC Aspirin (Children'S Aspirin) 81 mg BID PO Last administered on 09/10/18at 07:37 ; Start 07/21/18 at 09:00 Simvastatin (Zocor) 80 mg QHS PO Last administered on 09/09/18at 17:07; Start 07/21/18 at 21:00 Coenzyme Q10 (Coenzyme Q10) 200 mg DAILY PO Last administered on 09/10/18at 07: 38; Start 07/21/18 at 19:00 Phenytoin Sodium (Dilantin) 400 mg Q96H PO Last administered on 09/07/18at 19: 34; Start 07/21/18 at 21:00 Phenytoin Sodium (Dilantin) 400 mg Q96H PO Last administered on 09/08/18at 19: 21; Start 07/22/18 at 21:00 Phenytoin Sodium (Dilantin) 400 mg Q96H PO Last administered on 09/09/18at 17: 10; Start 07/23/18 at 21:00 Phenytoin Sodium (Dilantin) 300 mg Q96H PO Last administered on 09/06/18at 19: 51; Start 07/24/18 at 21:00 Trazodone HCl (Desyrel) 50 mg QHS PO Last administered on 09/09/18 17:08; Start 07/21/18 at 21:00 Trazodone HCl (Desyrel) 50 mg PRN QHS PRN PO insomnia Last administered on 08/19at 01:49; Start 07/21/18 at 20:00; Stop 08/19/18 at 20:08; Status DC Mirtazapine (Remeron) 7.5 mg QHS PO Last administered on 07/25/18at 19:40; Start 07/23/18 at 21:00; Stop 07/26/18 at 12:42; Status DC Sertraline HCl (Zoloft) 50 mg DAILY PO Last administered on 08/01/18at 08:40; Start 07/25/18 at 09:00; Stop 08/01/18 at 18:07; Status DC Mirtazapine (Remeron) 15 mg QHS PO Last administered on 09/09/18at 17:08; Start 07/26/18 at 21:00 Sertraline HCl (Zoloft) 75 mg DAILY PO Last administered on 08/06/18at 07:22; Start 08/02/18 at 09:00; Stop 08/06/18 at 17:52; Status DC Quetiapine Fumarate (SEROquel) 12.5 mg BIDWMEALS PO Last administered on at 08:39; Start 08/02/18 at 17:00; Stop 08/03/18 at 11:45; Status DC Quetiapine Fumarate (SEROquel) 12.5 mg TID@0900,1300,1700 PO Last administered on 08/08/18at 11:57; Start 08/03/18 at 13:00; Stop 08/08/18 at 17:05; Status DC Sertraline HCl (Zoloft) 100 mg DAILY PO Last administered on 08/09/18at 08:05; Start 08/07/18 at 09:00; Stop 08/09/18 at 11:22; Status DC Quetiapine Fumarate (SEROquel) 12.5 mg BID@0900,1300 PO Last administered on at 12:06; Start 08/09/18 at 09:00; Stop 08/26/18 at 18:03; Status DC Quetiapine Fumarate (SEROquel) 25 mg 1700 PO Last administered on 08/26/18at 17 :11; Start 08/09/18 at 17:00; Stop 08/26/18 at 18:03; Status DC Sertraline HCl (Zoloft) 125 mg DAILY PO Last administered on 08/10/18at 08:10; Start 08/10/18 at 09:00; Stop 08/10/18 at 17:23; Status DC Fluvoxamine Maleate (Luvox) 25 mg HS PO Last administered on 08/12/18at 19:40; Start 08/10/18 at 21:00; Stop 08/12/18 at 22:00; Status DC Fluvoxamine Maleate (Luvox) 50 mg HS PO Last administered on 08/15/18at 20:10; Start 08/13/18 at 21:00; Stop 08/15/18 at 23:00; Status DC Fluvoxamine Maleate (Luvox) 75 mg HS PO Last administered on 08/18/18at 19:52; Start 08/16/18 at 21:00; Stop 08/18/18 at 23:00; Status DC Melatonin 3 mg HS PO Last administered on 08/20/18at 19:19; Start 08/16/18 at 21 :00; Stop 08/21/18 at 16:59; Status DC Fluvoxamine Maleate (Luvox) 100 mg QHS PO Last administered on 09/09/18at 17:08 ; Start 08/19/18 at 21:00 Trazodone HCl (Desyrel) 100 mg PRN QHS PRN PO insomnia Last administered on 20:32; Start 08/19/18 at 20:15 Olanzapine (ZyPREXA ZYDIS) 2.5 mg PRN Q2HR PRN PO PSYCHOSIS Last administered on 09/02/18at 20:32; Start 08/20/18 at 16:45 Melatonin 6 mg HS PO Last administered on 09/09/18at 17:08; Start 08/21/18 at 21:00 Quetiapine Fumarate (SEROquel) 12.5 mg DAILY PO Last administered on at 08:15; Start 08/27/18 at 09:00; Stop 08/29/18 at 17:07; Status DC Quetiapine Fumarate (SEROquel) 25 mg BID@1300,1700 PO Last administered on at 17:31; Start 08/27/18 at 13:00 Haloperidol Lactate (Haldol) 5 mg DAILY IM Last administered on 09/04/18at 07: 32; Start 08/28/18 at 17:30; Stop 09/04/18 at 18:33; Status DC Lorazepam (Ativan) 0.5 mg DAILY IM Last administered on 09/04/18at 10:52; Start 08/28/18 at 17:30; Stop 09/04/18 at 18:33; Status DC Quetiapine Fumarate (SEROquel) 25 mg DAILY PO Last administered on 09/10/18at 07:37; Start 08/30/18 at 09:00 Haloperidol Lactate (Haldol) 5 mg PRN DAILY PRN IM ANXIETY / AGITATION; Start 09/05/18 at 08:00 Haloperidol (Haldol) 10 mg DAILY PO Last administered on 09/10/18at 07:38; Start 09/05/18 at 09:00 Active Scripts Active Reported Dilantin (Phenytoin Sodium Extended) 100 Mg Capsule 400 Mg PO HS Ultra Coq10 (Ubiquinone) 75 Mg Capsule 200 Mg PO DAILY Lisinopril 10 Mg Tablet 10 Mg PO DAILY Vimpat (Lacosamide) 50 Mg Tablet 50 Mg PO BID Aspirin 81 Mg Tab.chew 81 Mg PO BID Simvastatin 80 Mg Tablet 80 Mg PO HS I have reviewed the current psychotropics carefully including drug interactions. Risk benefit ratio favors no change other than as noted in my dictated progress note. Diagnosis: Problems: (1) Anxiety disorder (2) Dementia in Alzheimer's disease with delusions (3) Dementia in Alzheimer's disease with depression (4) Dementia, vascular, with delusions (5) Dementia, vascular, with depression (6) Impulse control disorder LISHA KIRKPATRICK MD Sep 10, 2018 18:53
[2018-09-10] MEDS: traZODone 50 MG TABLET. PO SCH (19:45)
[2018-09-10] MEDS: SIMVASTATIN 40 MG TABLET. PO SCH (19:45)
[2018-09-10] MEDS: MIRTAZAPINE 15 MG TABLET PO SCH (19:45)
[2018-09-10] MEDS: MELATONIN 3 MG TABLET PO SCH (19:45)
[2018-09-10] MEDS: PHENYTOIN SODIUM EXTENDED 100 MG CAPSULE PO SCH (19:46)
[2018-09-11 05:44] VITALS: BP 125/70
[2018-09-11] MEDS: ASPIRIN 81 MG TAB.CHEW PO SCH ×2 (07:55→19:56)
[2018-09-11] MEDS: UBIDECARENONE 50 MG CAPSULE. PO SCH (07:56)
[2018-09-11] MEDS: QUEtiapine 25 MG TABLET. PO SCH ×3 (07:56→16:46)
[2018-09-11] MEDS: HALOPERIDOL 5 MG TABLET PO SCH (07:56)
[2018-09-11] MEDS: LACOSAMIDE 50 MG TABLET PO SCH ×2 (07:56→19:54)
[2018-09-11 15:36] VITALS: BP 133/81
--- NOTE | 2018-09-11 18:48 | PDOC ---
Exam Note: Quintin Note: Please also refer to the separate dictated note~for this date of service dictated separately.~Patient seen individually. Discussed the patient with Nursing staff reviewed the chart.~Reviewed interim history and current functioning. Reviewed vital signs,~Labs/ Radiology~and current medications noted below. Continue current treatment with the changes noted in the dictated addendum note Assessment: Vital Signs: Vital Signs Date Time Temp Pulse Resp B/P (MAP) Pulse Ox O2 Delivery O2 Flow Rate FiO2 09/11/18 15:36 97.6 75 16 133/81 (98) 97 Room Air I&O Intake and Output 09/11/18 07:00 Intake Total 1560 ml Balance 1560 ml Intake Oral 1560 ml Current Medications: Meds: Current Medications Acetaminophen (Tylenol) 650 mg PRN Q6HRS PRN PO PAIN / TEMP; Start 07/20/18 at 23:15 Multi-Ingredient Ointment (Analgesic [place]) 1 erik PRN QID PRN TP MUSCLE PAIN; Start 07/20/18 at 23:15 Al Hydroxide/Mg Hydroxide (Mylanta Plus Xs) 15 ml PRN AFTMEALHC PRN PO DYSPEPSIA; Start 07/20/18 at 23:15 Magnesium Hydroxide (Milk Of Magnesia) 2,400 mg PRN QHS PRN PO CONSTIPATION Last administered on 09/04/18at 15:56; Start 07/20/18 at 23:15 Lacosamide (Vimpat) 50 mg BID PO Last administered on 09/11/18at 07:56; Start 07/21/18 at 09:00 Lisinopril (Prinivil) 10 mg DAILY PO Last administered on 08/26/18at 08:01; Start 07/21/18 at 09:00; Stop 08/27/18 at 11:07; Status DC Aspirin (Children'S Aspirin) 81 mg BID PO Last administered on 09/11/18at 07:55 ; Start 07/21/18 at 09:00 Simvastatin (Zocor) 80 mg QHS PO Last administered on 09/10/18at 19:45; Start 07/21/18 at 21:00 Coenzyme Q10 (Coenzyme Q10) 200 mg DAILY PO Last administered on 09/11/18at 07: 56; Start 07/21/18 at 19:00 Phenytoin Sodium (Dilantin) 400 mg Q96H PO Last administered on 09/07/18 19: 34; Start 07/21/18 at 21:00 Phenytoin Sodium (Dilantin) 400 mg Q96H PO Last administered on 09/08/18at 19: 21; Start 07/22/18 at 21:00 Phenytoin Sodium (Dilantin) 400 mg Q96H PO Last administered on 09/09/18at 17: 10; Start 07/23/18 at 21:00 Phenytoin Sodium (Dilantin) 300 mg Q96H PO Last administered on 09/10/18at 19: 46; Start 07/24/18 at 21:00 Trazodone HCl (Desyrel) 50 mg QHS PO Last administered on 09/10/18 19:45; Start 07/21/18 at 21:00 Trazodone HCl (Desyrel) 50 mg PRN QHS PRN PO insomnia Last administered on 08/19at 01:49; Start 07/21/18 at 20:00; Stop 08/19/18 at 20:08; Status DC Mirtazapine (Remeron) 7.5 mg QHS PO Last administered on 07/25/18at 19:40; Start 07/23/18 at 21:00; Stop 07/26/18 at 12:42; Status DC Sertraline HCl (Zoloft) 50 mg DAILY PO Last administered on 08/01/18at 08:40; Start 07/25/18 at 09:00; Stop 08/01/18 at 18:07; Status DC Mirtazapine (Remeron) 15 mg QHS PO Last administered on 09/10/18at 19:45; Start 07/26/18 at 21:00 Sertraline HCl (Zoloft) 75 mg DAILY PO Last administered on 08/06/18at 07:22; Start 08/02/18 at 09:00; Stop 08/06/18 at 17:52; Status DC Quetiapine Fumarate (SEROquel) 12.5 mg BIDWMEALS PO Last administered on at 08:39; Start 08/02/18 at 17:00; Stop 08/03/18 at 11:45; Status DC Quetiapine Fumarate (SEROquel) 12.5 mg TID@0900,1300,1700 PO Last administered on 08/08/18at 11:57; Start 08/03/18 at 13:00; Stop 08/08/18 at 17:05; Status DC Sertraline HCl (Zoloft) 100 mg DAILY PO Last administered on 08/09/18at 08:05; Start 08/07/18 at 09:00; Stop 08/09/18 at 11:22; Status DC Quetiapine Fumarate (SEROquel) 12.5 mg BID@0900,1300 PO Last administered on at 12:06; Start 08/09/18 at 09:00; Stop 08/26/18 at 18:03; Status DC Quetiapine Fumarate (SEROquel) 25 mg 1700 PO Last administered on 08/26/18at 17 :11; Start 08/09/18 at 17:00; Stop 08/26/18 at 18:03; Status DC Sertraline HCl (Zoloft) 125 mg DAILY PO Last administered on 08/10/18at 08:10; Start 08/10/18 at 09:00; Stop 08/10/18 at 17:23; Status DC Fluvoxamine Maleate (Luvox) 25 mg HS PO Last administered on 08/12/18at 19:40; Start 08/10/18 at 21:00; Stop 08/12/18 at 22:00; Status DC Fluvoxamine Maleate (Luvox) 50 mg HS PO Last administered on 08/15/18at 20:10; Start 08/13/18 at 21:00; Stop 08/15/18 at 23:00; Status DC Fluvoxamine Maleate (Luvox) 75 mg HS PO Last administered on 08/18/18at 19:52; Start 08/16/18 at 21:00; Stop 08/18/18 at 23:00; Status DC Melatonin 3 mg HS PO Last administered on 08/20/18at 19:19; Start 08/16/18 at 21 :00; Stop 08/21/18 at 16:59; Status DC Fluvoxamine Maleate (Luvox) 100 mg QHS PO Last administered on 09/10/18at 19:47 ; Start 08/19/18 at 21:00 Trazodone HCl (Desyrel) 100 mg PRN QHS PRN PO insomnia Last administered on 20:32; Start 08/19/18 at 20:15 Olanzapine (ZyPREXA ZYDIS) 2.5 mg PRN Q2HR PRN PO PSYCHOSIS Last administered on 09/02/18at 20:32; Start 08/20/18 at 16:45 Melatonin 6 mg HS PO Last administered on 09/10/18at 19:45; Start 08/21/18 at 21:00 Quetiapine Fumarate (SEROquel) 12.5 mg DAILY PO Last administered on at 08:15; Start 08/27/18 at 09:00; Stop 08/29/18 at 17:07; Status DC Quetiapine Fumarate (SEROquel) 25 mg BID@1300,1700 PO Last administered on at 16:46; Start 08/27/18 at 13:00 Haloperidol Lactate (Haldol) 5 mg DAILY IM Last administered on 09/04/18at 07: 32; Start 08/28/18 at 17:30; Stop 09/04/18 at 18:33; Status DC Lorazepam (Ativan) 0.5 mg DAILY IM Last administered on 09/04/18at 10:52; Start 08/28/18 at 17:30; Stop 09/04/18 at 18:33; Status DC Quetiapine Fumarate (SEROquel) 25 mg DAILY PO Last administered on 09/11/18at 07:56; Start 08/30/18 at 09:00 Haloperidol Lactate (Haldol) 5 mg PRN DAILY PRN IM ANXIETY / AGITATION; Start 09/05/18 at 08:00 Haloperidol (Haldol) 10 mg DAILY PO Last administered on 09/11/18at 07:56; Start 09/05/18 at 09:00 Active Scripts Active Reported Dilantin (Phenytoin Sodium Extended) 100 Mg Capsule 400 Mg PO HS Ultra Coq10 (Ubiquinone) 75 Mg Capsule 200 Mg PO DAILY Lisinopril 10 Mg Tablet 10 Mg PO DAILY Vimpat (Lacosamide) 50 Mg Tablet 50 Mg PO BID Aspirin 81 Mg Tab.chew 81 Mg PO BID Simvastatin 80 Mg Tablet 80 Mg PO HS I have reviewed the current psychotropics carefully including drug interactions. Risk benefit ratio favors no change other than as noted in my dictated progress note. Diagnosis: Problems: (1) Anxiety disorder (2) Dementia in Alzheimer's disease with delusions (3) Dementia in Alzheimer's disease with depression (4) Dementia, vascular, with delusions (5) Dementia, vascular, with depression (6) Impulse control disorder LISHA KIRKPATRICK MD Sep 11, 2018 18:48
[2018-09-11] MEDS: MIRTAZAPINE 15 MG TABLET PO SCH (19:54)
[2018-09-11] MEDS: traZODone 50 MG TABLET. PO SCH (19:54)
[2018-09-11] MEDS: SIMVASTATIN 40 MG TABLET. PO SCH (19:54)
[2018-09-11] MEDS: MELATONIN 3 MG TABLET PO SCH (19:54)
[2018-09-11] MEDS: PHENYTOIN SODIUM EXTENDED 100 MG CAPSULE PO SCH (19:56)
--- NOTE | 2018-09-11 22:51 | PN ---
DATE: 09/10/2018 This late entry date of service 09/10/2018 covers elements not covered in my initial note. SUBJECTIVE: I met with the patient in the evening. Reviewed the patient's progress over the past [address] Woodward who covered for me. The patient slept 5-1/2 hours previous night. He remains confused. He is less obsessed, asking for the phone to call his , less obsessed about leaving, less delusional per nursing report, but disorganized. He picked through his medications questioning which ones to take or not. REVIEW OF SYSTEMS: No CV, , eye, ENT, or pulmonary system symptoms on review. Reliability poor. MENTAL STATUS EXAM: The patient is oriented to himself. Insight, judgment, recent and remote memory, attention, concentration, fund of knowledge poor, consistent with his diagnosis. IMPRESSION: Major neurocognitive disorder, Alzheimer, vascular with delusion, depression, behavioral disturbance. Rest unchanged. PLAN: Continue current psychotropics. He is on Dilantin for his seizures, trazodone 50 mg at bedtime plus 100 mg at bedtime p.r.n. insomnia, Remeron 15 mg at bedtime, Seroquel 25 mg 9 a.m., 1:00 p.m., 5:00 p.m., Luvox 100 mg a day, melatonin 6 mg at bedtime, Zyprexa p.r.n. The patient is also on Haldol 10 mg daily and we may gradually taper this. LISHA KIRKPATRICK MD DR: DONATO/marya JOB#: [id number] / [id number]
[2018-09-12 05:47] VITALS: BP 95/66
[2018-09-12] MEDS: UBIDECARENONE 50 MG CAPSULE. PO SCH (07:54)
[2018-09-12] MEDS: LACOSAMIDE 50 MG TABLET PO SCH ×2 (07:55→19:47)
[2018-09-12] MEDS: QUEtiapine 25 MG TABLET. PO SCH ×3 (07:55→16:12)
[2018-09-12] MEDS: HALOPERIDOL 5 MG TABLET PO SCH (07:55)
[2018-09-12] MEDS: ASPIRIN 81 MG TAB.CHEW PO SCH ×2 (07:55→19:47)
[2018-09-12] MEDS: busPIRone 5 MG TABLET. PO SCH (16:12)
[2018-09-12 16:32] VITALS: BP 132/72
[2018-09-12] MEDS: SIMVASTATIN 40 MG TABLET. PO SCH (19:47)
[2018-09-12] MEDS: MIRTAZAPINE 15 MG TABLET PO SCH (19:47)
[2018-09-12] MEDS: traZODone 50 MG TABLET. PO SCH (19:47)
[2018-09-12] MEDS: MELATONIN 3 MG TABLET PO SCH (19:47)
[2018-09-12] MEDS: PHENYTOIN SODIUM EXTENDED 100 MG CAPSULE PO SCH (19:48)
--- NOTE | 2018-09-12 20:08 | PN ---
DATE: 09/11/2018 PSYCHIATRIC PROGRESS NOTE This late entry 09/11/2018 covers elements not covered in my initial note. SUBJECTIVE: I met with the patient in the evening. The patient slept 6-3/4 hours previous night. He has been compliant with his medications, somewhat confused, forgetful, less obsessive regarding discharge. At this time, he is on 2 antipsychotics, Haldol 10 mg at bedtime and Seroquel. He seems to have responded to the Haldol, but as part of his discharge instructions, I will be having some recommendations on a gradual taper. REVIEW OF SYSTEMS: In the meantime, no CV, , pulmonary, eye, ENT system symptoms on review. Reliability poor. MENTAL STATUS EXAM: Oriented to himself. Insight, judgment, recent and remote memory, attention, concentration, fund of knowledge poor, consistent with his diagnosis mentioned in my initial note. IMPRESSION: Major neurocognitive disorder, Alzheimer, vascular with delusion, depression, behavioral disturbance. Rest unchanged. PLAN: No change from initial note. MAN Franklin KIRKPATRICK MD DR: DONATO/marya JOB#: [id number] / [id number]
--- NOTE | 2018-09-12 22:47 | PDOC ---
Exam Note: Quintin Note: Please also refer to the separate dictated note~for this date of service dictated separately.~Patient seen individually. Discussed the patient with Nursing staff reviewed the chart.~Reviewed interim history and current functioning. Reviewed vital signs,~Labs/ Radiology~and current medications noted below. Continue current treatment with the changes noted in the dictated addendum note Assessment: Vital Signs: Vital Signs Date Time Temp Pulse Resp B/P (MAP) Pulse Ox O2 Delivery O2 Flow Rate FiO2 09/12/18 16:32 98.4 89 20 132/72 (92) 99 09/11/18 15:36 Room Air I&O Intake and Output 09/12/18 07:00 Intake Total 1440 ml Balance 1440 ml Intake Oral 1440 ml Current Medications: Meds: Current Medications Acetaminophen (Tylenol) 650 mg PRN Q6HRS PRN PO PAIN / TEMP; Start 07/20/18 at 23:15 Multi-Ingredient Ointment (Analgesic [place]) 1 erik PRN QID PRN TP MUSCLE PAIN; Start 07/20/18 at 23:15 Al Hydroxide/Mg Hydroxide (Mylanta Plus Xs) 15 ml PRN AFTMEALHC PRN PO DYSPEPSIA; Start 07/20/18 at 23:15 Magnesium Hydroxide (Milk Of Magnesia) 2,400 mg PRN QHS PRN PO CONSTIPATION Last administered on 09/04/18at 15:56; Start 07/20/18 at 23:15 Lacosamide (Vimpat) 50 mg BID PO Last administered on 09/12/18at 19:47; Start 07/21/18 at 09:00 Lisinopril (Prinivil) 10 mg DAILY PO Last administered on 08/26/18at 08:01; Start 07/21/18 at 09:00; Stop 08/27/18 at 11:07; Status DC Aspirin (Children'S Aspirin) 81 mg BID PO Last administered on 09/12/18at 19:47 ; Start 07/21/18 at 09:00 Simvastatin (Zocor) 80 mg QHS PO Last administered on 09/12/18at 19:47; Start 07/21/18 at 21:00 Coenzyme Q10 (Coenzyme Q10) 200 mg DAILY PO Last administered on 09/12/18at 07: 54; Start 07/21/18 at 19:00 Phenytoin Sodium (Dilantin) 400 mg Q96H PO Last administered on 09/11/18 19: 56; Start 07/21/18 at 21:00 Phenytoin Sodium (Dilantin) 400 mg Q96H PO Last administered on 09/12/18 19: 48; Start 07/22/18 at 21:00 Phenytoin Sodium (Dilantin) 400 mg Q96H PO Last administered on 09/09/18 17: 10; Start 07/23/18 at 21:00 Phenytoin Sodium (Dilantin) 300 mg Q96H PO Last administered on 09/10/18 19: 46; Start 07/24/18 at 21:00 Trazodone HCl (Desyrel) 50 mg QHS PO Last administered on 09/12/18 19:47; Start 07/21/18 at 21:00 Trazodone HCl (Desyrel) 50 mg PRN QHS PRN PO insomnia Last administered on 08/19at 01:49; Start 07/21/18 at 20:00; Stop 08/19/18 at 20:08; Status DC Mirtazapine (Remeron) 7.5 mg QHS PO Last administered on 07/25/18at 19:40; Start 07/23/18 at 21:00; Stop 07/26/18 at 12:42; Status DC Sertraline HCl (Zoloft) 50 mg DAILY PO Last administered on 08/01/18at 08:40; Start 07/25/18 at 09:00; Stop 08/01/18 at 18:07; Status DC Mirtazapine (Remeron) 15 mg QHS PO Last administered on 09/12/18at 19:47; Start 07/26/18 at 21:00 Sertraline HCl (Zoloft) 75 mg DAILY PO Last administered on 08/06/18at 07:22; Start 08/02/18 at 09:00; Stop 08/06/18 at 17:52; Status DC Quetiapine Fumarate (SEROquel) 12.5 mg BIDWMEALS PO Last administered on at 08:39; Start 08/02/18 at 17:00; Stop 08/03/18 at 11:45; Status DC Quetiapine Fumarate (SEROquel) 12.5 mg TID@0900,1300,1700 PO Last administered on 08/08/18at 11:57; Start 08/03/18 at 13:00; Stop 08/08/18 at 17:05; Status DC Sertraline HCl (Zoloft) 100 mg DAILY PO Last administered on 08/09/18at 08:05; Start 08/07/18 at 09:00; Stop 08/09/18 at 11:22; Status DC Quetiapine Fumarate (SEROquel) 12.5 mg BID@0900,1300 PO Last administered on at 12:06; Start 08/09/18 at 09:00; Stop 08/26/18 at 18:03; Status DC Quetiapine Fumarate (SEROquel) 25 mg 1700 PO Last administered on 08/26/18at 17 :11; Start 08/09/18 at 17:00; Stop 08/26/18 at 18:03; Status DC Sertraline HCl (Zoloft) 125 mg DAILY PO Last administered on 08/10/18at 08:10; Start 08/10/18 at 09:00; Stop 08/10/18 at 17:23; Status DC Fluvoxamine Maleate (Luvox) 25 mg HS PO Last administered on 08/12/18at 19:40; Start 08/10/18 at 21:00; Stop 08/12/18 at 22:00; Status DC Fluvoxamine Maleate (Luvox) 50 mg HS PO Last administered on 08/15/18at 20:10; Start 08/13/18 at 21:00; Stop 08/15/18 at 23:00; Status DC Fluvoxamine Maleate (Luvox) 75 mg HS PO Last administered on 08/18/18at 19:52; Start 08/16/18 at 21:00; Stop 08/18/18 at 23:00; Status DC Melatonin 3 mg HS PO Last administered on 08/20/18at 19:19; Start 08/16/18 at 21 :00; Stop 08/21/18 at 16:59; Status DC Fluvoxamine Maleate (Luvox) 100 mg QHS PO Last administered on 09/12/18at 19:47 ; Start 08/19/18 at 21:00 Trazodone HCl (Desyrel) 100 mg PRN QHS PRN PO insomnia Last administered on 20:32; Start 08/19/18 at 20:15 Olanzapine (ZyPREXA ZYDIS) 2.5 mg PRN Q2HR PRN PO PSYCHOSIS Last administered on 09/02/18at 20:32; Start 08/20/18 at 16:45 Melatonin 6 mg HS PO Last administered on 09/12/18at 19:47; Start 08/21/18 at 21:00 Quetiapine Fumarate (SEROquel) 12.5 mg DAILY PO Last administered on at 08:15; Start 08/27/18 at 09:00; Stop 08/29/18 at 17:07; Status DC Quetiapine Fumarate (SEROquel) 25 mg BID@1300,1700 PO Last administered on at 16:12; Start 08/27/18 at 13:00 Haloperidol Lactate (Haldol) 5 mg DAILY IM Last administered on 09/04/18at 07: 32; Start 08/28/18 at 17:30; Stop 09/04/18 at 18:33; Status DC Lorazepam (Ativan) 0.5 mg DAILY IM Last administered on 09/04/18at 10:52; Start 08/28/18 at 17:30; Stop 09/04/18 at 18:33; Status DC Quetiapine Fumarate (SEROquel) 25 mg DAILY PO Last administered on 09/12/18at 07:55; Start 08/30/18 at 09:00 Haloperidol Lactate (Haldol) 5 mg PRN DAILY PRN IM ANXIETY / AGITATION; Start 09/05/18 at 08:00 Haloperidol (Haldol) 10 mg DAILY PO Last administered on 09/12/18at 07:55; Start 09/05/18 at 09:00; Stop 09/12/18 at 12:24; Status DC Haloperidol (Haldol) 7.5 mg DAILY PO ; Start 09/13/18 at 09:00 Buspirone HCl (Buspar) 5 mg BID@0900,1500 PO Last administered on 09/12/18at 16 :12; Start 09/12/18 at 15:00 Active Scripts Active Reported Dilantin (Phenytoin Sodium Extended) 100 Mg Capsule 400 Mg PO HS Ultra Coq10 (Ubiquinone) 75 Mg Capsule 200 Mg PO DAILY Lisinopril 10 Mg Tablet 10 Mg PO DAILY Vimpat (Lacosamide) 50 Mg Tablet 50 Mg PO BID Aspirin 81 Mg Tab.chew 81 Mg PO BID Simvastatin 80 Mg Tablet 80 Mg PO HS I have reviewed the current psychotropics carefully including drug interactions. Risk benefit ratio favors no change other than as noted in my dictated progress note. Diagnosis: Problems: (1) Anxiety disorder (2) Dementia in Alzheimer's disease with delusions (3) Dementia in Alzheimer's disease with depression (4) Dementia, vascular, with delusions (5) Dementia, vascular, with depression (6) Impulse control disorder LISHA KIRKPATRICK MD Sep 12, 2018 22:47
[2018-09-13 05:26] VITALS: BP 134/86
[2018-09-13] MEDS: HALOPERIDOL 5 MG TABLET PO SCH (07:43)
[2018-09-13] MEDS: busPIRone 5 MG TABLET. PO SCH ×2 (07:43→15:17)
[2018-09-13] MEDS: LACOSAMIDE 50 MG TABLET PO SCH ×2 (07:43→19:25)
[2018-09-13] MEDS: QUEtiapine 25 MG TABLET. PO SCH ×3 (07:43→17:41)
[2018-09-13] MEDS: ASPIRIN 81 MG TAB.CHEW PO SCH ×2 (07:43→19:25)
[2018-09-13] MEDS: UBIDECARENONE 50 MG CAPSULE. PO SCH (07:44)
[2018-09-13 15:41] VITALS: BP 116/69
[2018-09-13] MEDS: MELATONIN 3 MG TABLET PO SCH (19:25)
[2018-09-13] MEDS: traZODone 50 MG TABLET. PO SCH (19:25)
[2018-09-13] MEDS: MIRTAZAPINE 15 MG TABLET PO SCH (19:25)
[2018-09-13] MEDS: PHENYTOIN SODIUM EXTENDED 100 MG CAPSULE PO SCH (19:26)
[2018-09-13] MEDS: SIMVASTATIN 40 MG TABLET. PO SCH (19:39)
--- NOTE | 2018-09-13 20:26 | PN ---
DATE: 09/12/2018 PSYCHIATRIC PROGRESS NOTE This late entry 09/12/2018 covers elements not covered in my initial note. SUBJECTIVE: I met with the patient in the evening and staffed at a treatment team meeting earlier in the day. The patient slept 4-3/4 hours previous night. Remains confused. I met with him in his room. He has not been agitated, seems less paranoid despite reduction in Haldol from 10 mg a day down to 7.5 mg a day. REVIEW OF SYSTEMS: No CV, , pulmonary, eye, ENT system symptoms on review. Reliability poor. MENTAL STATUS EXAM: Oriented to himself. Insight, judgment, recent and remote memory, attention, concentration, fund of knowledge poor, consistent with his diagnosis mentioned in my initial note. PLAN: No change from initial note. We will gradually reduce Haldol further in due course. MAN Franklin KIRKPATRICK MD DR: DONATO/marya JOB#: [id number] / [id number]
--- NOTE | 2018-09-13 22:37 | PDOC ---
Exam Note: Quintin Note: Please also refer to the separate dictated note~for this date of service dictated separately.~Patient seen individually. Discussed the patient with Nursing staff reviewed the chart.~Reviewed interim history and current functioning. Reviewed vital signs,~Labs/ Radiology~and current medications noted below. Continue current treatment with the changes noted in the dictated addendum note Assessment: Vital Signs: Vital Signs Date Time Temp Pulse Resp B/P (MAP) Pulse Ox O2 Delivery O2 Flow Rate FiO2 09/13/18 15:41 97.8 95 20 116/69 (85) 99 Room Air I&O Intake and Output 09/13/18 07:00 Intake Total 1200 ml Balance 1200 ml Intake Oral 1200 ml Current Medications: Meds: Current Medications Acetaminophen (Tylenol) 650 mg PRN Q6HRS PRN PO PAIN / TEMP; Start 07/20/18 at 23:15 Multi-Ingredient Ointment (Analgesic [place]) 1 [place]irk PRN QID PRN TP MUSCLE PAIN; Start 07/20/18 at 23:15 Al Hydroxide/Mg Hydroxide (Mylanta Plus Xs) 15 ml PRN AFTMEALHC PRN PO DYSPEPSIA; Start 07/20/18 at 23:15 Magnesium Hydroxide (Milk Of Magnesia) 2,400 mg PRN QHS PRN PO CONSTIPATION Last administered on 09/04/18at 15:56; Start 07/20/18 at 23:15 Lacosamide (Vimpat) 50 mg BID PO Last administered on 09/13/18at 19:25; Start 07/21/18 at 09:00 Lisinopril (Prinivil) 10 mg DAILY PO Last administered on 08/26/18at 08:01; Start 07/21/18 at 09:00; Stop 08/27/18 at 11:07; Status DC Aspirin (Children'S Aspirin) 81 mg BID PO Last administered on 09/13/18at 19:25 ; Start 07/21/18 at 09:00 Simvastatin (Zocor) 80 mg QHS PO Last administered on 09/13/18at 19:39; Start 07/21/18 at 21:00 Coenzyme Q10 (Coenzyme Q10) 200 mg DAILY PO Last administered on 09/13/18at 07: 44; Start 07/21/18 at 19:00 Phenytoin Sodium (Dilantin) 400 mg Q96H PO Last administered on 09/11/18 19: 56; Start 07/21/18 at 21:00 Phenytoin Sodium (Dilantin) 400 mg Q96H PO Last administered on 09/12/18 19: 48; Start 07/22/18 at 21:00 Phenytoin Sodium (Dilantin) 400 mg Q96H PO Last administered on 09/13/18 19: 26; Start 07/23/18 at 21:00 Phenytoin Sodium (Dilantin) 300 mg Q96H PO Last administered on 09/10/18 19: 46; Start 07/24/18 at 21:00 Trazodone HCl (Desyrel) 50 mg QHS PO Last administered on 09/13/18 19:25; Start 07/21/18 at 21:00 Trazodone HCl (Desyrel) 50 mg PRN QHS PRN PO insomnia Last administered on 08/19at 01:49; Start 07/21/18 at 20:00; Stop 08/19/18 at 20:08; Status DC Mirtazapine (Remeron) 7.5 mg QHS PO Last administered on 07/25/18 19:40; Start 07/23/18 at 21:00; Stop 07/26/18 at 12:42; Status DC Sertraline HCl (Zoloft) 50 mg DAILY PO Last administered on 08/01/18at 08:40; Start 07/25/18 at 09:00; Stop 08/01/18 at 18:07; Status DC Mirtazapine (Remeron) 15 mg QHS PO Last administered on 09/13/18 19:25; Start 07/26/18 at 21:00 Sertraline HCl (Zoloft) 75 mg DAILY PO Last administered on 08/06/18at 07:22; Start 08/02/18 at 09:00; Stop 08/06/18 at 17:52; Status DC Quetiapine Fumarate (SEROquel) 12.5 mg BIDWMEALS PO Last administered on at 08:39; Start 08/02/18 at 17:00; Stop 08/03/18 at 11:45; Status DC Quetiapine Fumarate (SEROquel) 12.5 mg TID@0900,1300,1700 PO Last administered on 08/08/18at 11:57; Start 08/03/18 at 13:00; Stop 08/08/18 at 17:05; Status DC Sertraline HCl (Zoloft) 100 mg DAILY PO Last administered on 08/09/18at 08:05; Start 08/07/18 at 09:00; Stop 08/09/18 at 11:22; Status DC Quetiapine Fumarate (SEROquel) 12.5 mg BID@0900,1300 PO Last administered on at 12:06; Start 08/09/18 at 09:00; Stop 08/26/18 at 18:03; Status DC Quetiapine Fumarate (SEROquel) 25 mg 1700 PO Last administered on 08/26/18at 17 :11; Start 08/09/18 at 17:00; Stop 08/26/18 at 18:03; Status DC Sertraline HCl (Zoloft) 125 mg DAILY PO Last administered on 08/10/18at 08:10; Start 08/10/18 at 09:00; Stop 08/10/18 at 17:23; Status DC Fluvoxamine Maleate (Luvox) 25 mg HS PO Last administered on 08/12/18at 19:40; Start 08/10/18 at 21:00; Stop 08/12/18 at 22:00; Status DC Fluvoxamine Maleate (Luvox) 50 mg HS PO Last administered on 08/15/18at 20:10; Start 08/13/18 at 21:00; Stop 08/15/18 at 23:00; Status DC Fluvoxamine Maleate (Luvox) 75 mg HS PO Last administered on 08/18/18at 19:52; Start 08/16/18 at 21:00; Stop 08/18/18 at 23:00; Status DC Melatonin 3 mg HS PO Last administered on 08/20/18at 19:19; Start 08/16/18 at 21 :00; Stop 08/21/18 at 16:59; Status DC Fluvoxamine Maleate (Luvox) 100 mg QHS PO Last administered on 09/13/18at 19:25 ; Start 08/19/18 at 21:00 Trazodone HCl (Desyrel) 100 mg PRN QHS PRN PO insomnia Last administered on 20:32; Start 08/19/18 at 20:15 Olanzapine (ZyPREXA ZYDIS) 2.5 mg PRN Q2HR PRN PO PSYCHOSIS Last administered on 09/02/18 20:32; Start 08/20/18 at 16:45 Melatonin 6 mg HS PO Last administered on 09/13/18 19:25; Start 08/21/18 at 21:00 Quetiapine Fumarate (SEROquel) 12.5 mg DAILY PO Last administered on at 08:15; Start 08/27/18 at 09:00; Stop 08/29/18 at 17:07; Status DC Quetiapine Fumarate (SEROquel) 25 mg BID@1300,1700 PO Last administered on at 17:41; Start 08/27/18 at 13:00 Haloperidol Lactate (Haldol) 5 mg DAILY IM Last administered on 09/04/18at 07: 32; Start 08/28/18 at 17:30; Stop 09/04/18 at 18:33; Status DC Lorazepam (Ativan) 0.5 mg DAILY IM Last administered on 09/04/18at 10:52; Start 08/28/18 at 17:30; Stop 09/04/18 at 18:33; Status DC Quetiapine Fumarate (SEROquel) 25 mg DAILY PO Last administered on 09/13/18at 07:43; Start 08/30/18 at 09:00 Haloperidol Lactate (Haldol) 5 mg PRN DAILY PRN IM ANXIETY / AGITATION; Start 09/05/18 at 08:00; Stop 09/13/18 at 07:19; Status DC Haloperidol (Haldol) 10 mg DAILY PO Last administered on 09/12/18at 07:55; Start 09/05/18 at 09:00; Stop 09/12/18 at 12:24; Status DC Haloperidol (Haldol) 7.5 mg DAILY PO Last administered on 09/13/18at 07:43; Start 09/13/18 at 09:00 Buspirone HCl (Buspar) 5 mg BID@0900,1500 PO Last administered on 09/13/18at 15 :17; Start 09/12/18 at 15:00 Active Scripts Active Reported Dilantin (Phenytoin Sodium Extended) 100 Mg Capsule 400 Mg PO HS Ultra Coq10 (Ubiquinone) 75 Mg Capsule 200 Mg PO DAILY Lisinopril 10 Mg Tablet 10 Mg PO DAILY Vimpat (Lacosamide) 50 Mg Tablet 50 Mg PO BID Aspirin 81 Mg Tab.chew 81 Mg PO BID Simvastatin 80 Mg Tablet 80 Mg PO HS I have reviewed the current psychotropics carefully including drug interactions. Risk benefit ratio favors no change other than as noted in my dictated progress note. Diagnosis: Problems: (1) Anxiety disorder (2) Dementia in Alzheimer's disease with delusions (3) Dementia in Alzheimer's disease with depression (4) Dementia, vascular, with delusions (5) Dementia, vascular, with depression (6) Impulse control disorder LISHA KIRKPATRICK MD Sep 13, 2018 22:37
[2018-09-14 06:14] VITALS: BP 137/74
[2018-09-14] MEDS: UBIDECARENONE 50 MG CAPSULE. PO SCH (07:40)
[2018-09-14] MEDS: HALOPERIDOL 5 MG TABLET PO SCH (07:40)
[2018-09-14] MEDS: QUEtiapine 25 MG TABLET. PO SCH ×3 (07:40→15:09)
[2018-09-14] MEDS: busPIRone 5 MG TABLET. PO SCH ×2 (07:40→15:09)
[2018-09-14] MEDS: ASPIRIN 81 MG TAB.CHEW PO SCH ×2 (07:40→18:07)
[2018-09-14] MEDS: LACOSAMIDE 50 MG TABLET PO SCH ×2 (07:42→18:05)
--- NOTE | 2018-09-14 14:53 | PN ---
DATE: 09/13/2018 PSYCHIATRIC PROGRESS NOTE This late entry 09/13/2018 covers elements not covered in my initial note. SUBJECTIVE: I met with the patient in the evening in his room. Per nursing report, the patient was resistive to his evening medications, but this was the previous evening and during the day on 09/13/2018, he has been more compliant. He slept 5 hours previous night. REVIEW OF SYSTEMS: No CV, , pulmonary, eye, ENT system symptoms on review. Reliability is poor. MENTAL STATUS EXAM: Oriented to himself. Insight, judgment, recent and remote memory, attention, concentration, fund of knowledge poor, consistent with his diagnosis mentioned in my initial note. IMPRESSION: Unchanged from initial note. PLAN: No change from initial note. MAN Franklin KIRKPATRICK MD DR: DONATO/marya JOB#: [id number] / [id number]
[2018-09-14 15:51] VITALS: BP 122/75
[2018-09-14] MEDS: MELATONIN 3 MG TABLET PO SCH (18:04)
[2018-09-14] MEDS: SIMVASTATIN 40 MG TABLET. PO SCH (18:04)
[2018-09-14] MEDS: MIRTAZAPINE 15 MG TABLET PO SCH (18:05)
[2018-09-14] MEDS: PHENYTOIN SODIUM EXTENDED 100 MG CAPSULE PO SCH (18:05)
[2018-09-14] MEDS: traZODone 50 MG TABLET. PO SCH (18:07)
--- NOTE | 2018-09-14 22:26 | PDOC ---
Exam Note: Quintin Note: Please also refer to the separate dictated note~for this date of service dictated separately.~Patient seen individually. Discussed the patient with Nursing staff reviewed the chart.~Reviewed interim history and current functioning. Reviewed vital signs,~Labs/ Radiology~and current medications noted below. Continue current treatment with the changes noted in the dictated addendum note Assessment: Vital Signs: Vital Signs Date Time Temp Pulse Resp B/P (MAP) Pulse Ox O2 Delivery O2 Flow Rate FiO2 09/14/18 15:51 98.7 89 18 122/75 (91) 96 Room Air I&O Intake and Output 09/14/18 07:00 Intake Total 1560 ml Balance 1560 ml Intake Oral 1560 ml # Voids 1 Current Medications: Meds: Current Medications Acetaminophen (Tylenol) 650 mg PRN Q6HRS PRN PO PAIN / TEMP; Start 07/20/18 at 23:15 Multi-Ingredient Ointment (Analgesic [place]) 1 erik PRN QID PRN TP MUSCLE PAIN; Start 07/20/18 at 23:15 Al Hydroxide/Mg Hydroxide (Mylanta Plus Xs) 15 ml PRN AFTMEALHC PRN PO DYSPEPSIA; Start 07/20/18 at 23:15 Magnesium Hydroxide (Milk Of Magnesia) 2,400 mg PRN QHS PRN PO CONSTIPATION Last administered on 09/04/18at 15:56; Start 07/20/18 at 23:15 Lacosamide (Vimpat) 50 mg BID PO Last administered on 09/14/18at 18:05; Start 07/21/18 at 09:00 Lisinopril (Prinivil) 10 mg DAILY PO Last administered on 08/26/18at 08:01; Start 07/21/18 at 09:00; Stop 08/27/18 at 11:07; Status DC Aspirin (Children'S Aspirin) 81 mg BID PO Last administered on 09/14/18at 18:07 ; Start 07/21/18 at 09:00 Simvastatin (Zocor) 80 mg QHS PO Last administered on 09/14/18at 18:04; Start 07/21/18 at 21:00 Coenzyme Q10 (Coenzyme Q10) 200 mg DAILY PO Last administered on 09/14/18at 07: 40; Start 07/21/18 at 19:00 Phenytoin Sodium (Dilantin) 400 mg Q96H PO Last administered on 09/11/18at 19: 56; Start 07/21/18 at 21:00 Phenytoin Sodium (Dilantin) 400 mg Q96H PO Last administered on 09/12/18 19: 48; Start 07/22/18 at 21:00 Phenytoin Sodium (Dilantin) 400 mg Q96H PO Last administered on 09/13/18 19: 26; Start 07/23/18 at 21:00 Phenytoin Sodium (Dilantin) 300 mg Q96H PO Last administered on 09/14/18at 18: 05; Start 07/24/18 at 21:00 Trazodone HCl (Desyrel) 50 mg QHS PO Last administered on 09/14/18 18:07; Start 07/21/18 at 21:00 Trazodone HCl (Desyrel) 50 mg PRN QHS PRN PO insomnia Last administered on 08/19at 01:49; Start 07/21/18 at 20:00; Stop 08/19/18 at 20:08; Status DC Mirtazapine (Remeron) 7.5 mg QHS PO Last administered on 07/25/18at 19:40; Start 07/23/18 at 21:00; Stop 07/26/18 at 12:42; Status DC Sertraline HCl (Zoloft) 50 mg DAILY PO Last administered on 08/01/18at 08:40; Start 07/25/18 at 09:00; Stop 08/01/18 at 18:07; Status DC Mirtazapine (Remeron) 15 mg QHS PO Last administered on 09/14/18at 18:05; Start 07/26/18 at 21:00 Sertraline HCl (Zoloft) 75 mg DAILY PO Last administered on 08/06/18at 07:22; Start 08/02/18 at 09:00; Stop 08/06/18 at 17:52; Status DC Quetiapine Fumarate (SEROquel) 12.5 mg BIDWMEALS PO Last administered on at 08:39; Start 08/02/18 at 17:00; Stop 08/03/18 at 11:45; Status DC Quetiapine Fumarate (SEROquel) 12.5 mg TID@0900,1300,1700 PO Last administered on 08/08/18at 11:57; Start 08/03/18 at 13:00; Stop 08/08/18 at 17:05; Status DC Sertraline HCl (Zoloft) 100 mg DAILY PO Last administered on 08/09/18at 08:05; Start 08/07/18 at 09:00; Stop 08/09/18 at 11:22; Status DC Quetiapine Fumarate (SEROquel) 12.5 mg BID@0900,1300 PO Last administered on at 12:06; Start 08/09/18 at 09:00; Stop 08/26/18 at 18:03; Status DC Quetiapine Fumarate (SEROquel) 25 mg 1700 PO Last administered on 08/26/18at 17 :11; Start 08/09/18 at 17:00; Stop 08/26/18 at 18:03; Status DC Sertraline HCl (Zoloft) 125 mg DAILY PO Last administered on 08/10/18at 08:10; Start 08/10/18 at 09:00; Stop 08/10/18 at 17:23; Status DC Fluvoxamine Maleate (Luvox) 25 mg HS PO Last administered on 08/12/18at 19:40; Start 08/10/18 at 21:00; Stop 08/12/18 at 22:00; Status DC Fluvoxamine Maleate (Luvox) 50 mg HS PO Last administered on 08/15/18at 20:10; Start 08/13/18 at 21:00; Stop 08/15/18 at 23:00; Status DC Fluvoxamine Maleate (Luvox) 75 mg HS PO Last administered on 08/18/18at 19:52; Start 08/16/18 at 21:00; Stop 08/18/18 at 23:00; Status DC Melatonin 3 mg HS PO Last administered on 08/20/18at 19:19; Start 08/16/18 at 21 :00; Stop 08/21/18 at 16:59; Status DC Fluvoxamine Maleate (Luvox) 100 mg QHS PO Last administered on 09/14/18at 18:04 ; Start 08/19/18 at 21:00 Trazodone HCl (Desyrel) 100 mg PRN QHS PRN PO insomnia Last administered on 20:32; Start 08/19/18 at 20:15 Olanzapine (ZyPREXA ZYDIS) 2.5 mg PRN Q2HR PRN PO PSYCHOSIS Last administered on 09/02/18at 20:32; Start 08/20/18 at 16:45 Melatonin 6 mg HS PO Last administered on 09/14/18at 18:04; Start 08/21/18 at 21:00 Quetiapine Fumarate (SEROquel) 12.5 mg DAILY PO Last administered on at 08:15; Start 08/27/18 at 09:00; Stop 08/29/18 at 17:07; Status DC Quetiapine Fumarate (SEROquel) 25 mg BID@1300,1700 PO Last administered on at 15:09; Start 08/27/18 at 13:00 Haloperidol Lactate (Haldol) 5 mg DAILY IM Last administered on 09/04/18at 07: 32; Start 08/28/18 at 17:30; Stop 09/04/18 at 18:33; Status DC Lorazepam (Ativan) 0.5 mg DAILY IM Last administered on 09/04/18at 10:52; Start 08/28/18 at 17:30; Stop 09/04/18 at 18:33; Status DC Quetiapine Fumarate (SEROquel) 25 mg DAILY PO Last administered on 09/14/18at 07:40; Start 08/30/18 at 09:00 Haloperidol Lactate (Haldol) 5 mg PRN DAILY PRN IM ANXIETY / AGITATION; Start 09/05/18 at 08:00; Stop 09/13/18 at 07:19; Status DC Haloperidol (Haldol) 10 mg DAILY PO Last administered on 09/12/18at 07:55; Start 09/05/18 at 09:00; Stop 09/12/18 at 12:24; Status DC Haloperidol (Haldol) 7.5 mg DAILY PO Last administered on 09/14/18at 07:40; Start 09/13/18 at 09:00; Stop 09/14/18 at 16:36; Status DC Buspirone HCl (Buspar) 5 mg BID@0900,1500 PO Last administered on 11/30/18at 15 :09; Start 09/12/18 at 15:00 Haloperidol (Haldol) 5 mg DAILY PO ; Start 09/15/18 at 09:00 Active Scripts Active Reported Dilantin (Phenytoin Sodium Extended) 100 Mg Capsule 400 Mg PO HS Ultra Coq10 (Ubiquinone) 75 Mg Capsule 200 Mg PO DAILY Lisinopril 10 Mg Tablet 10 Mg PO DAILY Vimpat (Lacosamide) 50 Mg Tablet 50 Mg PO BID Aspirin 81 Mg Tab.chew 81 Mg PO BID Simvastatin 80 Mg Tablet 80 Mg PO HS I have reviewed the current psychotropics carefully including drug interactions. Risk benefit ratio favors no change other than as noted in my dictated progress note. Diagnosis: Problems: (1) Anxiety disorder (2) Dementia in Alzheimer's disease with delusions (3) Dementia in Alzheimer's disease with depression (4) Dementia, vascular, with delusions (5) Dementia, vascular, with depression (6) Impulse control disorder LISHA KIRKPATRICK MD Sep 14, 2018 22:26
[2018-09-15 05:39] VITALS: BP 168/81
[2018-09-15] MEDS: UBIDECARENONE 50 MG CAPSULE. PO SCH (07:47)
[2018-09-15] MEDS: ASPIRIN 81 MG TAB.CHEW PO SCH ×2 (07:48→19:30)
[2018-09-15] MEDS: LACOSAMIDE 50 MG TABLET PO SCH ×2 (07:48→19:30)
[2018-09-15] MEDS: QUEtiapine 25 MG TABLET. PO SCH ×3 (07:48→16:31)
[2018-09-15] MEDS: busPIRone 5 MG TABLET. PO SCH ×2 (07:48→14:32)
[2018-09-15] MEDS: HALOPERIDOL 5 MG TABLET PO SCH (07:49)
[2018-09-15 15:44] VITALS: BP 134/78
[2018-09-15] MEDS: MELATONIN 3 MG TABLET PO SCH (19:30)
[2018-09-15] MEDS: SIMVASTATIN 40 MG TABLET. PO SCH (19:30)
[2018-09-15] MEDS: PHENYTOIN SODIUM EXTENDED 100 MG CAPSULE PO SCH (19:31)
[2018-09-15] MEDS: MIRTAZAPINE 15 MG TABLET PO SCH (19:31)
[2018-09-15] MEDS: traZODone 50 MG TABLET. PO SCH (19:31)
--- NOTE | 2018-09-15 21:36 | PDOC ---
Exam Note: Quintin Note: Please also refer to the separate dictated note~for this date of service dictated separately.~Patient seen individually. Discussed the patient with Nursing staff reviewed the chart.~Reviewed interim history and current functioning. Reviewed vital signs,~Labs/ Radiology~and current medications noted below. Continue current treatment with the changes noted in the dictated addendum note Assessment: Vital Signs: Vital Signs Date Time Temp Pulse Resp B/P (MAP) Pulse Ox O2 Delivery O2 Flow Rate FiO2 09/15/18 15:44 98.3 86 19 134/78 (96) 99 Room Air I&O Intake and Output 09/15/18 07:00 Intake Total 1080 ml Balance 1080 ml Intake Oral 1080 ml Current Medications: Meds: Current Medications Acetaminophen (Tylenol) 650 mg PRN Q6HRS PRN PO PAIN / TEMP; Start 07/20/18 at 23:15 Multi-Ingredient Ointment (Analgesic [place]) 1 erik PRN QID PRN TP MUSCLE PAIN; Start 07/20/18 at 23:15 Al Hydroxide/Mg Hydroxide (Mylanta Plus Xs) 15 ml PRN AFTMEALHC PRN PO DYSPEPSIA; Start 07/20/18 at 23:15 Magnesium Hydroxide (Milk Of Magnesia) 2,400 mg PRN QHS PRN PO CONSTIPATION Last administered on 09/04/18at 15:56; Start 07/20/18 at 23:15 Lacosamide (Vimpat) 50 mg BID PO Last administered on 09/15/18at 19:30; Start 07/21/18 at 09:00 Lisinopril (Prinivil) 10 mg DAILY PO Last administered on 08/26/18at 08:01; Start 07/21/18 at 09:00; Stop 08/27/18 at 11:07; Status DC Aspirin (Children'S Aspirin) 81 mg BID PO Last administered on 09/15/18 19:30 ; Start 07/21/18 at 09:00 Simvastatin (Zocor) 80 mg QHS PO Last administered on 09/15/18at 19:30; Start 07/21/18 at 21:00 Coenzyme Q10 (Coenzyme Q10) 200 mg DAILY PO Last administered on 09/15/18at 07: 47; Start 07/21/18 at 19:00 Phenytoin Sodium (Dilantin) 400 mg Q96H PO Last administered on 09/15/18 19:31 ; Start 07/21/18 at 21:00 Phenytoin Sodium (Dilantin) 400 mg Q96H PO Last administered on 09/12/18at 19: 48; Start 07/22/18 at 21:00 Phenytoin Sodium (Dilantin) 400 mg Q96H PO Last administered on 09/13/18 19: 26; Start 07/23/18 at 21:00 Phenytoin Sodium (Dilantin) 300 mg Q96H PO Last administered on 09/14/18at 18: 05; Start 07/24/18 at 21:00 Trazodone HCl (Desyrel) 50 mg QHS PO Last administered on 09/15/18 19:31; Start 07/21/18 at 21:00 Trazodone HCl (Desyrel) 50 mg PRN QHS PRN PO insomnia Last administered on 08/19at 01:49; Start 07/21/18 at 20:00; Stop 08/19/18 at 20:08; Status DC Mirtazapine (Remeron) 7.5 mg QHS PO Last administered on 07/25/18at 19:40; Start 07/23/18 at 21:00; Stop 07/26/18 at 12:42; Status DC Sertraline HCl (Zoloft) 50 mg DAILY PO Last administered on 08/01/18at 08:40; Start 07/25/18 at 09:00; Stop 08/01/18 at 18:07; Status DC Mirtazapine (Remeron) 15 mg QHS PO Last administered on 09/15/18 19:31; Start 07/26/18 at 21:00 Sertraline HCl (Zoloft) 75 mg DAILY PO Last administered on 08/06/18at 07:22; Start 08/02/18 at 09:00; Stop 08/06/18 at 17:52; Status DC Quetiapine Fumarate (SEROquel) 12.5 mg BIDWMEALS PO Last administered on at 08:39; Start 08/02/18 at 17:00; Stop 08/03/18 at 11:45; Status DC Quetiapine Fumarate (SEROquel) 12.5 mg TID@0900,1300,1700 PO Last administered on 08/08/18at 11:57; Start 08/03/18 at 13:00; Stop 08/08/18 at 17:05; Status DC Sertraline HCl (Zoloft) 100 mg DAILY PO Last administered on 08/09/18at 08:05; Start 08/07/18 at 09:00; Stop 08/09/18 at 11:22; Status DC Quetiapine Fumarate (SEROquel) 12.5 mg BID@0900,1300 PO Last administered on at 12:06; Start 08/09/18 at 09:00; Stop 08/26/18 at 18:03; Status DC Quetiapine Fumarate (SEROquel) 25 mg 1700 PO Last administered on 08/26/18at 17 :11; Start 08/09/18 at 17:00; Stop 08/26/18 at 18:03; Status DC Sertraline HCl (Zoloft) 125 mg DAILY PO Last administered on 08/10/18at 08:10; Start 08/10/18 at 09:00; Stop 08/10/18 at 17:23; Status DC Fluvoxamine Maleate (Luvox) 25 mg HS PO Last administered on 08/12/18at 19:40; Start 08/10/18 at 21:00; Stop 08/12/18 at 22:00; Status DC Fluvoxamine Maleate (Luvox) 50 mg HS PO Last administered on 08/15/18at 20:10; Start 08/13/18 at 21:00; Stop 08/15/18 at 23:00; Status DC Fluvoxamine Maleate (Luvox) 75 mg HS PO Last administered on 08/18/18at 19:52; Start 08/16/18 at 21:00; Stop 08/18/18 at 23:00; Status DC Melatonin 3 mg HS PO Last administered on 08/20/18at 19:19; Start 08/16/18 at 21 :00; Stop 08/21/18 at 16:59; Status DC Fluvoxamine Maleate (Luvox) 100 mg QHS PO Last administered on 09/15/18at 19:30 ; Start 08/19/18 at 21:00 Trazodone HCl (Desyrel) 100 mg PRN QHS PRN PO insomnia Last administered on 20:32; Start 08/19/18 at 20:15 Olanzapine (ZyPREXA ZYDIS) 2.5 mg PRN Q2HR PRN PO PSYCHOSIS Last administered on 09/02/18at 20:32; Start 08/20/18 at 16:45 Melatonin 6 mg HS PO Last administered on 09/15/18at 19:30; Start 08/21/18 at 21 :00 Quetiapine Fumarate (SEROquel) 12.5 mg DAILY PO Last administered on at 08:15; Start 08/27/18 at 09:00; Stop 08/29/18 at 17:07; Status DC Quetiapine Fumarate (SEROquel) 25 mg BID@1300,1700 PO Last administered on 09/15at 16:31; Start 08/27/18 at 13:00 Haloperidol Lactate (Haldol) 5 mg DAILY IM Last administered on 09/04/18at 07: 32; Start 08/28/18 at 17:30; Stop 09/04/18 at 18:33; Status DC Lorazepam (Ativan) 0.5 mg DAILY IM Last administered on 09/04/18at 10:52; Start 08/28/18 at 17:30; Stop 09/04/18 at 18:33; Status DC Quetiapine Fumarate (SEROquel) 25 mg DAILY PO Last administered on 09/15/18at 07 :48; Start 08/30/18 at 09:00 Haloperidol Lactate (Haldol) 5 mg PRN DAILY PRN IM ANXIETY / AGITATION; Start 09/05/18 at 08:00; Stop 09/13/18 at 07:19; Status DC Haloperidol (Haldol) 10 mg DAILY PO Last administered on 09/12/18at 07:55; Start 09/05/18 at 09:00; Stop 09/12/18 at 12:24; Status DC Haloperidol (Haldol) 7.5 mg DAILY PO Last administered on 09/14/18at 07:40; Start 09/13/18 at 09:00; Stop 09/14/18 at 16:36; Status DC Buspirone HCl (Buspar) 5 mg BID@0900,1500 PO Last administered on 09/15/18at 14: 32; Start 09/12/18 at 15:00 Haloperidol (Haldol) 5 mg DAILY PO Last administered on 09/15/18at 07:49; Start 09/15/18 at 09:00 Active Scripts Active Reported Dilantin (Phenytoin Sodium Extended) 100 Mg Capsule 400 Mg PO HS Ultra Coq10 (Ubiquinone) 75 Mg Capsule 200 Mg PO DAILY Lisinopril 10 Mg Tablet 10 Mg PO DAILY Vimpat (Lacosamide) 50 Mg Tablet 50 Mg PO BID Aspirin 81 Mg Tab.chew 81 Mg PO BID Simvastatin 80 Mg Tablet 80 Mg PO HS I have reviewed the current psychotropics carefully including drug interactions. Risk benefit ratio favors no change other than as noted in my dictated progress note. Diagnosis: Problems: (1) Anxiety disorder (2) Dementia in Alzheimer's disease with delusions (3) Dementia in Alzheimer's disease with depression (4) Dementia, vascular, with delusions (5) Dementia, vascular, with depression (6) Impulse control disorder LISHA KIRKPATRICK MD Sep 15, 2018 21:36
[2018-09-16 05:34] VITALS: BP 133/59
[2018-09-16] MEDS: busPIRone 5 MG TABLET. PO SCH ×2 (07:45→14:47)
[2018-09-16] MEDS: ASPIRIN 81 MG TAB.CHEW PO SCH ×2 (07:45→19:39)
[2018-09-16] MEDS: LACOSAMIDE 50 MG TABLET PO SCH ×2 (07:45→19:39)
[2018-09-16] MEDS: UBIDECARENONE 50 MG CAPSULE. PO SCH (07:46)
[2018-09-16] MEDS: QUEtiapine 25 MG TABLET. PO SCH ×3 (07:46→17:32)
[2018-09-16] MEDS: HALOPERIDOL 5 MG TABLET PO SCH (07:46)
--- NOTE | 2018-09-16 12:15 | PN ---
DATE: 09/14/2018 PSYCHIATRIC PROGRESS NOTE This is a late entry 09/14/2018 covers elements not covered in my initial note. SUBJECTIVE: I met with the patient in the evening. The patient slept just 2-1/2 hours previous night. Nursing staff did not repeat the trazodone and I have encouraged them to do this. He remains confused, anxious, worse late in the evening, repetitive about discharge plans, but again much later in the evening, better during the day. REVIEW OF SYSTEMS: No CV, , pulmonary, eye, ENT system symptoms on review. Reliability poor. MENTAL STATUS EXAM: Oriented to himself. Speech coherent, rapid at times. Insight, judgment, recent and remote memory, attention, concentration, fund of knowledge poor, consistent with his diagnosis. As I met with him individually, he is again slowly getting obsessed and perseverative late in the evening about discharge and wanting to go home, waiting for his . LABORATORY DATA: Reviewed. IMPRESSION: Unchanged from initial note. PLAN: Despite the above, he is on 2 antipsychotics, Haldol, and Seroquel. I will go ahead and reduce the Haldol from 7.5 mg daily down to 5 mg a day. Continue rest of the psychotropics unchanged. Maintain Luvox 100 mg a day. Rest unchanged from initial note. MAN Franklin KIRKPATRICK MD DR: DONATO/marya JOB#: [id number] / [id number]
[2018-09-16 15:33] VITALS: BP 133/60
[2018-09-16] MEDS: traZODone 50 MG TABLET. PO SCH (19:38)
[2018-09-16] MEDS: PHENYTOIN SODIUM EXTENDED 100 MG CAPSULE PO SCH (19:38)
[2018-09-16] MEDS: MELATONIN 3 MG TABLET PO SCH (19:39)
[2018-09-16] MEDS: SIMVASTATIN 40 MG TABLET. PO SCH (19:39)
[2018-09-16] MEDS: MIRTAZAPINE 15 MG TABLET PO SCH (19:39)
--- NOTE | 2018-09-16 23:55 | PN ---
DATE: 09/15/2018 PSYCHIATRIC PROGRESS NOTE This is a late entry of 09/15/2018, covers elements not covered in my initial note. SUBJECTIVE: I met with the patient in the evening. The patient slept 8-3/4 hours previous night. He remains anxious, somewhat more obsessive, repetitive about discharge plan late in the evening with owning. REVIEW OF SYSTEMS: No CV, , pulmonary, eye, ENT system symptoms on review. Reliability is poor. MENTAL STATUS EXAM: Oriented to himself. Insight, judgment, recent and remote memory, attention, concentration, fund of knowledge poor, consistent with his diagnosis mentioned in my initial note. PLAN: No change from initial note. MAN Franklin KIRKPATRICK MD DR: DONATO/marya JOB#: [id number] / [id number]
[2018-09-17 05:32] VITALS: BP 144/69
[2018-09-17 07:42] LABS: BASO # 0.1 x10^3/uL (0.0-0.2); BASO % 2 % (0-3); EOS % 1 % (0-3); HEMATOCRIT 33.5 % (39.0-53.0); HEMOGLOBIN 11.5 g/dL (13.0-17.5); LYMPH # 1.3 x10^3/uL (1.0-4.8); LYMPH % 27 % (24-48); MEAN CORPUSCULAR HEMOGLOBIN 33 pg (25-35); MEAN CORPUSCULAR HGB CONC 34 g/dL (31-37); MEAN CORPUSCULAR VOLUME 95 fL (79-100); MONO # 0.6 x10^3/uL (0.0-1.1); MONO % 12 % (0-9); NEUT # 2.8 x10^3uL (1.8-7.7); NEUT % 58 % (31-73); PLATELET COUNT 438 x10^3/uL (140-400); RED BLOOD COUNT 3.54 x10^6/uL (4.30-5.70); RED CELL DISTRIBUTION WIDTH 14.1 % (11.5-14.5); WHITE BLOOD COUNT 4.9 x10^3/uL (4.0-11.0)
[2018-09-17 07:56] LABS: ALBUMIN 3.5 g/dL (3.4-5.0); CALCIUM 8.9 mg/dL (8.5-10.1); CREATININE 1.1 mg/dL (0.7-1.3); GFR 64.6; POTASSIUM 4.4 mmol/L (3.5-5.1); TOTAL BILIRUBIN 0.2 mg/dL (0.2-1.0); TOTAL PROTEIN 6.9 g/dL (6.4-8.2)
[2018-09-17] MEDS: HALOPERIDOL 5 MG TABLET PO SCH (08:03)
[2018-09-17] MEDS: QUEtiapine 25 MG TABLET. PO SCH ×3 (08:03→16:23)
[2018-09-17] MEDS: LACOSAMIDE 50 MG TABLET PO SCH ×2 (08:03→19:18)
[2018-09-17] MEDS: UBIDECARENONE 50 MG CAPSULE. PO SCH (08:03)
[2018-09-17] MEDS: ASPIRIN 81 MG TAB.CHEW PO SCH ×2 (08:03→19:19)
[2018-09-17] MEDS: busPIRone 5 MG TABLET. PO SCH ×2 (08:03→16:23)
--- NOTE | 2018-09-17 09:58 | PDOC ---
Exam Note: Quintin Note: Late entry for DOS 09/16/2018. Please also refer to the separate dictated note~ for this date of service dictated separately.~Patient seen individually. Discussed the patient with Nursing staff reviewed the chart.~Reviewed interim history and current functioning. Reviewed vital signs,~Labs/ Radiology~and current medications noted below. Continue current treatment with the changes noted in the dictated addendum note Assessment: Vital Signs: VS - Last 72 Hours, by Label Date Time Temp Pulse Resp B/P (MAP) Pulse Ox O2 Delivery O2 Flow Rate FiO2 09/17/18 05:32 97.0 68 18 144/69 (94) 95 09/16/18 15:33 98.0 93 16 133/60 (84) 99 09/16/18 05:34 98.7 57 20 133/59 (83) 90 09/15/18 15:44 98.3 86 19 134/78 (96) 99 Room Air 09/15/18 05:39 97.7 80 20 168/81 (110) 99 Room Air 09/14/18 15:51 98.7 89 18 122/75 (91) 96 Room Air Vital Signs Date Time Temp Pulse Resp B/P (MAP) Pulse Ox O2 Delivery O2 Flow Rate FiO2 09/17/18 05:32 97.0 68 18 144/69 (94) 95 09/15/18 15:44 Room Air I&O Intake and Output 09/17/18 07:00 Intake Total 1320 ml Balance 1320 ml Intake Oral 1320 ml Labs: Laboratory Tests Test 09/17/18 07:12 White Blood Count 4.9 x10^3/uL (4.0-11.0) Red Blood Count 3.54 x10^6/uL (4.30-5.70) L Hemoglobin 11.5 g/dL (13.0-17.5) L Hematocrit 33.5 % (39.0-53.0) L Mean Corpuscular Volume 95 fL (79-100) Mean Corpuscular Hemoglobin 33 pg (25-35) Mean Corpuscular Hemoglobin Concent 34 g/dL (31-37) Red Cell Distribution Width 14.1 % (11.5-14.5) Platelet Count 438 x10^3/uL (140-400) H Neutrophils (%) (Auto) 58 % (31-73) Lymphocytes (%) (Auto) 27 % (24-48) Monocytes (%) (Auto) 12 % (0-9) H Eosinophils (%) (Auto) 1 % (0-3) Basophils (%) (Auto) 2 % (0-3) Neutrophils # (Auto) 2.8 x10^3uL (1.8-7.7) Lymphocytes # (Auto) 1.3 x10^3/uL (1.0-4.8) Monocytes # (Auto) 0.6 x10^3/uL (0.0-1.1) Eosinophils # (Auto) 0.0 x10^3/uL (0.0-0.7) Basophils # (Auto) 0.1 x10^3/uL (0.0-0.2) Sodium Level 139 mmol/L (136-145) Potassium Level 4.4 mmol/L (3.5-5.1) Chloride Level 104 mmol/L (98-107) Carbon Dioxide Level 28 mmol/L (21-32) Anion Gap 7 (6-14) Blood Urea Nitrogen 35 mg/dL (8-26) H Creatinine 1.1 mg/dL (0.7-1.3) Estimated GFR (Cockcroft-Gault) 64.6 BUN/Creatinine Ratio 32 (6-20) H Glucose Level 96 mg/dL (70-99) Calcium Level 8.9 mg/dL (8.5-10.1) Total Bilirubin 0.2 mg/dL (0.2-1.0) Aspartate Amino Transferase (AST) 19 U/L (15-37) Alanine Aminotransferase (ALT) 29 U/L (16-63) Alkaline Phosphatase 109 U/L (46-116) Total Protein 6.9 g/dL (6.4-8.2) Albumin 3.5 g/dL (3.4-5.0) Albumin/Globulin Ratio 1.0 (1.0-1.7) Current Medications: Meds: Current Medications Acetaminophen (Tylenol) 650 mg PRN Q6HRS PRN PO PAIN / TEMP; Start 07/20/18 at 23:15 Multi-Ingredient Ointment (Analgesic [place]) 1 erik PRN QID PRN TP MUSCLE PAIN; Start 07/20/18 at 23:15 Al Hydroxide/Mg Hydroxide (Mylanta Plus Xs) 15 ml PRN AFTMEALHC PRN PO DYSPEPSIA; Start 07/20/18 at 23:15 Magnesium Hydroxide (Milk Of Magnesia) 2,400 mg PRN QHS PRN PO CONSTIPATION Last administered on 09/04/18at 15:56; Start 07/20/18 at 23:15 Lacosamide (Vimpat) 50 mg BID PO Last administered on 09/17/18 08:03; Start 07/21/18 at 09:00 Lisinopril (Prinivil) 10 mg DAILY PO Last administered on 08/26/18 08:01; Start 07/21/18 at 09:00; Stop 08/27/18 at 11:07; Status DC Aspirin (Children'S Aspirin) 81 mg BID PO Last administered on 09/17/18 08:03 ; Start 07/21/18 at 09:00 Simvastatin (Zocor) 80 mg QHS PO Last administered on 09/16/18 19:39; Start 07/21/18 at 21:00 Coenzyme Q10 (Coenzyme Q10) 200 mg DAILY PO Last administered on 09/17/18 08: 03; Start 07/21/18 at 19:00 Phenytoin Sodium (Dilantin) 400 mg Q96H PO Last administered on 09/15/18 19:31 ; Start 07/21/18 at 21:00 Phenytoin Sodium (Dilantin) 400 mg Q96H PO Last administered on 09/16/18 19:38 ; Start 07/22/18 at 21:00 Phenytoin Sodium (Dilantin) 400 mg Q96H PO Last administered on 09/13/18 19: 26; Start 07/23/18 at 21:00 Phenytoin Sodium (Dilantin) 300 mg Q96H PO Last administered on 09/14/18 18: 05; Start 07/24/18 at 21:00 Trazodone HCl (Desyrel) 50 mg QHS PO Last administered on 09/16/18 19:38; Start 07/21/18 at 21:00 Trazodone HCl (Desyrel) 50 mg PRN QHS PRN PO insomnia Last administered on 08/19 01:49; Start 07/21/18 at 20:00; Stop 08/19/18 at 20:08; Status DC Mirtazapine (Remeron) 7.5 mg QHS PO Last administered on 07/25/18at 19:40; Start 07/23/18 at 21:00; Stop 07/26/18 at 12:42; Status DC Sertraline HCl (Zoloft) 50 mg DAILY PO Last administered on 08/01/18at 08:40; Start 07/25/18 at 09:00; Stop 08/01/18 at 18:07; Status DC Mirtazapine (Remeron) 15 mg QHS PO Last administered on 09/16/18at 19:39; Start 07/26/18 at 21:00 Sertraline HCl (Zoloft) 75 mg DAILY PO Last administered on 08/06/18at 07:22; Start 08/02/18 at 09:00; Stop 08/06/18 at 17:52; Status DC Quetiapine Fumarate (SEROquel) 12.5 mg BIDWMEALS PO Last administered on at 08:39; Start 08/02/18 at 17:00; Stop 08/03/18 at 11:45; Status DC Quetiapine Fumarate (SEROquel) 12.5 mg TID@0900,1300,1700 PO Last administered on 08/08/18at 11:57; Start 08/03/18 at 13:00; Stop 08/08/18 at 17:05; Status DC Sertraline HCl (Zoloft) 100 mg DAILY PO Last administered on 08/09/18at 08:05; Start 08/07/18 at 09:00; Stop 08/09/18 at 11:22; Status DC Quetiapine Fumarate (SEROquel) 12.5 mg BID@0900,1300 PO Last administered on at 12:06; Start 08/09/18 at 09:00; Stop 08/26/18 at 18:03; Status DC Quetiapine Fumarate (SEROquel) 25 mg 1700 PO Last administered on 08/26/18at 17 :11; Start 08/09/18 at 17:00; Stop 08/26/18 at 18:03; Status DC Sertraline HCl (Zoloft) 125 mg DAILY PO Last administered on 08/10/18at 08:10; Start 08/10/18 at 09:00; Stop 08/10/18 at 17:23; Status DC Fluvoxamine Maleate (Luvox) 25 mg HS PO Last administered on 08/12/18at 19:40; Start 08/10/18 at 21:00; Stop 08/12/18 at 22:00; Status DC Fluvoxamine Maleate (Luvox) 50 mg HS PO Last administered on 08/15/18at 20:10; Start 08/13/18 at 21:00; Stop 08/15/18 at 23:00; Status DC Fluvoxamine Maleate (Luvox) 75 mg HS PO Last administered on 08/18/18 19:52; Start 08/16/18 at 21:00; Stop 08/18/18 at 23:00; Status DC Melatonin 3 mg HS PO Last administered on 08/20/18 19:19; Start 08/16/18 at 21 :00; Stop 08/21/18 at 16:59; Status DC Fluvoxamine Maleate (Luvox) 100 mg QHS PO Last administered on 09/16/18at 19:39 ; Start 08/19/18 at 21:00 Trazodone HCl (Desyrel) 100 mg PRN QHS PRN PO insomnia Last administered on 20:32; Start 08/19/18 at 20:15 Olanzapine (ZyPREXA ZYDIS) 2.5 mg PRN Q2HR PRN PO PSYCHOSIS Last administered on 09/02/18 20:32; Start 08/20/18 at 16:45 Melatonin 6 mg HS PO Last administered on 09/16/18at 19:39; Start 08/21/18 at 21 :00 Quetiapine Fumarate (SEROquel) 12.5 mg DAILY PO Last administered on at 08:15; Start 08/27/18 at 09:00; Stop 08/29/18 at 17:07; Status DC Quetiapine Fumarate (SEROquel) 25 mg BID@1300,1700 PO Last administered on 09/16 17:32; Start 08/27/18 at 13:00 Haloperidol Lactate (Haldol) 5 mg DAILY IM Last administered on 09/04/18at 07: 32; Start 08/28/18 at 17:30; Stop 09/04/18 at 18:33; Status DC Lorazepam (Ativan) 0.5 mg DAILY IM Last administered on 09/04/18at 10:52; Start 08/28/18 at 17:30; Stop 09/04/18 at 18:33; Status DC Quetiapine Fumarate (SEROquel) 25 mg DAILY PO Last administered on 09/17/18at 08 :03; Start 08/30/18 at 09:00 Haloperidol Lactate (Haldol) 5 mg PRN DAILY PRN IM ANXIETY / AGITATION; Start 09/05/18 at 08:00; Stop 09/13/18 at 07:19; Status DC Haloperidol (Haldol) 10 mg DAILY PO Last administered on 09/12/18at 07:55; Start 09/05/18 at 09:00; Stop 09/12/18 at 12:24; Status DC Haloperidol (Haldol) 7.5 mg DAILY PO Last administered on 09/14/18at 07:40; Start 09/13/18 at 09:00; Stop 09/14/18 at 16:36; Status DC Buspirone HCl (Buspar) 5 mg BID@0900,1500 PO Last administered on 09/17/18at 08: 03; Start 09/12/18 at 15:00 Haloperidol (Haldol) 5 mg DAILY PO Last administered on 09/17/18at 08:03; Start 09/15/18 at 09:00 Active Scripts Active Reported Dilantin (Phenytoin Sodium Extended) 100 Mg Capsule 400 Mg PO HS Ultra Coq10 (Ubiquinone) 75 Mg Capsule 200 Mg PO DAILY Lisinopril 10 Mg Tablet 10 Mg PO DAILY Vimpat (Lacosamide) 50 Mg Tablet 50 Mg PO BID Aspirin 81 Mg Tab.chew 81 Mg PO BID Simvastatin 80 Mg Tablet 80 Mg PO HS I have reviewed the current psychotropics carefully including drug interactions. Risk benefit ratio favors no change other than as noted in my dictated progress note. Diagnosis: Problems: (1) Anxiety disorder (2) Dementia in Alzheimer's disease with delusions (3) Dementia in Alzheimer's disease with depression (4) Dementia, vascular, with delusions (5) Dementia, vascular, with depression (6) Impulse control disorder LISHA KIRKPATRICK MD Sep 17, 2018 09:58
[2018-09-17 16:02] VITALS: BP 112/61
[2018-09-17] MEDS: MELATONIN 3 MG TABLET PO SCH (19:19)
[2018-09-17] MEDS: traZODone 50 MG TABLET. PO SCH (19:19)
[2018-09-17] MEDS: SIMVASTATIN 40 MG TABLET. PO SCH (19:19)
[2018-09-17] MEDS: MIRTAZAPINE 15 MG TABLET PO SCH (19:19)
[2018-09-17] MEDS: PHENYTOIN SODIUM EXTENDED 100 MG CAPSULE PO SCH (19:21)
--- NOTE | 2018-09-17 20:22 | PN ---
DATE: 09/16/2018 This is a late entry for 09/16/2018 covers elements not covered in my initial note. SUBJECTIVE: I met with the patient in the evening. Overall, the patient slept 6-1/4 hours previous night. He has been doing better, remains confused, somewhat more obsessive with the evening hours, wanting to be discharged and perseverating, following me around the unit to address this repeatedly having forgotten that he had done it previously. REVIEW OF SYSTEMS: No CV, , pulmonary, eye, ENT system symptoms on review. MENTAL STATUS EXAM: The patient is oriented to himself, at times situation. Speech is coherent, rapid at times. Abstraction fair, computation impaired, language function intact, attention span short. Mood and affect, remains somewhat anxious, obsessive, but improved. LABORATORY DATA: Reviewed. IMPRESSION: Unchanged from initial note. PLAN: No change from initial note. I have reduced the Haldol down to 5 mg a day from 10 mg a day, but will not reduce it further for now and reassess in a day or so. MAN Franklin KIRKPARTICK MD DR: DONATO/marya JOB#: [id number] / [id number]
--- NOTE | 2018-09-17 22:37 | PDOC ---
Exam Note: Quintin Note: Please also refer to the separate dictated note~for this date of service dictated separately.~Patient seen individually. Discussed the patient with Nursing staff reviewed the chart.~Reviewed interim history and current functioning. Reviewed vital signs,~Labs/ Radiology~and current medications noted below. Continue current treatment with the changes noted in the dictated addendum note Assessment: Vital Signs: Vital Signs Date Time Temp Pulse Resp B/P (MAP) Pulse Ox O2 Delivery O2 Flow Rate FiO2 09/17/18 16:02 98.3 72 20 112/61 (78) 97 09/15/18 15:44 Room Air I&O Intake and Output 09/17/18 07:00 Intake Total 1320 ml Balance 1320 ml Intake Oral 1320 ml Labs: Laboratory Tests Test 09/17/18 07:12 White Blood Count 4.9 x10^3/uL (4.0-11.0) Red Blood Count 3.54 x10^6/uL (4.30-5.70) L Hemoglobin 11.5 g/dL (13.0-17.5) L Hematocrit 33.5 % (39.0-53.0) L Mean Corpuscular Volume 95 fL (79-100) Mean Corpuscular Hemoglobin 33 pg (25-35) Mean Corpuscular Hemoglobin Concent 34 g/dL (31-37) Red Cell Distribution Width 14.1 % (11.5-14.5) Platelet Count 438 x10^3/uL (140-400) H Neutrophils (%) (Auto) 58 % (31-73) Lymphocytes (%) (Auto) 27 % (24-48) Monocytes (%) (Auto) 12 % (0-9) H Eosinophils (%) (Auto) 1 % (0-3) Basophils (%) (Auto) 2 % (0-3) Neutrophils # (Auto) 2.8 x10^3uL (1.8-7.7) Lymphocytes # (Auto) 1.3 x10^3/uL (1.0-4.8) Monocytes # (Auto) 0.6 x10^3/uL (0.0-1.1) Eosinophils # (Auto) 0.0 x10^3/uL (0.0-0.7) Basophils # (Auto) 0.1 x10^3/uL (0.0-0.2) Sodium Level 139 mmol/L (136-145) Potassium Level 4.4 mmol/L (3.5-5.1) Chloride Level 104 mmol/L (98-107) Carbon Dioxide Level 28 mmol/L (21-32) Anion Gap 7 (6-14) Blood Urea Nitrogen 35 mg/dL (8-26) H Creatinine 1.1 mg/dL (0.7-1.3) Estimated GFR (Cockcroft-Gault) 64.6 BUN/Creatinine Ratio 32 (6-20) H Glucose Level 96 mg/dL (70-99) Calcium Level 8.9 mg/dL (8.5-10.1) Total Bilirubin 0.2 mg/dL (0.2-1.0) Aspartate Amino Transferase (AST) 19 U/L (15-37) Alanine Aminotransferase (ALT) 29 U/L (16-63) Alkaline Phosphatase 109 U/L (46-116) Total Protein 6.9 g/dL (6.4-8.2) Albumin 3.5 g/dL (3.4-5.0) Albumin/Globulin Ratio 1.0 (1.0-1.7) Current Medications: Meds: Current Medications Acetaminophen (Tylenol) 650 mg PRN Q6HRS PRN PO PAIN / TEMP; Start 07/20/18 at 23:15 Multi-Ingredient Ointment (Analgesic [place]) 1 erik PRN QID PRN TP MUSCLE PAIN; Start 07/20/18 at 23:15 Al Hydroxide/Mg Hydroxide (Mylanta Plus Xs) 15 ml PRN AFTMEALHC PRN PO DYSPEPSIA; Start 07/20/18 at 23:15 Magnesium Hydroxide (Milk Of Magnesia) 2,400 mg PRN QHS PRN PO CONSTIPATION Last administered on 09/04/18at 15:56; Start 07/20/18 at 23:15 Lacosamide (Vimpat) 50 mg BID PO Last administered on 09/17/18at 19:18; Start 07/21/18 at 09:00 Lisinopril (Prinivil) 10 mg DAILY PO Last administered on 08/26/18at 08:01; Start 07/21/18 at 09:00; Stop 08/27/18 at 11:07; Status DC Aspirin (Children'S Aspirin) 81 mg BID PO Last administered on 09/17/18 19:19 ; Start 07/21/18 at 09:00 Simvastatin (Zocor) 80 mg QHS PO Last administered on 09/17/18 19:19; Start 07/21/18 at 21:00 Coenzyme Q10 (Coenzyme Q10) 200 mg DAILY PO Last administered on 09/17/18 08: 03; Start 07/21/18 at 19:00 Phenytoin Sodium (Dilantin) 400 mg Q96H PO Last administered on 09/15/18 19:31 ; Start 07/21/18 at 21:00 Phenytoin Sodium (Dilantin) 400 mg Q96H PO Last administered on 09/16/18 19:38 ; Start 07/22/18 at 21:00 Phenytoin Sodium (Dilantin) 400 mg Q96H PO Last administered on 09/17/18 19:21 ; Start 07/23/18 at 21:00 Phenytoin Sodium (Dilantin) 300 mg Q96H PO Last administered on 09/14/18at 18: 05; Start 07/24/18 at 21:00 Trazodone HCl (Desyrel) 50 mg QHS PO Last administered on 09/17/18 19:19; Start 07/21/18 at 21:00 Trazodone HCl (Desyrel) 50 mg PRN QHS PRN PO insomnia Last administered on 08/19at 01:49; Start 07/21/18 at 20:00; Stop 08/19/18 at 20:08; Status DC Mirtazapine (Remeron) 7.5 mg QHS PO Last administered on 07/25/18at 19:40; Start 07/23/18 at 21:00; Stop 07/26/18 at 12:42; Status DC Sertraline HCl (Zoloft) 50 mg DAILY PO Last administered on 08/01/18at 08:40; Start 07/25/18 at 09:00; Stop 08/01/18 at 18:07; Status DC Mirtazapine (Remeron) 15 mg QHS PO Last administered on 09/17/18 19:19; Start 07/26/18 at 21:00 Sertraline HCl (Zoloft) 75 mg DAILY PO Last administered on 08/06/18at 07:22; Start 08/02/18 at 09:00; Stop 08/06/18 at 17:52; Status DC Quetiapine Fumarate (SEROquel) 12.5 mg BIDWMEALS PO Last administered on at 08:39; Start 08/02/18 at 17:00; Stop 08/03/18 at 11:45; Status DC Quetiapine Fumarate (SEROquel) 12.5 mg TID@0900,1300,1700 PO Last administered on 08/08/18at 11:57; Start 08/03/18 at 13:00; Stop 08/08/18 at 17:05; Status DC Sertraline HCl (Zoloft) 100 mg DAILY PO Last administered on 08/09/18at 08:05; Start 08/07/18 at 09:00; Stop 08/09/18 at 11:22; Status DC Quetiapine Fumarate (SEROquel) 12.5 mg BID@0900,1300 PO Last administered on at 12:06; Start 08/09/18 at 09:00; Stop 08/26/18 at 18:03; Status DC Quetiapine Fumarate (SEROquel) 25 mg 1700 PO Last administered on 08/26/18at 17 :11; Start 08/09/18 at 17:00; Stop 08/26/18 at 18:03; Status DC Sertraline HCl (Zoloft) 125 mg DAILY PO Last administered on 08/10/18at 08:10; Start 08/10/18 at 09:00; Stop 08/10/18 at 17:23; Status DC Fluvoxamine Maleate (Luvox) 25 mg HS PO Last administered on 08/12/18at 19:40; Start 08/10/18 at 21:00; Stop 08/12/18 at 22:00; Status DC Fluvoxamine Maleate (Luvox) 50 mg HS PO Last administered on 08/15/18at 20:10; Start 08/13/18 at 21:00; Stop 08/15/18 at 23:00; Status DC Fluvoxamine Maleate (Luvox) 75 mg HS PO Last administered on 08/18/18at 19:52; Start 08/16/18 at 21:00; Stop 08/18/18 at 23:00; Status DC Melatonin 3 mg HS PO Last administered on 08/20/18 19:19; Start 08/16/18 at 21 :00; Stop 08/21/18 at 16:59; Status DC Fluvoxamine Maleate (Luvox) 100 mg QHS PO Last administered on 09/17/18 19:19 ; Start 08/19/18 at 21:00 Trazodone HCl (Desyrel) 100 mg PRN QHS PRN PO insomnia Last administered on 20:32; Start 08/19/18 at 20:15 Olanzapine (ZyPREXA ZYDIS) 2.5 mg PRN Q2HR PRN PO PSYCHOSIS Last administered on 09/02/18 20:32; Start 08/20/18 at 16:45 Melatonin 6 mg HS PO Last administered on 09/17/18 19:19; Start 08/21/18 at 21 :00 Quetiapine Fumarate (SEROquel) 12.5 mg DAILY PO Last administered on at 08:15; Start 08/27/18 at 09:00; Stop 08/29/18 at 17:07; Status DC Quetiapine Fumarate (SEROquel) 25 mg BID@1300,1700 PO Last administered on 09/17 16:23; Start 08/27/18 at 13:00 Haloperidol Lactate (Haldol) 5 mg DAILY IM Last administered on 09/04/18 07: 32; Start 08/28/18 at 17:30; Stop 09/04/18 at 18:33; Status DC Lorazepam (Ativan) 0.5 mg DAILY IM Last administered on 09/04/18at 10:52; Start 08/28/18 at 17:30; Stop 09/04/18 at 18:33; Status DC Quetiapine Fumarate (SEROquel) 25 mg DAILY PO Last administered on 09/17/18 08 :03; Start 08/30/18 at 09:00 Haloperidol Lactate (Haldol) 5 mg PRN DAILY PRN IM ANXIETY / AGITATION; Start 09/05/18 at 08:00; Stop 09/13/18 at 07:19; Status DC Haloperidol (Haldol) 10 mg DAILY PO Last administered on 09/12/18at 07:55; Start 09/05/18 at 09:00; Stop 09/12/18 at 12:24; Status DC Haloperidol (Haldol) 7.5 mg DAILY PO Last administered on 09/14/18at 07:40; Start 09/13/18 at 09:00; Stop 09/14/18 at 16:36; Status DC Buspirone HCl (Buspar) 5 mg BID@0900,1500 PO Last administered on 09/17/18at 16: 23; Start 09/12/18 at 15:00 Haloperidol (Haldol) 5 mg DAILY PO Last administered on 09/17/18at 08:03; Start 09/15/18 at 09:00; Stop 09/17/18 at 17:07; Status DC Haloperidol (Haldol) 7.5 mg DAILY PO ; Start 09/18/18 at 09:00 Active Scripts Active Reported Dilantin (Phenytoin Sodium Extended) 100 Mg Capsule 400 Mg PO HS Ultra Coq10 (Ubiquinone) 75 Mg Capsule 200 Mg PO DAILY Lisinopril 10 Mg Tablet 10 Mg PO DAILY Vimpat (Lacosamide) 50 Mg Tablet 50 Mg PO BID Aspirin 81 Mg Tab.chew 81 Mg PO BID Simvastatin 80 Mg Tablet 80 Mg PO HS I have reviewed the current psychotropics carefully including drug interactions. Risk benefit ratio favors no change other than as noted in my dictated progress note. Diagnosis: Problems: (1) Anxiety disorder (2) Dementia in Alzheimer's disease with delusions (3) Dementia in Alzheimer's disease with depression (4) Dementia, vascular, with delusions (5) Dementia, vascular, with depression (6) Impulse control disorder LISHA KIRKPATRICK MD Sep 17, 2018 22:37
[2018-09-18 05:52] VITALS: BP 151/81
[2018-09-18] MEDS: UBIDECARENONE 50 MG CAPSULE. PO SCH (08:12)
[2018-09-18] MEDS: busPIRone 5 MG TABLET. PO SCH ×2 (08:12→16:16)
[2018-09-18] MEDS: QUEtiapine 25 MG TABLET. PO SCH ×3 (08:12→16:16)
[2018-09-18] MEDS: ASPIRIN 81 MG TAB.CHEW PO SCH ×2 (08:12→19:27)
[2018-09-18] MEDS: LACOSAMIDE 50 MG TABLET PO SCH ×2 (08:14→19:27)
[2018-09-18] MEDS: HALOPERIDOL 5 MG TABLET PO SCH (08:14)
[2018-09-18 16:03] VITALS: BP 123/66
[2018-09-18] MEDS: MIRTAZAPINE 15 MG TABLET PO SCH (19:27)
[2018-09-18] MEDS: traZODone 50 MG TABLET. PO SCH (19:27)
[2018-09-18] MEDS: SIMVASTATIN 40 MG TABLET. PO SCH (19:28)
[2018-09-18] MEDS: MELATONIN 3 MG TABLET PO SCH (19:30)
[2018-09-18] MEDS: PHENYTOIN SODIUM EXTENDED 100 MG CAPSULE PO SCH (19:30)
--- NOTE | 2018-09-18 20:14 | PN ---
DATE: 09/17/2018 PSYCHIATRIC PROGRESS NOTE This late entry 09/17/2018 covers elements not covered in my initial note. SUBJECTIVE: I met with the patient in the evening. The patient slept 7-1/2 hours previous night. He was not agitated, aggressive last night, but somewhat obsessed, still about wanting to be discharged. He is asking about his . This has gotten somewhat worse since we dropped the Haldol down from 10 mg at bedtime to 5 mg at bedtime. REVIEW OF SYSTEMS: No CV, , pulmonary, eye, ENT system symptoms on review. Ambulation somewhat impaired with walker. MENTAL STATUS EXAM: Oriented to himself and situation. Speech is coherent, can be a little pressured at times. Abstraction fair, computation impaired, language function intact, attention span short. Mood and affect still somewhat anxious, labile, but improved. LABORATORY DATA: Reviewed. IMPRESSION: Unchanged from initial note. PLAN: Increase Haldol back to 7.5 mg p.o. at bedtime. Rest unchanged from initial note. MAN Franklin KIRKPATRICK MD DR: DONATO/marya JOB#: [id number] / [id number]
--- NOTE | 2018-09-18 22:34 | PDOC ---
Exam Note: Quintin Note: Please also refer to the separate dictated note~for this date of service dictated separately.~Patient seen individually. Discussed the patient with Nursing staff reviewed the chart.~Reviewed interim history and current functioning. Reviewed vital signs,~Labs/ Radiology~and current medications noted below. Continue current treatment with the changes noted in the dictated addendum note Assessment: Vital Signs: Vital Signs Date Time Temp Pulse Resp B/P (MAP) Pulse Ox O2 Delivery O2 Flow Rate FiO2 09/18/18 16:03 97.8 73 18 123/66 (85) 98 Room Air I&O Intake and Output 09/18/18 07:00 Intake Total 1440 ml Balance 1440 ml Intake Oral 1440 ml # Bowel Movements 1 Current Medications: Meds: Current Medications Acetaminophen (Tylenol) 650 mg PRN Q6HRS PRN PO PAIN / TEMP; Start 07/20/18 at 23:15 Multi-Ingredient Ointment (Analgesic [place]) 1 erik PRN QID PRN TP MUSCLE PAIN; Start 07/20/18 at 23:15 Al Hydroxide/Mg Hydroxide (Mylanta Plus Xs) 15 ml PRN AFTMEALHC PRN PO DYSPEPSIA; Start 07/20/18 at 23:15 Magnesium Hydroxide (Milk Of Magnesia) 2,400 mg PRN QHS PRN PO CONSTIPATION Last administered on 09/04/18at 15:56; Start 07/20/18 at 23:15 Lacosamide (Vimpat) 50 mg BID PO Last administered on 09/18/18at 19:27; Start 07/21/18 at 09:00 Lisinopril (Prinivil) 10 mg DAILY PO Last administered on 08/26/18at 08:01; Start 07/21/18 at 09:00; Stop 08/27/18 at 11:07; Status DC Aspirin (Children'S Aspirin) 81 mg BID PO Last administered on 09/18/18 19:27 ; Start 07/21/18 at 09:00 Simvastatin (Zocor) 80 mg QHS PO Last administered on 09/18/18at 19:28; Start 07/21/18 at 21:00 Coenzyme Q10 (Coenzyme Q10) 200 mg DAILY PO Last administered on 09/18/18at 08: 12; Start 07/21/18 at 19:00 Phenytoin Sodium (Dilantin) 400 mg Q96H PO Last administered on 09/15/18 19:31 ; Start 07/21/18 at 21:00 Phenytoin Sodium (Dilantin) 400 mg Q96H PO Last administered on 09/16/18 19:38 ; Start 07/22/18 at 21:00 Phenytoin Sodium (Dilantin) 400 mg Q96H PO Last administered on 09/17/18 19:21 ; Start 07/23/18 at 21:00 Phenytoin Sodium (Dilantin) 300 mg Q96H PO Last administered on 09/18/18 19:30 ; Start 07/24/18 at 21:00 Trazodone HCl (Desyrel) 50 mg QHS PO Last administered on 09/18/18 19:27; Start 07/21/18 at 21:00 Trazodone HCl (Desyrel) 50 mg PRN QHS PRN PO insomnia Last administered on 08/19at 01:49; Start 07/21/18 at 20:00; Stop 08/19/18 at 20:08; Status DC Mirtazapine (Remeron) 7.5 mg QHS PO Last administered on 07/25/18 19:40; Start 07/23/18 at 21:00; Stop 07/26/18 at 12:42; Status DC Sertraline HCl (Zoloft) 50 mg DAILY PO Last administered on 08/01/18at 08:40; Start 07/25/18 at 09:00; Stop 08/01/18 at 18:07; Status DC Mirtazapine (Remeron) 15 mg QHS PO Last administered on 09/18/18 19:27; Start 07/26/18 at 21:00 Sertraline HCl (Zoloft) 75 mg DAILY PO Last administered on 08/06/18at 07:22; Start 08/02/18 at 09:00; Stop 08/06/18 at 17:52; Status DC Quetiapine Fumarate (SEROquel) 12.5 mg BIDWMEALS PO Last administered on at 08:39; Start 08/02/18 at 17:00; Stop 08/03/18 at 11:45; Status DC Quetiapine Fumarate (SEROquel) 12.5 mg TID@0900,1300,1700 PO Last administered on 08/08/18at 11:57; Start 08/03/18 at 13:00; Stop 08/08/18 at 17:05; Status DC Sertraline HCl (Zoloft) 100 mg DAILY PO Last administered on 08/09/18at 08:05; Start 08/07/18 at 09:00; Stop 08/09/18 at 11:22; Status DC Quetiapine Fumarate (SEROquel) 12.5 mg BID@0900,1300 PO Last administered on at 12:06; Start 08/09/18 at 09:00; Stop 08/26/18 at 18:03; Status DC Quetiapine Fumarate (SEROquel) 25 mg 1700 PO Last administered on 08/26/18at 17 :11; Start 08/09/18 at 17:00; Stop 08/26/18 at 18:03; Status DC Sertraline HCl (Zoloft) 125 mg DAILY PO Last administered on 08/10/18at 08:10; Start 08/10/18 at 09:00; Stop 08/10/18 at 17:23; Status DC Fluvoxamine Maleate (Luvox) 25 mg HS PO Last administered on 08/12/18at 19:40; Start 08/10/18 at 21:00; Stop 08/12/18 at 22:00; Status DC Fluvoxamine Maleate (Luvox) 50 mg HS PO Last administered on 08/15/18at 20:10; Start 08/13/18 at 21:00; Stop 08/15/18 at 23:00; Status DC Fluvoxamine Maleate (Luvox) 75 mg HS PO Last administered on 08/18/18at 19:52; Start 08/16/18 at 21:00; Stop 08/18/18 at 23:00; Status DC Melatonin 3 mg HS PO Last administered on 08/20/18at 19:19; Start 08/16/18 at 21 :00; Stop 08/21/18 at 16:59; Status DC Fluvoxamine Maleate (Luvox) 100 mg QHS PO Last administered on 09/18/18at 19:26 ; Start 08/19/18 at 21:00 Trazodone HCl (Desyrel) 100 mg PRN QHS PRN PO insomnia Last administered on 20:32; Start 08/19/18 at 20:15 Olanzapine (ZyPREXA ZYDIS) 2.5 mg PRN Q2HR PRN PO PSYCHOSIS Last administered on 09/02/18 20:32; Start 08/20/18 at 16:45 Melatonin 6 mg HS PO Last administered on 09/18/18 19:30; Start 08/21/18 at 21 :00 Quetiapine Fumarate (SEROquel) 12.5 mg DAILY PO Last administered on 08:15; Start 08/27/18 at 09:00; Stop 08/29/18 at 17:07; Status DC Quetiapine Fumarate (SEROquel) 25 mg BID@1300,1700 PO Last administered on 09/18 16:16; Start 08/27/18 at 13:00 Haloperidol Lactate (Haldol) 5 mg DAILY IM Last administered on 09/04/18at 07: 32; Start 08/28/18 at 17:30; Stop 09/04/18 at 18:33; Status DC Lorazepam (Ativan) 0.5 mg DAILY IM Last administered on 09/04/18at 10:52; Start 08/28/18 at 17:30; Stop 09/04/18 at 18:33; Status DC Quetiapine Fumarate (SEROquel) 25 mg DAILY PO Last administered on 09/18/18 08 :12; Start 08/30/18 at 09:00 Haloperidol Lactate (Haldol) 5 mg PRN DAILY PRN IM ANXIETY / AGITATION; Start 09/05/18 at 08:00; Stop 09/13/18 at 07:19; Status DC Haloperidol (Haldol) 10 mg DAILY PO Last administered on 09/12/18at 07:55; Start 09/05/18 at 09:00; Stop 09/12/18 at 12:24; Status DC Haloperidol (Haldol) 7.5 mg DAILY PO Last administered on 09/14/18at 07:40; Start 09/13/18 at 09:00; Stop 09/14/18 at 16:36; Status DC Buspirone HCl (Buspar) 5 mg BID@0900,1500 PO Last administered on 12/4/18at 16: 16; Start 09/12/18 at 15:00 Haloperidol (Haldol) 5 mg DAILY PO Last administered on 09/17/18at 08:03; Start 09/15/18 at 09:00; Stop 09/17/18 at 17:07; Status DC Haloperidol (Haldol) 7.5 mg DAILY PO Last administered on 09/18/18at 08:14; Start 09/18/18 at 09:00 Active Scripts Active Reported Dilantin (Phenytoin Sodium Extended) 100 Mg Capsule 400 Mg PO HS Ultra Coq10 (Ubiquinone) 75 Mg Capsule 200 Mg PO DAILY Lisinopril 10 Mg Tablet 10 Mg PO DAILY Vimpat (Lacosamide) 50 Mg Tablet 50 Mg PO BID Aspirin 81 Mg Tab.chew 81 Mg PO BID Simvastatin 80 Mg Tablet 80 Mg PO HS I have reviewed the current psychotropics carefully including drug interactions. Risk benefit ratio favors no change other than as noted in my dictated progress note. Diagnosis: Problems: (1) Anxiety disorder (2) Dementia in Alzheimer's disease with delusions (3) Dementia in Alzheimer's disease with depression (4) Dementia, vascular, with delusions (5) Dementia, vascular, with depression (6) Impulse control disorder LISHA KIRKPATRICK MD Sep 18, 2018 22:34
[2018-09-19] MEDS ORDERED: ACET325T9 PO (02:33)
[2018-09-19] MEDS ORDERED: HALO10TA PO (02:34)
[2018-09-19] MEDS ORDERED: MAG355OR12 PO (02:37)
[2018-09-19] MEDS ORDERED: MAGN400O7 PO (02:40)
[2018-09-19] MEDS ORDERED: MELA3TAB2 PO (02:41)
[2018-09-19] MEDS ORDERED: METH29OI TP (02:42)
[2018-09-19] MEDS ORDERED: MIRT15TA3 PO (02:49)
[2018-09-19] MEDS ORDERED: OLAN2.5T3 PO (02:52)
[2018-09-19] MEDS ORDERED: QUET25TA5 PO ×2 (02:54→02:55)
[2018-09-19] MEDS ORDERED: BUSP5TAB PO (02:57)
[2018-09-19] MEDS ORDERED: FLUV100T2 PO (02:59)
[2018-09-19] MEDS ORDERED: TRAZ-85 PO (03:01)
[2018-09-19] MEDS ORDERED: TRAZ-86 PO (03:03)
[2018-09-19 05:59] VITALS: BP 127/67
[2018-09-19] MEDS: QUEtiapine 25 MG TABLET. PO SCH ×3 (07:53→16:59)
[2018-09-19] MEDS: ASPIRIN 81 MG TAB.CHEW PO SCH ×2 (07:54→19:20)
[2018-09-19] MEDS: HALOPERIDOL 5 MG TABLET PO SCH (07:54)
[2018-09-19] MEDS: LACOSAMIDE 50 MG TABLET PO SCH ×2 (07:54→19:20)
[2018-09-19] MEDS: busPIRone 5 MG TABLET. PO SCH ×2 (07:54→17:00)
[2018-09-19] MEDS: UBIDECARENONE 50 MG CAPSULE. PO SCH (07:54)
[2018-09-19 16:06] VITALS: BP 111/58
[2018-09-19] MEDS ORDERED: PHEN100C PO ×3 (16:35→16:39)
[2018-09-19] MEDS: MIRTAZAPINE 15 MG TABLET PO SCH (19:18)
[2018-09-19] MEDS: PHENYTOIN SODIUM EXTENDED 100 MG CAPSULE PO SCH (19:19)
[2018-09-19] MEDS: traZODone 50 MG TABLET. PO SCH (19:19)
[2018-09-19] MEDS: SIMVASTATIN 40 MG TABLET. PO SCH (19:20)
--- NOTE | 2018-09-19 20:07 | PN ---
DATE: 09/18/2018 PSYCHIATRIC PROGRESS NOTE This late entry 09/18/2018 covers elements not covered in my initial note 09/18/2018. SUBJECTIVE: Overall, the patient slept 8 hours previous evening. He was a little confused previous night, felt it was doctor of nurse anesthesia practice, but the rest of the day on 09/18/2018, he has done better. He does get more anxious, obsessive, regarding going home towards the evening time. REVIEW OF SYSTEMS: No CV, , pulmonary, eye, ENT system symptoms on review. Reliability poor. MENTAL STATUS EXAM: Oriented to himself. Insight, judgment, recent and remote memory, attention, concentration, fund of knowledge poor, consistent with his diagnosis mentioned in my initial note. PLAN: No change from initial note. MAN Franklin KIRKPATRICK MD DR: DONATO/marya JOB#: [id number] / [id number]
[2018-09-19] MEDS: MELATONIN 3 MG TABLET PO SCH (21:00)
--- NOTE | 2018-09-19 22:36 | PDOC ---
Exam Note: Quintin Note: Please also refer to the separate dictated note~for this date of service dictated separately.~Patient seen individually. Discussed the patient with Nursing staff reviewed the chart.~Reviewed interim history and current functioning. Reviewed vital signs,~Labs/ Radiology~and current medications noted below. Continue current treatment with the changes noted in the dictated addendum note Assessment: Vital Signs: Vital Signs Date Time Temp Pulse Resp B/P (MAP) Pulse Ox O2 Delivery O2 Flow Rate FiO2 09/19/18 16:06 98.4 72 18 111/58 (75) 97 09/18/18 16:03 Room Air I&O Intake and Output 09/19/18 07:00 Intake Total 1680 ml Balance 1680 ml Intake Oral 1680 ml # Bowel Movements 1 Current Medications: Meds: Current Medications Acetaminophen (Tylenol) 650 mg PRN Q6HRS PRN PO PAIN / TEMP; Start 07/20/18 at 23:15 Multi-Ingredient Ointment (Analgesic [place]) 1 damaris PRN QID PRN TP MUSCLE PAIN; Start 07/20/18 at 23:15 Al Hydroxide/Mg Hydroxide (Mylanta Plus Xs) 15 ml PRN AFTMEALHC PRN PO DYSPEPSIA; Start 07/20/18 at 23:15 Magnesium Hydroxide (Milk Of Magnesia) 2,400 mg PRN QHS PRN PO CONSTIPATION Last administered on 09/04/18at 15:56; Start 07/20/18 at 23:15 Lacosamide (Vimpat) 50 mg BID PO Last administered on 09/19/18at 19:20; Start 07/21/18 at 09:00 Lisinopril (Prinivil) 10 mg DAILY PO Last administered on 08/26/18at 08:01; Start 07/21/18 at 09:00; Stop 08/27/18 at 11:07; Status DC Aspirin (Children'S Aspirin) 81 mg BID PO Last administered on 09/19/18 19:20 ; Start 07/21/18 at 09:00 Simvastatin (Zocor) 80 mg QHS PO Last administered on 09/19/18at 19:20; Start 07/21/18 at 21:00 Coenzyme Q10 (Coenzyme Q10) 200 mg DAILY PO Last administered on 09/19/18at 07: 54; Start 07/21/18 at 19:00 Phenytoin Sodium (Dilantin) 400 mg Q96H PO Last administered on 09/19/18 19:19 ; Start 07/21/18 at 21:00 Phenytoin Sodium (Dilantin) 400 mg Q96H PO Last administered on 09/16/18at 19:38 ; Start 07/22/18 at 21:00 Phenytoin Sodium (Dilantin) 400 mg Q96H PO Last administered on 09/17/18 19:21 ; Start 07/23/18 at 21:00 Phenytoin Sodium (Dilantin) 300 mg Q96H PO Last administered on 09/18/18 19:30 ; Start 07/24/18 at 21:00 Trazodone HCl (Desyrel) 50 mg QHS PO Last administered on 09/19/18 19:19; Start 07/21/18 at 21:00 Trazodone HCl (Desyrel) 50 mg PRN QHS PRN PO insomnia Last administered on 08/19at 01:49; Start 07/21/18 at 20:00; Stop 08/19/18 at 20:08; Status DC Mirtazapine (Remeron) 7.5 mg QHS PO Last administered on 07/25/18at 19:40; Start 07/23/18 at 21:00; Stop 07/26/18 at 12:42; Status DC Sertraline HCl (Zoloft) 50 mg DAILY PO Last administered on 08/01/18at 08:40; Start 07/25/18 at 09:00; Stop 08/01/18 at 18:07; Status DC Mirtazapine (Remeron) 15 mg QHS PO Last administered on 09/19/18 19:18; Start 07/26/18 at 21:00 Sertraline HCl (Zoloft) 75 mg DAILY PO Last administered on 08/06/18at 07:22; Start 08/02/18 at 09:00; Stop 08/06/18 at 17:52; Status DC Quetiapine Fumarate (SEROquel) 12.5 mg BIDWMEALS PO Last administered on at 08:39; Start 08/02/18 at 17:00; Stop 08/03/18 at 11:45; Status DC Quetiapine Fumarate (SEROquel) 12.5 mg TID@0900,1300,1700 PO Last administered on 08/08/18at 11:57; Start 08/03/18 at 13:00; Stop 08/08/18 at 17:05; Status DC Sertraline HCl (Zoloft) 100 mg DAILY PO Last administered on 08/09/18at 08:05; Start 08/07/18 at 09:00; Stop 08/09/18 at 11:22; Status DC Quetiapine Fumarate (SEROquel) 12.5 mg BID@0900,1300 PO Last administered on at 12:06; Start 08/09/18 at 09:00; Stop 08/26/18 at 18:03; Status DC Quetiapine Fumarate (SEROquel) 25 mg 1700 PO Last administered on 08/26/18at 17 :11; Start 08/09/18 at 17:00; Stop 08/26/18 at 18:03; Status DC Sertraline HCl (Zoloft) 125 mg DAILY PO Last administered on 08/10/18at 08:10; Start 08/10/18 at 09:00; Stop 08/10/18 at 17:23; Status DC Fluvoxamine Maleate (Luvox) 25 mg HS PO Last administered on 08/12/18at 19:40; Start 08/10/18 at 21:00; Stop 08/12/18 at 22:00; Status DC Fluvoxamine Maleate (Luvox) 50 mg HS PO Last administered on 08/15/18at 20:10; Start 08/13/18 at 21:00; Stop 08/15/18 at 23:00; Status DC Fluvoxamine Maleate (Luvox) 75 mg HS PO Last administered on 08/18/18at 19:52; Start 08/16/18 at 21:00; Stop 08/18/18 at 23:00; Status DC Melatonin 3 mg HS PO Last administered on 08/20/18at 19:19; Start 08/16/18 at 21 :00; Stop 08/21/18 at 16:59; Status DC Fluvoxamine Maleate (Luvox) 100 mg QHS PO Last administered on 09/19/18at 19:18 ; Start 08/19/18 at 21:00 Trazodone HCl (Desyrel) 100 mg PRN QHS PRN PO insomnia Last administered on 20:32; Start 08/19/18 at 20:15 Olanzapine (ZyPREXA ZYDIS) 2.5 mg PRN Q2HR PRN PO PSYCHOSIS Last administered on 09/02/18at 20:32; Start 08/20/18 at 16:45 Melatonin 6 mg HS PO Last administered on 09/19/18at 21:00; Start 08/21/18 at 21 :00 Quetiapine Fumarate (SEROquel) 12.5 mg DAILY PO Last administered on at 08:15; Start 08/27/18 at 09:00; Stop 08/29/18 at 17:07; Status DC Quetiapine Fumarate (SEROquel) 25 mg BID@1300,1700 PO Last administered on 09/19at 16:59; Start 08/27/18 at 13:00 Haloperidol Lactate (Haldol) 5 mg DAILY IM Last administered on 09/04/18at 07: 32; Start 08/28/18 at 17:30; Stop 09/04/18 at 18:33; Status DC Lorazepam (Ativan) 0.5 mg DAILY IM Last administered on 09/04/18at 10:52; Start 08/28/18 at 17:30; Stop 09/04/18 at 18:33; Status DC Quetiapine Fumarate (SEROquel) 25 mg DAILY PO Last administered on 09/19/18at 07 :53; Start 08/30/18 at 09:00 Haloperidol Lactate (Haldol) 5 mg PRN DAILY PRN IM ANXIETY / AGITATION; Start 09/05/18 at 08:00; Stop 09/13/18 at 07:19; Status DC Haloperidol (Haldol) 10 mg DAILY PO Last administered on 09/12/18at 07:55; Start 09/05/18 at 09:00; Stop 09/12/18 at 12:24; Status DC Haloperidol (Haldol) 7.5 mg DAILY PO Last administered on 09/14/18at 07:40; Start 09/13/18 at 09:00; Stop 09/14/18 at 16:36; Status DC Buspirone HCl (Buspar) 5 mg BID@0900,1500 PO Last administered on 09/19/18at 07: 54; Start 09/12/18 at 15:00; Stop 09/19/18 at 11:38; Status DC Haloperidol (Haldol) 5 mg DAILY PO Last administered on 09/17/18at 08:03; Start 09/15/18 at 09:00; Stop 09/17/18 at 17:07; Status DC Haloperidol (Haldol) 7.5 mg DAILY PO Last administered on 09/19/18at 07:54; Start 09/18/18 at 09:00 Buspirone HCl (Buspar) 5 mg BID@0900,1700 PO Last administered on 09/19/18at 17: 00; Start 09/19/18 at 17:00 Active Scripts Active Reported Dilantin (Phenytoin Sodium Extended) 100 Mg Capsule 300 Mg PO Q4DAYS Dilantin (Phenytoin Sodium Extended) 100 Mg Capsule 400 Mg PO Q3DAYS Dilantin (Phenytoin Sodium Extended) 100 Mg Capsule 100 Mg PO Q3DAYS Trazodone Hcl 100 Mg Tablet 1 Tab PO QHS PRN Trazodone Hcl 50 Mg Tablet 50 Mg PO HS Fluvoxamine Maleate 100 Mg Tablet 1 Tab PO HS Buspirone Hcl 5 Mg Tablet 5 Mg PO [id number] Seroquel (Quetiapine Fumarate) 25 Mg Tablet 25 Mg PO DAILY Seroquel (Quetiapine Fumarate) 25 Mg Tablet 25 Mg PO [id number] Zyprexa (Olanzapine) 2.5 Mg Tablet 2.5 Mg PO PRN Q2HR PRN Mirtazapine 15 Mg Tablet 15 Mg PO HS Analgesic Bryan (Methyl Salicylate/Menthol) 28 Gm Oint...g. 1 Damaris TP PRN QID PRN Melatonin 3 Mg Tablet 6 Mg PO HS Milk Of Magnesia (Magnesium Hydroxide) 400 Mg/5 Ml Oral.susp 400 Mg PO PRN DAILY PRN Maalox Maximum Strength Susp (Mag Hydrox/Al Hydrox/Simeth) 355 Ml Oral.susp 15 Ml PO PRN AFTMEALHC PRN Haloperidol 10 Mg Tablet 7.5 Mg PO DAILY Tylenol (Acetaminophen) 325 Mg Tablet 650 Mg PO PRN Q6HRS PRN Dilantin (Phenytoin Sodium Extended) 100 Mg Capsule 400 Mg PO HS Ultra Coq10 (Ubiquinone) 75 Mg Capsule 200 Mg PO DAILY Lisinopril 10 Mg Tablet 10 Mg PO DAILY Vimpat (Lacosamide) 50 Mg Tablet 50 Mg PO BID Aspirin 81 Mg Tab.chew 81 Mg PO BID Simvastatin 80 Mg Tablet 80 Mg PO HS I have reviewed the current psychotropics carefully including drug interactions. Risk benefit ratio favors no change other than as noted in my dictated progress note. Diagnosis: Problems: (1) Anxiety disorder (2) Dementia in Alzheimer's disease with delusions (3) Dementia in Alzheimer's disease with depression (4) Dementia, vascular, with delusions (5) Dementia, vascular, with depression (6) Impulse control disorder LISHA KIRKPATRICK MD Sep 19, 2018 22:36
[2018-09-20 06:08] VITALS: BP 126/71
[2018-09-20] MEDS: QUEtiapine 25 MG TABLET. PO SCH (07:48)
[2018-09-20] MEDS: UBIDECARENONE 50 MG CAPSULE. PO SCH (07:48)
[2018-09-20] MEDS: busPIRone 5 MG TABLET. PO SCH (07:49)
[2018-09-20] MEDS: ASPIRIN 81 MG TAB.CHEW PO SCH (07:49)
[2018-09-20] MEDS: HALOPERIDOL 5 MG TABLET PO SCH (07:49)
[2018-09-20] MEDS: LACOSAMIDE 50 MG TABLET PO SCH (07:49)
--- NOTE | 2018-09-20 20:45 | PN ---
DATE: 09/19/2018 PSYCHIATRIC PROGRESS NOTE This late entry 09/19/2018 covers elements not covered in my initial note. SUBJECTIVE: I met with the patient in the evening. The patient slept 6-1/2 hours previous night. He has had no behavioral problems, slightly more oriented during the day, more confused in the evening, gets a little more obsessive regarding wanting to leave, drive his car, case picker his . In the morning, he felt he was in a hotel and that another patient on the unit was his "business leader." This is consistent with his diagnosis. REVIEW OF SYSTEMS: No CV, , pulmonary, eye, ENT system symptoms on review. Reliability poor. MENTAL STATUS EXAM: Oriented to himself. Insight, judgment, recent and remote memory, attention, concentration, fund of knowledge poor, consistent with his diagnosis mentioned in my initial note. PLAN: No change from initial note. Transition to [facility] later this week. MAN Franklin KIRKPATRICK MD DR: DONATO/marya JOB#: [id number] / [id number]
--- NOTE | 2018-09-20 22:35 | PDOC ---
Exam Note: Quintin Note: Please also refer to the separate dictated note~for this date of service dictated separately.~Patient seen individually. Discussed the patient with Nursing staff reviewed the chart.~Reviewed interim history and current functioning. Reviewed vital signs,~Labs/ Radiology~and current medications noted below. Continue current treatment with the changes noted in the dictated addendum note Assessment: Vital Signs: Vital Signs Date Time Temp Pulse Resp B/P (MAP) Pulse Ox O2 Delivery O2 Flow Rate FiO2 09/20/18 06:08 98.7 71 18 126/71 (89) 100 09/18/18 16:03 Room Air I&O Intake and Output 09/20/18 07:00 Intake Total 1960 ml Balance 1960 ml Intake Oral 1960 ml Current Medications: Meds: Current Medications Acetaminophen (Tylenol) 650 mg PRN Q6HRS PRN PO PAIN / TEMP; Start 07/20/18 at 23:15; Stop 09/20/18 at 12:07; Status DC Multi-Ingredient Ointment (Analgesic [place]) 1 dmaaris PRN QID PRN TP MUSCLE PAIN; Start 07/20/18 at 23:15; Stop 09/20/18 at 12:07; Status DC Al Hydroxide/Mg Hydroxide (Mylanta Plus Xs) 15 ml PRN AFTMEALHC PRN PO DYSPEPSIA; Start 07/20/18 at 23:15; Stop 09/20/18 at 12:07; Status DC Magnesium Hydroxide (Milk Of Magnesia) 2,400 mg PRN QHS PRN PO CONSTIPATION Last administered on 09/04/18at 15:56; Start 07/20/18 at 23:15; Stop 09/20/18 at 12:07; Status DC Lacosamide (Vimpat) 50 mg BID PO Last administered on 09/20/18at 07:49; Start 07/21/18 at 09:00; Stop 09/20/18 at 12:07; Status DC Lisinopril (Prinivil) 10 mg DAILY PO Last administered on 08/26/18at 08:01; Start 07/21/18 at 09:00; Stop 08/27/18 at 11:07; Status DC Aspirin (Children'S Aspirin) 81 mg BID PO Last administered on 09/20/18at 07:49 ; Start 07/21/18 at 09:00; Stop 09/20/18 at 12:07; Status DC Simvastatin (Zocor) 80 mg QHS PO Last administered on 09/19/18 19:20; Start 07/21/18 at 21:00; Stop 09/20/18 at 12:07; Status DC Coenzyme Q10 (Coenzyme Q10) 200 mg DAILY PO Last administered on 09/20/18at 07: 48; Start 07/21/18 at 19:00; Stop 09/20/18 at 12:07; Status DC Phenytoin Sodium (Dilantin) 400 mg Q96H PO Last administered on 09/19/18 19:19 ; Start 07/21/18 at 21:00; Stop 09/20/18 at 12:07; Status DC Phenytoin Sodium (Dilantin) 400 mg Q96H PO Last administered on 09/16/18at 19:38 ; Start 07/22/18 at 21:00; Stop 09/20/18 at 12:07; Status DC Phenytoin Sodium (Dilantin) 400 mg Q96H PO Last administered on 09/17/18at 19:21 ; Start 07/23/18 at 21:00; Stop 09/20/18 at 12:07; Status DC Phenytoin Sodium (Dilantin) 300 mg Q96H PO Last administered on 09/18/18at 19:30 ; Start 07/24/18 at 21:00; Stop 09/20/18 at 12:07; Status DC Trazodone HCl (Desyrel) 50 mg QHS PO Last administered on 09/19/18 19:19; Start 07/21/18 at 21:00; Stop 09/20/18 at 12:07; Status DC Trazodone HCl (Desyrel) 50 mg PRN QHS PRN PO insomnia Last administered on 08/19at 01:49; Start 07/21/18 at 20:00; Stop 08/19/18 at 20:08; Status DC Mirtazapine (Remeron) 7.5 mg QHS PO Last administered on 07/25/18at 19:40; Start 07/23/18 at 21:00; Stop 07/26/18 at 12:42; Status DC Sertraline HCl (Zoloft) 50 mg DAILY PO Last administered on 08/01/18at 08:40; Start 07/25/18 at 09:00; Stop 08/01/18 at 18:07; Status DC Mirtazapine (Remeron) 15 mg QHS PO Last administered on 09/19/18at 19:18; Start 07/26/18 at 21:00; Stop 09/20/18 at 12:07; Status DC Sertraline HCl (Zoloft) 75 mg DAILY PO Last administered on 08/06/18at 07:22; Start 08/02/18 at 09:00; Stop 08/06/18 at 17:52; Status DC Quetiapine Fumarate (SEROquel) 12.5 mg BIDWMEALS PO Last administered on at 08:39; Start 08/02/18 at 17:00; Stop 08/03/18 at 11:45; Status DC Quetiapine Fumarate (SEROquel) 12.5 mg TID@0900,1300,1700 PO Last administered on 08/08/18at 11:57; Start 08/03/18 at 13:00; Stop 08/08/18 at 17:05; Status DC Sertraline HCl (Zoloft) 100 mg DAILY PO Last administered on 08/09/18at 08:05; Start 08/07/18 at 09:00; Stop 08/09/18 at 11:22; Status DC Quetiapine Fumarate (SEROquel) 12.5 mg BID@0900,1300 PO Last administered on at 12:06; Start 08/09/18 at 09:00; Stop 08/26/18 at 18:03; Status DC Quetiapine Fumarate (SEROquel) 25 mg 1700 PO Last administered on 08/26/18at 17 :11; Start 08/09/18 at 17:00; Stop 08/26/18 at 18:03; Status DC Sertraline HCl (Zoloft) 125 mg DAILY PO Last administered on 08/10/18at 08:10; Start 08/10/18 at 09:00; Stop 08/10/18 at 17:23; Status DC Fluvoxamine Maleate (Luvox) 25 mg HS PO Last administered on 08/12/18at 19:40; Start 08/10/18 at 21:00; Stop 10/28/18 at 22:00; Status DC Fluvoxamine Maleate (Luvox) 50 mg HS PO Last administered on 08/15/18at 20:10; Start 08/13/18 at 21:00; Stop 08/15/18 at 23:00; Status DC Fluvoxamine Maleate (Luvox) 75 mg HS PO Last administered on 08/18/18at 19:52; Start 08/16/18 at 21:00; Stop 08/18/18 at 23:00; Status DC Melatonin 3 mg HS PO Last administered on 08/20/18at 19:19; Start 08/16/18 at 21 :00; Stop 08/21/18 at 16:59; Status DC Fluvoxamine Maleate (Luvox) 100 mg QHS PO Last administered on 09/19/18 19:18 ; Start 08/19/18 at 21:00; Stop 09/20/18 at 12:07; Status DC Trazodone HCl (Desyrel) 100 mg PRN QHS PRN PO insomnia Last administered on at 20:32; Start 08/19/18 at 20:15; Stop 09/20/18 at 12:07; Status DC Olanzapine (ZyPREXA ZYDIS) 2.5 mg PRN Q2HR PRN PO PSYCHOSIS Last administered on 09/02/18at 20:32; Start 08/20/18 at 16:45; Stop 09/20/18 at 12:07; Status DC Melatonin 6 mg HS PO Last administered on 09/19/18at 21:00; Start 08/21/18 at 21 :00; Stop 09/20/18 at 12:07; Status DC Quetiapine Fumarate (SEROquel) 12.5 mg DAILY PO Last administered on at 08:15; Start 08/27/18 at 09:00; Stop 08/29/18 at 17:07; Status DC Quetiapine Fumarate (SEROquel) 25 mg BID@1300,1700 PO Last administered on 09/19at 16:59; Start 08/27/18 at 13:00; Stop 09/20/18 at 12:07; Status DC Haloperidol Lactate (Haldol) 5 mg DAILY IM Last administered on 09/04/18at 07: 32; Start 08/28/18 at 17:30; Stop 09/04/18 at 18:33; Status DC Lorazepam (Ativan) 0.5 mg DAILY IM Last administered on 09/04/18at 10:52; Start 08/28/18 at 17:30; Stop 09/04/18 at 18:33; Status DC Quetiapine Fumarate (SEROquel) 25 mg DAILY PO Last administered on 09/20/18at 07 :48; Start 08/30/18 at 09:00; Stop 09/20/18 at 12:07; Status DC Haloperidol Lactate (Haldol) 5 mg PRN DAILY PRN IM ANXIETY / AGITATION; Start 09/05/18 at 08:00; Stop 09/13/18 at 07:19; Status DC Haloperidol (Haldol) 10 mg DAILY PO Last administered on 09/12/18at 07:55; Start 09/05/18 at 09:00; Stop 09/12/18 at 12:24; Status DC Haloperidol (Haldol) 7.5 mg DAILY PO Last administered on 09/14/18at 07:40; Start 09/13/18 at 09:00; Stop 09/14/18 at 16:36; Status DC Buspirone HCl (Buspar) 5 mg BID@0900,1500 PO Last administered on 09/19/18at 07: 54; Start 09/12/18 at 15:00; Stop 09/19/18 at 11:38; Status DC Haloperidol (Haldol) 5 mg DAILY PO Last administered on 09/17/18at 08:03; Start 09/15/18 at 09:00; Stop 09/17/18 at 17:07; Status DC Haloperidol (Haldol) 7.5 mg DAILY PO Last administered on 09/20/18at 07:49; Start 09/18/18 at 09:00; Stop 09/20/18 at 12:07; Status DC Buspirone HCl (Buspar) 5 mg BID@0900,1700 PO Last administered on 09/20/18at 07: 49; Start 09/19/18 at 17:00; Stop 09/20/18 at 12:07; Status DC Active Scripts Active Reported Dilantin (Phenytoin Sodium Extended) 100 Mg Capsule 300 Mg PO Q4DAYS Dilantin (Phenytoin Sodium Extended) 100 Mg Capsule 400 Mg PO Q3DAYS Dilantin (Phenytoin Sodium Extended) 100 Mg Capsule 400 Mg PO Q3DAYS Trazodone Hcl 100 Mg Tablet 1 Tab PO QHS PRN Trazodone Hcl 50 Mg Tablet 50 Mg PO HS Fluvoxamine Maleate 100 Mg Tablet 1 Tab PO HS Buspirone Hcl 5 Mg Tablet 5 Mg PO BID@0900,1700 Seroquel (Quetiapine Fumarate) 25 Mg Tablet 25 Mg PO DAILY Seroquel (Quetiapine Fumarate) 25 Mg Tablet 25 Mg PO [id number] Zyprexa (Olanzapine) 2.5 Mg Tablet 2.5 Mg PO PRN Q2HR PRN Mirtazapine 15 Mg Tablet 15 Mg PO HS Analgesic [place] (Methyl Salicylate/Menthol) 28 Gm Oint...g. 1 Damaris TP PRN QID PRN Melatonin 3 Mg Tablet 6 Mg PO HS Milk Of Magnesia (Magnesium Hydroxide) 400 Mg/5 Ml Oral.susp 2,400 Mg PO PRN DAILY PRN Maalox Maximum Strength Susp (Mag Hydrox/Al Hydrox/Simeth) 355 Ml Oral.susp 15 Ml PO PRN AFTMEALHC PRN Haloperidol 10 Mg Tablet 7.5 Mg PO DAILY Tylenol (Acetaminophen) 325 Mg Tablet 650 Mg PO PRN Q6HRS PRN Dilantin (Phenytoin Sodium Extended) 100 Mg Capsule 400 Mg PO Q3DAYS Ultra Coq10 (Ubiquinone) 75 Mg Capsule 200 Mg PO DAILY Vimpat (Lacosamide) 50 Mg Tablet 50 Mg PO BID Aspirin 81 Mg Tab.chew 81 Mg PO BID Simvastatin 80 Mg Tablet 80 Mg PO HS I have reviewed the current psychotropics carefully including drug interactions. Risk benefit ratio favors no change other than as noted in my dictated progress note. Diagnosis: Problems: (1) Anxiety disorder (2) Dementia in Alzheimer's disease with delusions (3) Dementia in Alzheimer's disease with depression (4) Dementia, vascular, with delusions (5) Dementia, vascular, with depression (6) Impulse control disorder LISHA KIRKPATRICK MD Sep 20, 2018 22:35
--- NOTE | 2018-09-21 17:14 | DS ---
DATE OF DISCHARGE: 09/20/2018 DISCHARGE SUMMARY/PSYCHIATRIC PROGRESS NOTE This late entry 09/20/2018 covers elements not covered in my initial note. REASON FOR ADMISSION: Please refer to the admission history for details. Briefly, the patient is a 78-year-old male referred to us from his caregiver's home health service in [place] and primary care physician on account of increased paranoia, confusion, wandering into the streets. He was deemed not to be safe at home, unable to care for him, accused his of poisoning him and having an affair. He is increasingly confused, worsening his unmanageable behaviors, which were dangerous resulting in this referral. SIGNIFICANT FINDINGS AND CLINICAL COURSE: Following admission, the patient was seen daily individually by myself from a psychiatric standpoint, medical followup per Dr. Godoy/Dr. Puente. The patient was extremely confused, anxious, obsessive, repetitive. Multiple changes were made in his medication. Some of them reversed and different changes made and finally seemed to respond to a combination of trazodone 50 mg at bedtime and 100 mg at bedtime p.r.n. insomnia, Remeron 15 mg at bedtime, Seroquel 25 mg 0900, 1300, 1700, Luvox 100 mg at bedtime, melatonin 6 mg at bedtime, Haldol 7.5 mg daily, BuSpar 5 mg twice a day. He is also on phenytoin for his seizures. At the time of discharge, he was on 2 antipsychotics and the plan would be to taper the Haldol starting in 30 days from discharge down by 2.5 mg every month till it is discontinued while maintaining the Seroquel. REVIEW OF SYSTEMS: Prior to discharge, 09/20/2018 no CV, , pulmonary, eye, ENT system symptoms on review. Reliability poor. MENTAL STATUS EXAM: Oriented to himself. Insight, judgment, recent and remote memory, attention, concentration, fund of knowledge poor, consistent with his diagnosis. FINAL DIAGNOSES: Major neurocognitive disorder, Alzheimer, vascular with delusion, depression, behavioral disturbance; anxiety disorder, unspecified; impulse control disorder, unspecified. DISCHARGE MEDICATIONS: Please refer to the [facility]AD. DISCHARGE INSTRUCTIONS: [facility] at [facility]. Time for discharge day management greater than 30 minutes. MAN Frnaklin KIRKPATRICK MD DR: DONATO/marya JOB#: [id number] / [id number]
== END 2018-09-20 10:50 | DRG 57 ==
LOC: EDBD 23:03 → GEROPSY 23:03
PROVIDERS: ADMIT Psychiatry & Neurology Psychiatry; ATTEND Psychiatry & Neurology Psychiatry
DX: G30.9 Alzheimer's disease, unspecified (principal); F01.51 Vascular dementia, unspecified severity, with behavioral disturbance; F02.81 Dementia in other diseases classified elsewhere, unspecified severity, with behavioral disturbance; F05 Delirium due to known physiological condition; G40.509 Epileptic seizures related to external causes, not intractable, without status epilepticus; D64.9 Anemia, unspecified; E78.5 Hyperlipidemia, unspecified; E86.0 Dehydration; F32.9 Major depressive disorder, single episode, unspecified; F41.9 Anxiety disorder, unspecified; F63.9 Impulse disorder, unspecified; I10 Essential (primary) hypertension; I25.10 Atherosclerotic heart disease of native coronary artery without angina pectoris; Z80.51 Family history of malignant neoplasm of kidney; Z82.49 Family history of ischemic heart disease and other diseases of the circulatory system; Z86.73 Personal history of transient ischemic attack (TIA), and cerebral infarction without residual deficits; Z91.81 History of falling; Z87.891 Personal history of nicotine dependence; Z82.5 Family history of asthma and other chronic lower respiratory diseases; Z79.899 Other long term (current) drug therapy; Z88.0 Allergy status to penicillin; Z91.83 Wandering in diseases classified elsewhere
CPT/HCPCS: 36415; 70450; 80053; 80061; 80185; 81001; 83036; 84436; 84443; 84480; 85025; 87086; 93005; J1630; J2060